=== PATIENT | female | born 1935 | race Caucasian/White ===

== ENCOUNTER → 2017-02-01 | Outpatient (CLI) | payer MEDICARE ==
--- NOTE | 2017-02-02 09:16 | MM ---
Reason for exam: screening (asymptomatic). Last mammogram was performed 1 year and 11 months ago. History: Patient is postmenopausal. Benign excisional biopsy of the left breast. Physical Findings: A clinical breast exam by your physician is recommended on an annual basis and results should be correlated with mammographic findings. MG 3D Screening Mammo W/Cad Bilateral CC and MLO view(s) were taken. Prior study comparison: March 10, 2015, bilateral MG screening mammo w CAD. April 12, 2011, bilateral digital screening mammo w/CAD. The breast tissue is heterogeneously dense. This may lower the sensitivity of mammography. There is chronic nodularity in the right breast. No significant changes when compared with prior studies. ASSESSMENT: Benign, BI-RAD 2 RECOMMENDATION: Routine screening mammogram of both breasts in 1 year.
== END | disposition home or self-care (01) ==
LOC: RADMAMWWP 10:54
PROVIDERS: ATTEND Internal Medicine Geriatric Medicine
DX: Z12.31 Encounter for screening mammogram for malignant neoplasm of breast (principal)
CPT/HCPCS: 77063; G0202

== ENCOUNTER → 2020-06-09 | Outpatient (CLI) | payer MEDICARE ==
[2020-06-09 12:14] LABS: Basophils % (A) 0 %; Eosinophils # (A) 0.2 k/uL (0-0.7); Eosinophils % (A) 3 %; HCT 40.1 % (34.0-46.0); HGB 12.6 gm/dL (11.4-16.0); Lymphocytes # (A) 2.4 k/uL (1.0-4.8); Lymphocytes % (A) 28 %; MCH 29.3 pg (25.0-35.0); MCHC 31.3 g/dL (31.0-37.0); MCV 93.5 fL (80.0-100.0); Mean Platelet Volume 7.2; Monocytes # (A) 0.6 k/uL (0-1.0); Monocytes % (A) 6 %; Neutrophils # (A) 5.3 k/uL (1.3-7.7); Neutrophils % (A) 60 %; Platelet Count 271 k/uL (150-450); RBC 4.29 m/uL (3.80-5.40); RDW 12.9 % (11.5-15.5); WBC 8.7 k/uL (3.8-10.6)
[2020-06-09 22:41] LABS: Hemoglobin A1C 5.9 % (4.0-6.0)
[2020-06-09 22:58] LABS: African American GFR (CKD) 43.3 (60.0-200.0); Albumin 4.7 g/dL (3.80-4.90); Albumin/Globulin Ratio 1.74 (1.60-3.17); Anion Gap 11.3 mmol/L (4.00-12.00); Calcium 9.7 mg/dL (8.7-10.3); Carbon Dioxide 26.7 mmol/L (21.6-31.8); Chol/HDL Ratio 2.56; Globulin 2.7 g/dL (1.6-3.3); LDL Cholesterol,Calculated 106.2 mg/dL (0.0-131.0); Non-African American GFR(CKD) 37.4 (60.0-200.0); Total Bilirubin 0.4 mg/dL (0.3-1.2); Total Protein 7.4 g/dL (6.2-8.2); VLDL Calculation 21.8 mg/dL (5.00-40.00)
== END | disposition home or self-care (01) ==
LOC: LABWHC1 11:21
PROVIDERS: ATTEND Internal Medicine Geriatric Medicine
DX: E78.2 Mixed hyperlipidemia (principal); R41.3 Other amnesia; R73.9 Hyperglycemia, unspecified
CPT/HCPCS: 36415; 80053; 80061; 83036; 84443; 85025

== ENCOUNTER 2022-01-23 11:03 | Inpatient (IN) | payer MEDICARE ==
--- NOTE | 2022-01-23 11:12 | ED ---
General Adult HPI - General Stated complaint: Fall Time Seen by Provider: 01/23/22 11:05 Source: patient, EMS, RN notes reviewed Mode of arrival: EMS Limitations: physical limitation - History of Present Illness Initial comments: This 86-year-old female presents emergency Department via EMS with chief complaint of fall, left hip pain. Patient was at home was in the kitchen which she lost her balance falling. Patient does have underlying history of dementia no prior orthopedic surgery. Patient denies any head injury no loss conscious no neck or back pain. Patiently left hip pain declined pain meds a from EMS. Patient offers no other complaints of paresthesias denies any blood thinners - Related Data Allergies Allergy/AdvReac Type Severity Reaction Status Date / Time No Known Allergies Allergy Verified 01/23/22 11:10 Review of Systems ROS Statement: Those systems with pertinent positive or pertinent negative responses have been documented in the HPI. ROS Other: All systems not noted in ROS Statement are negative. General Exam General appearance: alert, in no apparent distress Head exam: Present: atraumatic, normocephalic, normal inspection Neck exam: Present: normal inspection, full ROM. Absent: tenderness, meningismus, lymphadenopathy Respiratory exam: Present: normal lung sounds bilaterally. Absent: respiratory distress, wheezes, rales, rhonchi, stridor Cardiovascular Exam: Present: regular rate, normal rhythm, normal heart sounds. Absent: systolic murmur, diastolic murmur, rubs, gallop, clicks GI/Abdominal exam: Present: soft, normal bowel sounds. Absent: distended, tenderness, guarding, rebound, rigid Extremities exam: Present: other (Left hip there is diffuse tenderness, there is shortening leg, neurovascular intact) Back exam: Present: full ROM. Absent: tenderness Neurological exam: Present: alert Skin exam: Present: warm, dry, intact, normal color. Absent: rash Course Vital Signs 01/23/22 11:07 Temperature 98.1 F Pulse Rate 85 Respiratory 16 Rate Blood Pressure 141/76 O2 Sat by Pulse 96 Oximetry Medical Decision Making - Medical Decision Making Case discussed Dr. Eddy patient will be admitted for surgical intervention, consult to medicine for surgical clearance. - Lab Data Result diagrams: 01/23/22 11:25 01/23/22 11:25 Lab Results 01/23/22 01/23/22 Range/Units 11:25 11:25 WBC 12.4 H (3.8-10.6) k/uL RBC 4.08 (3.80-5.40) m/uL Hgb 12.2 (11.4-16.0) gm/dL Hct 38.2 (34.0-46.0) % MCV 93.4 (80.0-100.0) fL MCH 29.8 (25.0-35.0) pg MCHC 31.9 (31.0-37.0) g/dL RDW 13.3 (11.5-15.5) % Plt Count 278 (150-450) k/uL MPV 7.5 Neutrophils % 80 % Lymphocytes % 12 % Monocytes % 4 % Eosinophils % 2 % Basophils % 0 % Neutrophils # 10.0 H (1.3-7.7) k/uL Lymphocytes # 1.4 (1.0-4.8) k/uL Monocytes # 0.6 (0-1.0) k/uL Eosinophils # 0.2 (0-0.7) k/uL Basophils # 0.1 (0-0.2) k/uL Sodium 138 (137-145) mmol/L Potassium 3.8 (3.5-5.1) mmol/L Chloride 103 (98-107) mmol/L Carbon Dioxide 24 (22-30) mmol/L Anion Gap 11 mmol/L BUN 37 H (7-17) mg/dL Creatinine 1.55 H (0.52-1.04) mg/dL Est GFR (CKD-EPI)AfAm 35 (>60 ml/min/1.73 sqM) Est GFR (CKD-EPI)NonAf 30 (>60 ml/min/1.73 sqM) Glucose 107 H (74-99) mg/dL Calcium 9.0 (8.4-10.2) mg/dL Total Bilirubin 0.3 (0.2-1.3) mg/dL AST 22 (14-36) U/L ALT 13 (4-34) U/L Alkaline Phosphatase 124 (38-126) U/L Total Protein 7.6 (6.3-8.2) g/dL Albumin 4.4 (3.5-5.0) g/dL Disposition Clinical Impression: Fall, Fracture, intertrochanteric, left femur Disposition: ADMITTED IP TO THIS HOSP Condition: Fair Referrals: José Miguel Bustamante MD [Primary Care Provider] - 1-2 days Time of Disposition: 12:19
[2022-01-23] MEDS ORDERED: HYDROmorphone 0.5 MG/0.5 ML SYRINGE IVP STA (11:27)
[2022-01-23] MEDS ORDERED: ONDANSETRON 4 MG/2 ML VIAL IVP STA (11:28)
[2022-01-23 11:52] LABS: Albumin 4.4 g/dL (3.5-5.0); Potassium 3.8 mmol/L (3.5-5.1); Total Bilirubin 0.3 mg/dL (0.2-1.3); Total Protein 7.6 g/dL (6.3-8.2)
--- NOTE | 2022-01-23 11:58 | XR ---
EXAMINATION TYPE: XR chest 1V DATE OF EXAM: 01/23/2022 COMPARISON: 11/13/2015 HISTORY: Trauma TECHNIQUE: Single frontal view of the chest is obtained. FINDINGS: There is no focal air space opacity, pleural effusion, or pneumothorax seen. The cardiac silhouette size is within normal limits. The osseous structures are intact. IMPRESSION: No acute process.
--- NOTE | 2022-01-23 11:59 | XR ---
EXAMINATION TYPE: XR Hip LT and AP Pelvis DATE OF EXAM: 01/23/2022 COMPARISON: NONE HISTORY: Trauma TECHNIQUE: A single AP view of the pelvis is obtained. Two views of the left hip are obtained. FINDINGS: There is a markedly displaced intertrochanteric fracture of the left hip. Right hip is intact. There is no pelvic fracture. The SI joints and pubic symphysis are normal IMPRESSION: Markedly displaced intertrochanteric fracture of the left.
[2022-01-23 12:02] LABS: INR 0.9 (<1.2); Prothrombin Time 9.9 sec (9.0-12.0)
[2022-01-23 12:09] LABS: Basophils # (A) 0.1 k/uL (0-0.2); Basophils % (A) 0 %; Eosinophils # (A) 0.2 k/uL (0-0.7); Eosinophils % (A) 2 %; HCT 38.2 % (34.0-46.0); HGB 12.2 gm/dL (11.4-16.0); Lymphocytes # (A) 1.4 k/uL (1.0-4.8); Lymphocytes % (A) 12 %; MCH 29.8 pg (25.0-35.0); MCHC 31.9 g/dL (31.0-37.0); MCV 93.4 fL (80.0-100.0); Mean Platelet Volume 7.5; Monocytes # (A) 0.6 k/uL (0-1.0); Monocytes % (A) 4 %; Neutrophils % (A) 80 %; Platelet Count 278 k/uL (150-450); RBC 4.08 m/uL (3.80-5.40); RDW 13.3 % (11.5-15.5); WBC 12.4 k/uL (3.8-10.6)
[2022-01-23] MEDS ORDERED: NALOXONE 0.4 MG/ML 1 ML VIAL IV PRN (12:19)
[2022-01-23] MEDS ORDERED: ONDANSETRON 4 MG/2 ML VIAL IVP PRN (12:19)
[2022-01-23 12:25] LABS: Partial Thromboplastin Time 21.3 sec (22.0-30.0)
[2022-01-23 13:14] LABS: Appearance,Urine Clear (Clear); Bacteria,Urine Rare /hpf; Bilirubin,Urine Negative (Negative); Blood,Urine Negative (Negative); Color,Urine Yellow; Glucose,Urine (UA) Negative (Negative); Hyaline Casts,Urine 4 /lpf (0-2); Ketones,Urine Negative (Negative); Leukocyte Esterase,Urine Trace (Negative); Mucus,Urine Rare /hpf; Nitrite,Urine Negative (Negative); Protein,Urine Trace (Negative); RBC,Urine 1 /hpf (0-5); Specific Gravity,Urine 1.017 (1.001-1.035); Urobilinogen,Urine <2.0 mg/dL (<2.0); WBC,Urine 1 /hpf (0-5)
--- NOTE | 2022-01-23 14:25 | P.HPOR ---
History of Present Illness H&P Date: 01/23/22 Chief Complaint: Left hip pain, status post fall, inability to ambulate Patient is a very pleasant 86-year-old female who is seen in the bedside with her family present for further evaluation of her left hip. Patient sustained a fall this morning at home and her was unable to get her up off the floor. Patient has been unable to ambulate on the left lower extremity since her fall. She was brought to [facility] for further evaluation. X-ray imaging was taken at that time and showed evidence of a left intertrochanteric hip fracture. Patient is currently nonweightbearing on the left lower extremity and on bedrest. She has a Guerrero catheter intact. Medicine is currently on consult for medical management. Patient is not on any an ticoagulation medication. Patient's other medical diagnoses include COPD and hypertension. Past Medical History Past Medical History: COPD, Dementia, Hypertension, Memory Impairment, Osteoarthritis (OA) History of Any Multi-Drug Resistant Organisms: None Reported Past Surgical History: No Surgical Hx Reported Past Psychological History: No Psychological Hx Reported Smoking Status: Former smoker Past Alcohol Use History: None Reported Past Drug Use History: None Reported Medications and Allergies Home Medications Medication Instructions Recorded Confirmed Type ALPRAZolam [Xanax] 0.25 mg PO HS 01/23/22 01/23/22 History Atorvastatin Calcium [Lipitor] 10 mg PO DAILY 01/23/22 01/23/22 History DULoxetine HCL [Cymbalta] 20 mg PO DAILY 01/23/22 01/23/22 History Rivastigmine Tartrate [Exelon] 3 mg PO HS 01/23/22 01/23/22 History Sodium Chloride Tab 1 gm PO HS 01/23/22 01/23/22 History Triamterene-Hctz 37.5-25Mg 1 tab PO HS 01/23/22 01/23/22 History [Maxzide 37.5-25] lisinopriL [Zestril] 10 mg PO HS 01/23/22 01/23/22 History Allergies Allergy/AdvReac Type Severity Reaction Status Date / Time No Known Allergies Allergy Verified 01/23/22 12:58 Physical Examination Osteopathic Statement: *. No significant issues noted on an osteopathic structu ral exam other than those noted in the History and Physical/Consult. Physical exam: Patient is awake, alert, and oriented 3 Vital signs stable Good chest excursion with deep inspiration and expiration Left lower extremity is shortened and externally rotated Pain with palpation of the left hip Significant pain with internal and external rotation of the left hip Neurovascularly intact bilateral lower extremities Dorsiflexion, plantarflexion, and extensor hallucis longus positive sustained bilaterally Calves are soft and supple; No signs or symptoms of DVT; No calf pain Guerrero catheter intact Results Pertinent studies: X-rays of the left hip and pelvis taken on 01/23/2022: Evidence of displaced left intertrochanteric hip fracture; no evidence of pelvic fracture; right hip joint spacing is adequately maintained - Labs Labs: Abnormal Lab Results - Last 24 Hours (Table) 01/23/22 01/23/22 01/23/22 Range/Units 11:25 11:25 11:25 WBC 12.4 H (3.8-10.6) k/uL Neutrophils # 10.0 H (1.3-7.7) k/uL APTT 21.3 L (22.0-30.0) sec BUN 37 H (7-17) mg/dL Creatinine 1.55 H (0.52-1.04) mg/dL Glucose 107 H (74-99) mg/dL Urine Protein (Negative) Ur Leukocyte Esterase (Negative) Urine Bacteria (None) /hpf Hyaline Casts (0-2) /lpf Urine Mucus (None) /hpf 01/23/22 Range/Units 12:42 WBC (3.8-10.6) k/uL Neutrophils # (1.3-7.7) k/uL APTT (22.0-30.0) sec BUN (7-17) mg/dL Creatinine (0.52-1.04) mg/dL Glucose (74-99) mg/dL Urine Protein Trace H (Negative) Ur Leukocyte Esterase Trace H (Negative) Urine Bacteria Rare H (None) /hpf Hyaline Casts 4 H (0-2) /lpf Urine Mucus Rare H (None) /hpf H & H 01/23/22 Range/Units 11:25 Hgb 12.2 (11.4-16.0) gm/dL Hct 38.2 (34.0-46.0) % Coagulation 01/23/22 Range/Units 11:25 INR 0.9 (<1.2) Result Diagrams: 01/23/22 11:25 01/24/22 11:26 Assessment and Plan Assessment: Assessment: Acute traumatic left intertrochanteric hip fracture Status post fall Acute left hip pain Inability to ambulate due to hip COPD Hypertension (1) Status post fall Current Visit: Yes Status: Acute Code(s): Z91.81 - HISTORY OF FALLING SNOMED Code(s): 099583911 (2) Left hip pain Current Visit: Yes Status: Acute Code(s): M25.552 - PAIN IN LEFT HIP SNOMED Code(s): 56604141 (3) Inability to ambulate due to left hip Current Visit: Yes Status: Acute Code(s): R26.2 - DIFFICULTY IN WALKING, NOT ELSEWHERE CLASSIFIED SNOMED Code(s): 948638765 (4) Fracture, intertrochanteric, left femur Current Visit: Yes Status: Acute Code(s): S72.142A - DISPLACED INTERTROCHANTERIC FRACTURE OF LEFT FEMUR, INIT SNOMED Code(s): 212798395 (5) COPD (chronic obstructive pulmonary disease) Current Visit: Yes Status: Acute Code(s): J44.9 - CHRONIC OBSTRUCTIVE PULMONARY DISEASE, UNSPECIFIED SNOMED Code(s): 72613345 (6) Hypertension Current Visit: Yes Status: Acute Code(s): I10 - ESSENTIAL (PRIMARY) HYPERTENSION SNOMED Code(s): 98100786 Plan: Plan: 1. The patient sustained a fall this morning at home and was unable to get up off of floor and has been unable to ambulate on the left lower extremity since that time. She was brought to [facility] for further evaluation. X-ray imaging showed evidence of a displaced left intertrochanteric hip fracture. She was admitted to our service for further treatment and eval uation. We did discuss in detail with the patient and her family that based on her left intertrochanteric hip fracture that she would most likely be unable to ambulate on her left lower extremity without surgical intervention to stabilize her fracture. Patient is also having significant pain at her left hip which is exacerbated with any movement of the left hip and with palpation of the left hip . Patient states based on her fracture, pain, and inability to ambulate, she would like to proceed forward with surgical intervention at her left hip. We will currently plan to proceed forward with surgical intervention tomorrow, 01/24/2022, if cleared by medicine. Consultation has been placed medicine for surgical clearance. The proposed surgical intervention is left gamma nail fixation for left intertrochanteric hip fracture. Surgery will be performed by Dr. Kassi Eddy. I discussed surgical intervention with the patient at length and I answered all of their questions to the best of my ability and the patient understands. I discussed the risk of surgical intervention and alternative t reatment options. I answered all the patient's questions the best of my ability. The patient would like to proceed forward with surgical intervention and will sign informed consent. 2. Patient will remain on bed rest and nonweightbearing on the left lower extremity 3. Keep Guerrero catheter intact 4. We will continue pain control with IV Dilaudid. We will also plan to add oral Ultram 50 mg 1-2 tabs every 6 hours as needed for pain and Tylenol 650 mg 1 tab every 6 hours as needed for pain for pain control. 5. Patient may eat today and will become nothing by mouth status starting at midnight, 01/24/2022, in anticipation for surgical intervention tomorrow. Surgical intervention is currently scheduled for tomorrow afternoon. 6. We will continue to follow the patient closely Seen and examined. Agree with above A/P. Spoke with family. Will plan for cephalomedullary nail. Time with Patient: Greater than 30 (Including obtaining history, physical e xamination, reviewing of imaging, and dictation.)
[2022-01-23] MEDS: traMADol 50 MG TAB PO PRN (18:54)
--- NOTE | 2022-01-24 11:13 | P.CONS ---
History of Present Illness - Reason for Consult Consult date: 01/24/22 Medical clearance - Chief Complaint Status post fall and left trochanter fracture - History of Present Illness Patient is a 86-year-old female with a known history of hypertension, COPD, dementia, osteoarthritis and prior history of smoking was brought to the hospital due to left hip pain status post fall. Patient was unable to ambulate after she sustained a fall. Patient's was unable to get her off from the floor. She was brought to ER for evaluation. X-ray of the left hip showed markedly displaced intertrochanteric fracture of the left. EKG showed sinus rhythm with sinus arrhythmia. Laboratory data showed WBC 12.4 hemoglobin 12.2 and platelets 278 Sodium 138 potassium 3.8 chloride 103 bicarb is 24 BUN 37 and creatinine 1.55 and liver enzymes are not elevated Urinalysis showed no evidence of infection. currently patient denied any complaints of chest pain or shortness of breath. No nausea vomiting or abdominal pain or diarrhea. Denied any recent illnesses. No cough is from production. No fever no chills. Review of Systems Constitutional: Patient denies any fever or chills . No generalized weakness or weight loss. Abdomen: Patient denied nausea vomiting and diarrhea and abdominal pain. Cardiovascular: Patient denies any chest pain or short of breath no palpitations. Respiratory: patient denied any cough is from production. No shortness of breath Neurologic: Patient denied any numbness or tingling headache. Musculoskeletal: Patient denies any complaints of joint swelling or deformity. Left hip pain. Skin: Negative Psychiatric: Negative Endocrine: No heat or cold intolerance. No recent weight gain. Genitourinary: No dysuria or hematuria. All other 14 point ROS negative except the above Past Medical History Past Medical History: COPD, Dementia, Hypertension, Memory Impairment, Osteoarthritis (OA) History of Any Multi-Drug Resistant Organisms: None Reported Past Surgical History: No Surgical Hx Reported Past Psychological History: No Psychological Hx Reported Smoking Status: Former smoker Past Alcohol Use History: None Reported Past Drug Use History: None Reported Medications and Allergies Home Medications Medication Instructions Recorded Confirmed Type ALPRAZolam [Xanax] 0.25 mg PO HS 01/23/22 01/23/22 History Atorvastatin Calcium [Lipitor] 10 mg PO DAILY 01/23/22 01/23/22 History DULoxetine HCL [Cymbalta] 20 mg PO DAILY 01/23/22 01/23/22 History Rivastigmine Tartrate [Exelon] 3 mg PO HS 01/23/22 01/23/22 History Sodium Chloride Tab 1 gm PO HS 01/23/22 01/23/22 History Triamterene-Hctz 37.5-25Mg 1 tab PO HS 01/23/22 01/23/22 History [Maxzide 37.5-25] lisinopriL [Zestril] 10 mg PO HS 01/23/22 01/23/22 History Allergies Allergy/AdvReac Type Severity Reaction Status Date / Time No Known Allergies Allergy Verified 01/23/22 12:58 Physical Exam Vitals: Vital Signs Temp Pulse Pulse Resp BP BP Pulse Ox 01/24/22 07:32 97.8 F 85 18 97/60 98 01/24/22 00:59 99.8 F H 109 H 17 103/67 97 01/23/22 20:00 89 15 01/23/22 18:48 97.9 F 112 H 18 118/70 93 L 01/23/22 13:47 98.2 F 98 18 149/77 91 L 01/23/22 13:23 97.7 F 93 16 116/62 95 01/23/22 11:07 98.1 F 85 16 141/76 96 Intake and Output 01/23/22 01/24/22 01/24/22 22:59 06:59 14:59 Output Total 600 Balance -600 Output: Urine 600 Other: Voiding Method Indwelling Catheter Indwelling Catheter PHYSICAL EXAMINATION: Patient is lying in the bed comfortably, no acute distress, awake alert and oriented.. HEENT: Normocephalic. Neck is supple. Pupils reactive. Nostrils clear. Oral cavity is moist. Neck reveals no JVD, carotid bruits, or thyromegaly. CHEST EXAMINATION: Trachea is central. Symmetrical expansion. Lung odell clear to auscultation and percussion. CARDIAC: Normal S1, S2 with no gallops. No murmurs ABDOMEN: Soft. Bowel sounds normal. No organomegaly. No abdominal bruits. Extremities: reveal no edema. No clubbing or cyanosis Neurologically awake, alert, oriented x3 with well-coordinated movements. No focal deficits noted Skin: No rash or skin lesions. Psychiatric: Coperative. Nonsuicidal Musculoskeletal: No joint swelling or deformity. Tenderness over the left greater trochanteric region. Decreased range of motion. Results CBC & Chem 7: 01/23/22 11:25 01/23/22 11:25 Labs: Abnormal Lab Results - Last 24 Hours (Table) 01/23/22 01/23/22 01/23/22 Range/Units 11:25 11:25 11:25 WBC 12.4 H (3.8-10.6) k/uL Neutrophils # 10.0 H (1.3-7.7) k/uL APTT 21.3 L (22.0-30.0) sec BUN 37 H (7-17) mg/dL Creatinine 1.55 H (0.52-1.04) mg/dL Glucose 107 H (74-99) mg/dL Urine Protein (Negative) Ur Leukocyte Esterase (Negative) Urine Bacteria (None) /hpf Hyaline Casts (0-2) /lpf Urine Mucus (None) /hpf 01/23/22 Range/Units 12:42 WBC (3.8-10.6) k/uL Neutrophils # (1.3-7.7) k/uL APTT (22.0-30.0) sec BUN (7-17) mg/dL Creatinine (0.52-1.04) mg/dL Glucose (74-99) mg/dL Urine Protein Trace H (Negative) Ur Leukocyte Esterase Trace H (Negative) Urine Bacteria Rare H (None) /hpf Hyaline Casts 4 H (0-2) /lpf Urine Mucus Rare H (None) /hpf Assessment and Plan Assessment: status post mechanical fall and left intertrochanteric fracture of the hip. Mild acute kidney injury likely prerenal Hypertension. Currently hypotensive COPD Eventually an x-ray and osteoarthritis DVT prophylaxis Plan: patient will be continued on pain management, incentive spirometry. Patient does take lisinopril and Dyazide at home. Blood pressure medications on hold due to hypotension. Patient will be started on gentle IV hydration and monitor his pressures closely. Patient does not have any active symptoms of chest pain. No prior history of coronary disease. No history of CVA. Patient is at low risk for orthopedic surgery. We'll continue to follow and further recommendations based on the clinical course. Thank you for your consult Time with Patient: Greater than 30
[2022-01-24] MEDS: traMADol 50 MG TAB PO PRN (11:17)
[2022-01-24 12:09] LABS: African American GFR (CKD) 35 (>60 ml/min/1.73 sqM); Anion Gap 10 mmol/L; Blood Urea Nitrogen 38 mg/dL (7-17); Calcium 8.8 mg/dL (8.4-10.2); Carbon Dioxide 24 mmol/L (22-30); Chloride 103 mmol/L (98-107); Glucose 128 mg/dL (74-99); Non-African American GFR(CKD) 30 (>60 ml/min/1.73 sqM); Potassium 4.2 mmol/L (3.5-5.1); Sodium 137 mmol/L (137-145)
[2022-01-24] MEDS ORDERED: TEMAZEPAM 15 MG CAP PO PRN (14:57)
[2022-01-24] MEDS ORDERED: MAGNESIUM HYDROXIDE 2,400 MG/10 ML CUP PO PRN (14:57)
[2022-01-24] MEDS ORDERED: diazePAM 5 MG TAB PO PRN (14:57)
[2022-01-24] MEDS ORDERED: HYDROcodone/APAP 5-325MG 1 EACH TAB PO PRN ×2 (14:57)
[2022-01-24] MEDS: SODIUM CHLORIDE 0.9% 1,000 ML IV SCH ×2 (15:25→23:49)
[2022-01-24] MEDS ORDERED: LACTATED RINGERS 1,000 ML IV ONE (15:45)
[2022-01-24] MEDS ORDERED: DEXAMETHASONE SOD PHOSPHATE 4 MG/ML 1 ML VIAL IVP ONE (15:50)
[2022-01-24] MEDS ORDERED: ONDANSETRON 4 MG/2 ML VIAL IVP ONE (15:50)
[2022-01-24] MEDS ORDERED: fentaNYL (PF) 50 MCG/ML 2 ML AMP ONE (16:00)
[2022-01-24] MEDS ORDERED: LIDOCAINE 2% INJ 20 MG/ML (2 ML VIAL) ONE (16:00)
[2022-01-24] MEDS ORDERED: PHENYLEPHRINE-0.9% NACL SYG 1,000 MCG/10 ML SYRINGE ONE (16:00)
[2022-01-24] MEDS ORDERED: PROPOFOL 10 MG/ML 20 ML VIAL IV ONE (16:00)
[2022-01-24] MEDS ORDERED: KETAMINE 10 MG/ML 20 ML VIAL ONE (16:00)
[2022-01-24] MEDS ORDERED: MIDAZOLAM 2 MG/2 ML VIAL ONE (16:00)
[2022-01-24] MEDS: HYDROmorphone 0.5 MG/0.5 ML SYRINGE IVP PRN ×2 (18:19→18:30)
--- NOTE | 2022-01-24 18:50 | XR ---
EXAMINATION TYPE: XR Hip Complete LT, XR Hip Limited LT DATE OF EXAM: 01/24/2022 6:07 PM INDICATION: Patient age:Female; 86 years old; Reason for study: LEFT HIP NAILING; Intraoperative fluoroscopic services were provided for internal fixation of a left femur. Total fluor oscopy time is 1 minute 17 seconds with a total of 3 submitted images to PACS. Please see the operati ve note for further details.
--- NOTE | 2022-01-24 18:54 | FL ---
Intraoperative fluoroscopic services were provided for internal fixation of a left femur. Total fluor oscopy time is 1 minute 17 seconds with a total of 3 submitted images to PACS. Please see the operati ve note for further details.
[2022-01-24] MEDS: DONEPEZIL 5 MG TAB PO SCH (21:41)
[2022-01-24] MEDS: SODIUM CHLORIDE TAB 1 GM TAB PO SCH (21:41)
[2022-01-24] MEDS: ALPRAZolam 0.25 MG TAB PO SCH (21:41)
[2022-01-24] MEDS: SENNOSIDES-DOCUSATE SODIUM 1 EACH TAB PO SCH (21:41)
[2022-01-25] MEDS: ACETAMINOPHEN TAB 325 MG TAB PO PRN (02:59)
[2022-01-25] MEDS: ATORVASTATIN 10 MG TAB PO SCH (07:34)
[2022-01-25] MEDS: DULoxetine HCL 20 MG CAPSULE.DR PO SCH (07:34)
[2022-01-25] MEDS: ENOXAPARIN 30 MG/0.3 ML SYRINGE SQ SCH (07:35)
[2022-01-25] MEDS ORDERED: ENOXAPARIN 40 MG/0.4 ML SYRINGE SQ SCH (09:00)
--- NOTE | 2022-01-25 09:21 | P.OP ---
Date of Procedure: 10/24/21 Preoperative Diagnosis: Left hip intertrochanteric fracture Postoperative Diagnosis: same Procedure(s) Performed: Left hip cephalomedullary nail Implants: Erica Gamma Nail 180mm, lag screw 100mm screw, 37.5mm screw Anesthesia: paulo COMBS Surgeon: Kassi Eddy IV fluids (ml): 50 Condition: stable Disposition: PACU Indications for Procedure: Joceline had a ground level fall and sustained an intertrochanteric fracture. Her family and I had a long discussion about the implications of a hip fracture and her treatment options. They would like to proceed with surgical fixation. Description of Procedure: The patient, operative extremity, and procedure were identified in a the preop holding area. After informed consent was obtained, the patient was brought back to the operative room. Spinal anesthesia was performed by the anesthesia team. The block seemed incomplete and the decision was made to switch to general anesthesia. The patient was then moved to the Eleln table and carefully positioned and secured with legs scissored. The Ellen table was then used to reduce the fracture. This was confirmed on fluoroscopy. The hip was then prepped and draped in standard sterile fashion. A longitudinal incision was made proximal to the greater trochanter. The awn was introduced to the tip of the trochanter and the guide wire placed. Placement was confirmed on orthogonal views. The starting reamer was used over the guide wire. Following this, the ball tip guide wire was inserted into the canal. Placement was again confirmed. A 12.5mm flexible reamer was inserted and passed easily. The final implant was then loaded and inserted with the jig. The nail passed easily and once the correct alignment was achieved, attention was turned to the cephalomedullary nail. The guide wire was inserted through the triple sleeve cannula. On orthogonal views it was center center and with a tip to apex of less than 25mm. This measured 100mm. The reamer was inserted followed by the lag screw. Placement was again confirmed. Next the nail was locked with a 37.5mm screw placed through the static position of the jig. The wounds were irrigated with normal saline and closed in a layered fashion with 3.0 vicyrl and 4.0 monocryl and skin glue. They were dressed with opsite dressings. Patient was aroused by the anesthesia team and brought back to PACU in stable condition. She will be weight bear as tolerated.
[2022-01-25 09:24] LABS: HCT 24.7 % (37.2-46.3); HGB 7.8 g/dL (12.0-15.0); MCH 29.3 pg (27.0-32.0); MCHC 31.6 g/dL (32.0-37.0); MCV 92.9 fL (80.0-97.0); Mean Platelet Volume 10.6 fL (9.5-12.2); NRBC Per 100 WBC 0 /100 WBCS (0.0-0.0); Platelet Count 189 X 10*3/uL (140-440); RBC 2.66 X 10*6/uL (4.10-5.20); RDW 13.2 % (11.5-14.5); WBC 13.64 X 10*3/uL (4.50-10.00)
--- NOTE | 2022-01-25 09:54 | P.PN ---
Subjective Progress Note Date: 01/25/22 Principal diagnosis: Status post left hip cephalomedullary nail This is an 86 year-old female post left hip cephalomedullary nail. This is post-op day 1. The patient was evaluated at the bedside today. The patient denies nausea, vomiting, abdominal pain, shortness of breath, and chest pain this morning. She states her pain is controlled at this time with Ultram. The patient has ambulated to the bathroom with physical therapy this morning and is currently in the recliner chair. No new complaints today. Objective - Vital Signs Vital signs: Vital Signs Temp 98.6 F 01/25/22 08:01 Pulse 100 01/25/22 08:01 Resp 16 01/25/22 08:01 BP 110/60 01/25/22 08:01 Pulse Ox 92 L 01/25/22 08:01 FiO2 Intake & Output 01/24/22 01/25/22 01/25/22 18:59 06:59 18:59 Intake Total 600 240 Output Total 550 400 Balance 50 -400 240 Intake: IV 600 Oral 240 Output: Urine 500 400 Estimated Blood Loss 50 Other: Voiding Method Indwelling Catheter Indwelling Catheter Indwelling Catheter - Exam The patient does not appear in acute distress. Alert and orientated x3. Dressing is clean dry and intact. Incision appears fine with no erythema or active drainage. Calf is soft and nontender. Good foot and ankle motion without difficulty. Sensation and circulatory status is intact. - Labs CBC & Chem 7: 01/25/22 04:59 01/24/22 11:26 Labs: Abnormal Lab Results - Last 24 Hours (Table) 01/24/22 01/25/22 Range/Units 11:26 04:59 WBC 13.64 H (4.50-10.00) X 10*3/uL RBC 2.66 L (4.10-5.20) X 10*6/uL Hgb 7.8 L (12.0-15.0) g/dL Hct 24.7 L (37.2-46.3) % MCHC 31.6 L (32.0-37.0) g/dL BUN 38 H (7-17) mg/dL Creatinine 1.55 H (0.52-1.04) mg/dL Glucose 128 H (74-99) mg/dL Assessment and Plan (1) Status post hip surgery Current Visit: Yes Status: Acute Code(s): Z98.890 - OTHER SPECIFIED POSTPROCEDURAL STATES SNOMED Code(s): 660084845 (2) Fall Current Visit: Yes Status: Acute Code(s): W19.XXXA - UNSPECIFIED FALL, INITIAL ENCOUNTER SNOMED Code(s): 4060599 (3) Fracture, intertrochanteric, left femur Current Visit: Yes Status: Acute Code(s): S72.142A - DISPLACED INTERTROCHANTERIC FRACTURE OF LEFT FEMUR, INIT SNOMED Code(s): 892713158 Plan: 1. Continue pain control 2. Anticoagulation with Lovenox 3. Continue physical therapy and ambulation. Weightbearing as tolerated. 4. Anticipate discharge to inpatient rehab vs. subacute rehab vs. home with homecare depending on how she does today and tomorrow.
[2022-01-25 10:59] LABS: Basophils # (A) 0.01 X 10*3/uL (0.00-0.10); Basophils % (A) 0.1 %; Eosinophils # (A) 0 X 10*3/uL (0.04-0.35); Eosinophils % (A) 0 %; Immature Grans, Automated 0.5 %; Lymphocytes # (A) 1.26 X 10*3/uL (0.90-5.00); Lymphocytes % (A) 9.2 %; Monocytes # (A) 2.14 X 10*3/uL (0.20-1.00); Monocytes % (A) 15.7 %; Neutrophils # (A) 10.16 X 10*3/uL (1.80-7.70); Neutrophils % (A) 74.5 %
--- NOTE | 2022-01-25 12:33 | P.CONS ---
History of Present Illness - Chief Complaint Walking difficulty, left hip fracture - History of Present Illness I had the opportunity to see patient for inpatient rehab consultation with regard to walking difficulty. Patient admitted to [facility] January 23 history trip and fall resultant left hip pain. X-ray demonstrated ability fracture and underwent ORIF January [address] Dr. Eddy. Seen medically by Dr. Kwan. No chest x-ray done and negative. Patient is start PT reports no assist bed mobility, transfer, gait 30 feet with roller walker. OT prescribed. Previous functional history as elicited from patient, , daughter: 86-year-old right-handed white female who is lives in one floor home wit h basement with . generally uses wheelchair for mobility. The cooking. Patient and share the laundry. does the driving. Patient previously been with sitdown shower and gait with standard cane. PCP Dr. Bustamante. Denies tobacco or alcohol. Review of Systems Review of systems: ENT: Hard of hearing. Eyes: Denies discharge or photophobia. Cardiac: Denies chest pain or palpitation. Pulmonary: Denies cough or shortness of breath. Breast: Denies discharge or lumps. Gastrointestinal: Denies nausea, emesis, constipation, diarrhea. Genitourinary: Denies discharge or frequency. Musculoskeletal: Left hip discomfort. Neurologic: Denies motor or sensory change. Endocrine: Denies shakes or sweats. Oncology: Denies cancers. Dermatologic: Denies rash, itching, pruritus. ALLERGY/immunology: Denies sneezes, rashes. Past Medical History Past Medical History: COPD, Dementia, Hypertension, Memory Impairment, Osteoarthritis (OA) History of Any Multi-Drug Resistant Organisms: None Reported Past Surgical History: No Surgical Hx Reported Past Psychological History: No Psychological Hx Reported Smoking Status: Former smoker Past Alcohol Use History: None Reported Past Drug Use History: None Reported Medications and Allergies Home Medications Medication Instructions Recorded Confirmed Type ALPRAZolam [Xanax] 0.25 mg PO HS 01/23/22 01/23/22 History Atorvastatin Calcium [Lipitor] 10 mg PO DAILY 01/23/22 01/23/22 History DULoxetine HCL [Cymbalta] 20 mg PO DAILY 01/23/22 01/23/22 History Rivastigmine Tartrate [Exelon] 3 mg PO HS 01/23/22 01/23/22 History Sodium Chloride Tab 1 gm PO HS 01/23/22 01/23/22 History Triamterene-Hctz 37.5-25Mg 1 tab PO HS 01/23/22 01/23/22 History [Maxzide 37.5-25] lisinopriL [Zestril] 10 mg PO HS 01/23/22 01/23/22 History Allergies Allergy/AdvReac Type Severity Reaction Status Date / Time No Known Allergies Allergy Verified 01/23/22 12:58 Physical Exam Vitals: Vital Signs Temp Pulse Resp BP Pulse Ox 01/25/22 08:01 98.6 F 100 16 110/60 92 L 01/25/22 07:15 14 01/25/22 02:58 98.2 F 110 H 14 97/60 99 01/24/22 22:00 105 H 102/66 99 01/24/22 21:30 102 H 96/66 99 01/24/22 21:15 99 97/69 98 01/24/22 20:45 98 97/69 100 01/24/22 20:30 102 H 116/72 99 01/24/22 20:15 68 116/72 100 01/24/22 20:00 105 H 108/71 87 L 01/24/22 19:45 97.5 F L 104 H 14 101/67 97 01/24/22 19:00 100 18 144/66 98 01/24/22 18:45 100 18 143/67 99 01/24/22 18:30 100 18 144/67 99 01/24/22 18:15 100 18 139/64 99 01/24/22 18:09 98 F 100 18 134/76 99 01/24/22 15:45 99.2 F 94 20 111/55 97 01/24/22 14:15 98.2 F 74 18 92/50 98 Intake and Output 01/24/22 01/25/22 01/25/22 22:59 06:59 14:59 Intake Total 600 240 Output Total 750 200 Balance -150 -200 240 Intake: IV 600 Oral 240 Output: Urine 700 200 Estimated Blood Loss 50 Other: Voiding Method Indwelling Catheter Indwelling Catheter Skin: Atrophic, intact. General: Thin build and comfortable appearance. Head: Normocephalic, atraumatic. Eyes: Symmetric. Pupils equal round. Ears: Symmetric. Hearing within normal limits. Mouth: Clear. Neck: Supple. Carotid without bruit. Cardiac: Regular rate and rhythm. Lungs: Clear anteriorly and posteriorly. Abdomen: Soft active nontender. Extremities: Normal tone. Neurological: Mental status: Alert, cooperative, pleasant. Cranial nerves: Symmetric facial tone and trapezius. Motor: Active movement both arms and right leg. Giveaway weakness left hip and leg but active movement at ankle. Sensation: Intact throughout. DTRs: Symmetric and equal throughout. Mobility: Requires physical assist for bed mobility. Results CBC & Chem 7: 01/25/22 04:59 01/24/22 11:26 Labs: Abnormal Lab Results - Last 24 Hours (Table) 01/25/22 Range/Units 04:59 WBC 13.64 H (4.50-10.00) X 10*3/uL RBC 2.66 L (4.10-5.20) X 10*6/uL Hgb 7.8 L (12.0-15.0) g/dL Hct 24.7 L (37.2-46.3) % MCHC 31.6 L (32.0-37.0) g/dL Immature Gran # 0.07 H (0.00-0.04) X 10*3/uL Neutrophils # 10.16 H (1.80-7.70) X 10*3/uL Monocytes # 2.14 H (0.20-1.00) X 10*3/uL Eosinophils # 0 L (0.04-0.35) X 10*3/uL Assessment and Plan (1) COPD (chronic obstructive pulmonary disease) Current Visit: Yes Status: Acute Code(s): J44.9 - CHRONIC OBSTRUCTIVE PULMONARY DISEASE, UNSPECIFIED SNOMED Code(s): 50168489 (2) Fracture, intertrochanteric, left femur Current Visit: Yes Status: Acute Code(s): S72.142A - DISPLACED INTERTROCHANTERIC FRACTURE OF LEFT FEMUR, INIT SNOMED Code(s): 106349417 Plan: Comments and plan: At this time safety concerns and ability to participate with therapy noted by PT. Would anticipate OT find safety concerns and benefit as well. We'll follow for therapy notes. Discussed possible inpatient rehab with patient, , daughter and all seem agreeable. Patient's preference of course would be to return home but she understands possibility of high by IPR.
[2022-01-25] MEDS ORDERED: SODIUM CHLORIDE 0.9% 500 ML 500 ML IV ONE (15:01)
[2022-01-25] MEDS: SODIUM CHLORIDE 0.9% 1,000 ML IV SCH (16:13)
[2022-01-25] MEDS: SODIUM CHLORIDE TAB 1 GM TAB PO SCH (20:30)
[2022-01-25] MEDS: DONEPEZIL 5 MG TAB PO SCH (20:30)
[2022-01-25] MEDS: ALPRAZolam 0.25 MG TAB PO SCH (20:30)
[2022-01-25] MEDS: SENNOSIDES-DOCUSATE SODIUM 1 EACH TAB PO SCH (20:30)
[2022-01-26] MEDS: DULoxetine HCL 20 MG CAPSULE.DR PO SCH (07:56)
[2022-01-26] MEDS: ACETAMINOPHEN TAB 325 MG TAB PO PRN ×2 (07:56→19:55)
[2022-01-26] MEDS: ATORVASTATIN 10 MG TAB PO SCH (07:56)
[2022-01-26] MEDS: ENOXAPARIN 30 MG/0.3 ML SYRINGE SQ SCH (07:56)
--- NOTE | 2022-01-26 10:29 | CDI ---
Documentation Clarification Form Date: 01/26/2022 10:12:49 AM From: Milena LmabWickSALLY shah, CCDS Admit Date: 01/23/2022 12:20:00 PM Patient Name: Joceline Barrera Visit Number: [id number] Discharge Date: ATTENTION: The Clinical Documentation Specialists (CDI) and [facility] Coding Staff appreciate your assistance in clarifying documentation. Please respond to the clarification below the line at the bottom and electronically sign. The CDI & [facility] Coding staff will review the response and follow-up if needed. Please note: Queries are made part of the Legal Health Record. If you have any questions, please contact the author of this message via ITS. Dr. King: The patient is POD 2 status post ORIF w/nailing of Left Femur Fracture. The patient's admission Hemoglobin/Hematocrit was 12.2 & 38.2. Postoperatively on 01/25, the patient's Hemoglobin is 7.8 and Hematocrit is 24.7. Additional clarification is requested regarding the relationship, if any, that exists between the patient's lab values and the procedure. Patients Admitting Diagnosis: Left Hip Intertrochanteric Fracture Post-Operative Diagnosis: Same Procedure performed 01/24: Left Hip Cephalomedullary Nail History/Risk Factors per the 01/23 Orthopedic H/P: COPD, Dementia, Hypertension, Memory Impairment, Osteoarthritis. Clinical Indicators: Presented to the ED on 01/23 via EMS after a fall at home in the kitchen after losing her balance. Complained of left hip pain. Admit with Fall, Fracture Intertrochanteric Left Femur 01/23 VS: T 98.1, P 85, R 16, BP 141/76, PO 96 RA - 91 RA, BMI: 22.3 01/23 LAB: WBC 12.4, Hgb 12.2, hct 38.2, Neutrophils 10.0; APTT 21.3; BUN 37, Cr 1.55, Glucose 107 01/25 LAB: WBC 13.64, RBC 2.66, Hgb 7.8, Hct 24.7, Neutrophils 10.16. Treatment 01/23: Guerrero Catheter placement, IV Dilaudid 0.5 mg x1, IV Zofran 4 mg x1, IV Dilaudid 0.5 mg q3H, IV Zofran 4 mg q8H, po Tylenol, po Ultram 01/24: IV Lactated Ringers, IV Decadron 4 mg x1, IV Zofran 4 mg x1, IV Cefazolin 50 mls @ 100 mls/hr q8H, po Na Chl tab 1 gm micha 01/25: Lovenox 40 mg sq Daily, IV Na Chl 500 mls @ 999 mls/hr q31M Please clarify the following: [ ] Acute Blood Loss Anemia is a complication of surgical procedure [ ] Acute Blood Loss Anemia is an expected outcome of the surgical procedure [ ] Acute Blood Loss Anemia is related to patients co-morbid condition(s), please specify: and is not a complication of the procedure [ ] Acute on chronic Blood Loss not related to surgery [ ] Chronic blood loss, please specify cause if known: [ ] Other Anemia, please specify: [ ] Other please specify: [ ] Unable to determine (Template Last Revised: October 2020) It is acute blood loss anemia that's an expected outcome of the surgical procedure and the hip fracture. Thanks! Kassi LUND
--- NOTE | 2022-01-26 15:58 | P.PN ---
Subjective Progress Note Date: 01/26/22 Principal diagnosis: Status post left hip cephalomedullary nail This is an 86 year-old female post left hip cephalomedullary nail. This is post-op day 2. The patient was evaluated at the bedside today. The patient denies nausea, vomiting, abdominal pain, shortness of breath, and chest pain this morning. She states her pain is controlled at this time. The patient has ambulated to the bathroom with physical therapy this morning and is currently in the recliner chair. No new complaints today. Objective - Vital Signs Vital signs: Vital Signs Temp 97.6 F 01/26/22 14:41 Pulse 106 H 01/26/22 14:41 Resp 16 01/26/22 14:41 BP 91/49 01/26/22 14:41 Pulse Ox 99 01/26/22 14:41 FiO2 Intake & Output 01/25/22 01/26/22 01/26/22 18:59 06:59 18:59 Intake Total 1190 900 120 Output Total 250 Balance 1190 650 120 Intake: Intake, IV Titration 950 900 Amount Sodium Chloride 0.9% 1, 450 900 000 ml @ 75 mls/hr IV . [id number] SALLY Rx#:[id number] Sodium Chloride 0.9% 500 500 ml 500 ml @ 999 mls/hr IV .Q31M ONE Rx#:[id number] Oral 240 120 Output: Urine 250 Other: Voiding Method Indwelling Catheter Indwelling Catheter Diaper Incontinent # Voids 1 # Bowel Movements 0 - Exam The patient does not appear in acute distress. Alert and orientated x3. Dressing is clean dry and intact. Incision appears fine with no erythema or active drainage. Calf is soft and nontender. Good foot and ankle motion without difficulty. Sensation and circulatory status is intact. - Labs CBC & Chem 7: 01/25/22 04:59 01/24/22 11:26 Assessment and Plan (1) Status post hip surgery Current Visit: Yes Status: Acute Code(s): Z98.890 - OTHER SPECIFIED POSTPROCEDURAL STATES SNOMED Code(s): 457718329 (2) Fall Current Visit: Yes Status: Acute Code(s): W19.XXXA - UNSPECIFIED FALL, INITIAL ENCOUNTER SNOMED Code(s): 0387655 (3) Fracture, intertrochanteric, left femur Current Visit: Yes Status: Acute Code(s): S72.142A - DISPLACED INTERTROCHANTERIC FRACTURE OF LEFT FEMUR, INIT SNOMED Code(s): 655365802 Plan: 1. Continue pain control 2. Anticoagulation with Lovenox. 3. Continue physical therapy and ambulation. Weightbearing as tolerated. 4. Anticipate discharge to subacute rehab likely tomorrow.
[2022-01-26] MEDS: SODIUM CHLORIDE 0.9% 1,000 ML IV SCH ×2 (19:37→19:39)
[2022-01-26] MEDS: SENNOSIDES-DOCUSATE SODIUM 1 EACH TAB PO SCH (19:55)
[2022-01-26] MEDS: SODIUM CHLORIDE TAB 1 GM TAB PO SCH (19:55)
[2022-01-26] MEDS: DONEPEZIL 5 MG TAB PO SCH (19:55)
[2022-01-26] MEDS: ALPRAZolam 0.25 MG TAB PO SCH (19:56)
[2022-01-27] MEDS: ENOXAPARIN 30 MG/0.3 ML SYRINGE SQ SCH (07:15)
[2022-01-27] MEDS: ATORVASTATIN 10 MG TAB PO SCH (07:15)
[2022-01-27] MEDS: DULoxetine HCL 20 MG CAPSULE.DR PO SCH (07:15)
[2022-01-27] MEDS: SODIUM CHLORIDE 0.9% 1,000 ML IV SCH (07:23)
[2022-01-27 09:41] LABS: African American GFR (CKD) 47.1 (60.0-200.0); Anion Gap 9.9 mmol/L (10.00-18.00); Blood Urea Nitrogen 32.4 mg/dL (9.0-27.0); Calcium 7.7 mg/dL (8.7-10.3); Carbon Dioxide 22.1 mmol/L (20.0-27.5); Non-African American GFR(CKD) 40.6 (60.0-200.0); Potassium 3.5 mmol/L (3.5-5.5)
--- NOTE | 2022-01-27 09:42 | P.DS ---
Providers Date of admission: 01/23/22 12:20 Expected date of discharge: 01/27/22 Attending physician: Kassi Eddy DO Consults: 01/23/22 12:19 Consult Physician Urgent Consulting Provider: Silvia Balderas Consult Reason/Comments: Surgical clearance, medical management Do you want consulting provider notified?: Yes 01/25/22 10:44 Consult Physician Routine Consulting Provider: Lalito Thornton Consult Reason/Comments: evaluate for IPR Do you want consulting provider notified?: Yes Primary care physician: José Miguel Bustamante - Alen Diagnosis(es) (1) Status post hip surgery Current Visit: Yes Status: Acute (2) Fall Current Visit: Yes Status: Acute (3) Fracture, intertrochanteric, left femur Current Visit: Yes Status: Acute Hospital Course: This is an 86 year old female who presented to the hospital post fall at home and sustained a left hip fracture. The patient was cleared by medicine for surgery. The patient underwent a left hip cephalomedullary nailing on 01/24/[address] Eddy. The procedure was performed without complication or sequelae. The patient is doing well postoperatively. Labs and vital signs are stable on the day of discharge. On the day of discharge the patient's hip incision is healing well. There is minimal erythema. There is no drainage noted at this time. There is minimal soft tissue swelling to the hip and thigh. The patient has full foot and ankle motion without difficulty or pain. Neurovascular status to the left lower extremity is intact. The patient is discharged to skilled rehab in good condition. Pertinent Studies: Laboratory Tests 01/24/22 01/25/22 11:26 04:59 WBC 13.64 H RBC 2.66 L Hgb 7.8 L Hct 24.7 L BUN 38 H Creatinine 1.55 H Glucose 128 H Patient Condition at Discharge: Stable Plan - Discharge Summary Discharge Rx Participant: No New Discharge Prescriptions: New Enoxaparin [Lovenox] 30 mg SQ DAILY each Sennosides-Docusate Sodium [Senokot-S] 2 each PO HS tab HYDROcodone/APAP 5-325MG [[place] 5] 1 each PO Q6HR PRN #30 tab PRN Reason: Pain No Action ALPRAZolam [Xanax] 0.25 mg PO HS Triamterene-Hctz 37.5-25Mg [Maxzide 37.5-25] 1 tab PO HS DULoxetine HCL [Cymbalta] 20 mg PO DAILY Atorvastatin Calcium [Lipitor] 10 mg PO DAILY Sodium Chloride Tab 1 gm PO HS Rivastigmine Tartrate [Exelon] 3 mg PO HS lisinopriL [Zestril] 10 mg PO HS Discharge Medication List ALPRAZolam [Xanax] 0.25 mg PO HS 01/23/22 [History] Atorvastatin Calcium [Lipitor] 10 mg PO DAILY 01/23/22 [History] DULoxetine HCL [Cymbalta] 20 mg PO DAILY 01/23/22 [History] Rivastigmine Tartrate [Exelon] 3 mg PO HS 01/23/22 [History] Sodium Chloride Tab 1 gm PO HS 01/23/22 [History] Triamterene-Hctz 37.5-25Mg [Maxzide 37.5-25] 1 tab PO HS 01/23/22 [History] lisinopriL [Zestril] 10 mg PO HS 01/23/22 [History] Enoxaparin [Lovenox] 30 mg SQ DAILY each 01/26/22 [Rx] Sennosides-Docusate Sodium [Senokot-S] 2 each PO HS tab 01/26/22 [Rx] HYDROcodone/APAP 5-325MG [[place] 5] 1 each PO Q6HR PRN #30 tab 01/27/22 [Rx] Follow up Appointment(s)/Referral(s): Kassi Eddy DO [Doctor of Osteopathic Medicine] - 02/23/22 1:45 pm (With Laura) José Miguel Bustamante MD [Primary Care Provider] - 1-2 days Activity/Diet/Wound Care/Special Instructions: Keep Optifoam dressing in place for 7 days unless saturated. Remove dressing in 7 days and no dressing is required after that unless there is drainage. May shower. WBAT with walker and assistance. Use pain medication as directed. Continue Lovenox for 4 weeks Follow up outpatient with Dr. Eddy in 4 weeks -- call for appointment. Call [facility] with questions or concerns. Discharge Disposition: TRANSFER TO SNF/ECF
[2022-01-27 10:06] LABS: Basophils # (A) 0.01 X 10*3/uL (0.00-0.10); Basophils % (A) 0.1 %; Eosinophils # (A) 0.23 X 10*3/uL (0.04-0.35); Eosinophils % (A) 2.4 %; HCT 18.9 % (37.2-46.3); HGB 5.7 g/dL (12.0-15.0); Immature Grans, Automated 0.6 %; Lymphocytes # (A) 1.58 X 10*3/uL (0.90-5.00); Lymphocytes % (A) 16.6 %; MCH 28.4 pg (27.0-32.0); MCHC 30.2 g/dL (32.0-37.0); Mean Platelet Volume 10.5 fL (9.5-12.2); Monocytes # (A) 1.01 X 10*3/uL (0.20-1.00); Monocytes % (A) 10.6 %; NRBC Per 100 WBC 0 /100 WBCS (0.0-0.0); Neutrophils # (A) 6.61 X 10*3/uL (1.80-7.70); Neutrophils % (A) 69.7 %; Platelet Count 153 X 10*3/uL (140-440); RBC 2.01 X 10*6/uL (4.10-5.20); RDW 13.6 % (11.5-14.5)
--- NOTE | 2022-01-27 10:21 | P.PN ---
Subjective Progress Note Date: 01/25/22 Patient is a 86-year-old female with a known history of hypertension, COPD, dementia, osteoarthritis and prior history of smoking was brought to the hospital due to left hip pain status post fall. Patient was unable to ambulate after she sustained a fall. Patient's was unable to get her off from the floor. She was brought to ER for evaluation. X-ray of the left hip showed markedly displaced intertrochanteric fracture of the left. EKG showed sinus rhythm with sinus arrhythmia. Laboratory data showed WBC 12.4 hemoglobin 12.2 and platelets 278 Sodium 138 potassium 3.8 chloride 103 bicarb is 24 BUN 37 and creatinine 1.55 and liver enzymes are not elevated Urinalysis showed no evidence of infection. currently patient denied any complaints of chest pain or shortness of breath. No nausea vomiting or abdominal pain or diarrhea. Denied any recent illnesses. No cough is from production. No fever no chills. 01/25/2022 Patient is status post left hip staphyloma medullary nail. Postoperative day 1. Patient is currently resting in the bed. Awake alert and oriented 3. Denied any complaints of dizziness and lightheadedness. No chest pain or shortness of breath. Pain is fairly controlled. Otherwise patient is hypotensive this afternoon and was given 1 L fluid bolus. Continue with IV fluids. Laboratory data showed WBC 13.6 hemoglobin 7.8. Was 12.2 on 01/23/2022. Platelets 189. Patient is being continued on physical therapy. Current medications reviewed. Objective - Vital Signs Vital signs: Vital Signs Temp 98.6 F 01/25/22 08:01 Pulse 100 01/25/22 08:01 Resp 16 01/25/22 08:01 BP 110/60 01/25/22 08:01 Pulse Ox 92 L 01/25/22 08:01 FiO2 Intake & Output 01/24/22 01/25/22 01/25/22 18:59 06:59 18:59 Intake Total 600 240 Output Total 550 400 Balance 50 -400 240 Intake: IV 600 Oral 240 Output: Urine 500 400 Estimated Blood Loss 50 Other: Voiding Method Indwelling Catheter Indwelling Catheter Indwelling Catheter - Exam PHYSICAL EXAMINATION: Patient is lying in the bed comfortably, no acute distress, awake alert and oriented.. HEENT: Normocephalic. Neck is supple. Pupils reactive. Nostrils clear. Oral cavity is moist. Neck reveals no JVD, carotid bruits, or thyromegaly. CHEST EXAMINATION: Trachea is central. Symmetrical expansion. Lung odell clear to auscultation and percussion. CARDIAC: Normal S1, S2 with no gallops. No murmurs ABDOMEN: Soft. Bowel sounds normal. No organomegaly. No abdominal bruits. Extremities: reveal no edema. No clubbing or cyanosis Neurologically awake, alert, oriented x3 with well-coordinated movements. No focal deficits noted Skin: No rash or skin lesions. Psychiatric: Coperative. Nonsuicidal Musculoskeletal: No joint swelling or deformity. Tenderness over the left greater trochanteric region. Decreased range of motion. - Labs CBC & Chem 7: 01/27/22 06:21 01/27/22 06:21 Labs: Abnormal Lab Results - Last 24 Hours (Table) 01/24/22 01/25/22 Range/Units 11:26 04:59 WBC 13.64 H (4.50-10.00) X 10*3/uL RBC 2.66 L (4.10-5.20) X 10*6/uL Hgb 7.8 L (12.0-15.0) g/dL Hct 24.7 L (37.2-46.3) % MCHC 31.6 L (32.0-37.0) g/dL Immature Gran # 0.07 H (0.00-0.04) X 10*3/uL Neutrophils # 10.16 H (1.80-7.70) X 10*3/uL Monocytes # 2.14 H (0.20-1.00) X 10*3/uL Eosinophils # 0 L (0.04-0.35) X 10*3/uL BUN 38 H (7-17) mg/dL Creatinine 1.55 H (0.52-1.04) mg/dL Glucose 128 H (74-99) mg/dL Assessment and Plan Assessment: status post mechanical fall and left intertrochanteric fracture of the hip on 01/24/2022.. Mild acute kidney injury likely prerenal Acute blood loss anemia. Possible postsurgical. Continue to monitor hemoglobin. Hypertension. Currently hypotensive COPD Eventually an x-ray and osteoarthritis DVT prophylaxis Plan: patient will be continued on pain management, incentive spirometry. Patient does take lisinopril and Dyazide at home. Blood pressure medications on hold due to hypotension. Patient will be started on gentle IV hydration and monitor his pressures closely. Monitor blood pressure and H&H. We'll continue to follow and further recommendations based on the clinical course. Time with Patient: Greater than 30
--- NOTE | 2022-01-27 10:23 | P.PN ---
Subjective Progress Note Date: 01/26/22 Patient is a 86-year-old female with a known history of hypertension, COPD, dementia, osteoarthritis and prior history of smoking was brought to the hospital due to left hip pain status post fall. Patient was unable to ambulate after she sustained a fall. Patient's was unable to get her off from the floor. She was brought to ER for evaluation. X-ray of the left hip showed markedly displaced intertrochanteric fracture of the left. EKG showed sinus rhythm with sinus arrhythmia. Laboratory data showed WBC 12.4 hemoglobin 12.2 and platelets 278 Sodium 138 potassium 3.8 chloride 103 bicarb is 24 BUN 37 and creatinine 1.55 and liver enzymes are not elevated Urinalysis showed no evidence of infection. currently patient denied any complaints of chest pain or shortness of breath. No nausea vomiting or abdominal pain or diarrhea. Denied any recent illnesses. No cough is from production. No fever no chills. 01/25/2022 Patient is status post left hip staphyloma medullary nail. Postoperative day 1. Patient is currently resting in the bed. Awake alert and oriented 3. Denied any complaints of dizziness and lightheadedness. No chest pain or shortness of breath. Pain is fairly controlled. Otherwise patient is hypotensive this afternoon and was given 1 L fluid bolus. Continue with IV fluids. Laboratory data showed WBC 13.6 hemoglobin 7.8. Was 12.2 on 01/23/2022. Platelets 189. Patient is being continued on physical therapy. 01/26/2022 Patient is currently resting in bed comfortable denied any complains of chest pain or short of breath. Patient has been afebrile. No dizziness or lightheadedness. Patient is able to walk with walker. According to her patient has always been hypotensive. Blood pressure medications on hold. Denied having any bowel movement today. No complains of fever or chills. Pain is controlled. Anticipate discharge next 24 hours to rehab. Current medications reviewed. Objective - Vital Signs Vital signs: Vital Signs Temp 98.2 F 01/26/22 19:27 Pulse 94 01/26/22 19:27 Resp 14 01/26/22 19:27 BP 97/60 01/26/22 19:27 Pulse Ox 98 01/26/22 19:27 FiO2 Intake & Output 06/15/22 06/15/22 06/16/22 06:59 18:59 06:59 Intake Total 900 120 Output Total 250 Balance 650 120 Intake: Intake, IV Titration 900 Amount Sodium Chloride 0.9% 1, 900 000 ml @ 75 mls/hr IV . [id number] [facility] Rx#:[id number] Oral 120 Output: Urine 250 Other: Voiding Method Indwelling Catheter Diaper Bedside Commode Incontinent Diaper Incontinent # Voids 1 2 # Bowel Movements 0 - Exam PHYSICAL EXAMINATION: Patient is lying in the bed comfortably, no acute distress, awake alert and oriented.. HEENT: Normocephalic. Neck is supple. Pupils reactive. Nostrils clear. Oral cavity is moist. Neck reveals no JVD, carotid bruits, or thyromegaly. CHEST EXAMINATION: Trachea is central. Symmetrical expansion. Lung odell clear to auscultation and percussion. CARDIAC: Normal S1, S2 with no gallops. No murmurs ABDOMEN: Soft. Bowel sounds normal. No organomegaly. No abdominal bruits. Extremities: reveal no edema. No clubbing or cyanosis Neurologically awake, alert, oriented x3 with well-coordinated movements. No focal deficits noted Skin: No rash or skin lesions. Psychiatric: Coperative. Nonsuicidal Musculoskeletal: No joint swelling or deformity. Tenderness over the left greater trochanteric region. Decreased range of motion. - Labs CBC & Chem 7: 01/27/22 06:21 22 06:21 Assessment and Plan Assessment: status post mechanical fall and left intertrochanteric fracture of the hip on 01/24/2022.. Mild acute kidney injury likely prerenal Acute blood loss anemia. Possible postsurgical. Continue to monitor hemoglobin. Hypertension. Currently hypotensive COPD Eventually an x-ray and osteoarthritis DVT prophylaxis Plan: patient will be continued on pain management, incentive spirometry. Patient does take lisinopril and Dyazide at home. Blood pressure medications on hold due to hypotension. Patient will be started on gentle IV hydration and monitor his pressures closely. Monitor blood pressure and H&H. Follow-up CBC tomorrow. We'll continue to follow and further recommendations based on the clinical course. Time with Patient: Greater than 30
[2022-01-27] MEDS: ACETAMINOPHEN TAB 325 MG TAB PO PRN (13:25)
[2022-01-27] MEDS: ALPRAZolam 0.25 MG TAB PO SCH (19:42)
[2022-01-27] MEDS: SENNOSIDES-DOCUSATE SODIUM 1 EACH TAB PO SCH (19:42)
[2022-01-27] MEDS: DONEPEZIL 5 MG TAB PO SCH (19:42)
[2022-01-27] MEDS: SODIUM CHLORIDE TAB 1 GM TAB PO SCH (19:42)
[2022-01-27 21:39] LABS: Basophils # (A) 0.1 k/uL (0-0.2); Basophils % (A) 1 %; Eosinophils # (A) 0.4 k/uL (0-0.7); Eosinophils % (A) 3 %; HCT 27.2 % (34.0-46.0); Lymphocytes # (A) 1.5 k/uL (1.0-4.8); Lymphocytes % (A) 13 %; MCH 29.8 pg (25.0-35.0); MCHC 31.7 g/dL (31.0-37.0); Mean Platelet Volume 8.4; Monocytes # (A) 0.8 k/uL (0-1.0); Monocytes % (A) 7 %; Neutrophils # (A) 8.8 k/uL (1.3-7.7); Neutrophils % (A) 74 %; Platelet Count 189 k/uL (150-450); RBC 2.89 m/uL (3.80-5.40); RDW 13.8 % (11.5-15.5); WBC 11.8 k/uL (3.8-10.6)
[2022-01-27 21:56] LABS: HGB 8.6 gm/dL (11.4-16.0)
[2022-01-28] MEDS: ACETAMINOPHEN TAB 325 MG TAB PO PRN (08:28)
[2022-01-28] MEDS: SODIUM CHLORIDE 0.9% 1,000 ML IV SCH ×2 (08:28→08:39)
[2022-01-28] MEDS: ATORVASTATIN 10 MG TAB PO SCH (08:28)
[2022-01-28] MEDS: DULoxetine HCL 20 MG CAPSULE.DR PO SCH (08:29)
[2022-01-28 08:41] VITALS: PULSE 56; RESP 16; TEMP 97.7
[2022-01-28 08:45] VITALS: BP 113/62
[2022-01-28 09:02] LABS: Basophils # (A) 0.01 X 10*3/uL (0.00-0.10); Basophils % (A) 0.1 %; Eosinophils # (A) 0.34 X 10*3/uL (0.04-0.35); Eosinophils % (A) 3.6 %; HCT 23.9 % (37.2-46.3); HGB 7.5 g/dL (12.0-15.0); Immature Grans, Automated 0.6 %; Lymphocytes # (A) 0.85 X 10*3/uL (0.90-5.00); Lymphocytes % (A) 8.9 %; MCH 29.5 pg (27.0-32.0); MCHC 31.4 g/dL (32.0-37.0); MCV 94.1 fL (80.0-97.0); Mean Platelet Volume 10.8 fL (9.5-12.2); Monocytes # (A) 1.01 X 10*3/uL (0.20-1.00); Monocytes % (A) 10.6 %; NRBC Per 100 WBC 0 /100 WBCS (0.0-0.0); Neutrophils # (A) 7.25 X 10*3/uL (1.80-7.70); Neutrophils % (A) 76.2 %; Platelet Count 182 X 10*3/uL (140-440); RBC 2.54 X 10*6/uL (4.10-5.20); RDW 14.1 % (11.5-14.5); WBC 9.52 X 10*3/uL (4.50-10.00)
--- NOTE | 2022-01-28 11:24 | P.PN ---
Subjective Progress Note Date: 01/27/22 Patient is a 86-year-old female with a known history of hypertension, COPD, dementia, osteoarthritis and prior history of smoking was brought to the hospital due to left hip pain status post fall. Patient was unable to ambulate after she sustained a fall. Patient's was unable to get her off from the floor. She was brought to ER for evaluation. X-ray of the left hip showed markedly displaced intertrochanteric fracture of the left. EKG showed sinus rhythm with sinus arrhythmia. Laboratory data showed WBC 12.4 hemoglobin 12.2 and platelets 278 Sodium 138 potassium 3.8 chloride 103 bicarb is 24 BUN 37 and creatinine 1.55 and liver enzymes are not elevated Urinalysis showed no evidence of infection. currently patient denied any complaints of chest pain or shortness of breath. No nausea vomiting or abdominal pain or diarrhea. Denied any recent illnesses. No cough is from production. No fever no chills. 01/25/2022 Patient is status post left hip staphyloma medullary nail. Postoperative day 1. Patient is currently resting in the bed. Awake alert and oriented 3. Denied any complaints of dizziness and lightheadedness. No chest pain or shortness of breath. Pain is fairly controlled. Otherwise patient is hypotensive this afternoon and was given 1 L fluid bolus. Continue with IV fluids. Laboratory data showed WBC 13.6 hemoglobin 7.8. Was 12.2 on 01/23/2022. Platelets 189. Patient is being continued on physical therapy. 01/26/2022 Patient is currently resting in bed comfortable denied any complains of chest pain or short of breath. Patient has been afebrile. No dizziness or lightheadedness. Patient is able to walk with walker. According to her patient has always been hypotensive. Blood pressure medications on hold. Denied having any bowel movement today. No complains of fever or chills. Pain is controlled. Anticipate discharge next 24 hours to rehab. 01/27/2022 Patient is resting the chair. Awake alert and oriented 3. Does have some dizziness with getting up this morning. No complaints of chest pain or shortness of breath. No leg swelling. Left hip pain is controlled. Otherwise hemoglobin level dropped to 5.7 today. Patient denied any dark colored stools. No hematemesis. No dysuria or hematuria. Bruising and swelling over the left hip surgical site is noted. Ultrasound of the left hip will be ordered to evaluated for any fluid collection/hematoma. Other laboratory data reviewed. Current medications reviewed. Objective - Vital Signs Vital signs: Vital Signs Temp 98.7 F 01/27/22 07:56 Pulse 98 01/27/22 08:00 Resp 18 01/27/22 08:00 BP 96/50 01/27/22 07:56 Pulse Ox 91 L 01/27/22 08:22 FiO2 Intake & Output 01/26/22 01/27/22 01/27/22 18:59 06:59 18:59 Intake Total 120 Balance 120 Intake: Oral 120 Other: Voiding Method Diaper Bedside Commode Bedside Commode Incontinent Diaper Diaper Incontinent Incontinent # Voids 2 - Exam PHYSICAL EXAMINATION: Patient is lying in the bed comfortably, no acute distress, awake alert and oriented.. HEENT: Normocephalic. Neck is supple. Pupils reactive. Nostrils clear. Oral cavity is moist. Neck reveals no JVD, carotid bruits, or thyromegaly. CHEST EXAMINATION: Trachea is central. Symmetrical expansion. Lung odell clear to auscultation and percussion. CARDIAC: Normal S1, S2 with no gallops. No murmurs ABDOMEN: Soft. Bowel sounds normal. No organomegaly. No abdominal bruits. Extremities: reveal no edema. No clubbing or cyanosis Neurologically awake, alert, oriented x3 with well-coordinated movements. No focal deficits noted Skin: No rash or skin lesions. Psychiatric: Coperative. Nonsuicidal Musculoskeletal: No joint swelling or deformity. Left hip surgical site intact. Bruising and swelling around the left hip noted.. - Labs CBC & Chem 7: 01/28/22 05:43 01/27/22 06:21 Labs: Abnormal Lab Results - Last 24 Hours (Table) 01/27/22 01/27/22 Range/Units 06:21 06:21 RBC 2.01 L (4.10-5.20) X 10*6/uL Hgb 5.7 L* (12.0-15.0) g/dL Hct 18.9 L* (37.2-46.3) % MCHC 30.2 L (32.0-37.0) g/dL Immature Gran # 0.06 H (0.00-0.04) X 10*3/uL Monocytes # 1.01 H (0.20-1.00) X 10*3/uL Anion Gap 9.90 L (10.00-18.00) mmol/L BUN 32.4 H (9.0-27.0) mg/dL Est GFR (CKD-EPI)AfAm 47.1 L (60.0-200.0) Est GFR (CKD-EPI)NonAf 40.6 L (60.0-200.0) BUN/Creatinine Ratio 27.00 H (12.00-20.00) Ratio Calcium 7.7 L (8.7-10.3) mg/dL Assessment and Plan Assessment: status post mechanical fall and left intertrochanteric fracture of the hip on 01/24/2022.. Mild acute kidney injury likely prerenal. Improved. Acute blood loss anemia. Suspect hematoma/bruising on the left hip. Hypertension. Currently hypotensive COPD Eventually an x-ray and osteoarthritis DVT prophylaxis with SCDs. Lovenox will be on hold until hemoglobin stabilized. Plan: Hemoglobin dropped to 5.7 today. FOBT was ordered. Patient denied any dark colored stools. No hematemesis. No hematuria. Ultrasound of the left hip area will be ordered to rule out any hematoma. Patient will be transfused with 1 unit of PRBC and monitor hemoglobin closely. patient will be continued on pain management, incentive spirometry. Patient does take lisinopril and Dyazide at home. Blood pressure medications on hold due to hypotension. Will be continued on IV hydration and monitor his pressures closely. Monitor blood pressure and H&H. Follow-up CBC tomorrow. We'll continue to follow and further recommendations based on the clinical course. Time with Patient: Greater than 30
--- NOTE | 2022-01-28 11:38 | US ---
EXAMINATION TYPE: US extremity nonvasc mass LT DATE OF EXAM: 01/28/2022 COMPARISON: NONE CLINICAL HISTORY: assess for fluid collection/ hematoma. No ultrasound evidence of fluid collection or hematoma. Scanned only anterior and medial due to patients position. IMPRESSION: No abnormal fluid collection visualized at this time.
--- NOTE | 2022-01-28 12:02 | P.GSHP ---
History of Present Illness H&P Date: 01/28/22 Chief Complaint: Painful elongated mycotic nails 10 86-year-old female being seen for consultation for podiatric care patient has been hospitalized for a fracture of the left hip over and from this. Hemodynamic agents Past Medical History Past Medical History: COPD, Dementia, Hypertension, Memory Impairment, Osteoarthritis (OA) History of Any Multi-Drug Resistant Organisms: None Reported Past Surgical History: No Surgical Hx Reported Past Psychological History: No Psychological Hx Reported Smoking Status: Former smoker Past Alcohol Use History: None Reported Past Drug Use History: None Reported Medications and Allergies Home Medications Medication Instructions Recorded Confirmed Type Atorvastatin Calcium [Lipitor] 10 mg PO DAILY 01/23/22 01/23/22 History DULoxetine HCL [Cymbalta] 20 mg PO DAILY 01/23/22 01/23/22 History Rivastigmine Tartrate [Exelon] 3 mg PO HS 01/23/22 01/23/22 History Sodium Chloride Tab 1 gm PO HS 01/23/22 01/23/22 History Triamterene-Hctz 37.5-25Mg 1 tab PO HS 01/23/22 01/23/22 History [Maxzide 37.5-25] lisinopriL [Zestril] 10 mg PO HS 01/23/22 01/23/22 History Enoxaparin [Lovenox] 30 mg SQ DAILY each 01/26/22 Rx Sennosides-Docusate Sodium 2 each PO HS tab 01/26/22 Rx [Senokot-S] HYDROcodone/APAP 5-325MG [[place] 5] 1 each PO Q6HR PRN #30 tab 01/27/22 Rx ALPRAZolam [Xanax] 0.25 mg PO HS #3 tab 01/28/22 Rx Allergies Allergy/AdvReac Type Severity Reaction Status Date / Time No Known Allergies Allergy Verified 01/23/22 12:58 Surgical - Exam Vital Signs Temp Pulse Resp BP Pulse Ox 98.1 F 85 16 141/76 96 01/23/22 11:07 01/23/22 11:07 01/23/22 11:07 01/23/22 11:07 01/23/22 11:07 - Cardiovascular Pedal pulses are diminished nonpalpable bilateral there is thinning of the skin bilateral with decreased texture. No digital hair bilateral the extremities are cool to cool - Integumentary Elongated painful thickened dystrophic mycotic nails 10 there is subungual debris to the proximal nail fold 10 there is localized erythema of the nailbed bilateral - Neurologic All epicritic and pallesthetic sensations grossly intact symmetrical bilateral - Musculoskeletal Stanislav motion ankle joint decreased bilateral range of motion subtalar joint and midtarsal joint and metatarsophalangeal joints grossly normal bilateral all inverters everters plantar flexors dorsiflexors intact bilateral digital hammertoes 234 bilateral Results - Labs 01/28/22 05:43 01/27/22 06:21 Abnormal Lab Results - Last 24 Hours (Table) 01/27/22 01/27/22 01/28/22 Range/Units 10:40 21:21 05:43 WBC 11.8 H (3.8-10.6) k/uL RBC 2.89 L 2.54 L (3.80-5.40) m/uL Hgb 8.6 L D 7.5 L (11.4-16.0) gm/dL Hct 27.2 L 23.9 L (34.0-46.0) % MCHC 31.4 L (32.0-37.0) g/dL Immature Gran # 0.06 H (0.00-0.04) X 10*3/uL Neutrophils # 8.8 H (1.3-7.7) k/uL Lymphocytes # 0.85 L (0.90-5.00) X 10*3/uL Monocytes # 1.01 H (0.20-1.00) X 10*3/uL Crossmatch See Detail Assessment and Plan Assessment: Painful mycotic nails 10 with peripheral arterial disease bilateral Plan: Exam review of patient's history and physical in chart. findings and treatment plan. She would benefit from reduction of these nails to the patient systemic disease and risk of infection. Today we debrided the nails electrically manually of all mycotic debris the nail plate and nailbed and is to be followed IN 2 months. Thank you for this consult Time with Patient: Less than 30
== END 2022-01-28 13:07 | DRG 481 ==
LOC: EC 11:03 → 4SSUR 12:20
PROVIDERS: ADMIT Orthopaedic Surgery Hand Surgery; ATTEND Orthopaedic Surgery Hand Surgery
PROC: 0QS736Z Reposition Left Upper Femur with Intramedullary Internal Fixation Device, Percutaneous Approach (ICD-10-PCS; principal; 2022-01-25)
PROC: 30233N1 Transfusion of Nonautologous Red Blood Cells into Peripheral Vein, Percutaneous Approach (ICD-10-PCS; 2022-01-27)
DX: S72.142A Displaced intertrochanteric fracture of left femur, initial encounter for closed fracture (principal); N17.9 Acute kidney failure, unspecified; D62 Acute posthemorrhagic anemia; W01.0XXA Fall on same level from slipping, tripping and stumbling without subsequent striking against object, initial encounter; I95.9 Hypotension, unspecified; M19.90 Unspecified osteoarthritis, unspecified site; Y92.009 Unspecified place in unspecified non-institutional (private) residence as the place of occurrence of the external cause; R41.3 Other amnesia; J44.9 Chronic obstructive pulmonary disease, unspecified; I10 Essential (primary) hypertension; B35.1 Tinea unguium; F03.90 Unspecified dementia, unspecified severity, without behavioral disturbance, psychotic disturbance, mood disturbance, and anxiety; I73.9 Peripheral vascular disease, unspecified; Z79.899 Other long term (current) drug therapy; Z87.891 Personal history of nicotine dependence; Z91.81 History of falling; Z20.822 Contact with and (suspected) exposure to COVID-19
CPT/HCPCS: 36415; 51702; 71045; 73501; 73502; 80048; 80053; 81001; 85025; 85610; 85730; 86850; 86900; 86901; 86920; 87635; 93005; 96374; 96375; 99285

== ENCOUNTER 2023-07-21 13:51 | Observation (INO) | payer MEDICARE ==
--- NOTE | 2023-07-21 14:21 | ED ---
General Adult HPI - General Chief complaint: Extremity Problem,Nontraumatic Stated complaint: left leg swollen and painful Time Seen by Provider: 07/21/23 14:04 Source: patient, family, RN notes reviewed Mode of arrival: ambulatory Limitations: no limitations - History of Present Illness Initial comments: Patient is a pleasant 88-year-old female presenting to the emergency department with concern for left leg infection. Patient has been on doxycycline over 10 days through primary care physician. Patient did see her plan examiner today who recommended she come to the hospital. Patient does have pain left lower leg. Patient has redness extending from the foot to the mid lower leg. No fevers. No history of similar symptoms previously. - Related Data Home Medications Medication Instructions Recorded Confirmed Atorvastatin Calcium [Lipitor] 10 mg PO DAILY 01/23/22 01/23/22 DULoxetine HCL [Cymbalta] 20 mg PO DAILY 01/23/22 01/23/22 Rivastigmine Tartrate [Exelon] 3 mg PO HS 01/23/22 01/23/22 Sodium Chloride Tab 1 gm PO HS 01/23/22 01/23/22 Triamterene-Hctz 37.5-25Mg 1 tab PO HS 01/23/22 01/23/22 [Maxzide 37.5-25] lisinopriL [Zestril] 10 mg PO HS 01/23/22 01/23/22 Previous Rx's Medication Instructions Recorded Enoxaparin [Lovenox] 30 mg SQ DAILY each 01/26/22 Sennosides-Docusate Sodium 2 each PO HS tab 01/26/22 [Senokot-S] HYDROcodone/APAP 5-325MG [[place] 5] 1 each PO Q6HR PRN #30 tab 01/27/22 ALPRAZolam [Xanax] 0.25 mg PO HS #3 tab 01/28/22 Allergies Allergy/AdvReac Type Severity Reaction Status Date / Time No Known Allergies Allergy Verified 01/23/22 12:58 Review of Systems ROS Statement: Those systems with pertinent positive or pertinent negative responses have been documented in the HPI. ROS Other: All systems not noted in ROS Statement are negative. Constitutional: Denies: fever Eyes: Denies: eye pain ENT: Denies: ear pain Respiratory: Denies: cough Cardiovascular: Denies: chest pain Endocrine: Denies: fatigue Gastrointestinal: Denies: abdominal pain Skin: Reports: as per HPI, rash Past Medical History Past Medical History: COPD, Dementia, Hypertension, Memory Impairment, Oste oarthritis (OA) History of Any Multi-Drug Resistant Organisms: None Reported Past Surgical History: No Surgical Hx Reported Past Psychological History: No Psychological Hx Reported Smoking Status: Former smoker Past Alcohol Use History: None Reported Past Drug Use History: None Reported General Exam Limitations: no limitations General appearance: alert, in no apparent distress Head exam: Present: normocephalic Eye exam: Present: normal appearance Neck exam: Present: normal inspection Respiratory exam: Present: normal lung sounds bilaterally Cardiovascular Exam: Present: regular rate, normal rhythm Expanded Peripheral pulses: 2+: Dorsalis Pedis (R), Dorsalis Pedis (L) GI/Abdominal exam: Present: soft. Absent: tenderness Extremities exam: Present: other (Patient does have erythema from the distal foot to mid to upper and lower leg. There is mild tenderness.). Absent: calf tenderness Neurological exam: Present: alert Psychiatric exam: Present: normal affect, normal mood Skin exam: Present: erythema Course Vital Signs 07/21/23 07/21/23 07/21/23 13:55 14:00 15:00 Temperature 97.4 F L Pulse Rate 99 75 74 Respiratory 20 18 18 Rate Blood Pressure 184/84 170/97 165/117 O2 Sat by Pulse 95 95 94 L Oximetry Medical Decision Making - Medical Decision Making Was pt. sent in by a medical professional or institution (, PA, PULLMAN CAR CLERK, urgent care, hospital, or care home...) When possible be specific @ -Patient was sent in by Dr. Harley Did you speak to anyone other than the patient for history (EMS, parent, family, police, friend...)? What history was obtained from this source @ -Family helps provide history as patient is a poor historian. Did you review nursing and triage notes (agree or disagree)? Why? @ -I reviewed and agree with nursing and triage notes Were old charts reviewed (outside hosp., previous admission, EMS record, old EKG, old radiological studies, urgent care reports/EKG's, care home records)? Report findings @ -No old charts were reviewed Differential Diagnosis (chest pain, altered mental status, abdominal pain women, abdominal pain men, vaginal bleeding, weakness, fever, dyspnea, syncope, headache, dizziness, GI bleed, back pain, seizure, CVA, palpatations, mental health, musculoskeletal)? @ -Differential Musculoskeletal Muscular strain, contusion, ligament sprain, fracture, arthritis, septic arthritis, bursitis, cellulitis, muscle spasm, nerve compression, DVT, arterial occlusion, herpes zoster, electrolyte abnormality, tumor.... This is not meant to be in all inclusive list EKG interpreted by me (3pts min.). @ -As above X-rays interpreted by me (1pt min.). @ -Left tib-fib x-ray shows osteopenia. No acute changes. CT interpreted by me (1pt min.). @ -None done U/S interpreted by me (1pt. min.). @ -None done What testing was considered but not performed or refused? (CT, X-rays, U/S, labs)? Why? @ -None What meds were considered but not given or refused? Why? @ -None Did you discuss the management of the patient with other professionals (professionals i.e. , PA, PULLMAN CAR CLERK, lab, RT, psych nurse, medical social worker, sales and leasing agent, teacher, community cultural development officer, human services case manager)? Give summary @ -Case was discussed with Dr. Rosenberg, who will admit cover Dr. Bustamante Was smoking cessation discussed for >3mins.? @ -No Was critical care preformed (if so, how long)? @ -No Were there social determinants of health that impacted care today? How? (Homelessness, low income, unemployed, alcoholism, drug addiction, transportation, low edu. Level, literacy, decrease access to med. care, care home, rehab)? @ -No Was there de-escalation of care discussed even if they declined (Discuss DNR or withdrawal of care, Hospice)? DNR status @ -No What co-morbidities impacted this encounter? (DM, HTN, Smoking, COPD, CAD, Cancer, CVA, ARF, Chemo, Hep., AIDS, mental health diagnosis, sleep apnea, morbid obesity)? @ -None Was patient admitted / discharged? Hospital course, mention meds given and rout e, prescriptions, significant lab abnormalities, going to OR and other pertinent info. @ -Patient reevaluated and unchanged. Secondary to patient being on outpatient antibiotics for 10 days with worsening symptoms she will be admitted with IV antibiotics. Admission orders written. Blood culture and lactic acid and IV antibiotics have all been ordered. Undiagnosed new problem with uncertain prognosis? @ -No Drug Therapy requiring intensive monitoring for toxicity (Heparin, Nitro, Insulin, Cardizem)? @ -No Were any procedures done? @ -No Diagnosis/symptom? @ -Cellulitis left leg Acute, or Chronic, or Acute on Chronic? @ -Acute Uncomplicated (without systemic symptoms) or Complicated (systemic symptoms)? @ -default Side effects of treatment? @ -No Exacerbation, Progression, or Severe Exacerbation? @ -No Poses a threat to life or bodily function? How? (Chest pain, [place], [place], pneumonia, PE, COPD, DKA, ARF, appy, cholecystitis, CVA, Diverticulitis, Homicidal, Suicidal, threat to staff... and all critical care pts) @ -No - Lab Data Result diagrams: 07/21/23 14:43 07/21/23 14:43 Lab Results 07/21/23 07/21/23 07/21/23 Range/Units 14:43 14:43 14:43 WBC 10.8 H (3.8-10.6) k/uL RBC 4.32 (3.80-5.40) m/uL Hgb 13.1 (11.4-16.0) gm/dL Hct 39.9 (34.0-46.0) % MCV 92.3 (80.0-100.0) fL MCH 30.4 (25.0-35.0) pg MCHC 32.9 (31.0-37.0) g/dL RDW 13.2 (11.5-15.5) % Plt Count 266 (150-450) k/uL MPV 7.4 Neutrophils % 71 % Lymphocytes % 18 % Monocytes % 5 % Eosinophils % 3 % Basophils % 0 % Neutrophils # 7.7 (1.3-7.7) k/uL Lymphocytes # 2.0 (1.0-4.8) k/uL Monocytes # 0.6 (0-1.0) k/uL Eosinophils # 0.3 (0-0.7) k/uL Basophils # 0.1 (0-0.2) k/uL PT (10.0-12.5) sec INR (<1.2) APTT (22.0-30.0) sec Sodium 140 (137-145) mmol/L Potassium 3.2 L (3.5-5.1) mmol/L Chloride 99 (98-107) mmol/L Carbon Dioxide 27 (22-30) mmol/L Anion Gap 14 mmol/L BUN 33 H (7-17) mg/dL Creatinine 1.25 H (0.52-1.04) mg/dL Est GFR (CKD-EPI)AfAm 44 (>60 ml/min/1.73 sqM) Est GFR (CKD-EPI)NonAf 38 (>60 ml/min/1.73 sqM) Glucose 94 (74-99) mg/dL Plasma Lactic Acid Morgan 1.4 (0.7-2.0) mmol/L Calcium 9.6 (8.4-10.2) mg/dL Total Bilirubin 0.4 (0.2-1.3) mg/dL AST 35 (14-36) U/L ALT 19 (4-34) U/L Alkaline Phosphatase 170 H (38-126) U/L Total Protein 7.6 (6.3-8.2) g/dL Albumin 4.3 (3.5-5.0) g/dL 07/21/23 Range/Units 15:20 WBC (3.8-10.6) k/uL RBC (3.80-5.40) m/uL Hgb (11.4-16.0) gm/dL Hct (34.0-46.0) % MCV (80.0-100.0) fL MCH (25.0-35.0) pg MCHC (31.0-37.0) g/dL RDW (11.5-15.5) % Plt Count (150-450) k/uL MPV Neutrophils % % Lymphocytes % % Monocytes % % Eosinophils % % Basophils % % Neutrophils # (1.3-7.7) k/uL Lymphocytes # (1.0-4.8) k/uL Monocytes # (0-1.0) k/uL Eosinophils # (0-0.7) k/uL Basophils # (0-0.2) k/uL PT 10.6 (10.0-12.5) sec INR 1.0 (<1.2) APTT 23.2 (22.0-30.0) sec Sodium (137-145) mmol/L Potassium (3.5-5.1) mmol/L Chloride (98-107) mmol/L Carbon Dioxide (22-30) mmol/L Anion Gap mmol/L BUN (7-17) mg/dL Creatinine (0.52-1.04) mg/dL Est GFR (CKD-EPI)AfAm (>60 ml/min/1.73 sqM) Est GFR (CKD-EPI)NonAf (>60 ml/min/1.73 sqM) Glucose (74-99) mg/dL Plasma Lactic Acid Morgan (0.7-2.0) mmol/L Calcium (8.4-10.2) mg/dL Total Bilirubin (0.2-1.3) mg/dL AST (14-36) U/L ALT (4-34) U/L Alkaline Phosphatase (38-126) U/L Total Protein (6.3-8.2) g/dL Albumin (3.5-5.0) g/dL Disposition Clinical Impression: Left leg cellulitis Disposition: ADMITTED IP TO THIS HOSP Is patient prescribed a controlled substance at d/c from ED?: No Referrals: José Miguel Bustamante MD [Primary Care Provider] - 1-2 days Time of Disposition: 16:06
--- NOTE | 2023-07-21 14:36 | XR ---
Left tibia-fibula HISTORY: Infection COMPARISON: None. TECHNIQUE: 4 views left tibia and fibula were obtained FINDINGS: The osseous structures are diffusely osteopenic. There is no fracture or focal intraosseous abnormality. There is no cortical disruption or periosteal reaction There is mild arteriovascular calcification. If there is no soft tissue gas. IMPRESSION: 1. No acute changes. 2. Diffuse osteopenia without focal osseous abnormality.
[2023-07-21 14:58] LABS: Basophils # (A) 0.1 k/uL (0-0.2); Basophils % (A) 0 %; Eosinophils # (A) 0.3 k/uL (0-0.7); Eosinophils % (A) 3 %; HCT 39.9 % (34.0-46.0); HGB 13.1 gm/dL (11.4-16.0); Lymphocytes % (A) 18 %; MCH 30.4 pg (25.0-35.0); MCHC 32.9 g/dL (31.0-37.0); MCV 92.3 fL (80.0-100.0); Mean Platelet Volume 7.4; Monocytes # (A) 0.6 k/uL (0-1.0); Monocytes % (A) 5 %; Neutrophils # (A) 7.7 k/uL (1.3-7.7); Neutrophils % (A) 71 %; Platelet Count 266 k/uL (150-450); RBC 4.32 m/uL (3.80-5.40); RDW 13.2 % (11.5-15.5); WBC 10.8 k/uL (3.8-10.6)
[2023-07-21 15:09] LABS: ALT 19 U/L (4-34); AST 35 U/L (14-36); African American GFR (CKD) 44 (>60 ml/min/1.73 sqM); Albumin 4.3 g/dL (3.5-5.0); Alkaline Phosphatase 170 U/L (38-126); Anion Gap 14 mmol/L; Blood Urea Nitrogen 33 mg/dL (7-17); Calcium 9.6 mg/dL (8.4-10.2); Carbon Dioxide 27 mmol/L (22-30); Chloride 99 mmol/L (98-107); Glucose 94 mg/dL (74-99); Non-African American GFR(CKD) 38 (>60 ml/min/1.73 sqM); Potassium 3.2 mmol/L (3.5-5.1); Sodium 140 mmol/L (137-145); Total Bilirubin 0.4 mg/dL (0.2-1.3); Total Protein 7.6 g/dL (6.3-8.2)
[2023-07-21 15:38] LABS: Partial Thromboplastin Time 23.2 sec (22.0-30.0); Prothrombin Time 10.6 sec (10.0-12.5)
[2023-07-21] MEDS ORDERED: ACETAMINOPHEN TAB 325 MG TAB PO PRN (16:06)
[2023-07-21] MEDS ORDERED: NALOXONE 0.4 MG/ML 1 ML VIAL IV PRN (16:06)
[2023-07-21] MEDS: SODIUM CHLORIDE 0.9% 1,000 ML IV SCH (17:11)
[2023-07-21] MEDS ORDERED: POTASSIUM CHLORIDE ER 20 MEQ TAB.ER PO STA ×2 (21:28→22:34)
[2023-07-21] MEDS: SODIUM CHLORIDE TAB 1 GM TAB PO SCH (22:11)
[2023-07-21] MEDS: DONEPEZIL 10 MG TAB PO SCH (22:11)
[2023-07-22] MEDS: LEVOTHYROXINE 50 MCG TAB PO SCH (06:39)
[2023-07-22] MEDS: SODIUM CHLORIDE 0.9% 1,000 ML IV SCH ×2 (06:39→20:59)
[2023-07-22 09:11] LABS: Blood Urea Nitrogen 23.9 mg/dL (9.0-27.0); Calcium 9.2 mg/dL (8.7-10.3); Carbon Dioxide 26.9 mmol/L (21.6-31.8); Chloride 104 mmol/L (96-109); Glucose 93 mg/dL (70-110); Potassium 3.6 mmol/L (3.5-5.5); Sodium 144 mmol/L (135-145)
[2023-07-22] MEDS: HEPARIN SODIUM,PORCINE 5,000 UNIT/ML 1 ML VIAL SQ SCH ×2 (09:25→20:55)
[2023-07-22] MEDS: DULoxetine HCL 20 MG CAPSULE.DR PO SCH (09:26)
[2023-07-22] MEDS: ATORVASTATIN 10 MG TAB PO SCH (09:26)
[2023-07-22] MEDS: ALPRAZolam 0.25 MG TAB PO SCH (09:26)
[2023-07-22] MEDS: allopurinoL 100 MG TAB PO SCH (09:26)
[2023-07-22 10:17] LABS: Basophils # (A) 0.05 X 10*3/uL (0.00-0.10); Basophils % (A) 0.6 %; Eosinophils # (A) 0.33 X 10*3/uL (0.04-0.35); Eosinophils % (A) 4.1 %; HGB 12.1 g/dL (12.0-15.0); Lymphocytes # (A) 1.52 X 10*3/uL (0.90-5.00); MCH 30.2 pg (27.0-32.0); MCHC 32.7 g/dL (32.0-37.0); MCV 92.3 FL (80.0-97.0); Mean Platelet Volume 9.9 FL (9.5-12.2); Monocytes # (A) 0.79 X 10*3/uL (0.20-1.00); Monocytes % (A) 9.9 %; NRBC Per 100 WBC 0 X 10*3/uL (0.00-0.01); Neutrophils # (A) 5.29 X 10*3/uL (1.80-7.70); Neutrophils % (A) 65.9 %; Platelet Count 251 X 10*3/uL (140-440); RBC 4.01 X 10*6/uL (4.10-5.20); RDW 13.2 % (11.5-14.5); WBC 8.02 X 10*3/uL (4.50-10.00)
--- NOTE | 2023-07-22 11:40 | P.GSHP ---
History of Present Illness H&P Date: 07/22/23 Chief Complaint: Cellulitis left leg ascending 88-year-old female admitted yesterday for cellulitis of the left leg ascending. Patient has been oral antibiotics for 10 days and was seen in my office for foot care yesterday afternoon. Patient was attended with her daughter. During the visit patient and daughter stated that the cellulitis has not responded and was progressive and painful. Patient was advised to go to the emergency room at this facility to be evaluated for possible admission. She was subsequently evaluated and admitted for this condition. Patient is currently on Rocephin. Patient states that she has diminished pain from yesterday afternoon. Patient is resting in bed and is comfortable. Past Medical History Past Medical History: COPD, Dementia, Hypertension, Memory Impairment, Osteoarthritis (OA) History of Any Multi-Drug Resistant Organisms: None Reported Past Surgical History: No Surgical Hx Reported Past Psychological History: No Psychological Hx Reported Smoking Status: Former smoker Past Alcohol Use History: None Reported Past Drug Use History: None Reported Medications and Allergies Home Medications Medication Instructions Recorded Confirmed Type Atorvastatin Calcium [Lipitor] 10 mg PO DAILY 01/23/22 07/21/23 History DULoxetine HCL [Cymbalta] 20 mg PO DAILY 01/23/22 07/21/23 History Rivastigmine Tartrate [Exelon] 3 mg PO BID-W/MEALS 01/23/22 07/21/23 History Sodium Chloride Tab 1 gm PO HS 01/23/22 07/21/23 History Triamterene-Hctz 37.5-25Mg 1 tab PO HS 01/23/22 07/21/23 History [Maxzide 37.5-25] ALPRAZolam [Xanax] 0.25 mg PO DAILY 07/21/23 07/21/23 History Doxycycline Hyclate 100 mg PO DAILY 07/21/23 07/21/23 History Ketoconazole 2% Cream [Nizoral 2%] 1 applic TOPICAL DAILY 07/21/23 07/21/23 History Levothyroxine Sodium [Synthroid] 50 mcg PO DAILY 07/21/23 07/21/23 History Memantine [Namenda] 10 mg PO DAILY 07/21/23 07/21/23 History allopurinoL [Zyloprim] 100 mg PO DAILY 07/21/23 07/21/23 History Allergies Allergy/AdvReac Type Severity Reaction Status Date / Time No Known Allergies Allergy Verified 07/21/23 16:40 Surgical - Exam Vital Signs Temp Pulse Resp BP Pulse Ox 97.4 F L 99 20 184/84 95 07/21/23 13:55 07/21/23 13:55 07/21/23 13:55 07/21/23 13:55 07/21/23 13:55 - General Patient appears to be an stable condition resting in bed with no distress. - Cardiovascular Patient has decreased pedal pulses bilateral with edema of the left lower leg greater than the right. There is decreased pain of the cellulitis of the left lower leg with palpation - Integumentary Patient has thinning of the dermis bilateral with mycotic nails 10. There are no abrasions or lesions of bilateral lower extremities. There is diminishing cellulitis of the left lower extremity - Neurologic Patient's epicritic and pallesthetic sensations are grossly intact and symmetrical bilateral - Musculoskeletal All inverters everters plantar flexors dorsiflexors of the lower extremities are normal and symmetrical bilateral Results - Labs 07/22/23 06:03 07/22/23 06:03 Abnormal Lab Results - Last 24 Hours (Table) 07/21/23 07/21/23 07/22/23 Range/Units 14:43 14:43 06:03 WBC 10.8 H (3.8-10.6) k/uL RBC 4.01 L (4.10-5.20) X 10*6/uL Hct 37.0 L (37.2-46.3) % Potassium 3.2 L (3.5-5.1) mmol/L Anion Gap (4.00-12.00) mmol/L BUN 33 H (7-17) mg/dL Creatinine 1.25 H (0.52-1.04) mg/dL Est GFR (CKD-EPI) (>=60) BUN/Creatinine Ratio (12.00-20.00) Ratio Alkaline Phosphatase 170 H (38-126) U/L 07/22/23 Range/Units 06:03 WBC (3.8-10.6) k/uL RBC (4.10-5.20) X 10*6/uL Hct (37.2-46.3) % Potassium (3.5-5.1) mmol/L Anion Gap 13.10 H (4.00-12.00) mmol/L BUN (7-17) mg/dL Creatinine (0.52-1.04) mg/dL Est GFR (CKD-EPI) 54 L (>=60) BUN/Creatinine Ratio 23.90 H (12.00-20.00) Ratio Alkaline Phosphatase (38-126) U/L Diabetes panel 07/21/23 07/22/23 Range/Units 14:43 06:03 Sodium 140 144 (137-145) mmol/L Potassium 3.2 L 3.6 (3.5-5.1) mmol/L Chloride 99 104 (98-107) mmol/L Carbon Dioxide 27 26.9 (22-30) mmol/L BUN 33 H 23.9 (7-17) mg/dL Creatinine 1.25 H 1.0 (0.52-1.04) mg/dL Glucose 94 93 (74-99) mg/dL Calcium 9.6 9.2 (8.4-10.2) mg/dL AST 35 (14-36) U/L ALT 19 (4-34) U/L Alkaline Phosphatase 170 H (38-126) U/L Total Protein 7.6 (6.3-8.2) g/dL Albumin 4.3 (3.5-5.0) g/dL Calcium panel 07/21/23 07/22/23 Range/Units 14:43 06:03 Calcium 9.6 9.2 (8.4-10.2) mg/dL Albumin 4.3 (3.5-5.0) g/dL Pituitary panel 07/21/23 07/22/23 Range/Units 14:43 06:03 Sodium 140 144 (137-145) mmol/L Potassium 3.2 L 3.6 (3.5-5.1) mmol/L Chloride 99 104 (98-107) mmol/L Carbon Dioxide 27 26.9 (22-30) mmol/L BUN 33 H 23.9 (7-17) mg/dL Creatinine 1.25 H 1.0 (0.52-1.04) mg/dL Glucose 94 93 (74-99) mg/dL Calcium 9.6 9.2 (8.4-10.2) mg/dL Adrenal panel 07/21/23 07/22/23 Range/Units 14:43 06:03 Sodium 140 144 (137-145) mmol/L Potassium 3.2 L 3.6 (3.5-5.1) mmol/L Chloride 99 104 (98-107) mmol/L Carbon Dioxide 27 26.9 (22-30) mmol/L BUN 33 H 23.9 (7-17) mg/dL Creatinine 1.25 H 1.0 (0.52-1.04) mg/dL Glucose 94 93 (74-99) mg/dL Calcium 9.6 9.2 (8.4-10.2) mg/dL Total Bilirubin 0.4 (0.2-1.3) mg/dL AST 35 (14-36) U/L ALT 19 (4-34) U/L Alkaline Phosphatase 170 H (38-126) U/L Total Protein 7.6 (6.3-8.2) g/dL Albumin 4.3 (3.5-5.0) g/dL Assessment and Plan Assessment: Ascending cellulitis left lower extremity Plan: Exam. Review labs history and physical. Patient appears to be responding to the current IV treatment. We will order both vascular lower extremity studies for peripheral arterial disease and thrombophlebitis. Thank you for this consult will follow
--- NOTE | 2023-07-22 12:30 | US ---
EXAMINATION TYPE: US venous doppler duplex LE BI DATE OF EXAM: 07/22/2023 12:11 PM COMPARISON: NONE CLINICAL INDICATION: Female, 88 years old with history of thrombophlebitis; left leg cellulitis SIDE PERFORMED: bilateral TECHNIQUE: The lower extremity deep venous system is examined utilizing real time linear array sonog linda with graded compression, doppler sonography and color-flow sonography. VESSELS IMAGED: Common Femoral Vein Deep Femoral Vein Greater Saphenous Vein * Femoral Vein Popliteal Vein Small Saphenous Vein * Proximal Calf Veins (* superficial vessels) Right Leg: no evidence of DVT Left Leg: technical limitations, patient unable to rotate leg into adequate position, making it diff icult to evaluate vessels, limited visualization of popliteal vein. No evidence of DVT as visualized IMPRESSION: 1. No evidence for DVT within the right lower extremity imaged from the groin to the upper calf. 2. Technical limitations of the left lower extremity. Limited detailed assessment of the popliteal ve in. No obvious DVT seen down to the upper calf.
[2023-07-22 13:34] VITALS: BMI 18.3
[2023-07-22] MEDS: DONEPEZIL 10 MG TAB PO SCH (20:55)
[2023-07-22] MEDS: SODIUM CHLORIDE TAB 1 GM TAB PO SCH (20:55)
--- NOTE | 2023-07-22 21:17 | P.HPIM ---
History of Present Illness H&P Date: 07/21/23 Chief Complaint: Left leg pain/swelling 88-year-old female presenting to the emergency department with concern for left leg infection. Patient has been on doxycycline over 10 days through primary care physician. Patient did see her verification clerk today who recommended she come to the hospital. Patient does have pain left lower leg. Patient has redness extending from the foot to the mid lower leg. No fevers. No history of similar symptoms previously. Blood work completed in ED to be considerably obese of 10.8, hemoglobin of 13.1 and platelet count of 266, sodium 140, potassium 2.2, BUN/creatinine of 32/1.25 X-ray of left lower extremity reveals no acute changes with diffuse osteopenia without focal osseous abnormality, Review of Systems REVIEW OF SYSTEMS: CONSTITUTIONAL: No fever, no malaise, no fatigue. HEENT: No recent visual problems or hearing problems. Denied any sore throat. CARDIOVASCULAR: No chest pain, orthopnea, PND, no palpitations, no syncope. PULMONARY: No shortness of breath, no cough, no hemoptysis. GASTROINTESTINAL: No diarrhea, no nausea, no vomiting, no abdominal pain. NEUROLOGICAL: No headaches, no weakness, no numbness. HEMATOLOGICAL: Denies any bleeding or petechiae. GENITOURINARY: Denies any burning micturition, frequency, or urgency. MUSCULOSKELETAL/RHEUMATOLOGICAL: Denies any joint pain, swelling, or any muscle pain. ENDOCRINE: Denies any polyuria or polydipsia. The rest of the 14-point review of systems is negative. Past Medical History Past Medical History: COPD, Dementia, Hypertension, Memory Impairment, Ost eoarthritis (OA) History of Any Multi-Drug Resistant Organisms: None Reported Past Surgical History: No Surgical Hx Reported Past Psychological History: No Psychological Hx Reported Smoking Status: Former smoker Past Alcohol Use History: None Reported Past Drug Use History: None Reported Medications and Allergies Home Medications Medication Instructions Recorded Confirmed Type Atorvastatin Calcium [Lipitor] 10 mg PO DAILY 01/23/22 07/21/23 History DULoxetine HCL [Cymbalta] 20 mg PO DAILY 01/23/22 07/21/23 History Rivastigmine Tartrate [Exelon] 3 mg PO BID-W/MEALS 01/23/22 07/21/23 History Sodium Chloride Tab 1 gm PO HS 01/23/22 07/21/23 History Triamterene-Hctz 37.5-25Mg 1 tab PO HS 01/23/22 07/21/23 History [Maxzide 37.5-25] ALPRAZolam [Xanax] 0.25 mg PO DAILY 07/21/23 07/21/23 History Doxycycline Hyclate 100 mg PO DAILY 07/21/23 07/21/23 History Ketoconazole 2% Cream [Nizoral 2%] 1 applic TOPICAL DAILY 07/21/23 07/21/23 History Levothyroxine Sodium [Synthroid] 50 mcg PO DAILY 07/21/23 07/21/23 History Memantine [Namenda] 10 mg PO DAILY 07/21/23 07/21/23 History allopurinoL [Zyloprim] 100 mg PO DAILY 07/21/23 07/21/23 History Allergies Allergy/AdvReac Type Severity Reaction Status Date / Time No Known Allergies Allergy Verified 07/21/23 16:40 Physical Exam Vitals: Vital Signs Temp Pulse Resp BP Pulse Ox 07/21/23 15:00 74 18 165/117 94 L 07/21/23 14:00 75 18 170/97 95 07/21/23 13:55 97.4 F L 99 20 184/84 95 Intake and Output 07/21/23 07/21/23 07/21/23 06:59 14:59 22:59 Other: Weight 50 kg - Constitutional General appearance: Present: average body habitus, cooperative, no acute distress - EENT Eyes: Present: anicteric sclerae, EOMI, PERRLA, normal appearance ENT: Present: hearing grossly normal, normal oropharynx Ears: bilateral: normal - Neck Neck: Present: normal ROM. Absent: lymphadenopathy, rigidity, thyromegaly Carotids: negative: bruit present Thyroid: bilateral: normal size, negative: enlarged, nodule - Respiratory Respiratory: bilateral: CTA, negative: rales, rhonchi, wheezing - Cardiovascular Rhythm: regular Heart sounds: normal: S1, S2 Abnormal Heart Sounds: Absent: systolic murmur, diastolic murmur - Gastrointestinal General gastrointestinal: Present: normal bowel sounds, soft. Absent: distended, organomegaly, tenderness - Genitourinary Genitourinary Comment(s): deferred - Integumentary Integumentary: Present: normal turgor. Absent: jaundiced, rash, ulcer - Neurologic Neurologic: Present: CNII-XII intact. Absent: focal deficits - Musculoskeletal Musculoskeletal: Present: gait normal, strength equal bilaterally - Psychiatric Psychiatric: Present: A&O x's 3, appropriate affect, intact judgment & insight Results CBC & Chem 7: 07/22/23 06:03 07/22/23 06:03 Labs: Abnormal Lab Results - Last 24 Hours (Table) 07/21/23 07/21/23 Range/Units 14:43 14:43 WBC 10.8 H (3.8-10.6) k/uL Potassium 3.2 L (3.5-5.1) mmol/L BUN 33 H (7-17) mg/dL Creatinine 1.25 H (0.52-1.04) mg/dL Alkaline Phosphatase 170 H (38-126) U/L Assessment and Plan Assessment: 1. Ascending cellulitis left lower extremity; failing outpatient treatment - Patient has been placed on IV antibiotics in form of Rocephin 1 g IV every 12 hours; we will monitor CBC, CRP and pro-calcitonin - Lower extremity venous Doppler is ordered - Podiatry on board - Consult ID for further evaluation 2. Acute renal injury; patient is placed on slow IV fluid hydration in form of normal saline at a rate of 75 mL an hour; monitor strict RAYNA's, daily weights, renal function and electrolytes; avoid nephrotoxins and hypotension 3. Hypokalemia; supplemented in ED; we will monitor leg lites and supplement as needed 4. Hypertension; Maxide 30 7. 525 milligrams 1 daily 5. Hyperlipidemia; Lipitor 10 mg by mouth daily at bedtime 6. Hypothyroidism; levothyroxin 50 MCG daily 7. COPD; not in exacerbation; continue with home in immunotherapy 8. Dementia; Namenda 10 mg daily; Exelon 3 mg twice a day DVT prophylaxis; SCDs/subcu heparin CODE STATUS; full code
--- NOTE | 2023-07-22 21:18 | P.PN ---
Subjective Progress Note Date: 07/22/23 88-year-old female presenting to the emergency department with concern for left leg infection. Patient has been on doxycycline over 10 days through primary care physician. Patient did see her gas golf cart repairer today who recommended she come to the hospital. Patient does have pain left lower leg. Patient has redness extending from the foot to the mid lower leg. No fevers. No history of similar symptoms previously. Blood work completed in ED to be considerably obese of 10.8, hemoglobin of 13.1 and platelet count of 266, sodium 140, potassium 2.2, BUN/creatinine of 32/1.25 X-ray of left lower extremity reveals no acute changes with diffuse osteopenia without focal osseous abnormality, Objective - Vital Signs Vital signs: Vital Signs Temp 98.0 F 07/22/23 07:00 Pulse 75 07/22/23 07:00 Resp 15 07/22/23 07:00 BP 131/76 07/22/23 07:00 Pulse Ox 92 L 07/22/23 07:00 FiO2 Intake & Output 07/21/23 07/22/23 07/22/23 18:59 06:59 18:59 Intake Total 125 118 Balance 125 118 Weight 50 kg 50 kg Intake: Intake, IV Titration 125 Amount Sodium Chloride 0.9% 1, 75 000 ml @ 75 mls/hr IV . [id number] SALLY Rx#:[id number] cefTRIAXone 1 gm In 50 Sodium Chloride 0.9% 50 ml @ 100 mls/hr IVPB Q12HR SALLY Rx#:[id number] Oral 118 Other: # Voids 1 # Bowel Movements 1 - Exam General appearance: alert, in no apparent distress Head exam: Present: normocephalic Eye exam: Present: normal appearance Neck exam: Present: normal inspection Respiratory exam: Present: normal lung sounds bilaterally Cardiovascular Exam: Present: regular rate, normal rhythm Expanded Peripheral pulses: 2+: Dorsalis Pedis (R), Dorsalis Pedis (L) GI/Abdominal exam: Present: soft. Absent: tenderness Extremities exam: Present: other (Patient does have erythema from the distal foot to mid to upper and lower leg. There is mild tenderness.). Absent: calf tenderness Neurological exam: Present: alert Skin exam: Present: erythema - Labs CBC & Chem 7: 07/22/23 06:03 07/22/23 06:03 Labs: Abnormal Lab Results - Last 24 Hours (Table) 07/21/23 07/21/23 07/22/23 Range/Units 14:43 14:43 06:03 WBC 10.8 H (3.8-10.6) k/uL RBC 4.01 L (4.10-5.20) X 10*6/uL Hct 37.0 L (37.2-46.3) % Potassium 3.2 L (3.5-5.1) mmol/L Anion Gap (4.00-12.00) mmol/L BUN 33 H (7-17) mg/dL Creatinine 1.25 H (0.52-1.04) mg/dL Est GFR (CKD-EPI) (>=60) BUN/Creatinine Ratio (12.00-20.00) Ratio Alkaline Phosphatase 170 H (38-126) U/L 07/22/23 Range/Units 06:03 WBC (3.8-10.6) k/uL RBC (4.10-5.20) X 10*6/uL Hct (37.2-46.3) % Potassium (3.5-5.1) mmol/L Anion Gap 13.10 H (4.00-12.00) mmol/L BUN (7-17) mg/dL Creatinine (0.52-1.04) mg/dL Est GFR (CKD-EPI) 54 L (>=60) BUN/Creatinine Ratio 23.90 H (12.00-20.00) Ratio Alkaline Phosphatase (38-126) U/L Assessment and Plan Assessment: 1. Ascending cellulitis left lower extremity; failing outpatient treatment - Patient has been placed on IV antibiotics in form of Rocephin 1 g IV every 12 hours; we will monitor CBC, CRP and pro-calcitonin - Lower extremity venous Doppler is ordered - Podiatry on board - Consult ID for further evaluation 2. Acute renal injury; patient is placed on slow IV fluid hydration in form of normal saline at a rate of 75 mL an hour; monitor strict RAYNA's, daily weights, renal function and electrolytes; avoid nephrotoxins and hypotension 3. Hypokalemia; supplemented in ED; we will monitor leg lites and supplement as needed 4. Hypertension; Maxide 30 7. 525 milligrams 1 daily 5. Hyperlipidemia; Lipitor 10 mg by mouth daily at bedtime 6. Hypothyroidism; levothyroxin 50 MCG daily 7. COPD; not in exacerbation; continue with home in immunotherapy 8. Dementia; Namenda 10 mg daily; Exelon 3 mg twice a day DVT prophylaxis; SCDs/subcu heparin CODE STATUS; full code
[2023-07-23] MEDS: LEVOTHYROXINE 50 MCG TAB PO SCH (06:15)
[2023-07-23] MEDS: ATORVASTATIN 10 MG TAB PO SCH (08:54)
[2023-07-23] MEDS: allopurinoL 100 MG TAB PO SCH (08:54)
[2023-07-23] MEDS: HEPARIN SODIUM,PORCINE 5,000 UNIT/ML 1 ML VIAL SQ SCH ×2 (08:54→20:19)
[2023-07-23] MEDS: DULoxetine HCL 20 MG CAPSULE.DR PO SCH (08:55)
[2023-07-23] MEDS: ALPRAZolam 0.25 MG TAB PO SCH (08:57)
[2023-07-23] MEDS: SODIUM CHLORIDE 0.9% 1,000 ML IV SCH (08:58)
--- NOTE | 2023-07-23 09:22 | P.PN ---
Subjective Progress Note Date: 07/23/23 Principal diagnosis: Ascending cellulitis left leg Patient seen at bedside resting comfortably. Patient Reports decreased pain and edema of the leg. Patient is anxious to be released Objective - Vital Signs Vital signs: Vital Signs Temp 98 F 07/23/23 07:00 Pulse 94 07/23/23 07:00 Resp 14 07/23/23 07:00 BP 176/86 07/23/23 07:00 Pulse Ox 94 L 07/23/23 07:00 FiO2 Intake & Output 07/22/23 07/23/23 07/23/23 18:59 06:59 18:59 Intake Total 168 Output Total 300 Balance -132 Weight 50 kg Intake: Oral 168 Output: Urine 300 Other: # Voids 0 - Exam Patient has decreased erythema and decreased edema of the left lower extremity. Review of arterial and venous studies are negative for any pathology related to the cellulitis. Review of serology studies shows WBCs within normal limits Patient does have some peripheral arterial disease left foot greater than right - Labs CBC & Chem 7: 07/22/23 06:03 07/22/23 06:03 Labs: Abnormal Lab Results - Last 24 Hours (Table) 07/22/23 Range/Units 06:03 RBC 4.01 L (4.10-5.20) X 10*6/uL Hct 37.0 L (37.2-46.3) % Microbiology - Last 24 Hours (Table) 07/21/23 14:43 Blood Culture - Preliminary Blood 07/21/23 14:43 Blood Culture - Preliminary Blood Assessment and Plan Assessment: Ascending cellulitis left lower extremity Plan: Examination review of labs and vascular studies. Patient does appear to be clinically responding to care after discharge will follow patient in the office thank you for this consult
[2023-07-23 09:29] LABS: BUN/Creat Ratio 19.18 Ratio (12.00-20.00); Blood Urea Nitrogen 21.1 mg/dL (9.0-27.0); Calcium 8.9 mg/dL (8.7-10.3); Carbon Dioxide 25.1 mmol/L (21.6-31.8); Chloride 109 mmol/L (96-109); Glucose 95 mg/dL (70-110); Potassium 3.2 mmol/L (3.5-5.5); Sodium 144 mmol/L (135-145)
[2023-07-23 09:45] LABS: Basophils # (A) 0.04 X 10*3/uL (0.00-0.10); Basophils % (A) 0.5 %; Eosinophils # (A) 0.42 X 10*3/uL (0.04-0.35); HCT 34.6 % (37.2-46.3); HGB 11.1 g/dL (12.0-15.0); Lymphocytes # (A) 2.15 X 10*3/uL (0.90-5.00); Lymphocytes % (A) 25.8 %; MCH 29.9 pg (27.0-32.0); MCHC 32.1 g/dL (32.0-37.0); MCV 93.3 FL (80.0-97.0); Mean Platelet Volume 10.2 FL (9.5-12.2); Monocytes # (A) 0.83 X 10*3/uL (0.20-1.00); NRBC Per 100 WBC 0 X 10*3/uL (0.00-0.01); Neutrophils # (A) 4.85 X 10*3/uL (1.80-7.70); Neutrophils % (A) 58.3 %; Platelet Count 261 X 10*3/uL (140-440); RBC 3.71 X 10*6/uL (4.10-5.20); RDW 13.5 % (11.5-14.5); WBC 8.32 X 10*3/uL (4.50-10.00)
--- NOTE | 2023-07-23 10:52 | US ---
EXAMINATION TYPE: US arterial LE multi level DATE OF EXAM: 07/22/2023 1:33 PM CLINICAL INDICATION: Female, 88 years old with history of pvd; Cellulitis left leg History of: Smoker: previous Hypertension: no Diabetic: no Hyperlipidemia: no TIA/CVA: no Previous Vascular Surgery: no CT: no Vascular Ulcers: no Claudication: no Gangrene: no Doppler Waveforms: Right: Monophasic Left: Monophasic Right Brachial Pressure: 142 Left Brachial Pressure: 137 Ankle-Brachial Indices: Right: 0.84 Left: 0.45 Toe Brachial Indices: Right: 0.31 Left: Not performed IMPRESSION: Severe left and moderate right peripheral vascular disease by ankle brachial indices.
[2023-07-23] MEDS ORDERED: POTASSIUM CHLORIDE ER 20 MEQ TAB.ER PO STA (11:12)
[2023-07-23] MEDS: DONEPEZIL 10 MG TAB PO SCH (20:18)
[2023-07-23] MEDS: SODIUM CHLORIDE TAB 1 GM TAB PO SCH (20:18)
--- NOTE | 2023-07-23 20:59 | P.CONS ---
History of Present Illness - Reason for Consult Consult date: 07/23/23 Cellulitis Requesting physician: Kris Harley - Chief Complaint Left leg swelling and redness x few days - History of Present Illness This is a telehealth visit Patient is a 88-year-old female with a past medical history significant for COPD dementia hypertension osteoarthritis patient presenting to the hospital 2 days ago on 07/21/2023 concern for left leg infection apparently patient has been on doxycycline for 10 days per her primary care physician and the patient did saw her warehouse general laborer the day of presentation to the hospital patient was complaining of pain to the left lower leg and there was some redness concerning for cellulitis for the patient was advised to go to the hospital on presentation to the hospital patient was afebrile and no fever has been recorded subsequently patient did have a white count of 10.8 creatinine was 1.24 subsequently creatinine is 1.1 liver enzymes are normal patient did have a x-ray of the tibia-fibula no acute changes diffuse osteopenia without focal bony abnormality patient did have a venous Doppler no evidence of DVT patient was started on Rocephin infectious disease was consulted for further management of antibiotic therapy, patient complaining of mostly swelling and some erythema to the left lower extremity without any history of any trauma mild aching aching pain patient did have any open wound or any drainage denies any chest pain shortness of breath or cough no nausea vomiting no abdominal pain or diarrhea Review of Systems Positive point and negatives has been mentioned in the HPI, complete review of systems was performed and all other systems are negative Past Medical History Past Medical History: COPD, Dementia, Hypertension, Memory Impairment, Osteoarthritis (OA) History of Any Multi-Drug Resistant Organisms: None Reported Past Surgical History: No Surgical Hx Reported Past Psychological History: No Psychological Hx Reported Smoking Status: Former smoker Past Alcohol Use History: None Reported Past Drug Use History: None Reported Medications and Allergies Home Medications Medication Instructions Recorded Confirmed Type Atorvastatin Calcium [Lipitor] 10 mg PO DAILY 01/23/22 07/21/23 History DULoxetine HCL [Cymbalta] 20 mg PO DAILY 01/23/22 07/21/23 History Rivastigmine Tartrate [Exelon] 3 mg PO BID-W/MEALS 01/23/22 07/21/23 History ALPRAZolam [Xanax] 0.25 mg PO DAILY 07/21/23 07/21/23 History Levothyroxine Sodium [Synthroid] 50 mcg PO DAILY 07/21/23 07/21/23 History Memantine [Namenda] 10 mg PO DAILY 07/21/23 07/21/23 History allopurinoL [Zyloprim] 100 mg PO DAILY 07/21/23 07/21/23 History Acetaminophen Tab [Tylenol] 650 mg PO Q6HR PRN tab 07/25/23 Rx Nystatin 100,000Unit/gm Cream 1 applic TOPICAL BID each 07/25/23 Rx [Mycostatin Cream] Triamcinolone 0.1% Cream [Kenalog 1 applic TOPICAL BID each 07/25/23 Rx 0.1% Cream] amLODIPine [Norvasc] 5 mg PO DAILY #30 tab 07/25/23 Rx Allergies Allergy/AdvReac Type Severity Reaction Status Date / Time No Known Allergies Allergy Verified 07/21/23 16:40 Physical Exam Vitals: Vital Signs Temp Pulse Resp BP BP Pulse Ox 07/23/23 07:00 98 F 94 14 176/86 94 L 07/23/23 02:00 97.9 F 88 148/87 92 L 07/22/23 20:00 97.8 F 100 154/91 91 L 07/22/23 15:00 98.0 F 111 H 22 124/71 91 L Intake and Output 07/22/23 07/23/23 07/23/23 22:59 06:59 14:59 Other: # Voids 1 0 GENERAL DESCRIPTION: Elderly female lying in bed, no distress. No tachypnea or accessory muscle of respiration use. HEENT: Shows Pallor , no scleral icterus. Oral mucous membrane is dry. No pharyngeal erythema or thrush NECK: Trachea central, no thyromegaly. LUNGS: Unlabored breathing. Clear to auscultation anteriorly. No wheeze or crackle. HEART: S1, S2, regular rate and rhythm. ABDOMEN: Soft, no tenderness EXTREMITIES: Left lower extremity with venous stasis dermatitis with some scaling minimal erythema SKIN: No rash, no masses palpable. NEUROLOGICAL: The patient is awake, alert, oriented x3, mood and affect normal. Exam completed with the help of FIELD ACCOUNT DIRECTOR Results CBC & Chem 7: 07/24/23 05:59 07/25/23 06:27 Labs: Abnormal Lab Results - Last 24 Hours (Table) 12/09/23 Range/Units 06:03 RBC 4.01 L (4.10-5.20) X 10*6/uL Hct 37.0 L (37.2-46.3) % Microbiology - Last 24 Hours (Table) 07/21/23 14:43 Blood Culture - Preliminary Blood 07/21/23 14:43 Blood Culture - Preliminary Blood Assessment and Plan (1) Venous stasis dermatitis of left lower extremity Status: Acute Code(s): I87.2 - VENOUS INSUFFICIENCY (CHRONIC) (PERIPHERAL) SNOMED Code(s): 65549371 (2) Left leg cellulitis Status: Acute Code(s): L03.116 - CELLULITIS OF LEFT LOWER LIMB SNOMED Code(s): 87159747037603464 Plan: 1patient presented to hospital with a left lower extremity swelling and redness concerning for possible cellulitis failing outpatient oral doxycycline therapy, patient did have mostly diffuse swelling redness possibly streptococcal celluli tis. 2marked area of the redness 3-discontinue Rocephin 4-start the patient cefazolin 2 g every 8 hours We will follow on clinical condition and cultures to further adjust medication if needed Thank you for this consultation we will follow the patient along with you Dictation was produced using [employer] dictation software. please excuse any grammatical, word or spelling errors. Time with Patient: Greater than 30
[2023-07-24] MEDS: LEVOTHYROXINE 50 MCG TAB PO SCH (05:51)
[2023-07-24] MEDS: SODIUM CHLORIDE 0.9% 1,000 ML IV SCH ×2 (05:51→08:37)
--- NOTE | 2023-07-24 06:31 | P.PN ---
Subjective Progress Note Date: 07/23/23 88-year-old female presenting to the emergency department with concern for left leg infection. Patient has been on doxycycline over 10 days through primary care physician. Patient did see her deputy jailer today who recommended she come to the hospital. Patient does have pain left lower leg. Patient has redness extending from the foot to the mid lower leg. No fevers. No history of similar symptoms previously. Blood work completed in ED to be considerably obese of 10.8, hemoglobin of 13.1 and platelet count of 266, sodium 140, potassium 2.2, BUN/creatinine of 32/1.25 X-ray of left lower extremity reveals no acute changes with diffuse osteopenia without focal osseous abnormality, 07/23/2023 1patient presented to hospital with a left lower extremity swelling and redness concerning for possible cellulitis failing outpatient oral doxycycline therapy, patient did have mostly diffuse swelling redness possibly streptococcal cellulitis. marked area of the redness -discontinue Rocephin per ID recommendations -start the patient cefazolin 2 g every 8 hours Objective - Vital Signs Vital signs: Vital Signs Temp 98 F 07/23/23 07:00 Pulse 94 07/23/23 07:00 Resp 14 07/23/23 07:00 BP 176/86 07/23/23 07:00 Pulse Ox 94 L 07/23/23 07:00 FiO2 Intake & Output 07/22/23 07/23/23 07/23/23 18:59 06:59 18:59 Intake Total 168 Output Total 300 Balance -132 Weight 50 kg Intake: Oral 168 Output: Urine 300 Other: # Voids 0 - Exam General appearance: alert, in no apparent distress Head exam: Present: normocephalic Eye exam: Present: normal appearance Neck exam: Present: normal inspection Respiratory exam: Present: normal lung sounds bilaterally Cardiovascular Exam: Present: regular rate, normal rhythm Expanded Peripheral pulses: 2+: Dorsalis Pedis (R), Dorsalis Pedis (L) GI/Abdominal exam: Present: soft. Absent: tenderness Extremities exam: Present: other (Patient does have erythema from the distal foot to mid to upper and lower leg. There is mild tenderness.). Absent: calf tenderness Neurological exam: Present: alert Skin exam: Present: erythema - Labs CBC & Chem 7: 07/23/23 03:58 12/10/23 03:55 Labs: Abnormal Lab Results - Last 24 Hours (Table) 07/23/23 07/23/23 Range/Units 03:55 03:58 RBC 3.71 L (4.10-5.20) X 10*6/uL Hgb 11.1 L (12.0-15.0) g/dL Hct 34.6 L (37.2-46.3) % Eosinophils # 0.42 H (0.04-0.35) X 10*3/uL Potassium 3.2 L (3.5-5.5) mmol/L Est GFR (CKD-EPI) 48 L (>=60) Microbiology - Last 24 Hours (Table) 07/21/23 14:43 Blood Culture - Preliminary Blood 07/21/23 14:43 Blood Culture - Preliminary Blood Assessment and Plan Assessment: 1. Ascending cellulitis left lower extremity; failing outpatient treatment - Patient has been placed on IV antibiotics in form of Rocephin 1 g IV every 12 hours; we will monitor CBC, CRP and pro-calcitonin - Lower extremity venous Doppler is ordered - Podiatry on board - Consult ID for further evaluation 2. Acute renal injury; patient is placed on slow IV fluid hydration in form of normal saline at a rate of 75 mL an hour; monitor strict RAYNA's, daily weights, renal function and electrolytes; avoid nephrotoxins and hypotension 3. Hypokalemia; supplemented in ED; we will monitor leg lites and supplement as needed 4. Hypertension; Maxide 30 7. 525 milligrams 1 daily 5. Hyperlipidemia; Lipitor 10 mg by mouth daily at bedtime 6. Hypothyroidism; levothyroxin 50 MCG daily 7. COPD; not in exacerbation; continue with home in immunotherapy 8. Dementia; Namenda 10 mg daily; Exelon 3 mg twice a day DVT prophylaxis; SCDs/subcu heparin CODE STATUS; full code
[2023-07-24] MEDS: ALPRAZolam 0.25 MG TAB PO SCH (08:36)
[2023-07-24] MEDS: HEPARIN SODIUM,PORCINE 5,000 UNIT/ML 1 ML VIAL SQ SCH ×2 (08:36→20:18)
[2023-07-24] MEDS: ATORVASTATIN 10 MG TAB PO SCH (08:36)
[2023-07-24] MEDS: DULoxetine HCL 20 MG CAPSULE.DR PO SCH (08:37)
[2023-07-24] MEDS: allopurinoL 100 MG TAB PO SCH (08:37)
[2023-07-24 11:06] LABS: Basophils # (A) 0.03 X 10*3/uL (0.00-0.10); Basophils % (A) 0.3 %; Eosinophils % (A) 4.6 %; HCT 35.7 % (37.2-46.3); HGB 11.5 g/dL (12.0-15.0); Lymphocytes # (A) 1.81 X 10*3/uL (0.90-5.00); Lymphocytes % (A) 20.7 %; MCH 30.4 pg (27.0-32.0); MCHC 32.2 g/dL (32.0-37.0); MCV 94.4 FL (80.0-97.0); Mean Platelet Volume 9.8 FL (9.5-12.2); NRBC Per 100 WBC 0 X 10*3/uL (0.00-0.01); Neutrophils # (A) 5.77 X 10*3/uL (1.80-7.70); Neutrophils % (A) 66.2 %; Platelet Count 256 X 10*3/uL (140-440); RBC 3.78 X 10*6/uL (4.10-5.20); RDW 13.4 % (11.5-14.5); WBC 8.73 X 10*3/uL (4.50-10.00)
[2023-07-24 11:08] LABS: Blood Urea Nitrogen 15.5 mg/dL (9.0-27.0); Carbon Dioxide 26.4 mmol/L (21.6-31.8); Chloride 109 mmol/L (96-109); Glucose 93 mg/dL (70-110); Potassium 3.6 mmol/L (3.5-5.5); Sodium 146 mmol/L (135-145)
[2023-07-24] MEDS ORDERED: NYSTAT-TRIAMCIN 100,000-0.1 UNIT/GM-% CREAM 30 GM TUBE TOPICAL SCH (13:00)
[2023-07-24] MEDS: NYSTATIN 100,000UNIT/GM CREAM 30 GM TUBE TOPICAL SCH ×2 (13:35→20:19)
[2023-07-24] MEDS: TRIAMCINOLONE 0.1% CREAM 80 GM TUBE TOPICAL SCH ×2 (13:35→20:19)
[2023-07-24] MEDS: DONEPEZIL 10 MG TAB PO SCH (20:18)
[2023-07-24] MEDS: SODIUM CHLORIDE TAB 1 GM TAB PO SCH (20:18)
[2023-07-24 23:52] VITALS: RESP 16
--- NOTE | 2023-07-25 04:49 | P.PN ---
Subjective Progress Note Date: 07/24/23 88-year-old female presenting to the emergency department with concern for left leg infection. Patient has been on doxycycline over 10 days through primary care physician. Patient did see her bellstaff today who recommended she come to the hospital. Patient does have pain left lower leg. Patient has redness extending from the foot to the mid lower leg. No fevers. No history of similar symptoms previously. Blood work completed in ED to be considerably obese of 10.8, hemoglobin of 13.1 and platelet count of 266, sodium 140, potassium 2.2, BUN/creatinine of 32/1.25 X-ray of left lower extremity reveals no acute changes with diffuse osteopenia without focal osseous abnormality, 07/23/2023 1patient presented to hospital with a left lower extremity swelling and redness concerning for possible cellulitis failing outpatient oral doxycycline therapy, patient did have mostly diffuse swelling redness possibly streptococcal cellulitis. marked area of the redness -discontinue Rocephin per ID recommendations -start the patient cefazolin 2 g every 8 hours 07/24/2023 Patient is seen in follow-up this morning with left lower extremity swelling and erythema failure of outpatient treatment being followed by infectious disease along with podiatry. Patient is maintained on cefazolin and evaluated by infectious disease adding Mycolog cream to be applied to the lower extremity and monitoring for improvements. Patient is showing some clinical improvement on IV Keflex and will likely transition to oral antibiotics on discharge. Patient has been seen and evaluated by podiatry and will follow-up in the outpatient setting. Patient is currently afebrile with no reports of chest pain or shortness of breath. Patient is extremely anxious and wants to go home if she reports to feeling improved. Patient has been instructed to elevate lower extremity swelling rest as there is some continued swelling although is improved. Sodium slightly elevated at 146 and will hold sodium chloride tab and follow-up with repeat labs Review of systems: Constitutional: No reports of fatigue, fever, or chills Cardiovascular: No reports of chest pain or palpitations Respiratory: No reports of shortness of breath or cough GI: No reports of nausea, vomiting, or diarrhea : No reports of dysuria or retention Neurovascular: No reports of weakness or numbness, reports some improvement in redness and swelling of the left lower extremity All medications have been reviewed Physical exam: Gen: This is a 88-year-old female who is awake, alert and oriented 3, well- developed, thin built, elderly appearing HEENT: Head is atraumatic, normocephalic. Pupils equal, round. Sclerae is anicteric. NECK: Supple. No JVD. No lymphadenopathy. No thyromegaly. LUNGS: Clear to auscultation. No wheezes or rhonchi. No intercostal retractions. HEART: Regular rate and rhythm. No murmur. ABDOMEN: Soft. Bowel sounds are present. No masses. No tenderness. EXTREMITIES: No pedal edema. No calf tenderness. Left lower extremity with some minimal swelling that is showing improvement, erythema is improved with noted dry and flaking skin NEUROLOGICAL: Patient is awake, alert and oriented x3. Cranial nerves 2 through 12 are grossly intact. Assessment: 1. Ascending cellulitis left lower extremity; failing outpatient treatment 2. Acute renal injury; improving 3. Hypokalemia; improved after being replaced 4. Hypertension history 5. Hyperlipidemia 6. Hypothyroidism 7. COPD; not in exacerbation 8. Dementia history 9. GI prophylaxis 10. DVT prophylaxis; SCDs/subcu heparin 11. full code Plan: Patient being followed by podiatry Dr. Harley and will be following outpatient Patient maintained on IV cefazolin with infectious disease following and recommended monitoring overnight as he is adding Mycolog cream. Some improvement noted from IV cefazolin and will likely transition to oral antibiotics and discharged Patient encouraged to increase activity as tolerated and continue to encourage oral intake Patient instructed to elevate lower extremity swelling rest Sodium 146 today and was maintained on sodium chloride tabs at home which we'll hold for now and follow-up with repeat labs Will follow-up with the patient in the a.m. and monitor with likely discharge in 24 hours The impression and plan of care has been dictated by Lyudmila Solomon, Nurse Practitioner as directed. Dr. Raza MD I have performed a history and examination and MDM of this patient, discussed the same with the dictator, and agree with the dictator's assessment and plan as written ,documented as a scribe. Based on total visit time, I have performed more than 50% of the visit. Objective - Vital Signs Vital signs: Vital Signs Temp 97.9 F 07/24/23 07:00 Pulse 84 07/24/23 07:00 Resp 17 07/24/23 07:00 BP 166/93 07/24/23 07:00 Pulse Ox 94 L 07/24/23 07:00 FiO2 Intake & Output 07/23/23 07/24/23 07/24/23 18:59 06:59 18:59 Intake Total 768 475 Balance 768 475 Intake: Intake, IV Titration 650 275 Amount Sodium Chloride 0.9% 1, 600 225 000 ml @ 75 mls/hr IV . [id number] [facility] Rx#:[id number] ceFAZolin 2 gm In Sodium 50 50 Chloride 0.9% 50 ml @ 100 mls/hr IVPB Q12HR [facility] Rx #:[id number] Oral 118 200 Other: # Voids 1 # Bowel Movements 1 - Labs CBC & Chem 7: 07/24/23 05:59 07/24/23 05:59 Labs: Microbiology - Last 24 Hours (Table) 07/21/23 14:43 Blood Culture - Preliminary Blood 07/21/23 14:43 Blood Culture - Preliminary Blood
[2023-07-25] MEDS: LEVOTHYROXINE 50 MCG TAB PO SCH (05:43)
[2023-07-25 06:50] VITALS: BP 145/69; PULSE 85; TEMP 97.8
[2023-07-25] MEDS: allopurinoL 100 MG TAB PO SCH (09:42)
[2023-07-25] MEDS: ALPRAZolam 0.25 MG TAB PO SCH (09:42)
[2023-07-25] MEDS: ATORVASTATIN 10 MG TAB PO SCH (09:43)
[2023-07-25] MEDS: HEPARIN SODIUM,PORCINE 5,000 UNIT/ML 1 ML VIAL SQ SCH (09:43)
[2023-07-25] MEDS: TRIAMCINOLONE 0.1% CREAM 80 GM TUBE TOPICAL SCH (09:43)
[2023-07-25] MEDS: NYSTATIN 100,000UNIT/GM CREAM 30 GM TUBE TOPICAL SCH (09:43)
[2023-07-25] MEDS: DULoxetine HCL 20 MG CAPSULE.DR PO SCH (09:43)
[2023-07-25 11:35] LABS: Blood Urea Nitrogen 13.4 mg/dL (9.0-27.0); Calcium 9.1 mg/dL (8.7-10.3); Carbon Dioxide 27.2 mmol/L (21.6-31.8); Chloride 106 mmol/L (96-109); Glucose 97 mg/dL (70-110); Potassium 2.8 mmol/L (3.5-5.5); Sodium 146 mmol/L (135-145)
[2023-07-25] MEDS: POTASSIUM CHLORIDE ER 20 MEQ TAB.ER PO SCH ×2 (12:48→14:15)
[2023-07-25] MEDS ORDERED: POTASSIUM CHLORIDE ER 20 MEQ TAB.ER PO ONE (16:00)
--- NOTE | 2023-07-29 10:21 | P.DS ---
Providers Date of admission: 07/21/23 16:06 Expected date of discharge: 07/25/23 Attending physician: Ford White MD Consults: 07/21/23 16:06 Consult Physician Routine Consulting Provider: Kris Harley Consult Reason/Comments: cellulitis Do you want consulting provider notified?: Yes 07/22/23 11:18 Consult Physician Routine Consulting Provider: Da Devlin Consult Reason/Comments: cellulitis Do you want consulting provider notified?: Yes Primary care physician: José Miguel Bustamante [facility] Course: Final diagnosis -Ascending cellulitis left lower extremity; failing outpatient treatment -Left lower extremity dermatitis, present on admission -Acute renal injury; improving -Hypokalemia; improved after being replaced -Hypertension history -Hyperlipidemia - Hypothyroidism -COPD; not in exacerbation -Dementia history -GI prophylaxis -DVT prophylaxis; SCDs/subcu heparin -full code Discharge disposition Patient is being discharged in a stable condition with guarded prognosis to home. Patient will follow-up with Dr. Bustamante in the outpatient setting upon discharge. Patient is to continue with Mycolog cream to the left lower extremity and elevating. Patient to follow-up with podiatry outpatient as scheduled. Repeat labs ordered for outpatient follow-up to monitor electrolytes and kidney functions. Total time taken is greater than 35 minutes. Hospital course This is a 88-year-old female who was recently admitted with concerns of left lower gently cellulitis with failure of outpatient treatment. Patient evaluated at podiatry recommending being evaluated by infectious disease. Infectious disease evaluated maintained on IV cefazolin and swelling has improved with minimal redness noted appears more like a dermatitis and started on Mycolog cream. Patient showing clinical improvement and will continue on this with close outpatient follow-up. Patient potassium found to be slightly low and being replaced per protocol recommend close outpatient follow-up with repeat labs and primary care provider this week. Patient is extremely anxious and would like to go home. Patient has been cleared by consultations. Please refer to other consultation notes for further HPI. Currently no reports of chest pain, shortness of breath, or palpitations. Patient is afebrile. No reports of nausea or vomiting and patient is tolerating diet. Patient will be discharged home today. Physical exam: Gen: This is a 88-year-old female who is awake, alert and oriented 3, thin built, elderly appearing HEENT: Head is atraumatic, normocephalic. Pupils equal, round. Sclerae is anicteric. NECK: Supple. No JVD. No lymphadenopathy. No thyromegaly. LUNGS: Clear to auscultation. No wheezes or rhonchi. No intercostal retractions. HEART: Regular rate and rhythm. No murmur. ABDOMEN: Soft. Bowel sounds are present. No masses. No tenderness. EXTREMITIES: No pedal edema. No calf tenderness. Left lower extremity swelling and redness has improved with some dryness noted to the skin NEUROLOGICAL: Patient is awake, alert and oriented x3. Cranial nerves 2 through 12 are grossly intact. Please refer to medication reconciliation sheet for a list of medications. The impression and plan of care has been dictated by Lyudmila Solomon, Nurse Practitioner as directed. Dr. Raza MD I have performed a history and examination and MDM of this patient, discussed the same with the dictator, and agree with the dictator's assessment and plan as written ,documented as a scribe. Based on total visit time, I have performed more than 50% of the visit. Patient Condition at Discharge: Fair Plan - Discharge Summary Discharge Rx Participant: No New Discharge Prescriptions: New Nystatin 100,000Unit/gm Cream [Mycostatin Cream] 1 applic TOPICAL BID each Triamcinolone 0.1% Cream [Kenalog 0.1% Cream] 1 applic TOPICAL BID each amLODIPine [Norvasc] 5 mg PO DAILY #30 tab Acetaminophen Tab [Tylenol] 650 mg PO Q6HR PRN tab PRN Reason: Mild Pain Or Fever > 100.5 Continue DULoxetine HCL [Cymbalta] 20 mg PO DAILY Atorvastatin Calcium [Lipitor] 10 mg PO DAILY allopurinoL [Zyloprim] 100 mg PO DAILY Levothyroxine Sodium [Synthroid] 50 mcg PO DAILY Memantine [Namenda] 10 mg PO DAILY ALPRAZolam [Xanax] 0.25 mg PO DAILY Rivastigmine Tartrate [Exelon] 3 mg PO BID-W/MEALS Discontinued Triamterene-Hctz 37.5-25Mg [Maxzide 37.5-25] 1 tab PO HS Sodium Chloride Tab 1 gm PO HS Ketoconazole 2% Cream [Nizoral 2%] 1 applic TOPICAL DAILY Doxycycline Hyclate 100 mg PO DAILY Discharge Medication List Atorvastatin Calcium [Lipitor] 10 mg PO DAILY 01/23/22 [History] DULoxetine HCL [Cymbalta] 20 mg PO DAILY 01/23/22 [History] Rivastigmine Tartrate [Exelon] 3 mg PO BID-W/MEALS 01/23/22 [History] ALPRAZolam [Xanax] 0.25 mg PO DAILY 07/21/23 [History] Levothyroxine Sodium [Synthroid] 50 mcg PO DAILY 07/21/23 [History] Memantine [Namenda] 10 mg PO DAILY 07/21/23 [History] allopurinoL [Zyloprim] 100 mg PO DAILY 07/21/23 [History] Acetaminophen Tab [Tylenol] 650 mg PO Q6HR PRN tab 07/25/23 [Rx] Nystatin 100,000Unit/gm Cream [Mycostatin Cream] 1 applic TOPICAL BID each 07/25/23 [Rx] Triamcinolone 0.1% Cream [Kenalog 0.1% Cream] 1 applic TOPICAL BID each 07/25/23 [Rx] amLODIPine [Norvasc] 5 mg PO DAILY #30 tab 07/25/23 [Rx] Follow up Appointment(s)/Referral(s): Kris Harley DPM [STAFF PHYSICIAN] - 1 Week (Follow-up with podiatry at her next scheduled appointment) José Miguel Bustamante MD [Primary Care Provider] - 1-2 days Ambulatory/Diagnostic Orders: Basic Metabolic Panel [LAB.AMB] Time Frame: 2 Days, Location: None Selected Patient Instructions/Handouts: Cellulitis (ED) Activity/Diet/Wound Care/Special Instructions: Activity Limited until follow-up Follow-up with podiatry outpatient Continue Mycolog cream until follow-up Continue to hold salt tablets until repeat labs in the next few days Continue holding triamterene/hydrochlorothiazide until follow-up labs Follow-up primary care provider on discharge Elevate lower extremities while at rest Repeat labs of BMP in 2-3 days Discharge Disposition: HOME SELF-CARE
--- NOTE | 2023-08-01 12:44 | P.PN ---
Subjective Progress Note Date: 07/24/23 Principal diagnosis: Reason for follow-up is left lower extremity cellulitis and concern for a venous stasis dermatitis Patient is a 88-year-old female with a past medical history significant for COPD dementia hypertension osteoarthritis patient presenting to the hospital on 07/21/2023 concern for left leg infection, failing outpatient oral doxycycline therapy was concern for possible venous stasis dermatitis and a component of cellulitis On today's evaluation that is 07/24/2023, the patient denies having any fever or chills, the patient is breathing comfortably on room he denies any chest pain shortness of breath, no abdominal pain or any worsening pain to the left lower extremity currently with no open wound or any drainage Patient did have a white count of 8.73, creatinine 1.0 Objective - Vital Signs Vital signs: Vital Signs Temp 97.9 F 07/24/23 07:00 Pulse 84 07/24/23 07:00 Resp 17 07/24/23 07:00 BP 166/93 07/24/23 07:00 Pulse Ox 94 L 07/24/23 07:00 FiO2 Intake & Output 07/23/23 07/24/23 07/24/23 18:59 06:59 18:59 Intake Total 768 475 Balance 768 475 Intake: Intake, IV Titration 650 275 Amount Sodium Chloride 0.9% 1, 600 225 000 ml @ 75 mls/hr IV . [id number] [facility] Rx#:[id number] ceFAZolin 2 gm In Sodium 50 50 Chloride 0.9% 50 ml @ 100 mls/hr IVPB Q12HR [facility] Rx #:[id number] Oral 118 200 Other: Voiding Method Toilet # Voids 1 # Bowel Movements 1 - Exam GENERAL DESCRIPTION: An elderly fwmale lying in bed in no distress RESPIRATORY SYSTEM: Unlabored breathing , clear to auscultation anteriorly HEART: S1 S2 regular rate and rhythm , ABDOMEN: Soft , no tenderness EXTREMITIES: Left lower simply with some swelling dry scaly skin minimal erythema - Labs CBC & Chem 7: 07/24/23 05:59 07/25/23 06:27 Labs: Abnormal Lab Results - Last 24 Hours (Table) 07/24/23 07/24/23 Range/Units 05:59 05:59 RBC 3.78 L (4.10-5.20) X 10*6/uL Hgb 11.5 L (12.0-15.0) g/dL Hct 35.7 L (37.2-46.3) % Eosinophils # 0.40 H (0.04-0.35) X 10*3/uL Sodium 146 H (135-145) mmol/L Est GFR (CKD-EPI) 54 L (>=60) Microbiology - Last 24 Hours (Table) 07/21/23 14:43 Blood Culture - Preliminary Blood 07/21/23 14:43 Blood Culture - Preliminary Blood Assessment and Plan (1) Left leg cellulitis Status: Acute Code(s): L03.116 - CELLULITIS OF LEFT LOWER LIMB SNOMED Code(s): 43096960202503013 (2) Venous stasis dermatitis of left lower extremity Status: Acute Code(s): I87.2 - VENOUS INSUFFICIENCY (CHRONIC) (PERIPHERAL) SNOMED Code(s): 34129447 Plan: 1patient presented to hospital with a left lower extremity swelling and redness concerning for possible cellulitis failing outpatient oral doxycycline therapy, patient did have mostly diffuse swelling redness possibly streptococcal cellulitis, however patient has some features of venous stasis dermatitis 2we will continue with cefazolin 2 g every 8 hours however and Mycolog cream and see clinical response Dictation was produced using [employer] dictation software. please excuse any grammatical, word or spelling errors. Time with Patient: Less than 30
--- NOTE | 2023-08-01 12:46 | P.PN ---
Subjective Progress Note Date: 07/25/23 Principal diagnosis: Reason for follow-up is left lower extremity cellulitis and concern for a venous stasis dermatitis Patient is a 88-year-old female with a past medical history significant for COPD dementia hypertension osteoarthritis patient presenting to the hospital on 07/21/2023 concern for left leg infection, failing outpatient oral doxycycline therapy was concern for possible venous stasis dermatitis and a component of cellulitis On today's evaluation that is 07/25/2023, the patient remains to be afebrile, the patient is breathing comfortably on room , the patient denies any chest pain shortness of breath, patient denies having any nausea no vomiting no abdominal pain , patient mentions improvement to the left lower extremity after application of the Mycolog cream Patient did have a white count of 8.73 as of yesterday, creatinine is 1.0 Objective - Vital Signs Vital signs: Vital Signs Temp 97.8 F 07/25/23 06:41 Pulse 85 07/25/23 06:41 Resp 16 07/25/23 06:41 BP 145/69 07/25/23 06:41 Pulse Ox 92 L 07/25/23 06:41 FiO2 Intake & Output 07/24/23 07/25/23 07/25/23 18:59 06:59 18:59 Intake Total 75 118 Balance 75 118 Intake: Oral 75 118 Other: Voiding Method Toilet Toilet # Voids 3 1 # Bowel Movements 2 1 - Exam GENERAL DESCRIPTION: An elderly fwmale lying in bed in no distress RESPIRATORY SYSTEM: Unlabored breathing , clear to auscultation anteriorly HEART: S1 S2 regular rate and rhythm , ABDOMEN: Soft , no tenderness EXTREMITIES: Left lower extremity swelling and erythema has improved no open wound or any drainage - Labs CBC & Chem 7: 07/24/23 05:59 07/25/23 06:27 Labs: Abnormal Lab Results - Last 24 Hours (Table) 07/25/23 Range/Units 06:27 Sodium 146 H (135-145) mmol/L Potassium 2.8 L (3.5-5.5) mmol/L Anion Gap 12.80 H (4.00-12.00) mmol/L Est GFR (CKD-EPI) 54 L (>=60) Microbiology - Last 24 Hours (Table) 07/21/23 14:43 Blood Culture - Preliminary Blood 07/21/23 14:43 Blood Culture - Preliminary Blood Assessment and Plan (1) Left leg cellulitis Status: Acute Code(s): L03.116 - CELLULITIS OF LEFT LOWER LIMB SNOMED Code(s): 49289157955344182 (2) Venous stasis dermatitis of left lower extremity Status: Acute Code(s): I87.2 - VENOUS INSUFFICIENCY (CHRONIC) (PERIPHERAL) SNOMED Code(s): 36051389 Plan: 1patient presented to hospital with a left lower extremity swelling and redness concerning for possible cellulitis failing outpatient oral doxycycline therapy, patient did have mostly diffuse swelling redness possibly streptococcal cellulitis, however patient has some features of venous stasis dermatitis 2patient has shown clinical improvement with Mycolog cream which will be continued for about a week along with compression to keep the swelling down and no need for any systemic antibiotic on discharge this was discussed with the family as well as with admitting team [employer]FIG[employer]MENT [employer]IST working on discharge Dictation was produced using [employer] dictation software. please excuse any grammatical, word or spelling errors. Time with Patient: Less than 30
== END 2023-07-25 14:30 | disposition home or self-care (01) ==
LOC: EC 13:51 → 6NMEDSUR 16:06 → UNDOADMOB 16:06 → 6NMEDSUR 19:45 → INTOOBSV 07-24 13:44 → OBSVTOIN 07-24 13:44 → UNDODISOB 07-25 14:30
PROVIDERS: ADMIT Internal Medicine; ATTEND Internal Medicine
DX: L03.116 Cellulitis of left lower limb (principal); N17.9 Acute kidney failure, unspecified; E87.6 Hypokalemia; I87.2 Venous insufficiency (chronic) (peripheral); E66.9 Obesity, unspecified; Z68.1 Body mass index [BMI] 19.9 or less, adult; M85.88 Other specified disorders of bone density and structure, other site; I10 Essential (primary) hypertension; I73.9 Peripheral vascular disease, unspecified; E78.5 Hyperlipidemia, unspecified; E03.9 Hypothyroidism, unspecified; J44.9 Chronic obstructive pulmonary disease, unspecified; F03.90 Unspecified dementia, unspecified severity, without behavioral disturbance, psychotic disturbance, mood disturbance, and anxiety; M19.90 Unspecified osteoarthritis, unspecified site; Z79.890 Hormone replacement therapy; Z79.899 Other long term (current) drug therapy; Z66 Do not resuscitate; Z87.891 Personal history of nicotine dependence
CPT/HCPCS: 96361 ×3; 96366 ×4; 96367; 96372 ×3; 96365; 99284; 36415; 80053; 80048 ×4; 83605; 85025 ×4; 85610; 85730; 87040; 73590; 93923; 93970; G0378 ×5; J1644 ×3; J0690 ×3; J0696 ×3; 99285

== ENCOUNTER 2023-08-09 16:57 | Emergency (ER) | payer MEDICARE ==
--- NOTE | 2023-08-09 17:07 | ED ---
Extremity Problem HPI - General Stated complaint: L foot pain Time Seen by Provider: 08/09/23 17:06 Source: family, RN notes reviewed - History of Present Illness Initial comments: Patient is a 88-year-old female presented ER with a chief complaint of left foot infection. Patient was recently hospitalized complaint and diagnosed with cellulitis. Patient received IV antibiotics and was discharged. Patient was seen in Dr. Bustamante's office today and was told to come to ER due continued infection. Patient denies any fevers, chills, night sweats. - Related Data Home Medications Medication Instructions Recorded Confirmed Atorvastatin Calcium [Lipitor] 10 mg PO DAILY 01/23/22 08/10/23 DULoxetine HCL [Cymbalta] 20 mg PO DAILY 01/23/22 08/10/23 Rivastigmine Tartrate [Exelon] 3 mg PO BID-W/MEALS 01/23/22 08/10/23 ALPRAZolam [Xanax] 0.25 mg PO DAILY 07/21/23 08/10/23 Levothyroxine Sodium [Synthroid] 50 mcg PO DAILY 07/21/23 08/10/23 Memantine [Namenda] 10 mg PO DAILY 07/21/23 08/10/23 allopurinoL [Zyloprim] 100 mg PO DAILY 07/21/23 08/10/23 Cephalexin [Keflex] 500 mg PO Q12H 08/10/23 08/10/23 Triamterene-Hctz 37.5-25Mg 1 tab PO DAILY 08/10/23 08/10/23 [Maxzide 37.5-25] Previous Rx's Medication Instructions Recorded Acetaminophen Tab [Tylenol] 650 mg PO Q6HR PRN tab 07/25/23 Nystatin 100,000Unit/gm Cream 1 applic TOPICAL BID each 07/25/23 [Mycostatin Cream] Triamcinolone 0.1% Cream [Kenalog 1 applic TOPICAL BID each 07/25/23 0.1% Cream] amLODIPine [Norvasc] 5 mg PO DAILY #30 tab 07/25/23 Doxycycline [Vibramycin] 100 mg PO BID #14 capsule 08/10/23 Allergies Allergy/AdvReac Type Severity Reaction Status Date / Time No Known Allergies Allergy Verified 08/10/23 14:47 Review of Systems ROS Statement: Those systems with pertinent positive or pertinent negative responses have been documented in the HPI. ROS Other: All systems not noted in ROS Statement are negative. Past Medical History Past Medical History: COPD, Dementia, Hypertension, Memory Impairment, O steoarthritis (OA) History of Any Multi-Drug Resistant Organisms: None Reported Past Surgical History: No Surgical Hx Reported Past Psychological History: No Psychological Hx Reported Smoking Status: Former smoker Past Alcohol Use History: None Reported Past Drug Use History: None Reported General Exam - General Exam Comments Initial Comments: Visual Physical Exam Vital signs reviewed General: Well-appearing, nontoxic, no acute distress. Head: Normocephalic, atraumatic Eyes: PERRLA, EOMI ENT: Airway patent Chest: Nonlabored breathing Skin: No visual rash, normal skin tone Neuro: Alert and oriented 3 Musculoskeletal: No gross abnormalities General appearance: alert, in no apparent distress Course Vital Signs 08/09/23 17:39 Temperature 97.2 F L Pulse Rate 90 Respiratory 18 Rate Blood Pressure 160/83 O2 Sat by Pulse 92 L Oximetry Medical Decision Making - Medical Decision Making I performed the quick note portion of the exam. Electronically signed by Arya Hopkins PA-C Disposition Clinical Impression: Left against medical advice Disposition: LEFT AGAINST MEDICAL ADVICE Condition: Undetermined Referrals: José Miguel Bustamante MD [Primary Care Provider] - 1-2 days Time of Disposition: 18:18
[2023-08-09 17:50] VITALS: BP 160/83; PULSE 90; RESP 18; TEMP 97.2
--- NOTE | 2023-08-09 18:56 | XR ---
EXAMINATION TYPE: XR foot complete LT DATE OF EXAM: 08/09/2023 5:57 PM CLINICAL INDICATION:Female, 88 years old with history of pain; PHH. Left foot infection x3 weeks COMPARISON: None. TECHNIQUE: Three views left foot were obtained. FINDINGS: Generalized osteopenia, probably related to osteoporosis. There are mild degenerative changes. No varun dence of acute fracture, dislocation, or osseous destructive process. Grossly unremarkable soft tissu es without radiopaque foreign body seen. IMPRESSION: No radiographic evidence of an acute osseous process, including osteomyelitis. If there is persistent clinical concern, further evaluation with MRI over 3 phase bone scan would be recommended.
== END 2023-08-09 19:11 | disposition left against medical advice (07) ==
LOC: EC 16:57
DX: M79.672 Pain in left foot (principal); I10 Essential (primary) hypertension; J44.9 Chronic obstructive pulmonary disease, unspecified; M19.90 Unspecified osteoarthritis, unspecified site; F03.90 Unspecified dementia, unspecified severity, without behavioral disturbance, psychotic disturbance, mood disturbance, and anxiety; Z53.29 Procedure and treatment not carried out because of patient's decision for other reasons; Z79.899 Other long term (current) drug therapy; Z87.891 Personal history of nicotine dependence
CPT/HCPCS: 99283

== ENCOUNTER 2023-08-10 07:12 | Emergency (ER) | payer MEDICARE ==
--- NOTE | 2023-08-10 07:22 | ED ---
General Adult HPI - General Stated complaint: Left Foot infection Time Seen by Provider: 08/10/23 07:21 Source: RN notes reviewed - History of Present Illness Initial comments: 88-year-old female with no significant past medical history presents the emergency department with a chief complaint of left foot pain. Patient reports she was here yesterday for the same. She reports no improvement of symptoms. She did see Dr. Bustamante's office who recommended she be evaluated in the ED. she reports that she has tried multiple courses of antibiotics on an outpatient basis with some improvement however the left foot has not resolved. Denies any known fevers.Weakness, numbness, tingling - Related Data Home Medications Medication Instructions Recorded Confirmed Atorvastatin Calcium [Lipitor] 10 mg PO DAILY 01/23/22 08/10/23 DULoxetine HCL [Cymbalta] 20 mg PO DAILY 01/23/22 08/10/23 Rivastigmine Tartrate [Exelon] 3 mg PO BID-W/MEALS 01/23/22 08/10/23 ALPRAZolam [Xanax] 0.25 mg PO DAILY 07/21/23 08/10/23 Levothyroxine Sodium [Synthroid] 50 mcg PO DAILY 07/21/23 08/10/23 Memantine [Namenda] 10 mg PO DAILY 07/21/23 08/10/23 allopurinoL [Zyloprim] 100 mg PO DAILY 07/21/23 08/10/23 Cephalexin [Keflex] 500 mg PO Q12H 08/10/23 08/10/23 Triamterene-Hctz 37.5-25Mg 1 tab PO DAILY 08/10/23 08/10/23 [Maxzide 37.5-25] Previous Rx's Medication Instructions Recorded Acetaminophen Tab [Tylenol] 650 mg PO Q6HR PRN tab 07/25/23 Nystatin 100,000Unit/gm Cream 1 applic TOPICAL BID each 07/25/23 [Mycostatin Cream] Triamcinolone 0.1% Cream [Kenalog 1 applic TOPICAL BID each 07/25/23 0.1% Cream] amLODIPine [Norvasc] 5 mg PO DAILY #30 tab 07/25/23 Doxycycline [Vibramycin] 100 mg PO BID #14 capsule 08/10/23 Allergies Allergy/AdvReac Type Severity Reaction Status Date / Time No Known Allergies Allergy Verified 08/10/23 14:47 Review of Systems ROS Statement: Those systems with pertinent positive or pertinent negative responses have been documented in the HPI. ROS Other: All systems not noted in ROS Statement are negative. Past Medical History Past Medical History: COPD, Dementia, Hypertension, Memory Impairment, Osteoarthritis (OA) History of Any Multi-Drug Resistant Organisms: None Reported Past Surgical History: No Surgical Hx Reported Past Psychological History: No Psychological Hx Reported Smoking Status: Former smoker Past Alcohol Use History: None Reported Past Drug Use History: None Reported General Exam - General Exam Comments Initial Comments: Visual Physical Exam Vital signs reviewed General: Well-appearing, nontoxic, no acute distress. Head: Normocephalic, atraumatic Eyes: PERRLA, EOMI ENT: Airway patent Chest: Nonlabored breathing Skin: No visual rash, normal skin tone Neuro: Alert and oriented 3 Musculoskeletal: No gross abnormalities General: Alert, in no acute distress Head: atraumatic normocephalic. Eyes PERRL, EOMI intact, mucous membranes moist Respiratory: Lungs clear to auscultation bilaterally Cardiovascular: Heart rate regular rate and rhythm Abdominal: Soft without guarding or rebound Extremities: Normal inspection with full range of motion and normal capillary refill, left lower extremity with trace edema. There is circumferential erythema to flex and ankle nontender. 2+ DP/PT pulses Neuroogic: alert and oriented 3, CN II-XII intact, able to ambulate with steady gait Skin: warm dry and intact with normal color Course Vital Signs 08/10/23 08/10/23 07:56 15:06 Temperature 97.7 F 98 F Pulse Rate 98 88 Respiratory 18 18 Rate Blood Pressure 157/78 139/75 O2 Sat by Pulse 92 L 97 Oximetry - Reevaluation(s) Reevaluation #1: 08/10/23 11:45 reevaluated and updated on results. Agreeable with the plan for IV antibiotics. Reevaluation #2: 08/10/23 14:36 Patient reevaluated. Agreeable with the plan for IV antibiotics and discharge. Medical Decision Making - Medical Decision Making I performed the quick note portion of this exam, verbal signature Marion Ojeda PA-C Was pt. sent in by a medical professional or institution (, [facility], [facility], urgent care, hospital, or [facility]...) When possible be specific @ -[No] Did you speak to anyone other than the patient for history (EMS, parent, family, police, friend...)? What history was obtained from this source @ -[No] Did you review nursing and triage notes (agree or disagree)? Why? @ -[I reviewed and agree with nursing and triage notes] Were old charts reviewed (outside hosp., previous admission, EMS record, old EKG, old radiological studies, urgent care reports/EKG's, [facility] records)? Report findings @ XR from 08/09 reviewed and does not reveal any market edema or free air. Differential Diagnosis (chest pain, altered mental status, abdominal pain women, abdominal pain men, vaginal bleeding, weakness, fever, dyspnea, syncope, headache, dizziness, GI bleed, back pain, seizure, CVA, palpatations, mental health, musculoskeletal)? @ -[not applicable] EKG interpreted by me (3pts min.). @ -[As above] X-rays interpreted by me (1pt min.). @ -[None done] CT interpreted by me (1pt min.). @ -[None done] U/S interpreted by me (1pt. min.). @ -[None done] What testing was considered but not performed or refused? (CT, X-rays, U/S, labs)? Why? @ -[None] What meds were considered but not given or refused? Why? @ -[None] Did you discuss the management of the patient with other professionals (professionals i.e. , PA, [facility], lab, RT, psych nurse, transition social worker, clinical psychology teacher, teacher, navigation officer, case work aide)? Give summary @ -[No] Was smoking cessation discussed for >3mins.? @ -[No] Was critical care preformed (if so, how long)? @ -[No] Were there social determinants of health that impacted care today? How? (Homelessness, low income, unemployed, alcoholism, drug addiction, transportation, low edu. Level, literacy, decrease access to med. care, penitentiary, rehab)? @ -[No] Was there de-escalation of care discussed even if they declined (Discuss DNR or withdrawal of care, Hospice)? DNR status @ -[No] What co-morbidities impacted this encounter? (DM, HTN, Smoking, COPD, CAD, Cancer, CVA, ARF, Chemo, Hep., AIDS, mental health diagnosis, sleep apnea, morbid obesity)? @ -[None] Was patient admitted / discharged? Hospital course, mention meds given and route, prescriptions, significant lab abnormalities, going to OR and other pertinent info. @ -Discharged. This is a pleasant 88-year-old female who presents the emergency department with left foot pain. Patient had a thorough history and physical exam performed. Left foot and ankle with trace edema and circumferential erythema. 2+ DP/PT pulses. Distal neurovascular intact. Patient had laboratory studies which revealed WBC 9.8. Blood cultures are pending. I discussed the results in detail the patient and patient's family members who are agreeable with the plan. They're agreeable for receiving IV Vancomycin and following up with PCP and infectious disease on an outpatient return precautions were discussed. Discharged in stable condition. Case was discussed with Dr. Vincent, ED attending who agrees with plan of care Undiagnosed new problem with uncertain prognosis? @ -[No] Drug Therapy requiring intensive monitoring for toxicity (Heparin, Nitro, Insulin, Cardizem)? @ -[No] Were any procedures done? @ -[No] Diagnosis/symptom? @ -Left foot cellulitis Acute, or Chronic, or Acute on Chronic? @ -Acute Uncomplicated (without systemic symptoms) or Complicated (systemic symptoms)? @ -Uncomplicated Side effects of treatment? @ -[No] Exacerbation, Progression, or Severe Exacerbation? @ -[No] Poses a threat to life or bodily function? How? (Chest pain, USA, NM, pneumonia, PE, COPD, DKA, ARF, appy, cholecystitis, CVA, Diverticulitis, Homicidal, Shankar icidal, threat to staff... and all critical care pts) @ -No - Lab Data Result diagrams: 08/10/23 08:00 08/10/23 08:00 Lab Results 08/10/23 08/10/23 08/10/23 Range/Units 08:00 08:00 08:00 WBC 9.8 (3.8-10.6) k/uL RBC 4.53 (3.80-5.40) m/uL Hgb 13.6 (11.4-16.0) gm/dL Hct 42.0 (34.0-46.0) % MCV 92.6 (80.0-100.0) fL MCH 30.0 (25.0-35.0) pg MCHC 32.4 (31.0-37.0) g/dL RDW 13.3 (11.5-15.5) % Plt Count 303 (150-450) k/uL MPV 7.5 Neutrophils % 71 % Lymphocytes % 14 % Monocytes % 6 % Eosinophils % 6 % Basophils % 1 % Neutrophils # 6.9 (1.3-7.7) k/uL Lymphocytes # 1.4 (1.0-4.8) k/uL Monocytes # 0.6 (0-1.0) k/uL Eosinophils # 0.6 (0-0.7) k/uL Basophils # 0.1 (0-0.2) k/uL Sodium 141 (137-145) mmol/L Potassium 3.3 L (3.5-5.1) mmol/L Chloride 96 L (98-107) mmol/L Carbon Dioxide 31 H (22-30) mmol/L Anion Gap 14 mmol/L BUN 31 H (7-17) mg/dL Creatinine 1.27 H (0.52-1.04) mg/dL Est GFR (CKD-EPI)AfAm 43 (>60 ml/min/1.73 sqM) Est GFR (CKD-EPI)NonAf 38 (>60 ml/min/1.73 sqM) Glucose 104 H (74-99) mg/dL Plasma Lactic Acid Morgan 1.3 (0.7-2.0) mmol/L Calcium 9.5 (8.4-10.2) mg/dL Total Bilirubin 0.6 (0.2-1.3) mg/dL AST 33 (14-36) U/L ALT 20 (4-34) U/L Alkaline Phosphatase 133 H (38-126) U/L Total Protein 7.5 (6.3-8.2) g/dL Albumin 4.2 (3.5-5.0) g/dL Disposition Clinical Impression: Left leg cellulitis Disposition: HOME SELF-CARE Condition: Good Additional Instructions: PLease follow up with Dr. Madrid's office in 1-2 days PLease return if fever, redness migrates upwards Prescriptions: Doxycycline [Vibramycin] 100 mg PO BID #14 capsule Is patient prescribed a controlled substance at d/c from ED?: No Referrals: José Miguel Bustamante MD [Primary Care Provider] - 1-2 days Da Devlin MD [STAFF PHYSICIAN] - 1-2 days [facility] [NON-STAFF] - 1-2 days Time of Disposition: 14:40
[2023-08-10 08:07] VITALS: RESP 18
[2023-08-10 08:23] LABS: Basophils # (A) 0.1 k/uL (0-0.2); Basophils % (A) 1 %; Eosinophils # (A) 0.6 k/uL (0-0.7); Eosinophils % (A) 6 %; HGB 13.6 gm/dL (11.4-16.0); Lymphocytes # (A) 1.4 k/uL (1.0-4.8); Lymphocytes % (A) 14 %; MCHC 32.4 g/dL (31.0-37.0); MCV 92.6 fL (80.0-100.0); Mean Platelet Volume 7.5; Monocytes # (A) 0.6 k/uL (0-1.0); Monocytes % (A) 6 %; Neutrophils # (A) 6.9 k/uL (1.3-7.7); Neutrophils % (A) 71 %; Platelet Count 303 k/uL (150-450); RBC 4.53 m/uL (3.80-5.40); RDW 13.3 % (11.5-15.5); WBC 9.8 k/uL (3.8-10.6)
[2023-08-10 09:01] LABS: ALT 20 U/L (4-34); AST 33 U/L (14-36); African American GFR (CKD) 43 (>60 ml/min/1.73 sqM); Albumin 4.2 g/dL (3.5-5.0); Alkaline Phosphatase 133 U/L (38-126); Anion Gap 14 mmol/L; Blood Urea Nitrogen 31 mg/dL (7-17); Calcium 9.5 mg/dL (8.4-10.2); Carbon Dioxide 31 mmol/L (22-30); Chloride 96 mmol/L (98-107); Glucose 104 mg/dL (74-99); Non-African American GFR(CKD) 38 (>60 ml/min/1.73 sqM); Potassium 3.3 mmol/L (3.5-5.1); Sodium 141 mmol/L (137-145); Total Bilirubin 0.6 mg/dL (0.2-1.3); Total Protein 7.5 g/dL (6.3-8.2)
[2023-08-10] MEDS ORDERED: VANCOMYCIN IV PER PHARMACY 1 EACH MISC MISCELLANE PRN (11:46)
[2023-08-10] MEDS ORDERED: VANCOMYCIN 750 MG in SODIUM CHLORIDE 0.9% 250 ML IVPB ONE (12:00)
[2023-08-10] MEDS ORDERED: SODIUM CHLORIDE 0.9% 1,000 ML IV ONE (12:15)
[2023-08-10 15:26] VITALS: BP 139/75; PULSE 88; TEMP 98
[2023-08-11] MEDS ORDERED: VANCOMYCIN 750 MG in SODIUM CHLORIDE 0.9% 250 ML IVPB ONE (12:00)
== END 2023-08-10 15:06 | disposition home or self-care (01) ==
LOC: EC 07:12
DX: L03.116 Cellulitis of left lower limb (principal); J44.9 Chronic obstructive pulmonary disease, unspecified; I10 Essential (primary) hypertension; Z87.891 Personal history of nicotine dependence
CPT/HCPCS: 36415; 80053; 83605; 85025; 99284; 96365; 96366; J3370

== ENCOUNTER 2023-09-04 11:29 | Inpatient (IN) | payer MEDICARE ==
[2023-09-04] MEDS ORDERED: SODIUM CHLORIDE 0.9% 1,000 ML IV STA ×2 (12:22→16:19)
[2023-09-04] MEDS ORDERED: methylPREDNISolone SOD SUCCI 125 MG/2 ML VIAL IV STA (12:22)
[2023-09-04] MEDS ORDERED: IPRATROPIUM-ALBUTEROL 3 ML NEB INHALATION STA (12:22)
--- NOTE | 2023-09-04 13:04 | ED ---
General Adult HPI - General Chief complaint: Upper Respiratory Infection Stated complaint: Congestion Time Seen by Provider: 09/04/23 12:12 Source: patient, RN notes reviewed, old records reviewed Mode of arrival: ambulatory Limitations: no limitations - History of Present Illness Initial comments: Patient is an 88-year-old female who presents emergency Department complaining of upper respiratory symptoms. Patient's daughter brings the patient in for evaluation. She has a history of dementia. She also has a history of COPD. Is not on oxygen at home. Is supposed to be using inhalers but unknown if she has been. Has a history of hypertension as well. Patient's has RSV and was recently admitted to the hospital for it. Patient just started having symptoms over the last 3 days or so. Presents for further evaluation at this time. Todd machado denies any acute complaints however it is not a reliable historian secondary to dementia. Patient's daughter states she seems a little bit more irritated lately but otherwise at her baseline. - Related Data Home Medications Medication Instructions Recorded Confirmed Atorvastatin Calcium [Lipitor] 10 mg PO DAILY 01/23/22 09/04/23 DULoxetine HCL [Cymbalta] 20 mg PO DAILY 01/23/22 09/04/23 Rivastigmine Tartrate [Exelon] 3 mg PO BID-W/MEALS 01/23/22 09/04/23 ALPRAZolam [Xanax] 0.25 mg PO DAILY 07/21/23 09/04/23 Levothyroxine Sodium [Synthroid] 50 mcg PO DAILY 07/21/23 09/04/23 Memantine [Namenda] 10 mg PO DAILY 07/21/23 09/04/23 allopurinoL [Zyloprim] 100 mg PO DAILY 07/21/23 09/04/23 Triamterene-Hctz 37.5-25Mg 1 tab PO DAILY 08/10/23 09/04/23 [Maxzide 37.5-25] Doxycycline Hyclate See Taper PO DIRECTED 09/04/23 09/04/23 Previous Rx's Medication Instructions Recorded Acetaminophen Tab [Tylenol] 650 mg PO Q6HR PRN tab 07/25/23 Nystatin 100,000Unit/gm Cream 1 applic TOPICAL BID each 07/25/23 [Mycostatin Cream] Triamcinolone 0.1% Cream [Kenalog 1 applic TOPICAL BID each 07/25/23 0.1% Cream] amLODIPine [Norvasc] 5 mg PO DAILY #30 tab 07/25/23 Allergies Allergy/AdvReac Type Severity Reaction Status Date / Time No Known Allergies Allergy Verified 09/04/23 16:03 Review of Systems ROS Statement: Those systems with pertinent positive or pertinent negative responses have been documented in the HPI. Review of Systems: CONST: Denies fever EYES: Denies blurry vision ENT: Endorses nasal congestion C/V: Denies Chest pain RESP: Endorses congestion GI: Denies abdominal pain : Denies dysuria SKIN: Denies rash. MSK: Denies joint pain. NEURO: Denies headache ROS Other: All systems not noted in ROS Statement are negative. Past Medical History Past Medical History: COPD, Dementia, Hypertension, Memory Impairment, Osteoarthritis (OA) Additional Past Medical History / Comment(s): Cellulitis History of Any Multi-Drug Resistant Organisms: None Reported Past Surgical History: No Surgical Hx Reported Past Psychological History: No Psychological Hx Reported Smoking Status: Former smoker Past Alcohol Use History: None Reported Past Drug Use History: None Reported General Exam - General Exam Comments Initial Comments: General: Appears in no acute distress. HEAD: Normal with no signs of head trauma. EYES: PERRLA, EOMI, conjunctiva normal, no discharge. ENT: Hearing grossly intact, normal oropharynx. RESPIRATORY: And expiratory wheezing bilaterally. No significant increased work of breathing or hypoxia. C/V: Regular rate and rhythm. S1 and S2 auscultated, no edema, peripheral pulses 2+ and intact throughout ABD: Abd is soft, nontender, nondistended EXT: Normal range of motion, no obvious deformity SKIN: No rashes or lesions observed on exposed skin. NEURO: Alert and oriented at baseline. Limitations: no limitations Course Vital Signs 09/04/23 09/04/23 09/04/23 11:49 12:43 13:28 Temperature 98.1 F Pulse Rate 107 H 105 H Respiratory 18 18 Rate Blood Pressure 115/71 O2 Sat by Pulse 93 L Oximetry 09/04/23 09/04/23 09/04/23 13:41 14:00 15:00 Temperature Pulse Rate 102 H 104 H 101 H Respiratory 20 18 Rate Blood Pressure 115/60 108/52 O2 Sat by Pulse 89 L 95 Oximetry 09/04/23 09/04/23 16:00 17:00 Temperature 98.9 F Pulse Rate 105 H 104 H Respiratory 18 18 Rate Blood Pressure 110/51 O2 Sat by Pulse 97 97 Oximetry Medical Decision Making - Medical Decision Making Was pt. sent in by a medical professional or institution (, TODD, CORONER, urgent care, hospital, or usp...) When possible be specific @ -No Did you speak to anyone other than the patient for history (EMS, parent, family, police, friend...)? What history was obtained from this source @ -Due To the patient's history of dementia, patient's daughter is the primary historian for the patient at this time. Did you review nursing and triage notes (agree or disagree)? Why? @ -I reviewed and agree with nursing and triage notes Were old charts reviewed (outside hosp., previous admission, EMS record, old EKG, old radiological studies, urgent care reports/EKG's, usp records)? Report findings @ -Old charts reviewed Differential Diagnosis (chest pain, altered mental status, abdominal pain women, abdominal pain men, vaginal bleeding, weakness, fever, dyspnea, syncope, head ache, dizziness, GI bleed, back pain, seizure, CVA, palpatations, mental health, musculoskeletal)? @ -Covid infection, RSV infection, viral infection, pneumonia, COPD exacerbation. This list is not all-inclusive. EKG interpreted by me (3pts min.). @ -As above X-rays interpreted by me (1pt min.). @ -X-ray reveals no obvious focal consolidation. CT interpreted by me (1pt min.). @ -None done U/S interpreted by me (1pt. min.). @ -None done What testing was considered but not performed or refused? (CT, X-rays, U/S, labs)? Why? @ -None What meds were considered but not given or refused? Why? @ -None Did you discuss the management of the patient with other professionals (professionals i.e. , TODD, CORONER, lab, RT, psych nurse, social sciences research scientist, client sales and service officer, teacher, custom protection officer, case mgr)? Give summary @ - I spoke with the admitting team LINDSEY Coreas of [facility] who accepted the patient. Was smoking cessation discussed for >3mins.? @ -No Was critical care preformed (if so, how long)? @ -No Were there social determinants of health that impacted care today? How? (Homelessness, low income, unemployed, alcoholism, drug addiction, transportation, low edu. Level, literacy, decrease access to med. care, group home, rehab)? @ -No Was there de-escalation of care discussed even if they declined (Discuss DNR or withdrawal of care, Hospice)? DNR status @ -No What co-morbidities impacted this encounter? (DM, HTN, Smoking, COPD, CAD, Cancer, CVA, ARF, Chemo, Hep., AIDS, mental health diagnosis, sleep apnea, morbid obesity)? @ -COPD Was patient admitted / discharged? Hospital course, mention meds given and route, prescriptions, significant lab abnormalities, going to OR and other pertinent info. @ -Based on the patient's presentation and physical exam, presents emergency Department complaining of COPD exacerbation and upper respiratory symptoms. Has a history of dementia and is at her baseline. Patient is wheezing and she'll be given IV steroids as well as breathing treatments. We will obtain upper respiratory laboratory studies, basic labs, urinalysis. She'll be given a 1 L fluid bolus. Patient and family are in agreement this plan. Vital signs are currently within acceptable limits.EKG shows no signs of acute ischemia. Chest x-ray unremarkable. Patient's laboratory studies are remarkable for a leukocytosis of 17. Slightly elevated carbon dioxide of 31. Remainder the labs unremarkable except for positive RSV infection. On reevaluation, patient does appear clinically somewhat dehydrated. She is on oxygen for comfort. Please have a mild COPD exacerbation and RSV infection. I did discuss with patient's daughter as well as the patient. Due to her age and risk factors I did recommend observation admission for IV fluid hydration, further treatments for COPD. She was in agreement with this plan. I spoke with the admitting team LINDSEY Coreas of [facility] who accepted the patient. Pulmonology consulted. Undiagnosed new problem with uncertain prognosis? @ -No Drug Therapy requiring intensive monitoring for toxicity (Heparin, Nitro, Insulin, Cardizem)? @ -No Were any procedures done? @ -No Diagnosis/symptom? @ -COPD Acute, or Chronic, or Acute on Chronic? @ -Acute on chronic Uncomplicated (without systemic symptoms) or Complicated (systemic symptoms)? @ -Complicated Side effects of treatment? @ -none Exacerbation, Progression, or Severe Exacerbation] @ -Exacerbation Poses a threat to life or bodily function? @ -yes Diagnosis/symptom? @ -RSV bronchiolitis, dehydration Acute, or Chronic, or Acute on Chronic? @ -Acute Uncomplicated (without systemic symptoms) or Complicated (systemic symptoms)? @ -Complicated Side effects of treatment? @ -none Exacerbation, Progression, or Severe Exacerbation] @ -no Poses a threat to life or bodily function? @ -Yes - Lab Data Result diagrams: 09/04/23 12:48 09/04/23 12:48 Lab Results 09/04/23 09/04/23 09/04/23 Range/Units 12:48 12:48 12:48 WBC 17.2 H (3.8-10.6) k/uL RBC 4.72 (3.80-5.40) m/uL Hgb 14.1 (11.4-16.0) gm/dL Hct 42.9 (34.0-46.0) % MCV 90.9 (80.0-100.0) fL MCH 29.9 (25.0-35.0) pg MCHC 32.8 (31.0-37.0) g/dL RDW 13.3 (11.5-15.5) % Plt Count 283 (150-450) k/uL MPV 7.7 Neutrophils % 83 % Lymphocytes % 10 % Monocytes % 5 % Eosinophils % 1 % Basophils % 0 % Neutrophils # 14.3 H (1.3-7.7) k/uL Lymphocytes # 1.7 (1.0-4.8) k/uL Monocytes # 0.8 (0-1.0) k/uL Eosinophils # 0.2 (0-0.7) k/uL Basophils # 0.0 (0-0.2) k/uL Sodium 133 L (137-145) mmol/L Potassium 3.6 (3.5-5.1) mmol/L Chloride 93 L (98-107) mmol/L Carbon Dioxide 31 H (22-30) mmol/L Anion Gap 9 mmol/L BUN 31 H (7-17) mg/dL Creatinine 1.13 H (0.52-1.04) mg/dL Est GFR (CKD-EPI)AfAm 50 (>60 ml/min/1.73 sqM) Est GFR (CKD-EPI)NonAf 43 (>60 ml/min/1.73 sqM) Glucose 109 H (74-99) mg/dL Calcium 9.4 (8.4-10.2) mg/dL Magnesium 1.9 (1.6-2.3) mg/dL Total Bilirubin 1.0 (0.2-1.3) mg/dL AST 45 H (14-36) U/L ALT 23 (4-34) U/L Alkaline Phosphatase 208 H (38-126) U/L Total Protein 7.4 (6.3-8.2) g/dL Albumin 3.9 (3.5-5.0) g/dL Urine Color Yellow Urine Appearance Clear (Clear) Urine pH 6.0 (5.0-8.0) Ur Specific [place] 1.018 (1.001-1.035) Urine Protein 1+ H (Negative) Urine Glucose (UA) Negative (Negative) Urine Ketones Negative (Negative) Urine Blood Negative (Negative) Urine Nitrite Negative (Negative) Urine Bilirubin Negative (Negative) Urine Urobilinogen <2.0 (<2.0) mg/dL Ur Leukocyte Esterase Negative (Negative) Urine RBC 1 (0-5) /hpf Urine WBC 2 (0-5) /hpf Ur Squamous Epith Cells 2 (0-4) /hpf Hyaline Casts 7 H (0-2) /lpf Urine Mucus Rare H (None) /hpf Influenza Type A (PCR) (Not Detectd) Influenza Type B (PCR) (Not Detectd) RSV (PCR) (Not Detectd) SARS-CoV-2 (PCR) (Not Detectd) 09/04/23 Range/Units 12:48 WBC (3.8-10.6) k/uL RBC (3.80-5.40) m/uL Hgb (11.4-16.0) gm/dL Hct (34.0-46.0) % MCV (80.0-100.0) fL MCH (25.0-35.0) pg MCHC (31.0-37.0) g/dL RDW (11.5-15.5) % Plt Count (150-450) k/uL MPV Neutrophils % % Lymphocytes % % Monocytes % % Eosinophils % % Basophils % % Neutrophils # (1.3-7.7) k/uL Lymphocytes # (1.0-4.8) k/uL Monocytes # (0-1.0) k/uL Eosinophils # (0-0.7) k/uL Basophils # (0-0.2) k/uL Sodium (137-145) mmol/L Potassium (3.5-5.1) mmol/L Chloride (98-107) mmol/L Carbon Dioxide (22-30) mmol/L Anion Gap mmol/L BUN (7-17) mg/dL Creatinine (0.52-1.04) mg/dL Est GFR (CKD-EPI)AfAm (>60 ml/min/1.73 sqM) Est GFR (CKD-EPI)NonAf (>60 ml/min/1.73 sqM) Glucose (74-99) mg/dL Calcium (8.4-10.2) mg/dL Magnesium (1.6-2.3) mg/dL Total Bilirubin (0.2-1.3) mg/dL AST (14-36) U/L ALT (4-34) U/L Alkaline Phosphatase (38-126) U/L Total Protein (6.3-8.2) g/dL Albumin (3.5-5.0) g/dL Urine Color Urine Appearance (Clear) Urine pH (5.0-8.0) Ur Specific [place] (1.001-1.035) Urine Protein (Negative) Urine Glucose (UA) (Negative) Urine Ketones (Negative) Urine Blood (Negative) Urine Nitrite (Negative) Urine Bilirubin (Negative) Urine Urobilinogen (<2.0) mg/dL Ur Leukocyte Esterase (Negative) Urine RBC (0-5) /hpf Urine WBC (0-5) /hpf Ur Squamous Epith Cells (0-4) /hpf Hyaline Casts (0-2) /lpf Urine Mucus (None) /hpf Influenza Type A (PCR) Not Detected (Not Detectd) Influenza Type B (PCR) Not Detected (Not Detectd) RSV (PCR) Detected A (Not Detectd) SARS-CoV-2 (PCR) Not Detected (Not Detectd) - EKG Data -: EKG Interpreted by Me EKG Comments: 12-lead Electrocardiogram Interpretation Note EKG was reviewed and interpreted by myself. 12-lead ECG performed at 1431 is interpreted by me as revealing normal sinus rhythm at a rate of 96 beats per minute. [place] is normal. [place] Intervals 200 ms, QRS is 102 ms. QTC is 424 ms.. There were no ST or T wave abnormalities to suggest myocardial ischemia or injury. R wave progression across the precordium was satisfactory. By my interpretation this EKG is non-diagnostic for acute ischemia. Disposition Clinical Impression: COPD (chronic obstructive pulmonary disease), RSV (respiratory syncytial virus infection), Dehydration Disposition: ADMITTED IP TO THIS HOSP Condition: Stable Time of Disposition: 15:45
[2023-09-04 13:14] LABS: Basophils % (A) 0 %; Eosinophils # (A) 0.2 k/uL (0-0.7); Eosinophils % (A) 1 %; HCT 42.9 % (34.0-46.0); HGB 14.1 gm/dL (11.4-16.0); Lymphocytes # (A) 1.7 k/uL (1.0-4.8); Lymphocytes % (A) 10 %; MCH 29.9 pg (25.0-35.0); MCHC 32.8 g/dL (31.0-37.0); MCV 90.9 fL (80.0-100.0); Mean Platelet Volume 7.7; Monocytes # (A) 0.8 k/uL (0-1.0); Monocytes % (A) 5 %; Neutrophils # (A) 14.3 k/uL (1.3-7.7); Neutrophils % (A) 83 %; Platelet Count 283 k/uL (150-450); RBC 4.72 m/uL (3.80-5.40); RDW 13.3 % (11.5-15.5); WBC 17.2 k/uL (3.8-10.6)
[2023-09-04 13:30] LABS: ALT 23 U/L (4-34); African American GFR (CKD) 50 (>60 ml/min/1.73 sqM); Albumin 3.9 g/dL (3.5-5.0); Anion Gap 9 mmol/L; Blood Urea Nitrogen 31 mg/dL (7-17); Calcium 9.4 mg/dL (8.4-10.2); Carbon Dioxide 31 mmol/L (22-30); Chloride 93 mmol/L (98-107); Glucose 109 mg/dL (74-99); Non-African American GFR(CKD) 43 (>60 ml/min/1.73 sqM); Sodium 133 mmol/L (137-145); Total Protein 7.4 g/dL (6.3-8.2)
[2023-09-04 13:51] LABS: AST 45 U/L (14-36); Alkaline Phosphatase 208 U/L (38-126); Magnesium 1.9 mg/dL (1.6-2.3); Potassium 3.6 mmol/L (3.5-5.1)
--- NOTE | 2023-09-04 14:10 | XR ---
EXAMINATION TYPE: XR chest 2V DATE OF EXAM: 09/04/2023 COMPARISON: 01/23/2022 and thoracic spine 05/29/2017 HISTORY: 88-year-old female difficulty in breathing, cough and congestion TECHNIQUE: AP and lateral views FINDINGS: Heart borderline enlarged. Scattered aphthous chronic calcifications within the aorta. Hyperinflation . Anterior wedge deformities of multiple mid thoracic vertebral bodies with accentuated midthoracic k yphosis. 2 of the most severe compression injury of lower thoracic spine appear to be chronic. Mild a nterior wedging of a couple vertebral bodies in the midthoracic spine appear new compared to 7 are still age-indeterminate. No consolidation or pleural effusion seen. Dextro convex scoliosis low er thoracic spine. IMPRESSION: 1. COPD. No acute process seen. 2. Dextroconvex scoliosis lower thoracic spine. Multiple vertebral compression deformities. 2 vertebr al bodies with the most severe compression in the lower thoracic spine are unchanged back to 2017. A couple levels in the midthoracic spine showing mild anterior wedging are new from 2017 but still age- indeterminate.
[2023-09-04 14:55] LABS: Appearance,Urine Clear (Clear); Bilirubin,Urine Negative (Negative); Blood,Urine Negative (Negative); Color,Urine Yellow; Glucose,Urine (UA) Negative (Negative); Hyaline Casts,Urine 7 /lpf (0-2); Ketones,Urine Negative (Negative); Leukocyte Esterase,Urine Negative (Negative); Mucus,Urine Rare /hpf; Nitrite,Urine Negative (Negative); Protein,Urine 1+ (Negative); RBC,Urine 1 /hpf (0-5); Specific Gravity,Urine 1.018 (1.001-1.035); Squamous Epithelial Cell,Urine 2 /hpf (0-4); Urobilinogen,Urine <2.0 mg/dL (<2.0); WBC,Urine 2 /hpf (0-5)
[2023-09-04] MEDS ORDERED: NALOXONE 0.4 MG/ML 1 ML VIAL IV PRN (16:20)
[2023-09-04] MEDS ORDERED: ONDANSETRON 4 MG/2 ML VIAL IVP PRN (16:20)
[2023-09-04] MEDS: IPRATROPIUM-ALBUTEROL 3 ML NEB INHALATION SCH (20:59)
[2023-09-04] MEDS: methylPREDNISolone SOD SUCCI 40 MG/ML 1 ML VIAL IV SCH (21:27)
[2023-09-04] MEDS: HEPARIN SODIUM,PORCINE 5,000 UNIT/ML 1 ML VIAL SQ SCH (21:27)
[2023-09-05] MEDS: IPRATROPIUM-ALBUTEROL 3 ML NEB INHALATION SCH ×6 (00:11→21:32)
--- NOTE | 2023-09-05 00:55 | P.CNPUL ---
History of Present Illness Consult date: 09/05/23 Requesting physician: Hollis Mendoza Reason for consult: COPD, other (RSV) Chief complaint: URI-like symptoms History of present illness: I am seeing this patient in consultation today September 05, 2023 after she presented with URI-like symptoms. Patient is a 88-year-old white female with past medical history significant for COPD, advanced dementia, hypertension, among other things. Patient is a poor historian, secondary to her advanced dementia. She is alert. She thinks she is at home, and only oriented to self. Apparently, the patient's had tested positive for RSV earlier in the week. He is currently admitted to the hospital. Patient presented to emergency room yesterday afternoon reportedly complaining of URI-like symptoms over the last 3 days. She denies any specific complaints to me. She denies any shortness of breath, cough, chest pain. She is afebrile. She is currently lying in bed, on 2 L/min nasal cannula, in no acute distress. Chest x-ray on arrival showed no acute process. There is hyperinflation consistent with COPD. 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 Some are chronic. CBC on arrival showed some leukocytosis with a WBC count of 17.2, hemoglobin 14.1, hematocrit 42.9, platelets 283. BMP on arrival: Sodium 133, potassium 3.6, chloride 93, serum bicarb 31, BUN 31, creatinine 1.13, glucose 109. Patient appears to have some underlying chronic kidney disease. Urinalysis not consistent with urinary tract infection. Patient did test positive for RSV. Negative for influenza and COVID-19. Patient is currently receiving supportive treatment. She has been started on IV Solu-Medrol. She is also receiving DuoNebs [id number]. Normal saline infusing at 75 mL/h. Vitals are stable. Review of Systems REVIEW OF SYSTEMS: Should be noted the patient has advanced dementia at baseline. CONSTITUTIONAL: Denies any recent significant weight loss or weight gain. EYES: Denies change in vision. EARS, NOSE, MOUTH, THROAT: Denies headaches, denies sore throat. CARDIOVASCULAR: Denies chest pain, palpitations or syncopal episodes. RESPIRATORY: Denies shortness of breath, cough, congestion or hemoptysis. GASTROINTESTINAL: Denies change in appetite, abdominal pain, nausea and vomiting, or diarrhea GENITOURINARY: Denies hematuria, denies infections. MUSKULOSKELETAL: Denies pain, denies swelling. Denies back pain. Denies saddle anesthesia. Denies urinary or fecal incontinence. INTEGUMENTARY: Denies rash, denies eczema. NEUROLOGICAL: Denies recent memory loss, no recent seizure activity. PSYCHIATRIC: Denies anxiety, denies depression. HEMATOLOGIC/LYMPHATIC: Denies anemia, denies enlarged lymph node Past Medical History Past Medical History: COPD, Dementia, Hypertension, Memory Impairment, Osteoarthritis (OA) Additional Past Medical History / Comment(s): Cellulitis History of Any Multi-Drug Resistant Organisms: None Reported Past Surgical History: No Surgical Hx Reported Past Psychological History: No Psychological Hx Reported Smoking Status: Former smoker Past Alcohol Use History: None Reported Past Drug Use History: None Reported Medications and Allergies Home Medications Medication Instructions Recorded Confirmed Type Atorvastatin Calcium [Lipitor] 10 mg PO DAILY 01/23/22 09/04/23 History DULoxetine HCL [Cymbalta] 20 mg PO DAILY 01/23/22 09/04/23 History Rivastigmine Tartrate [Exelon] 3 mg PO BID-W/MEALS 01/23/22 09/04/23 History ALPRAZolam [Xanax] 0.25 mg PO DAILY 07/21/23 09/04/23 History Levothyroxine Sodium [Synthroid] 50 mcg PO DAILY 07/21/23 09/04/23 History Memantine [Namenda] 10 mg PO DAILY 07/21/23 09/04/23 History allopurinoL [Zyloprim] 100 mg PO DAILY 07/21/23 09/04/23 History Acetaminophen Tab [Tylenol] 650 mg PO Q6HR PRN tab 07/25/23 09/04/23 Rx Nystatin 100,000Unit/gm Cream 1 applic TOPICAL BID each 07/25/23 09/04/23 Rx [Mycostatin Cream] Triamcinolone 0.1% Cream [Kenalog 1 applic TOPICAL BID each 07/25/23 09/04/23 Rx 0.1% Cream] amLODIPine [Norvasc] 5 mg PO DAILY #30 tab 07/25/23 09/04/23 Rx Triamterene-Hctz 37.5-25Mg 1 tab PO DAILY 08/10/23 09/04/23 History [Maxzide 37.5-25] Doxycycline Hyclate See Taper PO DIRECTED 09/04/23 09/04/23 History Allergies Allergy/AdvReac Type Severity Reaction Status Date / Time No Known Allergies Allergy Verified 09/04/23 16:03 Physical Exam Vitals: Vital Signs Temp Pulse Pulse Resp BP BP Pulse Ox 09/04/23 20:23 98 F 95 20 112/55 96 09/04/23 18:29 98.3 F 104 H 18 127/56 95 09/04/23 17:00 104 H 18 97 09/04/23 16:00 98.9 F 105 H 18 110/51 97 09/04/23 15:00 101 H 18 108/52 95 09/04/23 14:00 104 H 20 115/60 89 L 09/04/23 13:41 102 H 09/04/23 13:28 105 H 09/04/23 12:43 18 09/04/23 11:49 98.1 F 107 H 18 115/71 93 L Intake and Output 09/04/23 09/04/23 09/05/23 14:59 22:59 06:59 Other: Voiding Method Toilet Weight 49.895 kg GENERAL EXAM: Alert, 88-year-old white female, comfortable in no apparent distress. HEAD: Normocephalic and atraumatic EYES: Normal reaction of pupils, equal size. NOSE: Clear with pink turbinates. THROAT: No erythema or exudates. NECK: No masses, no JVD. CHEST: No chest wall deformity. Appears kyphotic LUNGS: Equal air entry with no crackles, wheeze, rhonchi or dullness. On 2 L/min nasal cannula. No conversational dyspnea or accessory muscle use.. CVS: S1 and S2 normal with no audible murmur, regular rhythm. No extra heart sounds ABDOMEN: No hepatosplenomegaly, active bowel sounds, no guarding or rigidity. SPINE: No scoliosis or deformity SKIN: No rashes CENTRAL NERVOUS SYSTEM: Alert. Oriented to self only. She thinks she is at home. Unsure of date/year. No focal deficits, tone is normal in all 4 extremities. EXTREMITIES: There is no peripheral edema, clubbing, or cyanosis. Peripheral pulses are intact. Results - Laboratory Findings CBC and BMP: 09/04/23 12:48 01/22/24 12:48 Abnormal lab findings: Abnormal Labs 09/04/23 09/04/23 09/04/23 12:48 12:48 12:48 WBC 17.2 H Neutrophils # 14.3 H Sodium 133 L Chloride 93 L Carbon Dioxide 31 H BUN 31 H Creatinine 1.13 H Glucose 109 H AST 45 H Alkaline Phosphatase 208 H Urine Protein 1+ H Hyaline Casts 7 H Urine Mucus Rare H RSV (PCR) 09/04/23 12:48 WBC Neutrophils # Sodium Chloride Carbon Dioxide BUN Creatinine Glucose AST Alkaline Phosphatase Urine Protein Hyaline Casts Urine Mucus RSV (PCR) Detected A - Diagnostic Findings Chest x-ray: image reviewed Assessment and Plan Assessment: Acute hypoxemic respiratory failure, secondary to acute COPD exacerbation and RSV infection. Chest x-ray on arrival did not show any acute cardiopulmonary defects. No focal infiltrates or evidence of pneumonia. There is hyperinflation consistent with COPD. Patient did test positive for RSV on arrival. Acute RSV infection Leukocytosis History of chronic obstructive pulmonary disease Chronic kidney disease stage III History of hypertension History of hyperlipidemia History of advanced dementia History of hypothyroidism History of left lower extremity cellulitis Plan: Patient's medications, labs, chest x-ray reviewed Continue supplemental oxygen, currently on 2 L/min nasal cannula. Continue supportive treatment. Patient is currently receiving IV Solu-Medrol and DuoNebs [id number]. Continue IV hydration No need for antibiotics at this point. Procalcitonin level is pending. We will continue to follow I have personally seen and examined the patient, performed the documentation and the assessment and plan as written. Number of minutes spent on the visit: 20 Time with Patient: Greater than 30
[2023-09-05] MEDS: LEVOTHYROXINE 50 MCG TAB PO SCH (06:30)
[2023-09-05] MEDS: ALPRAZolam 0.25 MG TAB PO SCH (09:25)
[2023-09-05] MEDS: DONEPEZIL 10 MG TAB PO SCH (09:25)
[2023-09-05] MEDS: methylPREDNISolone SOD SUCCI 40 MG/ML 1 ML VIAL IV SCH ×2 (09:26→20:54)
[2023-09-05] MEDS: HEPARIN SODIUM,PORCINE 5,000 UNIT/ML 1 ML VIAL SQ SCH ×2 (09:26→20:54)
[2023-09-05] MEDS: MEMANTINE 10 MG TAB PO SCH (09:26)
[2023-09-05] MEDS: DULoxetine HCL 20 MG CAPSULE.DR PO SCH (09:26)
[2023-09-05] MEDS: ATORVASTATIN 10 MG TAB PO SCH (09:26)
[2023-09-05] MEDS: allopurinoL 100 MG TAB PO SCH (09:26)
[2023-09-05 10:15] LABS: Basophils # (A) 0.03 X 10*3/uL (0.00-0.10); Basophils % (A) 0.2 %; Eosinophils # (A) 0 X 10*3/uL (0.04-0.35); Eosinophils % (A) 0 %; HCT 33.4 % (37.2-46.3); HGB 10.7 g/dL (12.0-15.0); Lymphocytes # (A) 1.13 X 10*3/uL (0.90-5.00); Lymphocytes % (A) 6.5 %; MCH 28.9 pg (27.0-32.0); MCV 90.3 FL (80.0-97.0); Mean Platelet Volume 10.6 FL (9.5-12.2); Monocytes # (A) 0.37 X 10*3/uL (0.20-1.00); Monocytes % (A) 2.1 %; NRBC Per 100 WBC 0 X 10*3/uL (0.00-0.01); Neutrophils # (A) 15.76 X 10*3/uL (1.80-7.70); Neutrophils % (A) 90.1 %; Platelet Count 237 X 10*3/uL (140-440); RDW 13.6 % (11.5-14.5); WBC 17.49 X 10*3/uL (4.50-10.00)
[2023-09-05 10:57] LABS: Blood Urea Nitrogen 28.2 mg/dL (9.0-27.0); Calcium 8.6 mg/dL (8.7-10.3); Carbon Dioxide 25.4 mmol/L (21.6-31.8); Chloride 101 mmol/L (96-109); Glucose 128 mg/dL (70-110); Potassium 3.4 mmol/L (3.5-5.5); Sodium 139 mmol/L (135-145)
--- NOTE | 2023-09-05 13:31 | P.HPIM ---
History of Present Illness H&P Date: 09/05/23 This is an 88-year-old female with medical history of COPD, dementia, hypertension, arthritis, former smoker. Patient comes into the hospital she is a poor historian unsure of what happened. She lives at home with her . She is found to be positive for RSV and is requiring 2 L of oxygen. Patient's is currently hospitalized with RSV; patient began having symptoms over the last 3 days mostly upper respiratory with shortness of breath and cough. Per family she is at her baseline mentation. Chest x-ray is showing COPD with no acute process seen. 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 EKG showing sinus rhythm with occasional supraventricular premature complexes with heart rate of [address] or T wave abnormalities. White blood cell count of 17.2 on admission with a sodium of 133, BUN of 31, creatinine of 1.13, urinalysis showing 1+ protein not suggestive of infection. She was admitted to the hospital to consult placed to pulmonary services she has been placed on 2 L of oxygen. Her procalcitonin was mildly elevated at 0.35. REVIEW OF SYSTEMS: CONSTITUTIONAL: No fever, no malaise, no fatigue. HEENT: No recent visual problems or hearing problems. Denied any sore throat. CARDIOVASCULAR: No chest pain, orthopnea, PND, no palpitations, no syncope. PULMONARY: No shortness of breath, no cough, no hemoptysis. GASTROINTESTINAL: No diarrhea, no nausea, no vomiting, no abdominal pain. NEUROLOGICAL: No headaches, no weakness, no numbness. HEMATOLOGICAL: Denies any bleeding or petechiae. GENITOURINARY: Denies any burning micturition, frequency, or urgency. MUSCULOSKELETAL/RHEUMATOLOGICAL: Denies any joint pain, swelling, or any muscle pain. ENDOCRINE: Denies any polyuria or polydipsia. The rest of the 14-point review of systems is negative. PHYSICAL EXAMINATION: GENERAL: The patient is alert and oriented x1, not in any acute distress. Well developed, well nourished. HEENT: Pupils are round and equally reacting to light. EOMI. No scleral icterus. No conjunctival pallor. Normocephalic, atraumatic. No pharyngeal erythema. No thyromegaly. CARDIOVASCULAR: S1 and S2 present. No murmurs, rubs, or gallops. PULMONARY: Chest is clear to auscultation, no wheezing or crackles. ABDOMEN: Soft, nontender, nondistended, normoactive bowel sounds. No palpable organomegaly. MUSCULOSKELETAL: No joint swelling or deformity. EXTREMITIES: No cyanosis, clubbing, or pedal edema. NEUROLOGICAL: Gross neurological examination did not reveal any focal deficits. SKIN: No rashes. Assessment and plan Acute hypoxemic respiratory failure secondary to acute COPD exacerbation patient is continued on supportive care with IV steroids and also on oral azithromycin Acute RSV infection without evidence for pneumonia Leukocytosis secondary to above Advanced dementia alert and oriented x 1 at baseline patient continues on donepezil and Namenda History hypertension maintained on amlodipine which is currently held at this time patient's blood pressure is normotensive. History of COPD Former smoker GI prophylaxis DVT prophylaxis Full code The impression and plan of care has been dictated by Jennifer Mitchell Nurse Practitioner as directed. Dr. Raza MD I have performed a history and physical examination and medical decision making of this patient, discussed the same with the dictator, and agree with the dictators assessment and plan as written, documented as a scribe. Based on total visit time, I have performed more than 50% of this visit. Past Medical History Past Medical History: COPD, Dementia, Hypertension, Memory Impairment, Osteoarthritis (OA) Additional Past Medical History / Comment(s): Cellulitis History of Any Multi-Drug Resistant Organisms: None Reported Past Surgical History: No Surgical Hx Reported Past Psychological History: No Psychological Hx Reported Smoking Status: Former smoker Past Alcohol Use History: None Reported Past Drug Use History: None Reported Medications and Allergies Home Medications Medication Instructions Recorded Confirmed Type Atorvastatin Calcium [Lipitor] 10 mg PO DAILY 01/23/22 09/04/23 History DULoxetine HCL [Cymbalta] 20 mg PO DAILY 01/23/22 09/04/23 History Rivastigmine Tartrate [Exelon] 3 mg PO BID-W/MEALS 01/23/22 09/04/23 History ALPRAZolam [Xanax] 0.25 mg PO DAILY 07/21/23 09/04/23 History Levothyroxine Sodium [Synthroid] 50 mcg PO DAILY 07/21/23 09/04/23 History Memantine [Namenda] 10 mg PO DAILY 07/21/23 09/04/23 History allopurinoL [Zyloprim] 100 mg PO DAILY 07/21/23 09/04/23 History Acetaminophen Tab [Tylenol] 650 mg PO Q6HR PRN tab 07/25/23 09/04/23 Rx Nystatin 100,000Unit/gm Cream 1 applic TOPICAL BID each 07/25/23 09/04/23 Rx [Mycostatin Cream] Triamcinolone 0.1% Cream [Kenalog 1 applic TOPICAL BID each 07/25/23 09/04/23 Rx 0.1% Cream] amLODIPine [Norvasc] 5 mg PO DAILY #30 tab 07/25/23 09/04/23 Rx Triamterene-Hctz 37.5-25Mg 1 tab PO DAILY 08/10/23 09/04/23 History [Maxzide 37.5-25] Doxycycline Hyclate See Taper PO DIRECTED 09/04/23 09/04/23 History Allergies Allergy/AdvReac Type Severity Reaction Status Date / Time No Known Allergies Allergy Verified 09/04/23 16:03 Physical Exam Vitals: Vital Signs Temp Pulse Pulse Resp BP BP Pulse Ox 09/05/23 08:00 97.7 F 86 19 112/62 97 09/05/23 07:40 76 09/05/23 07:28 72 09/05/23 02:00 97.7 F 83 98/58 98 09/04/23 20:23 98 F 95 20 112/55 96 09/04/23 18:29 98.3 F 104 H 18 127/56 95 09/04/23 17:00 104 H 18 97 09/04/23 16:00 98.9 F 105 H 18 110/51 97 09/04/23 15:00 101 H 18 108/52 95 09/04/23 14:00 104 H 20 115/60 89 L 09/04/23 13:41 102 H 09/04/23 13:28 105 H 09/04/23 12:43 18 09/04/23 11:49 98.1 F 107 H 18 115/71 93 L Intake and Output 09/04/23 09/05/23 09/05/23 22:59 06:59 14:59 Other: Voiding Method Toilet Weight 49.895 kg Results CBC & Chem 7: 09/05/23 04:33 09/05/23 04:33 Labs: Abnormal Lab Results - Last 24 Hours (Table) 09/04/23 09/04/23 09/04/23 Range/Units 12:48 12:48 12:48 WBC 17.2 H (3.8-10.6) k/uL Neutrophils # 14.3 H (1.3-7.7) k/uL Sodium 133 L (137-145) mmol/L Chloride 93 L (98-107) mmol/L Carbon Dioxide 31 H (22-30) mmol/L BUN 31 H (7-17) mg/dL Creatinine 1.13 H (0.52-1.04) mg/dL Glucose 109 H (74-99) mg/dL AST 45 H (14-36) U/L Alkaline Phosphatase 208 H (38-126) U/L Procalcitonin (0.02-0.09) ng/mL Urine Protein 1+ H (Negative) Hyaline Casts 7 H (0-2) /lpf Urine Mucus Rare H (None) /hpf RSV (PCR) (Not Detectd) 09/04/23 09/04/23 Range/Units 12:48 20:53 WBC (3.8-10.6) k/uL Neutrophils # (1.3-7.7) k/uL Sodium (137-145) mmol/L Chloride (98-107) mmol/L Carbon Dioxide (22-30) mmol/L BUN (7-17) mg/dL Creatinine (0.52-1.04) mg/dL Glucose (74-99) mg/dL AST (14-36) U/L Alkaline Phosphatase (38-126) U/L Procalcitonin 0.35 H (0.02-0.09) ng/mL Urine Protein (Negative) Hyaline Casts (0-2) /lpf Urine Mucus (None) /hpf RSV (PCR) Detected A (Not Detectd) Thrombosis Risk Factor Assmnt - Choose All That Apply Any of the Below Risk Factors Present?: Yes Each Factor Represents 1 point: Abnormal pulmonary function (COPD) Other Risk Factors: Yes Each Risk Factor Represents 3 Points: Age 75 years or older Thrombosis Risk Factor Assessment Total Risk Factor Score: 4 Thrombosis Risk Factor Assessment Level: Moderate Risk Assessment and Plan Time with Patient: Less than 30
[2023-09-05] MEDS: AZITHROMYCIN 500 MG TAB PO SCH (13:40)
[2023-09-06] MEDS: IPRATROPIUM-ALBUTEROL 3 ML NEB INHALATION SCH ×7 (00:12→23:19)
[2023-09-06] MEDS: LEVOTHYROXINE 50 MCG TAB PO SCH (06:54)
[2023-09-06] MEDS: DULoxetine HCL 20 MG CAPSULE.DR PO SCH (08:37)
[2023-09-06] MEDS: DONEPEZIL 10 MG TAB PO SCH (08:37)
[2023-09-06] MEDS: AZITHROMYCIN 500 MG TAB PO SCH (08:37)
[2023-09-06] MEDS: ATORVASTATIN 10 MG TAB PO SCH (08:38)
[2023-09-06] MEDS: HEPARIN SODIUM,PORCINE 5,000 UNIT/ML 1 ML VIAL SQ SCH ×2 (08:38→21:13)
[2023-09-06] MEDS: allopurinoL 100 MG TAB PO SCH (08:38)
[2023-09-06] MEDS: FAMOTIDINE 20 MG TAB PO SCH (08:38)
[2023-09-06] MEDS: MEMANTINE 10 MG TAB PO SCH (08:38)
[2023-09-06] MEDS: ALPRAZolam 0.25 MG TAB PO SCH (08:38)
[2023-09-06 08:58] LABS: BUN/Creat Ratio 24.42 Ratio (12.00-20.00); Blood Urea Nitrogen 29.3 mg/dL (9.0-27.0); Calcium 8.9 mg/dL (8.7-10.3); Carbon Dioxide 26.1 mmol/L (21.6-31.8); Chloride 100 mmol/L (96-109); Glucose 147 mg/dL (70-110); Potassium 2.9 mmol/L (3.5-5.5); Sodium 139 mmol/L (135-145)
[2023-09-06] MEDS ORDERED: amLODIPine 5 MG TAB PO SCH ×2 (09:00→23:30)
[2023-09-06] MEDS: methylPREDNISolone SOD SUCCI 40 MG/ML 1 ML VIAL IV SCH (09:50)
[2023-09-06] MEDS: POTASSIUM CHLORIDE ER 20 MEQ TAB.ER PO SCH ×4 (09:51→21:14)
[2023-09-06 11:39] LABS: Glucose,Whole Blood 118 mg/dL (70-110)
--- NOTE | 2023-09-06 12:14 | P.PN ---
Subjective Progress Note Date: 09/06/23 I am seeing this patient in consultation today September 05, 2023 after she presented with URI-like symptoms. Patient is a 88-year-old white female with past medical history significant for COPD, advanced dementia, hypertension, among other things. Patient is a poor historian, secondary to her advanced de mentia. She is alert. She thinks she is at home, and only oriented to self. Apparently, the patient's had tested positive for RSV earlier in the week. He is currently admitted to the hospital. Patient presented to emergency room yesterday afternoon reportedly complaining of URI-like symptoms over the last 3 days. She denies any specific complaints to me. She denies any shortness of breath, cough, chest pain. She is afebrile. She is currently lying in bed, on 2 L/min nasal cannula, in no acute distress. Chest x-ray on arrival showed no acute process. There is hyperinflation consistent with COPD. 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 Some are chronic. CBC on arrival showed some leukocytosis with a WBC count of 17.2, hemoglobin 14.1, hematocrit 42.9, platelets 283. BMP on arrival: Sodium 133, potassium 3.6, chloride 93, serum bicarb 31, BUN 31, creatinine 1.13, glucose 109. Patient appears to have some underlying chronic kidney disease. Urinalysis not consistent with urinary tract infection. Patient did test positive for RSV. Negative for influenza and COVID-19. Patient is currently receiving supportive treatment. She has been started on IV Solu-Medrol. She is also receiving DuoNebs [id number]. Normal saline infusing at 75 mL/h. Vitals are stable. The patient is seen today September 06, 2023 in follow-up on the regular medical floor. She is currently resting comfortably in bed. Awake and alert in no acute distress. Maintaining O2 saturations in the 90s on 3 L/min per nasal cannula. Sodium 139. Potassium 2.9. Bicarb 26. BUN 29. Creatinine 1.2. Glucose 147. She is continued on DuoNeb inhalations, Solu-Medrol. Heparin for DVT prophylaxis. Antibiotics in the form of azithromycin. Procalcitonin 0.35. Objective - Vital Signs Vital signs: Vital Signs Temp 97.3 F L 09/06/23 07:53 Pulse 86 09/06/23 09:22 Resp 20 09/06/23 07:53 BP 113/60 09/06/23 07:53 Pulse Ox 84 L 09/06/23 12:00 FiO2 Intake & Output 09/05/23 09/06/23 09/06/23 18:59 06:59 18:59 Intake Total 200 500 200 Balance 200 500 200 Intake: Oral 200 500 200 Other: Voiding Method Toilet # Voids 1 3 # Bowel Movements 1 1 - Exam GENERAL EXAM: Alert, pleasant, confused at times 88-year-old female, on 3 L nasal cannula, comfortable in no apparent distress. HEAD: Normocephalic. EYES: Normal reaction of pupils, equal size. NOSE: Clear with pink turbinates. THROAT: No erythema or exudates. NECK: No masses, no JVD. CHEST: No chest wall deformity. LUNGS: Equal air entry with no crackles, wheeze, rhonchi or dullness. CVS: S1 and S2 normal with no audible murmur, regular rhythm. ABDOMEN: No hepatosplenomegaly, normal bowel sounds, no guarding or rigidity. SPINE: No scoliosis or deformity SKIN: No rashes CENTRAL NERVOUS SYSTEM: No focal deficits, tone is normal in all 4 extremities. EXTREMITIES: There is no peripheral edema. No clubbing, no cyanosis. Peripheral pulses are intact. - Labs CBC & Chem 7: 09/05/23 04:33 09/06/23 05:13 Labs: Abnormal Lab Results - Last 24 Hours (Table) 09/06/23 09/06/23 Range/Units 05:13 11:31 Potassium 2.9 L (3.5-5.5) mmol/L Anion Gap 12.90 H (4.00-12.00) mmol/L BUN 29.3 H (9.0-27.0) mg/dL Est GFR (CKD-EPI) 43 L (>=60) BUN/Creatinine Ratio 24.42 H (12.00-20.00) Ratio Glucose 147 H (70-110) mg/dL POC Glucose (mg/dL) 118 H (70-110) mg/dL Assessment and Plan Assessment: Acute hypoxemic respiratory failure, secondary to acute COPD exacerbation and RSV infection. Chest x-ray on arrival did not show any acute cardiopulmonary defects. No focal infiltrates or evidence of pneumonia. There is h yperinflation consistent with COPD. Patient did test positive for RSV on arrival Acute RSV infection Leukocytosis History of chronic obstructive pulmonary disease Chronic kidney disease stage III History of hypertension History of hyperlipidemia History of advanced dementia History of hypothyroidism History of left lower extremity cellulitis Plan: The patient was seen and evaluated Labs and medications reviewed Stable for discharge from the pulmonary standpoint Complete a course of antibiotics No need for steroids May require home oxygen Daughter is at the bedside and agreeable to the plan I have personally seen and examined the patient, performed the documentation and the assessment and plan as written. Number of minutes spent on the visit: 10.
[2023-09-06 12:43] LABS: Basophils % (A) 0 %; Eosinophils % (A) 0 %; HGB 11.6 gm/dL (11.4-16.0); Lymphocytes # (A) 0.8 k/uL (1.0-4.8); Lymphocytes % (A) 3 %; MCH 29.9 pg (25.0-35.0); MCHC 32.2 g/dL (31.0-37.0); MCV 92.8 fL (80.0-100.0); Mean Platelet Volume 7.8; Monocytes % (A) 4 %; Neutrophils # (A) 24.9 k/uL (1.3-7.7); Neutrophils % (A) 92 %; Platelet Count 268 k/uL (150-450); RBC 3.88 m/uL (3.80-5.40); RDW 13.4 % (11.5-15.5); WBC 26.9 k/uL (3.8-10.6)
--- NOTE | 2023-09-06 14:23 | P.PN ---
Subjective Progress Note Date: 09/06/23 This is an 88-year-old female with medical history of COPD, dementia, hypertension, arthritis, former smoker. Patient comes into the hospital she is a poor historian unsure of what happened. She lives at home with her . She is found to be positive for RSV and is requiring 2 L of oxygen. Patient's is currently hospitalized with RSV; patient began having symptoms over the last 3 days mostly upper respiratory with shortness of breath and cough. Per family she is at her baseline mentation. Chest x-ray is showing COPD with no acute process seen. 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 EKG showing sinus rhythm with occasional supraventricular premature complexes with heart rate of [address] or T wave abnormalities. White blood cell count of 17.2 on admission with a sodium of 133, BUN of 31, creatinine of 1.13, urinalysis showing 1+ protein not suggestive of infection. She was admitted to the hospital to consult placed to pulmonary services she has been placed on 2 L of oxygen. Her procalcitonin was mildly elevated at 0.35. 09/06/2023 Patient is evaluated today resting in bed. No acute complaints no nausea vomiting diarrhea no shortness of breath no cough no chest pain. Patient is continued on 2 to 3 L of nasal cannula with adequate oxygen saturations however she did drop into the 80s on room air while ambulating and does require oxygen on discharge. She remains in a course of oral azithromycin last day is tomorrow. Additionally she is on IV steroids, she is not wheezing. Review of Systems Constitutional: Denied any fatigue denied any fever. Cardio vascular: denied any chest pain, palpitations Gastrointestinal: denied any nausea, vomiting, diarrhea Pulmonary: Denied any shortness of breath cough Neurologic denied any new focal deficits All inpatient medications were reviewed and appropriate changes in these medications as dictated in the interval history and assessment and plan.PHYSICAL EXAMINATION: GENERAL: The patient is alert and oriented x1, not in any acute distress. Well developed, well nourished. HEENT: Pupils are round and equally reacting to light. EOMI. No scleral icterus. No conjunctival pallor. Normocephalic, atraumatic. No pharyngeal erythema. No thyromegaly. CARDIOVASCULAR: S1 and S2 present. No murmurs, rubs, or gallops. PULMONARY: Chest is clear to auscultation, no wheezing or crackles. ABDOMEN: Soft, nontender, nondistended, normoactive bowel sounds. No palpable organomegaly. MUSCULOSKELETAL: No joint swelling or deformity. EXTREMITIES: No cyanosis, clubbing, or pedal edema. NEUROLOGICAL: Gross neurological examination did not reveal any focal deficits. SKIN: No rashes. Assessment and plan Acute hypoxemic respiratory failure secondary to acute COPD exacerbation patient is continued on supportive care with IV steroids and also on oral azithromycin Acute RSV infection without evidence for pneumonia Leukocytosis secondary to above Advanced dementia alert and oriented x 1 at baseline patient continues on donepezil and Namenda History hypertension maintained on amlodipine which is currently held at this time patient's blood pressure is normotensive. History of COPD Former smoker GI prophylaxis DVT prophylaxis Full code Patient did not pass home oxygen test would recommend to monitor overnight and repeat oxygen test tomorrow. The impression and plan of care has been dictated by Jennifer Mitchell, Nurse Practitioner as directed. Dr. Raza MD I have performed a history and physical examination and medical decision making of this patient, discussed the same with the dictator, and agree with the dictators assessment and plan as written, documented as a scribe. Based on total visit time, I have performed more than 50% of this visit. Objective - Vital Signs Vital signs: Vital Signs Temp 97.3 F L 09/06/23 07:53 Pulse 88 09/06/23 12:36 Resp 20 09/06/23 07:53 BP 113/60 09/06/23 07:53 Pulse Ox 84 L 09/06/23 12:00 FiO2 Intake & Output 09/05/23 09/06/23 09/06/23 18:59 06:59 18:59 Intake Total 200 500 200 Balance 200 500 200 Intake: Oral 200 500 200 Other: Voiding Method Toilet # Voids 1 3 # Bowel Movements 1 1 - Labs CBC & Chem 7: 09/06/23 12:21 09/06/23 12:21 Labs: Abnormal Lab Results - Last 24 Hours (Table) 09/06/23 09/06/23 09/06/23 Range/Units 05:13 11:31 12:21 WBC (3.8-10.6) k/uL Neutrophils # (1.3-7.7) k/uL Lymphocytes # (1.0-4.8) k/uL Potassium 2.9 L 3.2 L (3.5-5.5) mmol/L Anion Gap 12.90 H (4.00-12.00) mmol/L BUN 29.3 H (9.0-27.0) mg/dL Est GFR (CKD-EPI) 43 L (>=60) BUN/Creatinine Ratio 24.42 H (12.00-20.00) Ratio Glucose 147 H (70-110) mg/dL POC Glucose (mg/dL) 118 H (70-110) mg/dL 09/06/23 Range/Units 12:21 WBC 26.9 H (3.8-10.6) k/uL Neutrophils # 24.9 H (1.3-7.7) k/uL Lymphocytes # 0.8 L (1.0-4.8) k/uL Potassium (3.5-5.5) mmol/L Anion Gap (4.00-12.00) mmol/L BUN (9.0-27.0) mg/dL Est GFR (CKD-EPI) (>=60) BUN/Creatinine Ratio (12.00-20.00) Ratio Glucose (70-110) mg/dL POC Glucose (mg/dL) (70-110) mg/dL Assessment and Plan Time with Patient: Less than 30
[2023-09-06] MEDS ORDERED: QUEtiapine 25 MG TAB PO PRN (16:41)
[2023-09-06] MEDS: ACETAMINOPHEN TAB 325 MG TAB PO PRN (20:10)
--- NOTE | 2023-09-06 20:40 | XR ---
EXAMINATION TYPE: XR chest 1V DATE OF EXAM: 09/06/2023 8:31 PM CLINICAL INDICATION:Female, 88 years old with history of new onset chest pain; H COMPARISON: Chest radiographs from 09/04/2023 TECHNIQUE: XR chest 1V Frontal view of the chest. FINDINGS: Rotated exam limits evaluation and comparison. Lungs/Pleura: Basilar airspace opacities bilaterally. There is flattening of the diaphragm with incre ased lucency of the lungs. No evidence of pneumothorax, pleural effusion or focal consolidation. Pulmonary vascularity: Pulmonary vascular congestion. Heart/mediastinum: Cardiomediastinal silhouette is unremarkable. Musculoskeletal: No acute osseous pathology. Other findings: None IMPRESSION: Rotated exam there appears to be bibasilar airspace opacities correlate for developing pneumonia.
[2023-09-06] MEDS ORDERED: KETOROLAC 15 MG/ML 1 ML VIAL IVP STA (20:52)
[2023-09-06 21:29] LABS: African American GFR (CKD) 40 (>60 ml/min/1.73 sqM); Anion Gap 7 mmol/L; Blood Urea Nitrogen 35 mg/dL (7-17); Calcium 9.4 mg/dL (8.4-10.2); Carbon Dioxide 24 mmol/L (22-30); Chloride 105 mmol/L (98-107); Glucose 157 mg/dL (74-99); Non-African American GFR(CKD) 35 (>60 ml/min/1.73 sqM); Potassium 5.1 mmol/L (3.5-5.1); Sodium 136 mmol/L (137-145)
[2023-09-06] MEDS ORDERED: NITROGLYCERIN SL TABS 0.4 MG TAB SUBLINGUAL STA (21:54)
[2023-09-06] MEDS ORDERED: NITROGLYCERIN SL TABS 0.4 MG TAB SUBLINGUAL ONE (22:21)
[2023-09-07] MEDS ORDERED: HEPARIN SODIUM 1,000 UN/ML (10ML VL) IV ONE (01:43)
[2023-09-07] MEDS ORDERED: HEPARIN SODIUM 1,000 UN/ML (10ML VL) IV PRN (01:43)
[2023-09-07] MEDS: HEPARIN SOD,PORK IN 0.45% NACL 25,000 UNIT in 0.45% NACL 1 250ML.BAG IV SCH (02:08)
[2023-09-07 03:29] LABS: Basophils % (A) 0 %; Eosinophils % (A) 0 %; HCT 35.6 % (34.0-46.0); HGB 11.2 gm/dL (11.4-16.0); Lymphocytes # (A) 1.3 k/uL (1.0-4.8); Lymphocytes % (A) 6 %; MCH 29.3 pg (25.0-35.0); MCHC 31.5 g/dL (31.0-37.0); MCV 92.9 fL (80.0-100.0); Mean Platelet Volume 8.2; Monocytes # (A) 1.2 k/uL (0-1.0); Monocytes % (A) 5 %; Neutrophils # (A) 18.9 k/uL (1.3-7.7); Neutrophils % (A) 87 %; Platelet Count 278 k/uL (150-450); RBC 3.83 m/uL (3.80-5.40); WBC 21.6 k/uL (3.8-10.6)
[2023-09-07] MEDS: IPRATROPIUM-ALBUTEROL 3 ML NEB INHALATION SCH ×5 (03:50→20:56)
[2023-09-07 03:54] LABS: INR 0.9 (<1.2); Prothrombin Time 10.4 sec (10.0-12.5)
[2023-09-07 04:03] LABS: Partial Thromboplastin Time 117.2 sec (22.0-30.0)
[2023-09-07 04:49] LABS: African American GFR (CKD) 36 (>60 ml/min/1.73 sqM); Anion Gap 1 mmol/L; Blood Urea Nitrogen 42 mg/dL (7-17); Calcium 9.3 mg/dL (8.4-10.2); Carbon Dioxide 28 mmol/L (22-30); Chloride 109 mmol/L (98-107); Glucose 109 mg/dL (74-99); Magnesium 1.9 mg/dL (1.6-2.3); Non-African American GFR(CKD) 31 (>60 ml/min/1.73 sqM); Sodium 138 mmol/L (137-145)
[2023-09-07 05:33] LABS: Potassium 6.8 mmol/L (3.5-5.1)
[2023-09-07] MEDS ORDERED: CALCIUM GLUCONATE IN NACL 1 GM in SALINE 1 100ML.BAG IVPB ONE (05:42)
[2023-09-07] MEDS ORDERED: INSULIN REGULAR 100 UNIT/ML VIAL (IV) IV ONE ×2 (05:42→14:00)
[2023-09-07] MEDS ORDERED: DEXTROSE 50% SYRINGE 50 ML IVP STA (05:42)
[2023-09-07 06:08] LABS: Glucose,Whole Blood 96 mg/dL (70-110)
[2023-09-07] MEDS: LEVOTHYROXINE 50 MCG TAB PO SCH (06:19)
[2023-09-07] MEDS: ATORVASTATIN 20 MG TAB PO SCH (09:28)
[2023-09-07] MEDS: AZITHROMYCIN 500 MG TAB PO SCH (09:28)
[2023-09-07] MEDS: ISOSORBIDE MONONITRATE ER 30 MG TAB.ER.24H PO SCH (09:28)
[2023-09-07] MEDS: ASPIRIN 81 MG PO SCH (09:28)
[2023-09-07] MEDS: allopurinoL 100 MG TAB PO SCH (09:28)
[2023-09-07] MEDS: DONEPEZIL 10 MG TAB PO SCH (09:28)
[2023-09-07] MEDS: METOPROLOL SUCCINATE (ER) 25 MG TAB.ER.24H PO SCH (09:28)
[2023-09-07] MEDS: FAMOTIDINE 20 MG TAB PO SCH (09:28)
[2023-09-07] MEDS: MEMANTINE 10 MG TAB PO SCH (09:28)
[2023-09-07] MEDS: ALPRAZolam 0.25 MG TAB PO SCH (09:29)
--- NOTE | 2023-09-07 09:36 | P.CRDCN ---
History of Present Illness History of present illness: HISTORY OF PRESENT ILLNESS: This is a 88-year-old female with a past medical history significant for COPD, hypertension, hyperlipidemia, hypothyroidism, and dementia. Patient used to foll ow in the office with Dr. Monroe but has not been seen. We have been asked to see the patient in consultation for chest pain. Patient examined at the bedside. Patient is somewhat confused in regards to her history. There is no family present. Patient does not remember why she came to the hospital. According to records she presented to the hospital with shortness of breath. Patient was found to be positive for RSV. Patient apparently had an episode of chest pain yesterday evening while on 4 S. She was given a sublingual nitro. EKG was completed. A troponin was drawn which resulted at 0.045. She was transferred to 3 S. for further evaluation. Repeat troponin resulted at 0.629. She was started on IV heparin. Patient's blood pressure overnight was also elevated and she was started on amlodipine. The patient denies any chest pain or pressure this morning. She currently denies shortness of breath. She reports an occasional nonproductive cough. She remains on supplemental oxygen with oxygen saturations greater than 92%. DIAGNOSTICS: EKG reveals sinus mechanism with no signs of acute ischemia. Repeat EKG performed yesterday evening revealed ST depression in V2V6 Chest xray rotated exam. There appears to be bibasilar airspace opacities. Correlate for developing pneumonia. Laboratory data: WBC 21.6. Hemoglobin 11.2. Platelet count 278. Sodium 138. Potassium 5.1. Repeat 6.8. BUN 42. Creatinine 1.48. Troponin 0.045. 0.629. Current home cardiac medications include Lipitor 10 mg daily Most recent echocardiogram obtained in 2016 revealing normal EF Cardiac catheterization history: Unknown REVIEW OF SYSTEMS: At the time of my exam: CONSTITUTIONAL: Denies fever or chills. HEENT: Denies blurred vision, vision changes, or eye pain. Denies hemoptysis CARDIOVASCULAR: Denies chest pain. Denies orthopnea. Denies PND. Denies palpitations RESPIRATORY: Denies shortness of breath. GASTROINTESTINAL: Denies abdominal pain. Denies nausea or vomiting. HEMATOLOGIC: Denies bleeding disorders. GENITOURINARY: Denies any blood in urine. SKIN: Denies pruitis. Denies rash. PHYSICAL EXAM: VITAL SIGNS: Reviewed. GENERAL: Well-developed in no acute distress. HEENT: Head is normocephalic. Pupils are equal, round. Sclerae anicteric. Mucous membranes of the mouth are moist. Neck supple. No JVD or thyromegaly LUNGS: Respirations even and unlabored. Lungs diminished with bibasilar crackles HEART: Regular rate and rhythm. S1 and S2 heard. ABDOMEN: Soft. Nondistended. Nontender. EXTREMITIES: Normal range of motion. No clubbing or cyanosis. Peripheral pulses intact. No lower extremity edema NEUROLOGIC: Awake and alert. Oriented x 1 ASSESSMENT: Shortness of breath Acute RSV Acute hypoxic respiratory failure requiring supplemental oxygen Non-STEMI Hypertension Hyperlipidemia Hypothyroidism Dementia PLAN: Obtain 2D echo to assess cardiac structure and function Continue IV heparin for additional 24 hours Trend troponins Add aspirin 81 mg daily Increase atorvastatin to 20 mg daily Add metoprolol succinate 25 mg daily Add Imdur 30 mg daily Discontinue amlodipine No plans for cardiac catheterization at this time. Continue with current conservative management Further recommendations pending patient course Nurse practitioner note has been reviewed by physician. Signing provider agrees with the documented findings, assessment, and plan of care documented by INFORMATION SYSTEMS SECURITY DEVELOPER as a scribe. Past Medical History Past Medical History: COPD, Dementia, Hypertension, Memory Impairment, Osteoarthritis (OA) Additional Past Medical History / Comment(s): Cellulitis History of Any Multi-Drug Resistant Organisms: None Reported Past Surgical History: No Surgical Hx Reported Past Psychological History: No Psychological Hx Reported Smoking Status: Former smoker Past Alcohol Use History: None Reported Past Drug Use History: None Reported Medications and Allergies Home Medications Medication Instructions Recorded Confirmed Type Atorvastatin Calcium [Lipitor] 10 mg PO DAILY 01/23/22 09/04/23 History DULoxetine HCL [Cymbalta] 20 mg PO DAILY 01/23/22 09/04/23 History Rivastigmine Tartrate [Exelon] 3 mg PO BID-W/MEALS 01/23/22 09/04/23 History ALPRAZolam [Xanax] 0.25 mg PO DAILY 07/21/23 09/04/23 History Levothyroxine Sodium [Synthroid] 50 mcg PO DAILY 07/21/23 09/04/23 History Memantine [Namenda] 10 mg PO DAILY 07/21/23 09/04/23 History allopurinoL [Zyloprim] 100 mg PO DAILY 07/21/23 09/04/23 History Acetaminophen Tab [Tylenol] 650 mg PO Q6HR PRN tab 07/25/23 09/04/23 Rx Nystatin 100,000Unit/gm Cream 1 applic TOPICAL BID each 07/25/23 09/04/23 Rx [Mycostatin Cream] Triamcinolone 0.1% Cream [Kenalog 1 applic TOPICAL BID each 07/25/23 09/04/23 Rx 0.1% Cream] Azithromycin [Zithromax] 500 mg PO DAILY 1 Days #1 tab 09/06/23 Rx Famotidine [Pepcid] 20 mg PO DAILY tab 09/06/23 Rx Allergies Allergy/AdvReac Type Severity Reaction Status Date / Time No Known Allergies Allergy Verified 09/04/23 16:03 Physical Exam Vitals: Vital Signs Temp Pulse Pulse Resp BP Pulse Ox Pulse Ox 09/07/23 04:00 82 18 118/86 96 09/07/23 00:00 98.2 F 90 18 143/84 96 09/06/23 19:57 97.6 F 90 22 167/71 97 09/06/23 16:20 94 09/06/23 16:10 92 09/06/23 14:00 98.1 F 108 H 18 126/69 96 09/06/23 12:38 88 09/06/23 12:31 90 09/06/23 12:00 91 L 09/06/23 09:22 86 09/06/23 09:13 100 95 Pulse Ox Pulse Ox 09/07/23 04:00 09/07/23 00:00 09/06/23 19:57 09/06/23 16:20 09/06/23 16:10 09/06/23 14:00 09/06/23 12:38 09/06/23 12:31 09/06/23 12:00 92 L 84 L 09/06/23 09:22 09/06/23 09:13 Intake and Output 09/06/23 09/07/23 09/07/23 22:59 06:59 14:59 Intake Total 11.675 Balance 11.675 Intake: Intake, IV Titration 11.675 Amount Heparin Sod,Pork in 0.45% 11.675 NaCl 25,000 unit In 0.45 % NaCl 1 250ml.bag @ 12 UNITS/KG/HR 5.987 mls/hr IV .Q24H [facility] Rx#: [id number] Other: Voiding Method Toilet Toilet # Voids 3 Results 09/07/23 02:33 09/07/23 02:33 Cardiac Enzymes 09/06/23 09/06/23 Range/Units 20:59 23:23 Troponin I 0.045 H* 0.629 H* (0.000-0.034) ng/mL Coagulation 09/07/23 Range/Units 02:29 PT 10.4 (10.0-12.5) sec APTT 117.2 H* (22.0-30.0) sec CBC 09/06/23 09/07/23 Range/Units 12:21 02:33 WBC 26.9 H 21.6 H (3.8-10.6) k/uL RBC 3.88 3.83 (3.80-5.40) m/uL Hgb 11.6 11.2 L (11.4-16.0) gm/dL Hct 36.0 35.6 (34.0-46.0) % Plt Count 268 278 (150-450) k/uL Comprehensive Metabolic Panel 09/06/23 09/06/23 09/06/23 Range/Units 05:13 12:21 20:59 Sodium 139 136 L (135-145) mmol/L Potassium 2.9 L 3.2 L 5.1 (3.5-5.5) mmol/L Chloride 100 105 (96-109) mmol/L Carbon Dioxide 26.1 24 (21.6-31.8) mmol/L BUN 29.3 H 35 H (9.0-27.0) mg/dL Creatinine 1.2 1.35 H (0.6-1.5) mg/dL Glucose 147 H 157 H (70-110) mg/dL Calcium 8.9 9.4 (8.7-10.3) mg/dL 09/07/23 Range/Units 02:33 Sodium 138 (135-145) mmol/L Potassium 6.8 H* (3.5-5.5) mmol/L Chloride 109 H (96-109) mmol/L Carbon Dioxide 28 (21.6-31.8) mmol/L BUN 42 H (9.0-27.0) mg/dL Creatinine 1.48 H (0.6-1.5) mg/dL Glucose 109 H (70-110) mg/dL Calcium 9.3 (8.7-10.3) mg/dL Current Medications Generic Name Dose Route Start Last Admin Trade Name Freq PRN Reason Stop Dose Admin Acetaminophen 650 mg 09/04/23 20:40 09/06/23 20:10 Acetaminophen Tab 325 Mg Tab PO 650 mg Q6HR PRN Administration Mild Pain or Fever > 100.5 Albuterol/Ipratropium 3 ml 09/04/23 20:00 09/07/23 03:50 Ipratropium-Albuterol 3 Ml Neb INHALATION Not Given RT-Q4H [facility] Allopurinol 100 mg 09/05/23 09:00 09/06/23 08:38 Allopurinol 100 Mg Tab PO 100 mg DAILY [facility] Administration Alprazolam 0.25 mg 09/05/23 09:00 09/06/23 08:38 Alprazolam 0.25 Mg Tab PO 0.25 mg DAILY [facility] Administration Amlodipine Besylate 5 mg 09/06/23 23:30 09/07/23 00:43 Amlodipine 5 Mg Tab PO 5 mg DAILY [facility] Administration Aspirin 81 mg 09/07/23 09:00 Aspirin 81 Mg PO DAILY [facility] Atorvastatin Calcium 20 mg 09/07/23 09:00 Atorvastatin 20 Mg Tab PO DAILY [facility] Azithromycin 500 mg 09/05/23 10:00 09/06/23 08:37 Azithromycin 500 Mg Tab PO 09/07/23 09:01 500 mg DAILY [facility] Administration Protocol Donepezil HCl 10 mg 09/05/23 09:00 09/06/23 08:37 Donepezil 10 Mg Tab PO 10 mg DAILY [facility] Administration Duloxetine HCl 20 mg 09/05/23 09:00 09/06/23 08:37 Duloxetine Hcl 20 Mg Capsule.Dr PO 20 mg DAILY [facility] Administration Famotidine 20 mg 09/06/23 09:00 09/06/23 08:38 Famotidine 20 Mg Tab PO 20 mg DAILY [facility] Administration Heparin Sodium (Porcine) 0 unit 09/07/23 01:43 Heparin Sodium 1,000 Un/Ml (10ml Vl) IV PER PROTOCOL PRN Low PTT Protocol Heparin Sodium/Sodium Chloride 250 mls @ 5.987 mls/hr 09/07/23 01:45 09/07/23 05:25 25,000 unit/ Sodium Chloride IV 9 units/kg/hr .Q24H [facility] 4.491 mls/hr Titration Protocol 12 UNITS/KG/HR Levothyroxine Sodium 50 mcg 09/05/23 06:30 09/07/23 06:19 Levothyroxine 50 Mcg Tab PO 50 mcg DAILY@0630 [facility] Administration Memantine 10 mg 09/05/23 09:00 09/06/23 08:38 Memantine 10 Mg Tab PO 10 mg DAILY [facility] Administration Metoprolol Succinate 25 mg 09/07/23 09:00 Metoprolol Succinate (Er) 25 Mg Tab.Er.24h PO DAILY [facility] Naloxone HCl 0.2 mg 09/04/23 16:20 Naloxone 0.4 Mg/Ml 1 Ml Vial IV Q2M PRN Opioid Reversal Ondansetron HCl 4 mg 09/04/23 16:20 Ondansetron 4 Mg/2 Ml Vial IVP Q8HR PRN Nausea And Vomiting Quetiapine Fumarate 12.5 mg 09/06/23 16:41 Quetiapine 25 Mg Tab PO HS PRN Agitation Intake and Output 09/06/23 09/07/23 09/07/23 22:59 06:59 14:59 Intake Total 11.675 Balance 11.675 Intake: Intake, IV Titration 11.675 Amount Heparin Sod,Pork in 0.45% 11.675 NaCl 25,000 unit In 0.45 % NaCl 1 250ml.bag @ 12 UNITS/KG/HR 5.987 mls/hr IV .Q24H [facility] Rx#: [id number] Other: Voiding Method Toilet Toilet # Voids 3 09/07/23 02:33 09/07/23 02:33
[2023-09-07 12:32] LABS: African American GFR (CKD) 41 (>60 ml/min/1.73 sqM); Anion Gap 2 mmol/L; Blood Urea Nitrogen 42 mg/dL (7-17); Calcium 9.7 mg/dL (8.4-10.2); Carbon Dioxide 27 mmol/L (22-30); Chloride 109 mmol/L (98-107); Glucose 86 mg/dL (74-99); Non-African American GFR(CKD) 35 (>60 ml/min/1.73 sqM); Potassium 5.9 mmol/L (3.5-5.1); Sodium 138 mmol/L (137-145)
[2023-09-07] MEDS: DULoxetine HCL 20 MG CAPSULE.DR PO SCH (12:34)
--- NOTE | 2023-09-07 13:46 | P.PN ---
Subjective Progress Note Date: 09/07/23 This is an 88-year-old female with medical history of COPD, dementia, hypertension, arthritis, former smoker. Patient comes into the hospital she is a poor historian unsure of what happened. She lives at home with her . She is found to be positive for RSV and is requiring 2 L of oxygen. Patient's is currently hospitalized with RSV; patient began having symptoms over the last 3 days mostly upper respiratory with shortness of breath and cough. Per family she is at her baseline mentation. Chest x-ray is showing COPD with no acute process seen. 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 EKG showing sinus rhythm with occasional supraventricular premature complexes with heart rate of [address] or T wave abnormalities. White blood cell count of 17.2 on admission with a sodium of 133, BUN of 31, creatinine of 1.13, urinalysis showing 1+ protein not suggestive of infection. She was admitted to the hospital to consult placed to pulmonary services she has been placed on 2 L of oxygen. Her procalcitonin was mildly elevated at 0.35. 09/06/2023 Patient is evaluated today resting in bed. No acute complaints no nausea vomiting diarrhea no shortness of breath no cough no chest pain. Patient is continued on 2 to 3 L of nasal cannula with adequate oxygen saturations however she did drop into the 80s on room air while ambulating and does require oxygen on discharge. She remains in a course of oral azithromycin last day is tomorrow. Additionally she is on IV steroids, she is not wheezing. 09/07. Patient seen and examined. Denies any chest pain. Denies shortness of breath. REVIEW OF SYSTEMS: CONSTITUTIONAL: No fever, no malaise,. CARDIOVASCULAR: No chest pain, no palpitations, no syncope. PULMONARY: No shortness of breath, no cough, GASTROINTESTINAL: No diarrhea, no nausea, no vomiting, no abdominal pain. NEUROLOGICAL: No headaches, no weakness, PHYSICAL EXAMINATION: GENERAL: The patient is alert and oriented x1, not in any acute distress. Well developed, well nourished. HEENT: Pupils are round and equally reacting to light. EOMI. No scleral icterus. No conjunctival pallor. Normocephalic, atraumatic. No pharyngeal erythema. No thyromegaly. CARDIOVASCULAR: S1 and S2 present. No murmurs, rubs, or gallops. PULMONARY: Chest is clear to auscultation, no wheezing or crackles. ABDOMEN: Soft, nontender, nondistended, normoactive bowel sounds. No palpable organomegaly. MUSCULOSKELETAL: No joint swelling or deformity. EXTREMITIES: No cyanosis, clubbing, or pedal edema. NEUROLOGICAL: Gross neurological examination did not reveal any focal deficits. SKIN: No rashes. Assessment and plan Elevated troponin; monitor vital signs, trend troponins, continue IV heparin for meals. 2-D echo ordered Continue aspirin, increase Lipitor to 20 mg, added Imdur and Toprol Cardiology consulted Hyperkalemia Monitor BMP Avoid high potassium diet Ordered hyperkalemia protocol Acute hypoxemic respiratory failure acute COPD exacerbation Acute RSV infection without evidence for pneumonia Leukocytosis secondary to above continue breathing treatments Advanced dementia alert and oriented x 1 at baseline patient continues on donepezil and Namenda History hypertension History of COPD Former smoker Labs and medication were reviewed.. Continue same treatment. Continue with symptomatic treatment. Resume home medication. Monitor labs and vitals. DVT and GI prophylaxis. Further recommendations as per clinical course of the patient Dictation was produced using Status[employer] dictation software. please excuse any grammatical, word or spelling errors. Objective - Vital Signs Vital signs: Vital Signs Temp 98.2 F 09/07/23 00:00 Pulse 96 09/07/23 09:46 Resp 18 09/07/23 04:00 BP 118/86 09/07/23 04:00 Pulse Ox 96 09/07/23 04:00 FiO2 Intake & Output 09/06/23 09/07/23 09/07/23 18:59 06:59 18:59 Intake Total 200 11.675 118 Balance 200 11.675 118 Intake: Intake, IV Titration 11.675 Amount Heparin Sod,Pork in 0.45% 11.675 NaCl 25,000 unit In 0.45 % NaCl 1 250ml.bag @ 12 UNITS/KG/HR 5.987 mls/hr IV .Q24H [facility] Rx#: [id number] Oral 200 118 Other: Voiding Method Toilet # Voids 3 # Bowel Movements 2 - Labs CBC & Chem 7: 09/07/23 02:33 09/07/23 12:00 Labs: Abnormal Lab Results - Last 24 Hours (Table) 09/06/23 09/06/23 09/06/23 Range/Units 11:31 12:21 12:21 WBC 26.9 H (3.8-10.6) k/uL Hgb (11.4-16.0) gm/dL Neutrophils # 24.9 H (1.3-7.7) k/uL Lymphocytes # 0.8 L (1.0-4.8) k/uL Monocytes # (0-1.0) k/uL APTT (22.0-30.0) sec Sodium (137-145) mmol/L Potassium 3.2 L (3.5-5.1) mmol/L Chloride (98-107) mmol/L BUN (7-17) mg/dL Creatinine (0.52-1.04) mg/dL Glucose (74-99) mg/dL POC Glucose (mg/dL) 118 H (70-110) mg/dL Troponin I (0.000-0.034) ng/mL 09/06/23 09/06/23 09/06/23 Range/Units 20:59 20:59 23:23 WBC (3.8-10.6) k/uL Hgb (11.4-16.0) gm/dL Neutrophils # (1.3-7.7) k/uL Lymphocytes # (1.0-4.8) k/uL Monocytes # (0-1.0) k/uL APTT (22.0-30.0) sec Sodium 136 L (137-145) mmol/L Potassium (3.5-5.1) mmol/L Chloride (98-107) mmol/L BUN 35 H (7-17) mg/dL Creatinine 1.35 H (0.52-1.04) mg/dL Glucose 157 H (74-99) mg/dL POC Glucose (mg/dL) (70-110) mg/dL Troponin I 0.045 H* 0.629 H* (0.000-0.034) ng/mL 09/07/23 09/07/23 09/07/23 Range/Units 02:29 02:33 02:33 WBC 21.6 H (3.8-10.6) k/uL Hgb 11.2 L (11.4-16.0) gm/dL Neutrophils # 18.9 H (1.3-7.7) k/uL Lymphocytes # (1.0-4.8) k/uL Monocytes # 1.2 H (0-1.0) k/uL APTT 117.2 H* (22.0-30.0) sec Sodium (137-145) mmol/L Potassium 6.8 H* (3.5-5.1) mmol/L Chloride 109 H (98-107) mmol/L BUN 42 H (7-17) mg/dL Creatinine 1.48 H (0.52-1.04) mg/dL Glucose 109 H (74-99) mg/dL POC Glucose (mg/dL) (70-110) mg/dL Troponin I (0.000-0.034) ng/mL
[2023-09-07] MEDS ORDERED: DEXTROSE 50% SYRINGE 50 ML IVP ONE (14:00)
[2023-09-07] MEDS ORDERED: SODIUM ZIRCONIUM CYCLOSILICATE 10 GM PACKET PO ONE (14:00)
--- NOTE | 2023-09-07 16:44 | P.PN ---
Subjective Progress Note Date: 09/07/23 Principal diagnosis: Acute hypoxic respiratory failure secondary to acute exacerbation of COPD and RSV infection I am seeing this patient in consultation today September 05, 2023 after she presented with URI-like symptoms. Patient is a 88-year-old white female with past medical history significant for COPD, advanced dementia, hypertension, among other things. Patient is a poor historian, secondary to her advanced dementia. She is alert. She thinks she is at home, and only oriented to self. Apparently, the patient's had tested positive for RSV earlier in the week. He is currently admitted to the hospital. Patient presented to emergency room yesterday afternoon reportedly complaining of URI-like symptoms over the last 3 days. She denies any specific complaints to me. She denies any shortness of breath, cough, chest pain. She is afebrile. She is currently lying in bed, on 2 L/min nasal cannula, in no acute distress. Chest x-ray on arrival showed no acute process. There is hyperinflation consistent with COPD. 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 Some are chronic. CBC on arrival showed some leukocytosis with a WBC count of 17.2, hemoglobin 14.1, hematocrit 42.9, platelets 283. BMP on arrival: Sodium 133, potassium 3.6, chloride 93, serum bicarb 31, BUN 31, creatinine 1.13, glucose 109. Patient appears to have some underlying chronic kidney disease. Urinalysis not consistent with urinary tract infection. Patient did test positive for RSV. Negative for influenza and COVID-19. Patient is currently receiving supportive treatment. She has been started on IV Solu-Medrol. She is also receiving DuoNebs [id number]. Normal saline infusing at 75 mL/h. Vitals are stable. The patient is seen today September 06, 2023 in follow-up on the regular medical floor. She is currently resting comfortably in bed. Awake and alert in no acut e distress. Maintaining O2 saturations in the 90s on 3 L/min per nasal cannula. Sodium 139. Potassium 2.9. Bicarb 26. BUN 29. Creatinine 1.2. Glucose 147. She is continued on DuoNeb inhalations, Solu-Medrol. Heparin for DVT prophylaxis. Antibiotics in the form of azithromycin. Procalcitonin 0.35. Patient was reevaluated today on 09/07/2023, patient is doing well, resting comfortably in bed, not in any distress, however troponin today was noted to be elevated, and she was seen by cardiology for possible non-ST elevation myocardial infarction, aspirin was added and the patient was placed on heparin. No plans for cardiac catheterization on this patient, nonetheless the patient will remain on heparin and aspirin for now. Pulmonary valles patient is relatively asymptomatic, feels fine, she is on 2 L nasal cannula with O2 sats of 95%. She is hemodynamically stable, afebrile with a temp of 97.7. Unfortunately her troponin seems to be on the rise, started out at 0.045 yesterday, and it is as high as 17.5 today Objective - Vital Signs Vital signs: Vital Signs Temp 97.7 F 09/07/23 16:05 Pulse 85 09/07/23 16:05 Resp 20 09/07/23 16:05 BP 102/62 09/07/23 16:05 Pulse Ox 95 09/07/23 16:05 FiO2 Intake & Output 09/06/23 09/07/23 09/07/23 18:59 06:59 18:59 Intake Total 200 11.675 319.624 Balance 200 11.675 319.624 Intake: IV 50.84 Heparin Sod,Pork in 0.45% 50.84 NaCl 25,000 unit In 0.45 % NaCl 1 250ml.bag @ 12 UNITS/KG/HR 5.987 mls/hr IV .Q24H [facility] Rx#: [id number] Intake, IV Titration 11.675 32.784 Amount Heparin Sod,Pork in 0.45% 11.675 32.784 NaCl 25,000 unit In 0.45 % NaCl 1 250ml.bag @ 12 UNITS/KG/HR 5.987 mls/hr IV .Q24H [facility] Rx#: [id number] Oral 200 236 Other: Voiding Method Toilet # Voids 3 # Bowel Movements 2 - Exam GENERAL EXAM: Revealed 88-year-old female pleasant in no distress on 3 L nasal cannula HEAD: Normocephalic. EYES: Normal reaction of pupils, equal size. NOSE: Clear with pink turbinates. THROAT: No erythema or exudates. NECK: No masses, no JVD. CHEST: No chest wall deformity. LUNGS: Equal air entry with no crackles, wheeze, rhonchi or dullness. CVS: S1 and S2 normal with no audible murmur, regular rhythm. ABDOMEN: No hepatosplenomegaly, normal bowel sounds, no guarding or rigidity. SPINE: No scoliosis or deformity SKIN: No rashes CENTRAL NERVOUS SYSTEM: Alert oriented x 3 no gross focal deficit EXTREMITIES: There is no peripheral edema. No clubbing, no cyanosis. Peripheral pulses are intact. - Labs CBC & Chem 7: 09/07/23 02:33 09/07/23 12:00 Labs: Abnormal Lab Results - Last 24 Hours (Table) 09/06/23 09/06/23 09/06/23 Range/Units 20:59 20:59 23:23 WBC (3.8-10.6) k/uL Hgb (11.4-16.0) gm/dL Neutrophils # (1.3-7.7) k/uL Monocytes # (0-1.0) k/uL APTT (22.0-30.0) sec Sodium 136 L (137-145) mmol/L Potassium (3.5-5.1) mmol/L Chloride (98-107) mmol/L BUN 35 H (7-17) mg/dL Creatinine 1.35 H (0.52-1.04) mg/dL Glucose 157 H (74-99) mg/dL Troponin I 0.045 H* 0.629 H* (0.000-0.034) ng/mL 09/07/23 09/07/23 09/07/23 Range/Units 02:29 02:33 02:33 WBC 21.6 H (3.8-10.6) k/uL Hgb 11.2 L (11.4-16.0) gm/dL Neutrophils # 18.9 H (1.3-7.7) k/uL Monocytes # 1.2 H (0-1.0) k/uL APTT 117.2 H* (22.0-30.0) sec Sodium (137-145) mmol/L Potassium 6.8 H* (3.5-5.1) mmol/L Chloride 109 H (98-107) mmol/L BUN 42 H (7-17) mg/dL Creatinine 1.48 H (0.52-1.04) mg/dL Glucose 109 H (74-99) mg/dL Troponin I (0.000-0.034) ng/mL 09/07/23 09/07/23 09/07/23 Range/Units 09:35 12:00 12:00 WBC (3.8-10.6) k/uL Hgb (11.4-16.0) gm/dL Neutrophils # (1.3-7.7) k/uL Monocytes # (0-1.0) k/uL APTT 40.6 H (22.0-30.0) sec Sodium (137-145) mmol/L Potassium (3.5-5.1) mmol/L Chloride (98-107) mmol/L BUN (7-17) mg/dL Creatinine (0.52-1.04) mg/dL Glucose (74-99) mg/dL Troponin I 12.900 H* 17.500 H* (0.000-0.034) ng/mL 09/07/23 Range/Units 12:00 WBC (3.8-10.6) k/uL Hgb (11.4-16.0) gm/dL Neutrophils # (1.3-7.7) k/uL Monocytes # (0-1.0) k/uL APTT (22.0-30.0) sec Sodium (137-145) mmol/L Potassium 5.9 H (3.5-5.1) mmol/L Chloride 109 H (98-107) mmol/L BUN 42 H (7-17) mg/dL Creatinine 1.34 H (0.52-1.04) mg/dL Glucose (74-99) mg/dL Troponin I (0.000-0.034) ng/mL Assessment and Plan Assessment: Acute non-ST elevation myocardial infarction Acute hypoxemic respiratory failure, secondary to acute COPD exacerbation and RSV infection. Chest x-ray on arrival did not show any acute cardiopulmonary defects. No focal infiltrates or evidence of pneumonia. There is hyperinflation consistent with COPD. Patient did test positive for RSV on arrival Acute RSV infection Leukocytosis History of chronic obstructive pulmonary disease Chronic kidney disease stage III History of hypertension History of hyperlipidemia History of advanced dementia History of hypothyroidism History of left lower extremity cellulitis Recommendation: Continue present supportive care measures Continue bronchodilators Cardiology is addressing the significant rise in troponin and non-ST elevation myocardial infarction Obviously discharge planning is on hold for now. No need for steroids. Will continue to follow Time with Patient: Less than 30
[2023-09-07 20:14] LABS: Glucose,Whole Blood 101 mg/dL (70-110)
[2023-09-08] MEDS: IPRATROPIUM-ALBUTEROL 3 ML NEB INHALATION SCH ×6 (00:40→22:08)
[2023-09-08] MEDS: HEPARIN SOD,PORK IN 0.45% NACL 25,000 UNIT in 0.45% NACL 1 250ML.BAG IV SCH (02:20)
[2023-09-08 03:28] LABS: INR 0.9 (<1.2); Partial Thromboplastin Time 37.6 sec (22.0-30.0); Prothrombin Time 9.9 sec (10.0-12.5)
[2023-09-08] MEDS: LEVOTHYROXINE 50 MCG TAB PO SCH (06:30)
[2023-09-08] MEDS: FAMOTIDINE 20 MG TAB PO SCH (09:11)
[2023-09-08] MEDS: DULoxetine HCL 20 MG CAPSULE.DR PO SCH (09:11)
[2023-09-08] MEDS: ATORVASTATIN 20 MG TAB PO SCH (09:11)
[2023-09-08] MEDS: METOPROLOL SUCCINATE (ER) 25 MG TAB.ER.24H PO SCH (09:11)
[2023-09-08] MEDS: ALPRAZolam 0.25 MG TAB PO SCH (09:11)
[2023-09-08] MEDS: ASPIRIN 81 MG PO SCH (09:11)
[2023-09-08] MEDS: allopurinoL 100 MG TAB PO SCH (09:11)
[2023-09-08] MEDS: ISOSORBIDE MONONITRATE ER 30 MG TAB.ER.24H PO SCH (09:11)
[2023-09-08] MEDS: MEMANTINE 10 MG TAB PO SCH (09:11)
[2023-09-08] MEDS: DONEPEZIL 10 MG TAB PO SCH (09:11)
--- NOTE | 2023-09-08 09:37 | CA ---
Transthoracic Echo Report Name: Joceline Barrera Age: 88 Gender: F : 1935 Exam Date: 09/07/2023 09:57 Exam Location: [facility] Ht (in): 60 Wt (lb): 110 Ordering Physician: Taylor Liu Attending/Referring Phys: [id number], Alexa Landscape Designer Yuli Andujar RDCS Procedure CPT: Indications: LV function, CP, abnormal trops Cardiac Hx: Technical Quality: Fair Contrast 1: Total Dose (mL): Contrast 2: Total Dose (mL): MEASUREMENTS (Male / Female) Normal Values 2D ECHO LV Diastolic Diameter PLAX 3.7 cm 4.2 - 5.9 / 3.9 - 5.3 cm LV Systolic Diameter PLAX 2.5 cm IVS Diastolic Thickness 1.0 cm 0.6 - 1.0 / 0.6 - 0.9 cm LVPW Diastolic Thickness 1.0 cm 0.6 - 1.0 / 0.6 - 0.9 cm LV Relative Wall Thickness 0.5 RV Internal Dim ED PLAX 3.1 cm LVOT Diameter 2.0 cm Aortic Root Diameter 2.8 cm LA Systolic Diameter LX 2.2 cm 3.0 - 4.0 / 2.7 - 3.8 cm LV Diastolic Volume MOD BP 36.1 cm??? 67 - 155 / 56 - 104 cm??? LV Systolic Volume MOD BP 15.5 cm??? 22 - 58 / 19 - 49 cm??? LV Ejection Fraction MOD BP 57.1 % >= 55 % LV Cardiac Index MOD BP 1173.7 cm???/min???m??? LV Diastolic Volume MOD 4C 37.6 cm??? LV Systolic Volume MOD 4C 18.9 cm??? LV Ejection Fraction MOD 4C 49.8 % LV Cardiac Index MOD 4C 1067.3 cm???/min???m??? LV Diastolic Length 4C 5.6 cm LV Systolic Length 4C 5.3 cm LV Diastolic Volume MOD 2C 33.8 cm??? LV Systolic Volume MOD 2C 12.1 cm??? LV Ejection Fraction MOD 2C 64.1 % LV Cardiac Index MOD 2C 1232.4 cm???/min???m??? LV Diastolic Length 2C 5.4 cm LV Systolic Length 2C 4.9 cm LA Volume 27.6 cm??? 18 - 58 / 22 - 52 cm??? LA Volume Index 19.0 cm???/m??? 16 - 28 cm???/m??? DOPPLER AV Peak Velocity 88.5 cm/s AV Peak Gradient 3.1 mmHg LVOT Peak Velocity 87.3 cm/s LVOT Peak Gradient 3.0 mmHg LVOT Velocity Time Integral 17.3 cm LVOT Stroke Volume 53.5 cm??? LVOT Stroke Volume Index 37.0 ml/m??? LVOT Cardiac Index 3048.0 cm???/min???m??? AV Area Cont Eq pk 3.0 cm??? MV Peak Velocity 85.5 cm/s MV Peak Gradient 2.9 mmHg MV Mean Velocity 45.3 cm/s MV Mean Gradient 1.0 mmHg MV Velocity Time Integral 23.7 cm Mitral E Point Velocity 61.0 cm/s Mitral A Point Velocity 62.7 cm/s Mitral E to A Ratio 1.0 MV Deceleration Time 192.2 ms MV E' Velocity 4.4 cm/s Mitral E to MV E' Ratio 13.8 TR Peak Velocity 179.3 cm/s TR Peak Gradient 12.9 mmHg Right Ventricular Systolic Press 17.9 mmHg PV Peak Velocity 68.9 cm/s PV Peak Gradient 1.9 mmHg FINDINGS Left Ventricle Normal LV size and wall thickness. Posterior wall hypokenesis. Left ventricular ejection fraction is estimated at 45-50 %. Right Ventricle Normal right ventricular size and function. Right Atrium Normal right atrial size. Left Atrium Normal left atrial size. Mitral Valve Structurally normal mitral valve. Trace MR. Aortic Valve Trileaflet aortic valve. Mild V calcification. No aortic valve stenosis or regurgitation. Tricuspid Valve Structurally normal tricuspid valve. Trace TR. Pulmonic Valve Pulmonic valve not well visualized. Mild to moderate PI. Pericardium Normal pericardium. Aorta Normal size aortic huy. CONCLUSIONS Mildly impaired LV function. The EF is 45-50% Previewed by: Dr. Roni Koo MD (Electronically Signed) Final Date: 08 September 2023 09:35
[2023-09-08 11:17] LABS: HCT 34.6 % (34.0-46.0); HGB 11.2 gm/dL (11.4-16.0); Hypochromasia Slight; MCH 30.2 pg (25.0-35.0); MCHC 32.5 g/dL (31.0-37.0); MCV 93.1 fL (80.0-100.0); Mean Platelet Volume 8.7; Platelet Count 269 k/uL (150-450); RBC 3.72 m/uL (3.80-5.40); RDW 13.7 % (11.5-15.5); WBC 19.4 k/uL (3.8-10.6)
[2023-09-08 11:23] LABS: ALT 45 U/L (4-34); AST 83 U/L (14-36); African American GFR (CKD) 50 (>60 ml/min/1.73 sqM); Albumin 2.7 g/dL (3.5-5.0); Alkaline Phosphatase 138 U/L (38-126); Anion Gap 3 mmol/L; Blood Urea Nitrogen 33 mg/dL (7-17); Calcium 8.8 mg/dL (8.4-10.2); Carbon Dioxide 30 mmol/L (22-30); Chloride 107 mmol/L (98-107); Glucose 100 mg/dL (74-99); Non-African American GFR(CKD) 44 (>60 ml/min/1.73 sqM); Potassium 4.3 mmol/L (3.5-5.1); Sodium 140 mmol/L (137-145); Total Bilirubin 0.3 mg/dL (0.2-1.3); Total Protein 5.4 g/dL (6.3-8.2)
--- NOTE | 2023-09-08 13:23 | P.PN ---
Subjective Progress Note Date: 09/08/23 This is an 88-year-old female with medical history of COPD, dementia, hypertension, arthritis, former smoker. Patient comes into the hospital she is a poor historian unsure of what happened. She lives at home with her . She is found to be positive for RSV and is requiring 2 L of oxygen. Patient's is currently hospitalized with RSV; patient began having symptoms over the last 3 days mostly upper respiratory with shortness of breath and cough. Per family she is at her baseline mentation. Chest x-ray is showing COPD with no acute process seen. 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 EKG showing sinus rhythm with occasional supraventricular premature complexes with heart rate of [address] or T wave abnormalities. White blood cell count of 17.2 on admission with a sodium of 133, BUN of 31, creatinine of 1.13, urinalysis showing 1+ protein not suggestive of infection. She was admitted to the hospital to consult placed to pulmonary services she has been placed on 2 L of oxygen. Her procalcitonin was mildly elevated at 0.35. 09/06/2023 Patient is evaluated today resting in bed. No acute complaints no nausea vomiting diarrhea no shortness of breath no cough no chest pain. Patient is continued on 2 to 3 L of nasal cannula with adequate oxygen saturations however she did drop into the 80s on room air while ambulating and does require oxygen on discharge. She remains in a course of oral azithromycin last day is tomorrow. Additionally she is on IV steroids, she is not wheezing. 09/07. Patient seen and examined. Denies any chest pain. Denies shortness of breath. 09/08. Patient seen and examined. Vital signs stable. 2-D echo was ordered by cardiology, still pending. Does not look in any acute distress. REVIEW OF SYSTEMS: CONSTITUTIONAL: No fever, no malaise,. CARDIOVASCULAR: No chest pain, no palpitations, no syncope. PULMONARY: No shortness of breath, no cough, GASTROINTESTINAL: No diarrhea, no nausea, no vomiting, no abdominal pain. NEUROLOGICAL: No headaches, no weakness, PHYSICAL EXAMINATION: GENERAL: The patient is alert and oriented x1, not in any acute distress. Well developed, well nourished. HEENT: Pupils are round and equally reacting to light. EOMI. No scleral icterus. No conjunctival pallor. Normocephalic, atraumatic. No pharyngeal erythema. No thyromegaly. CARDIOVASCULAR: S1 and S2 present. No murmurs, rubs, or gallops. PULMONARY: Chest is clear to auscultation, no wheezing or crackles. ABDOMEN: Soft, nontender, nondistended, normoactive bowel sounds. No palpable organomegaly. MUSCULOSKELETAL: No joint swelling or deformity. EXTREMITIES: No cyanosis, clubbing, or pedal edema. NEUROLOGICAL: Gross neurological examination did not reveal any focal deficits. SKIN: No rashes. Assessment and plan Elevated troponin; monitor vital signs, trend troponins, continue IV heparin for meals. 2-D echo ordered Continue aspirin, Lipitor, Imdur and Toprol Cardiology evaluated, recommending 2-D echo Hyperkalemia Monitor BMP Avoid high potassium diet Acute hypoxemic respiratory failure acute COPD exacerbation Acute RSV infection without evidence for pneumonia Leukocytosis secondary to above continue breathing treatments Advanced dementia Continue donepezil and Namenda History hypertension Continue home meds History of COPD Former smoker Labs and medication were reviewed.. Continue same treatment. Continue with symptomatic treatment. Resume home medication. Monitor labs and vitals. DVT and GI prophylaxis. Further recommendations as per clinical course of the patient Dictation was produced using [employer] dictation software. please excuse any grammatical, word or spelling errors. Objective - Vital Signs Vital signs: Vital Signs Temp 97.8 F 09/08/23 09:09 Pulse 91 09/08/23 09:23 Resp 18 09/08/23 09:09 BP 101/64 09/08/23 09:09 Pulse Ox 99 09/08/23 09:23 FiO2 Intake & Output 09/07/23 09/08/23 09/08/23 18:59 06:59 18:59 Intake Total 437.624 93.340 Balance 437.624 93.340 Intake: IV 50.84 Heparin Sod,Pork in 0.45% 50.84 NaCl 25,000 unit In 0.45 % NaCl 1 250ml.bag @ 12 UNITS/KG/HR 5.987 mls/hr IV .Q24H [facility] Rx#: [id number] Intake, IV Titration 32.784 93.340 Amount Heparin Sod,Pork in 0.45% 32.784 93.340 NaCl 25,000 unit In 0.45 % NaCl 1 250ml.bag @ 12 UNITS/KG/HR 5.987 mls/hr IV .Q24H [facility] Rx#: [id number] Oral 354 0 Other: # Voids 2 # Bowel Movements 2 - Labs CBC & Chem 7: 09/08/23 06:00 09/08/23 06:00 Labs: Abnormal Lab Results - Last 24 Hours (Table) 09/07/23 09/07/23 09/07/23 Range/Units 09:35 12:00 12:00 PT (10.0-12.5) sec APTT 40.6 H (22.0-30.0) sec Potassium (3.5-5.1) mmol/L Chloride (98-107) mmol/L BUN (7-17) mg/dL Creatinine (0.52-1.04) mg/dL Troponin I 12.900 H* 17.500 H* (0.000-0.034) ng/mL 09/07/23 09/07/23 09/08/23 Range/Units 12:00 17:53 01:45 PT 9.9 L (10.0-12.5) sec APTT 42.4 H 37.6 H (22.0-30.0) sec Potassium 5.9 H (3.5-5.1) mmol/L Chloride 109 H (98-107) mmol/L BUN 42 H (7-17) mg/dL Creatinine 1.34 H (0.52-1.04) mg/dL Troponin I (0.000-0.034) ng/mL 09/08/23 Range/Units 08:38 PT (10.0-12.5) sec APTT 42.3 H (22.0-30.0) sec Potassium (3.5-5.1) mmol/L Chloride (98-107) mmol/L BUN (7-17) mg/dL Creatinine (0.52-1.04) mg/dL Troponin I (0.000-0.034) ng/mL
--- NOTE | 2023-09-08 13:25 | P.PN ---
Subjective HISTORY OF PRESENT ILLNESS: This is a 88-year-old female with a past medical history significant for COPD, hypertension, hyperlipidemia, hypothyroidism, and dementia. Patient used to follow in the office with Dr. Monroe but has not been seen. We have been asked to see the patient in consultation for chest pain. Patient examined at the bedside. Patient is somewhat confused in regards to her history. There is no family present. Patient does not remember why she came to the hospital. According to records she presented to the hospital with shortness of breath. Patient was found to be positive for RSV. Patient apparently had an episode of chest pain yesterday evening while on 4 S. She was given a sublingual nitro. EKG was completed. A troponin was drawn which resulted at 0.045. She was transferred to 3 S for further evaluation. Repeat troponin resulted at 0.629. She was started on IV heparin. Patient's blood pressure overnight was also elevated and she was started on amlodipine. The patient denies any chest pain or pressure this morning. She currently denies shortness of breath. She reports an occasional nonproductive cough. She remains on supplemental oxygen with oxygen saturations greater than 92%. DIAGNOSTICS: EKG reveals sinus mechanism with no signs of acute ischemia. Repeat EKG performed yesterday evening revealed ST depression in V2V6 Chest xray rotated exam. There appears to be bibasilar airspace opacities. Correlate for developing pneumonia. Laboratory data: WBC 21.6. Hemoglobin 11.2. Platelet count 278. Sodium 138. Potassium 5.1. Repeat 6.8. BUN 42. Creatinine 1.48. Troponin 0.045. 0.629. Current home cardiac medications include Lipitor 10 mg daily Most recent echocardiogram obtained in 2015 revealing normal EF Cardiac catheterization history: Unknown September 08, 2023 Patient examined this morning at the bedside. Patient's family is present. Patient currently denies chest pain or pressure. She denies shortness of breath. She remains on IV heparin. Telemetry reveals sinus mechanism with heart in the 90s. Echocardiogram completed revealing ejection fraction 45 to 50% PHYSICAL EXAM: VITAL SIGNS: Reviewed. GENERAL: Well-developed in no acute distress. HEENT: Head is normocephalic. Pupils are equal, round. Sclerae anicteric. Mucous membranes of the mouth are moist. Neck supple. No JVD or thyromegaly LUNGS: Respirations even and unlabored. Lungs diminished bilaterally HEART: Regular rate and rhythm. S1 and S2 heard. ABDOMEN: Soft. Nondistended. Nontender. EXTREMITIES: Normal range of motion. No clubbing or cyanosis. Peripheral pulses intact. No lower extremity edema NEUROLOGIC: Awake and alert. Oriented x 1 ASSESSMENT: Shortness of breath Acute RSV Acute hypoxic respiratory failure requiring supplemental oxygen Non-STEMI Mild cardiomyopathy, EF 45%, suspect ischemic Hypertension Hyperlipidemia Hypothyroidism Dementia PLAN: Discontinue IV heparin. Begin subcu heparin Continue additional cardiac medications No plans for cardiac catheterization at this time. Continue with current conservative management Further recommendations pending patient course Nurse practitioner note has been reviewed by physician. Signing provider agrees with the documented findings, assessment, and plan of care documented by APARTMENT COMMUNITY MANAGER as a scribe. Objective - Vital Signs Vital signs: Vital Signs Temp 97.8 F 09/08/23 09:09 Pulse 90 09/08/23 13:11 Resp 17 09/08/23 11:24 BP 103/58 09/08/23 11:24 Pulse Ox 98 09/08/23 11:24 FiO2 Intake & Output 09/07/23 09/08/23 09/08/23 18:59 06:59 18:59 Intake Total 437.624 93.340 164.031 Balance 437.624 93.340 164.031 Intake: IV 50.84 Heparin Sod,Pork in 0.45% 50.84 NaCl 25,000 unit In 0.45 % NaCl 1 250ml.bag @ 12 UNITS/KG/HR 5.987 mls/hr IV .Q24H [facility] Rx#: [id number] Intake, IV Titration 32.784 93.340 44.031 Amount Heparin Sod,Pork in 0.45% 32.784 93.340 44.031 NaCl 25,000 unit In 0.45 % NaCl 1 250ml.bag @ 12 UNITS/KG/HR 5.987 mls/hr IV .Q24H [facility] Rx#: [id number] Oral 354 0 120 Other: # Voids 2 # Bowel Movements 2 - Labs CBC & Chem 7: 09/08/23 06:00 09/08/23 06:00 Labs: Abnormal Lab Results - Last 24 Hours (Table) 09/07/23 09/08/23 09/08/23 Range/Units 17:53 01:45 06:00 WBC 19.4 H (3.8-10.6) k/uL RBC 3.72 L (3.80-5.40) m/uL Hgb 11.2 L (11.4-16.0) gm/dL PT 9.9 L (10.0-12.5) sec APTT 42.4 H 37.6 H (22.0-30.0) sec BUN (7-17) mg/dL Creatinine (0.52-1.04) mg/dL Glucose (74-99) mg/dL AST (14-36) U/L ALT (4-34) U/L Alkaline Phosphatase (38-126) U/L Total Protein (6.3-8.2) g/dL Albumin (3.5-5.0) g/dL 09/08/23 09/08/23 Range/Units 06:00 08:38 WBC (3.8-10.6) k/uL RBC (3.80-5.40) m/uL Hgb (11.4-16.0) gm/dL PT (10.0-12.5) sec APTT 42.3 H (22.0-30.0) sec BUN 33 H (7-17) mg/dL Creatinine 1.12 H (0.52-1.04) mg/dL Glucose 100 H (74-99) mg/dL AST 83 H (14-36) U/L ALT 45 H (4-34) U/L Alkaline Phosphatase 138 H (38-126) U/L Total Protein 5.4 L (6.3-8.2) g/dL Albumin 2.7 L (3.5-5.0) g/dL
[2023-09-08] MEDS: HEPARIN SODIUM,PORCINE 5,000 UNIT/ML 1 ML VIAL SQ SCH (15:46)
--- NOTE | 2023-09-08 16:07 | P.PN ---
Subjective Progress Note Date: 09/08/23 Principal diagnosis: Acute hypoxic respiratory failure secondary to acute exacerbation of COPD and RSV infection I am seeing this patient in consultation today September 05, 2023 after she presented with URI-like symptoms. Patient is a 88-year-old white female with past medical history significant for COPD, advanced dementia, hypertension, among other things. Patient is a poor historian, secondary to her advanced dementia. She is alert. She thinks she is at home, and only oriented to self. Apparently, the patient's had tested positive for RSV earlier in the week. He is currently admitted to the hospital. Patient presented to emergency room yesterday afternoon reportedly complaining of URI-like symptoms over the last 3 days. She denies any specific complaints to me. She denies any shortness of breath, cough, chest pain. She is afebrile. She is currently lying in bed, on 2 L/min nasal cannula, in no acute distress. Chest x-ray on arrival showed no acute process. There is hyperinflation consistent with COPD. 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 Some are chronic. CBC on arrival showed some leukocytosis with a WBC count of 17.2, hemoglobin 14.1, hematocrit 42.9, platelets 283. BMP on arrival: Sodium 133, potassium 3.6, chloride 93, serum bicarb 31, BUN 31, creatinine 1.13, glucose 109. Patient appears to have some underlying chronic kidney disease. Urinalysis not consistent with urinary tract infection. Patient did test positive for RSV. Negative for influenza and COVID-19. Patient is currently receiving supportive treatment. She has been started on IV Solu-Medrol. She is also receiving DuoNebs [id number]. Normal saline infusing at 75 mL/h. Vitals are stable. The patient is seen today September 06, 2023 in follow-up on the regular medical floor. She is currently resting comfortably in bed. Awake and alert in no acut e distress. Maintaining O2 saturations in the 90s on 3 L/min per nasal cannula. Sodium 139. Potassium 2.9. Bicarb 26. BUN 29. Creatinine 1.2. Glucose 147. She is continued on DuoNeb inhalations, Solu-Medrol. Heparin for DVT prophylaxis. Antibiotics in the form of azithromycin. Procalcitonin 0.35. Patient was reevaluated today on 09/07/2023, patient is doing well, resting comfortably in bed, not in any distress, however troponin today was noted to be elevated, and she was seen by cardiology for possible non-ST elevation myocardial infarction, aspirin was added and the patient was placed on heparin. No plans for cardiac catheterization on this patient, nonetheless the patient will remain on heparin and aspirin for now. Pulmonary valles patient is relatively asymptomatic, feels fine, she is on 2 L nasal cannula with O2 sats of 95%. She is hemodynamically stable, afebrile with a temp of 97.7. Unfortunately her troponin seems to be on the rise, started out at 0.045 yesterday, and it is as high as 17.5 today Patient was reevaluated today on 09/08/2023, remains quite comfortable, not in any distress, patient is relatively asymptomatic, family is at bedside. Her echocardiogram showed minimal LV dysfunction with ejection fraction of 45 to 50%, on telemetry the patient shows sinus mechanism with heart rate in the 90s patient has no chest pain, and no shortness of breath. On 2 L nasal cannula with O2 sats of 96% however she is 86% on room air WBC count is 19.4 hemoglobin 11.2 basic metabolic profile is normal creatinine 1.12 Objective - Vital Signs Vital signs: Vital Signs Temp 97.8 F 09/08/23 09:09 Pulse 103 H 09/08/23 15:42 Resp 16 09/08/23 15:42 BP 96/63 09/08/23 15:42 Pulse Ox 96 09/08/23 15:42 FiO2 Intake & Output 09/07/23 09/08/23 09/08/23 18:59 06:59 18:59 Intake Total 437.624 93.340 164.031 Balance 437.624 93.340 164.031 Intake: IV 50.84 Heparin Sod,Pork in 0.45% 50.84 NaCl 25,000 unit In 0.45 % NaCl 1 250ml.bag @ 12 UNITS/KG/HR 5.987 mls/hr IV .Q24H [facility] Rx#: [id number] Intake, IV Titration 32.784 93.340 44.031 Amount Heparin Sod,Pork in 0.45% 32.784 93.340 44.031 NaCl 25,000 unit In 0.45 % NaCl 1 250ml.bag @ 12 UNITS/KG/HR 5.987 mls/hr IV .Q24H [facility] Rx#: [id number] Oral 354 0 120 Other: # Voids 2 # Bowel Movements 2 - Exam GENERAL EXAM: Revealed 88-year-old female pleasant in no distress on 2 L nasal cannula HEAD: Normocephalic. EYES: Normal reaction of pupils, equal size. NOSE: Clear with pink turbinates. THROAT: No erythema or exudates. NECK: No masses, no JVD. CHEST: No chest wall deformity. LUNGS: Equal air entry with no crackles, wheeze, rhonchi or dullness. CVS: S1 and S2 normal with no audible murmur, regular rhythm. ABDOMEN: No hepatosplenomegaly, normal bowel sounds, no guarding or rigidity. SPINE: No scoliosis or deformity SKIN: No rashes CENTRAL NERVOUS SYSTEM: Alert oriented x 3 no gross focal deficit EXTREMITIES: There is no peripheral edema. No clubbing, no cyanosis. Peripheral pulses are intact. - Labs CBC & Chem 7: 09/08/23 06:00 09/08/23 06:00 Labs: Abnormal Lab Results - Last 24 Hours (Table) 09/07/23 09/08/23 09/08/23 Range/Units 17:53 01:45 06:00 WBC 19.4 H (3.8-10.6) k/uL RBC 3.72 L (3.80-5.40) m/uL Hgb 11.2 L (11.4-16.0) gm/dL PT 9.9 L (10.0-12.5) sec APTT 42.4 H 37.6 H (22.0-30.0) sec BUN (7-17) mg/dL Creatinine (0.52-1.04) mg/dL Glucose (74-99) mg/dL AST (14-36) U/L ALT (4-34) U/L Alkaline Phosphatase (38-126) U/L Total Protein (6.3-8.2) g/dL Albumin (3.5-5.0) g/dL 09/08/23 09/08/23 Range/Units 06:00 08:38 WBC (3.8-10.6) k/uL RBC (3.80-5.40) m/uL Hgb (11.4-16.0) gm/dL PT (10.0-12.5) sec APTT 42.3 H (22.0-30.0) sec BUN 33 H (7-17) mg/dL Creatinine 1.12 H (0.52-1.04) mg/dL Glucose 100 H (74-99) mg/dL AST 83 H (14-36) U/L ALT 45 H (4-34) U/L Alkaline Phosphatase 138 H (38-126) U/L Total Protein 5.4 L (6.3-8.2) g/dL Albumin 2.7 L (3.5-5.0) g/dL Assessment and Plan Assessment: Impression: Acute non-ST elevation myocardial infarction Acute hypoxemic respiratory failure, secondary to acute COPD exacerbation and RSV infection. Chest x-ray on arrival did not show any acute cardiopulmonary defects. No focal infiltrates or evidence of pneumonia. There is hyperinflation consistent with COPD. Patient did test positive for RSV on arrival Acute RSV infection Leukocytosis History of chronic obstructive pulmonary disease Chronic kidney disease stage III History of hypertension History of hyperlipidemia History of advanced dementia History of hypothyroidism History of left lower extremity cellulitis Recommendation: Continue present supportive care measures Continue bronchodilators Cardiology is addressing the significant rise in troponin and non-ST elevation myocardial infarction, no plans for cardiac catheterization Not quite cleared yet for discharge planning as per cardiology No need for steroids. Will continue to follow Time with Patient: Less than 30
[2023-09-09] MEDS: HEPARIN SODIUM,PORCINE 5,000 UNIT/ML 1 ML VIAL SQ SCH ×2 (00:08→10:28)
[2023-09-09] MEDS: IPRATROPIUM-ALBUTEROL 3 ML NEB INHALATION SCH ×5 (01:07→16:02)
[2023-09-09] MEDS: ACETAMINOPHEN TAB 325 MG TAB PO PRN (04:49)
[2023-09-09] MEDS: LEVOTHYROXINE 50 MCG TAB PO SCH (06:20)
[2023-09-09 08:50] LABS: HCT 33.9 % (34.0-46.0); HGB 10.9 gm/dL (11.4-16.0); MCH 29.7 pg (25.0-35.0); MCHC 32.3 g/dL (31.0-37.0); MCV 92.1 fL (80.0-100.0); Mean Platelet Volume 7.7; Platelet Count 268 k/uL (150-450); RBC 3.68 m/uL (3.80-5.40); RDW 13.6 % (11.5-15.5); WBC 18.8 k/uL (3.8-10.6)
[2023-09-09 09:41] LABS: ALT 34 U/L (4-34); AST 47 U/L (14-36); African American GFR (CKD) 54 (>60 ml/min/1.73 sqM); Albumin 2.7 g/dL (3.5-5.0); Alkaline Phosphatase 129 U/L (38-126); Anion Gap 3 mmol/L; Blood Urea Nitrogen 28 mg/dL (7-17); Calcium 8.8 mg/dL (8.4-10.2); Carbon Dioxide 29 mmol/L (22-30); Chloride 107 mmol/L (98-107); Glucose 84 mg/dL (74-99); Non-African American GFR(CKD) 47 (>60 ml/min/1.73 sqM); Potassium 4.1 mmol/L (3.5-5.1); Sodium 139 mmol/L (137-145); Total Bilirubin 0.3 mg/dL (0.2-1.3); Total Protein 5.4 g/dL (6.3-8.2)
[2023-09-09] MEDS: MEMANTINE 10 MG TAB PO SCH (10:27)
[2023-09-09] MEDS: FAMOTIDINE 20 MG TAB PO SCH (10:27)
[2023-09-09] MEDS: METOPROLOL SUCCINATE (ER) 25 MG TAB.ER.24H PO SCH (10:27)
[2023-09-09] MEDS: allopurinoL 100 MG TAB PO SCH (10:27)
[2023-09-09] MEDS: DULoxetine HCL 20 MG CAPSULE.DR PO SCH (10:27)
[2023-09-09] MEDS: DONEPEZIL 10 MG TAB PO SCH (10:27)
[2023-09-09] MEDS: ATORVASTATIN 20 MG TAB PO SCH (10:27)
[2023-09-09] MEDS: ASPIRIN 81 MG PO SCH (10:27)
[2023-09-09] MEDS: ISOSORBIDE MONONITRATE ER 30 MG TAB.ER.24H PO SCH (10:27)
[2023-09-09] MEDS: ALPRAZolam 0.25 MG TAB PO SCH (10:28)
--- NOTE | 2023-09-09 11:46 | P.PN ---
Subjective HISTORY OF PRESENT ILLNESS: This is a 88-year-old female with a past medical history significant for COPD, hypertension, hyperlipidemia, hypothyroidism, and dementia. Patient used to follow in the office with Dr. Monroe but has not been seen. We have been asked to see the patient in consultation for chest pain. Patient examined at the bedside. Patient is somewhat confused in regards to her history. There is no family present. Patient does not remember why she came to the hospital. According to records she presented to the hospital with shortness of breath. Patient was found to be positive for RSV. Patient apparently had an episode of chest pain yesterday evening while on 4 S. She was given a sublingual nitro. EKG was completed. A troponin was drawn which resulted at 0.045. She was transferred to 3 for further evaluation. Repeat troponin resulted at 0.629. She was started on IV heparin. Patient's blood pressure overnight was also elevated and she was started on amlodipine. The patient denies any chest pain or pressure this morning. She currently denies shortness of breath. She reports an occasional nonproductive cough. She remains on supplemental oxygen with oxygen saturations greater than 92%. DIAGNOSTICS: EKG reveals sinus mechanism with no signs of acute ischemia. Repeat EKG performed yesterday evening revealed ST depression in V2V6 Chest xray rotated exam. There appears to be bibasilar airspace opacities. Correlate for developing pneumonia. Laboratory data: WBC 21.6. Hemoglobin 11.2. Platelet count 278. Sodium 138. Potassium 5.1. Repeat 6.8. BUN 42. Creatinine 1.48. Troponin 0.045. 0.629. Current home cardiac medications include Lipitor 10 mg daily Most recent echocardiogram obtained in 2015 revealing normal EF Cardiac catheterization history: Unknown September 08, 2023 Patient examined this morning at the bedside. Patient's family is present. Patient currently denies chest pain or pressure. She denies shortness of breath. She remains on IV heparin. Telemetry reveals sinus mechanism with heart in the 90s. Echocardiogram completed revealing ejection fraction 45 to 50% September 09, 2023 Patient examined this morning at the bedside. There is no family present. Patient currently denies chest pain or pressure. She denies shortness of breath. Vital signs are stable. PHYSICAL EXAM: VITAL SIGNS: Reviewed. GENERAL: Well-developed in no acute distress. HEENT: Head is normocephalic. Pupils are equal, round. Sclerae anicteric. Mucous membranes of the mouth are moist. Neck supple. No JVD or thyromegaly LUNGS: Respirations even and unlabored. Lungs diminished bilaterally with rhonchi noted HEART: Regular rate and rhythm. S1 and S2 heard. ABDOMEN: Soft. Nondistended. Nontender. EXTREMITIES: Normal range of motion. No clubbing or cyanosis. Peripheral pulses intact. No lower extremity edema NEUROLOGIC: Awake and alert. Oriented x 1 ASSESSMENT: Shortness of breath Acute RSV Acute hypoxic respiratory failure requiring supplemental oxygen Non-STEMI Mild cardiomyopathy, EF 45%, suspect ischemic Hypertension Hyperlipidemia Hypothyroidism Dementia PLAN: Continue additional cardiac medications No plans for cardiac catheterization at this time. Continue with current conservative management Patient is currently stable from a cardiac perspective Further recommendations pending patient course Nurse practitioner note has been reviewed by physician. Signing provider agrees with the documented findings, assessment, and plan of care documented by MANUFACTURING MANAGEMENT [employer]OCIATE as a scribe. Objective - Vital Signs Vital signs: Vital Signs Temp 97.7 F 09/09/23 08:00 Pulse 78 09/09/23 09:16 Resp 18 09/09/23 08:00 BP 109/58 09/09/23 08:00 Pulse Ox 97 09/09/23 09:03 FiO2 Intake & Output 09/08/23 09/09/23 09/09/23 18:59 06:59 18:59 Intake Total 374.031 490 10 Balance 374.031 490 10 Intake: IV 10 10 Invasive Line 2 10 10 Intake, IV Titration 44.031 Amount Heparin Sod,Pork in 0.45% 44.031 NaCl 25,000 unit In 0.45 % NaCl 1 250ml.bag @ 12 UNITS/KG/HR 5.987 mls/hr IV .Q24H [facility] Rx#: [id number] Oral 330 480 Other: Voiding Method Toilet # Voids 2 2 # Bowel Movements 2 - Labs CBC & Chem 7: 09/09/23 07:34 09/09/23 07:34 Labs: Abnormal Lab Results - Last 24 Hours (Table) 09/09/23 09/09/23 Range/Units 07:34 07:34 WBC 18.8 H (3.8-10.6) k/uL RBC 3.68 L (3.80-5.40) m/uL Hgb 10.9 L (11.4-16.0) gm/dL Hct 33.9 L (34.0-46.0) % BUN 28 H (7-17) mg/dL Creatinine 1.06 H (0.52-1.04) mg/dL AST 47 H (14-36) U/L Alkaline Phosphatase 129 H (38-126) U/L Total Protein 5.4 L (6.3-8.2) g/dL Albumin 2.7 L (3.5-5.0) g/dL
--- NOTE | 2023-09-09 12:19 | P.DS ---
Providers Date of admission: 09/04/23 16:29 Expected date of discharge: 09/09/23 Attending physician: Mane Kwan Consults: 09/04/23 16:20 Consult Physician Routine Consulting Provider: Toni Cowan Consult Reason/Comments: COPD, rsv Do you want consulting provider notified?: Yes 09/06/23 20:46 Consult Physician Urgent Consulting Provider: Russell Monroe Consult Reason/Comments: chest pain Do you want consulting provider notified?: Yes 09/06/23 21:56 Consult Physician Urgent Consulting Provider: Levy Clinton Consult Reason/Comments: troponin high 0.045 Do you want consulting provider notified?: Already Contacted Primary care physician: [facility] Course: Discharge diagnoses; Elevated troponin; Continue aspirin, Lipitor, Imdur and Toprol Cardiology evaluated, no plan for cardiac catheterizatiion at this time Hyperkalemia Resolved Acute hypoxemic respiratory failure acute COPD exacerbation Acute RSV infection without evidence for pneumonia Leukocytosis secondary to above Continue symptomatic treatment Advanced dementia Continue donepezil and Namenda History hypertension Continue home meds History of COPD Former smoker Hospital course; This is an 88-year-old female with medical history of COPD, dementia, hypertension, arthritis, former smoker. Patient comes into the hospital she is a poor historian unsure of what happened. She lives at home with her . She is found to be positive for RSV and is requiring 2 L of oxygen. Patient's is currently hospitalized with RSV; patient began having symptoms over the last 3 days mostly upper respiratory with shortness of breath and cough. Per family she is at her baseline mentation. Chest x-ray is showing COPD with no acute process seen. 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 EKG showing sinus rhythm with occasional supraventricular premature complexes with heart rate of [address] or T wave abnormalities. White blood cell count of 17.2 on admission with a sodium of 133, BUN of 31, creatinine of 1.13, urinalysis showing 1+ protein not suggestive of infection. She was admitted to the hospital to consult placed to pulmonary services she has been placed on 2 L of oxygen. Her procalcitonin was mildly elevated at 0.35. 09/06/2023 Patient is evaluated today resting in bed. No acute complaints no nausea vomiting diarrhea no shortness of breath no cough no chest pain. Patient is continued on 2 to 3 L of nasal cannula with adequate oxygen saturations however she did drop into the 80s on room air while ambulating and does require oxygen on discharge. She remains in a course of oral azithromycin last day is tomorrow. Additionally she is on IV steroids, she is not wheezing. 09/07. Patient seen and examined. Denies any chest pain. Denies shortness of breath. 09/08. Patient seen and examined. Vital signs stable. 2-D echo was ordered by cardiology, still pending. Does not look in any acute distress. 09/09. Patient seen and examined. Cardiology evaluated, recommend no ischemic workup at this time. Recommended medical management. Cleared patient for discharge PHYSICAL EXAMINATION: GENERAL: The patient is alert , not in any acute distress. Well developed, well nourished. HEENT: Pupils are round and equally reacting to light. EOMI. No scleral icterus. No conjunctival pallor. Normocephalic, atraumatic. No pharyngeal erythema. No thyromegaly. CARDIOVASCULAR: S1 and S2 present. No murmurs, rubs, or gallops. PULMONARY: Chest is clear to auscultation, no wheezing or crackles. ABDOMEN: Soft, nontender, nondistended, normoactive bowel sounds. No palpable organomegaly. MUSCULOSKELETAL: No joint swelling or deformity. EXTREMITIES: No cyanosis, clubbing, or pedal edema. NEUROLOGICAL: Gross neurological examination did not reveal any focal deficits. SKIN: No rashes. Dictation was produced using [employer] dictation software. please excuse any gramm atical, word or spelling errors. Patient Condition at Discharge: Stable Plan - Discharge Summary New Discharge Prescriptions: New Aspirin 81 mg PO DAILY #30 tab Metoprolol Succinate (ER) [Toprol XL] 25 mg PO DAILY #30 tab Famotidine [Pepcid] 20 mg PO DAILY tab Isosorbide Mononitrate ER [Imdur] 30 mg PO DAILY #30 tab Atorvastatin [Lipitor] 20 mg PO DAILY #30 tab Continue DULoxetine HCL [Cymbalta] 20 mg PO DAILY allopurinoL [Zyloprim] 100 mg PO DAILY Levothyroxine Sodium [Synthroid] 50 mcg PO DAILY Memantine [Namenda] 10 mg PO DAILY ALPRAZolam [Xanax] 0.25 mg PO DAILY Nystatin 100,000Unit/gm Cream [Mycostatin Cream] 1 applic TOPICAL BID each Rivastigmine Tartrate [Exelon] 3 mg PO BID-W/MEALS Triamcinolone 0.1% Cream [Kenalog 0.1% Cream] 1 applic TOPICAL BID each Acetaminophen Tab [Tylenol] 650 mg PO Q6HR PRN tab PRN Reason: Mild Pain Or Fever > 100.5 Discontinued Atorvastatin Calcium [Lipitor] 10 mg PO DAILY Doxycycline Hyclate See Taper PO DIRECTED amLODIPine [Norvasc] 5 mg PO DAILY #30 tab Triamterene-Hctz 37.5-25Mg [Maxzide 37.5-25] 1 tab PO DAILY Discharge Medication List DULoxetine HCL [Cymbalta] 20 mg PO DAILY 01/23/22 [History] Rivastigmine Tartrate [Exelon] 3 mg PO BID-W/MEALS 01/23/22 [History] ALPRAZolam [Xanax] 0.25 mg PO DAILY 07/21/23 [History] Levothyroxine Sodium [Synthroid] 50 mcg PO DAILY 07/21/23 [History] Memantine [Namenda] 10 mg PO DAILY 07/21/23 [History] allopurinoL [Zyloprim] 100 mg PO DAILY 07/21/23 [History] Acetaminophen Tab [Tylenol] 650 mg PO Q6HR PRN tab 07/25/23 [Rx] Nystatin 100,000Unit/gm Cream [Mycostatin Cream] 1 applic TOPICAL BID each 07/25/23 [Rx] Triamcinolone 0.1% Cream [Kenalog 0.1% Cream] 1 applic TOPICAL BID each 07/25/23 [Rx] Famotidine [Pepcid] 20 mg PO DAILY tab 09/06/23 [Rx] Aspirin 81 mg PO DAILY #30 tab 09/09/23 [Rx] Atorvastatin [Lipitor] 20 mg PO DAILY #30 tab 09/09/23 [Rx] Isosorbide Mononitrate ER [Imdur] 30 mg PO DAILY #30 tab 09/09/23 [Rx] Metoprolol Succinate (ER) [Toprol XL] 25 mg PO DAILY #30 tab 09/09/23 [Rx] Follow up Appointment(s)/Referral(s): Thaddeus Lion MD [STAFF PHYSICIAN] - 1 Week [facility], [NON-STAFF] - As Needed José Miguel Bustamante MD [Primary Care Provider] - 1-2 days Ambulatory/Diagnostic Orders: Basic Metabolic Panel [LAB.AMB] Time Frame: 3 Days, Location: None Selected Complete Blood Count w/diff [LAB.AMB] Time Frame: 3 Days, Location: None Selected Discharge Disposition: HOME WITH HOME HEALTH SERVICES
--- NOTE | 2023-09-09 14:27 | P.PN ---
Subjective Progress Note Date: 09/09/23 Principal diagnosis: Acute hypoxic respiratory failure secondary to acute exacerbation of COPD and RSV infection and acute non-ST elevation myocardial infarction I am seeing this patient in consultation today September 05, 2023 after she presented with URI-like symptoms. Patient is a 88-year-old white female with past medical history significant for COPD, advanced dementia, hypertension, among other things. Patient is a poor historian, secondary to her advanced dementia. She is alert. She thinks she is at home, and only oriented to self. Apparently, the patient's had tested positive for RSV earlier in the week. He is currently admitted to the hospital. Patient presented to emergency room yesterday afternoon reportedly complaining of URI-like symptoms over the last 3 days. She denies any specific complaints to me. She denies any shortness of breath, cough, chest pain. She is afebrile. She is currently lying in bed, on 2 L/min nasal cannula, in no acute distress. Chest x-ray on arrival showed no acute process. There is hyperinflation consistent with COPD. 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 Some are chronic. CBC on arrival showed some leukocytosis with a WBC count of 17.2, hemoglobin 14.1, hematocrit 42.9, platelets 283. BMP on arrival: Sodium 133, potassium 3.6, chloride 93, serum bicarb 31, BUN 31, creatinine 1.13, glucose 109. Patient appears to have some underlying chronic kidney disease. Urinalysis not consistent with urinary tract infection. Patient did test positive for RSV. Negative for influenza and COVID-19. Patient is currently receiving supportive treatment. She has been started on IV Solu-Medrol. She is also receiving DuoNebs [id number]. Normal saline infusing at 75 mL/h. Vitals are stable. The patient is seen today September 06, 2023 in follow-up on the regular medical floor. She is currently resting comfortably in bed. Awake and alert in no acute distress. Maintaining O2 saturations in the 90s on 3 L/min per nasal cannula. Sodium 139. Potassium 2.9. Bicarb 26. BUN 29. Creatinine 1.2. Gl ucose 147. She is continued on DuoNeb inhalations, Solu-Medrol. Heparin for DVT prophylaxis. Antibiotics in the form of azithromycin. Procalcitonin 0.35. Patient was reevaluated today on 09/07/2023, patient is doing well, resting comfortably in bed, not in any distress, however troponin today was noted to be elevated, and she was seen by cardiology for possible non-ST elevation myocardial infarction, aspirin was added and the patient was placed on heparin. No plans for cardiac catheterization on this patient, nonetheless the patient will remain on heparin and aspirin for now. Len valles patient is relatively asymptomatic, feels fine, she is on 2 L nasal cannula with O2 sats of 95%. She is hemodynamically stable, afebrile with a temp of 97.7. Unfortunately her troponin seems to be on the rise, started out at 0.045 yesterday, and it is as high as 17.5 today Patient was reevaluated today on 09/08/2023, remains quite comfortable, not in any distress, patient is relatively asymptomatic, family is at bedside. Her echocardiogram showed minimal LV dysfunction with ejection fraction of 45 to 50%, on telemetry the patient shows sinus mechanism with heart rate in the 90s patient has no chest pain, and no shortness of breath. On 2 L nasal cannula with O2 sats of 96% however she is 86% on room air WBC count is 19.4 hemoglobin 11.2 basic metabolic profile is normal creatinine 1.12 Evaluated today 09/09/2023, patient is doing well, relatively asymptomatic, apparently she was cleared for discharge by cardiology, patient had recent non- ST elevation myocardial infarction with elevated troponin level, cardiac catheterization was not advised on this admission. Len valles the patient is asymptomatic no cough no wheezing no shortness of breath, we saw her mostly for her acute RSV infection. Objective - Vital Signs Vital signs: Vital Signs Temp 97.9 F 09/09/23 12:46 Pulse 84 09/09/23 13:04 Resp 22 09/09/23 12:46 BP 99/56 09/09/23 12:46 Pulse Ox 95 09/09/23 13:04 FiO2 Intake & Output 09/08/23 09/09/23 09/09/23 18:59 06:59 18:59 Intake Total 374.031 490 128 Balance 374.031 490 128 Intake: IV 10 10 Invasive Line 2 10 10 Intake, IV Titration 44.031 Amount Heparin Sod,Pork in 0.45% 44.031 NaCl 25,000 unit In 0.45 % NaCl 1 250ml.bag @ 12 UNITS/KG/HR 5.987 mls/hr IV .Q24H [facility] Rx#: [id number] Oral 330 480 118 Other: Voiding Method Toilet # Voids 2 2 # Bowel Movements 2 - Exam GENERAL EXAM: Revealed 88-year-old female pleasant in no distress on 2 L nasal cannula HEAD: Normocephalic. EYES: Normal reaction of pupils, equal size. NOSE: Clear with pink turbinates. THROAT: No erythema or exudates. NECK: No masses, no JVD. CHEST: No chest wall deformity. LUNGS: Equal air entry with no crackles, wheeze, rhonchi or dullness. CVS: S1 and S2 normal with no audible murmur, regular rhythm. ABDOMEN: No hepatosplenomegaly, normal bowel sounds, no guarding or rigidity. SPINE: No scoliosis or deformity SKIN: No rashes CENTRAL NERVOUS SYSTEM: Alert oriented x 3 no gross focal deficit EXTREMITIES: There is no peripheral edema. No clubbing, no cyanosis. Peripheral pulses are intact. - Labs CBC & Chem 7: 09/09/23 07:34 09/09/23 07:34 Labs: Abnormal Lab Results - Last 24 Hours (Table) 09/09/23 09/09/23 Range/Units 07:34 07:34 WBC 18.8 H (3.8-10.6) k/uL RBC 3.68 L (3.80-5.40) m/uL Hgb 10.9 L (11.4-16.0) gm/dL Hct 33.9 L (34.0-46.0) % BUN 28 H (7-17) mg/dL Creatinine 1.06 H (0.52-1.04) mg/dL AST 47 H (14-36) U/L Alkaline Phosphatase 129 H (38-126) U/L Total Protein 5.4 L (6.3-8.2) g/dL Albumin 2.7 L (3.5-5.0) g/dL Assessment and Plan Assessment: Impression: Acute non-ST elevation myocardial infarction Acute hypoxemic respiratory failure, secondary to acute COPD exacerbation and RSV infection. Chest x-ray on arrival did not show any acute cardiopulmonary defects. No focal infiltrates or evidence of pneumonia. There is hyperinf lation consistent with COPD. Patient did test positive for RSV on arrival Acute RSV infection Leukocytosis History of chronic obstructive pulmonary disease Chronic kidney disease stage III History of hypertension History of hyperlipidemia History of advanced dementia History of hypothyroidism History of left lower extremity cellulitis Recommendation: Continue present supportive care measures Continue bronchodilators Cardiology to clear for discharge and if they do we will clear for discharge f rom our perspective No need for steroids. Follow-up on outpatient basis Time with Patient: Less than 30
[2023-09-09 16:22] VITALS: BP 96/51; PULSE 85; RESP 20; TEMP 97.3
== END 2023-09-09 17:09 | disposition home health service (06) | DRG 190 ==
LOC: EC 11:29 → 4SSUR 16:29 → 3SCARD 09-06 23:58
PROVIDERS: ADMIT Internal Medicine; ATTEND Internal Medicine
DX: J44.0 Chronic obstructive pulmonary disease with (acute) lower respiratory infection (principal); I21.4 Non-ST elevation (NSTEMI) myocardial infarction; J96.01 Acute respiratory failure with hypoxia; J21.0 Acute bronchiolitis due to respiratory syncytial virus; I42.9 Cardiomyopathy, unspecified; J44.1 Chronic obstructive pulmonary disease with (acute) exacerbation; F03.90 Unspecified dementia, unspecified severity, without behavioral disturbance, psychotic disturbance, mood disturbance, and anxiety; N18.30 Chronic kidney disease, stage 3 unspecified; I12.9 Hypertensive chronic kidney disease with stage 1 through stage 4 chronic kidney disease, or unspecified chronic kidney disease; Z11.52 Encounter for screening for COVID-19; E03.9 Hypothyroidism, unspecified; Z79.890 Hormone replacement therapy; E11.22 Type 2 diabetes mellitus with diabetic chronic kidney disease; I49.1 Atrial premature depolarization; M41.85 Other forms of scoliosis, thoracolumbar region; R79.89 Other specified abnormal findings of blood chemistry; I25.5 Ischemic cardiomyopathy; M19.90 Unspecified osteoarthritis, unspecified site; I08.1 Rheumatic disorders of both mitral and tricuspid valves; E78.5 Hyperlipidemia, unspecified; E86.0 Dehydration; E87.5 Hyperkalemia; Z99.81 Dependence on supplemental oxygen; Z79.899 Other long term (current) drug therapy
CPT/HCPCS: 36415; 71045; 71046; 80048; 80053; 81001; 83735; 84132; 84145; 84484; 85025; 85027; 85610; 85730; 87636; 93005; 93306; 94640; 94760; 96361; 96374; 99285

== ENCOUNTER 2023-11-22 17:54 | Inpatient (IN) | payer MEDICARE ==
[2023-11-22] MEDS: SODIUM CHLORIDE 0.9% 500 ML 500 ML IV STA (18:10)
[2023-11-22 18:41] LABS: Basophils % (A) 0 %; Eosinophils # (A) 0.2 k/uL (0-0.7); Eosinophils % (A) 1 %; HGB 13.7 gm/dL (11.4-16.0); Lymphocytes # (A) 0.8 k/uL (1.0-4.8); Lymphocytes % (A) 4 %; MCH 30.8 pg (25.0-35.0); MCHC 31.9 g/dL (31.0-37.0); MCV 96.7 fL (80.0-100.0); Mean Platelet Volume 8.6; Monocytes # (A) 0.6 k/uL (0-1.0); Monocytes % (A) 3 %; Neutrophils % (A) 92 %; Platelet Count 216 k/uL (150-450); RBC 4.45 m/uL (3.80-5.40); RDW 14.8 % (11.5-15.5); WBC 20.7 k/uL (3.8-10.6)
--- NOTE | 2023-11-22 19:03 | ED ---
General Adult HPI - General Chief complaint: Shortness of Breath Stated complaint: SOB,Cough Time Seen by Provider: 11/22/23 18:10 Source: patient, RN notes reviewed, old records reviewed Mode of arrival: ambulatory Limitations: no limitations - History of Present Illness Initial comments: This is an 88-year-old female who presents to the emergency department complaining of being short of breath according to the daughter. Patient has got dementia she is not able to give any history. Daughter states that the patient started coughing this morning having shortness of breath and at 1 point fell but no injuries were noted. Patient is not on any blood thinners. Patient desatted down to 80% on room air in the waiting room patient is not on oxygen at home. Patient does have a history of COPD secondary to smoking. Patient does not complain of any pain currently. Patient has had no fevers or chills that the daughter knows of. Patient has had no vomiting or diarrhea. - Related Data Home Medications Medication Instructions Recorded Confirmed DULoxetine HCL [Cymbalta] 20 mg PO DAILY 01/23/22 11/22/23 Rivastigmine Tartrate [Exelon] 3 mg PO BID-W/MEALS 01/23/22 11/22/23 ALPRAZolam [Xanax] 0.25 mg PO DAILY 07/21/23 11/22/23 Levothyroxine Sodium [Synthroid] 50 mcg PO DAILY 07/21/23 11/22/23 Memantine [Namenda] 10 mg PO DAILY 07/21/23 11/22/23 allopurinoL [Zyloprim] 100 mg PO DAILY 07/21/23 11/22/23 Ipratropium-Albuterol Nebulize 3 ml INHALATION RT-QID PRN 11/22/23 11/22/23 [Duoneb 0.5 mg-3 mg/3 ml Soln] Sodium Chloride Tab 1 gm PO DAILY 11/22/23 11/22/23 Triamterene/Hydrochlorothiazid 1 tab PO DAILY 11/22/23 11/22/23 [Triamterene-Hctz 37.5-25 mg Tb] Vit C/E/Zn/Coppr/Lutein/Zeaxan 1 cap PO DAILY 11/22/23 11/22/23 [Preservision Areds 2 Softgel] fluorouraciL [Efudex] 1 applic TOPICAL DIRECTED 11/22/23 11/22/23 Previous Rx's Medication Instructions Recorded Acetaminophen Tab [Tylenol] 650 mg PO Q6HR PRN tab 07/25/23 Atorvastatin [Lipitor] 20 mg PO DAILY #30 tab 09/09/23 Isosorbide Mononitrate ER [Imdur] 30 mg PO DAILY #30 tab 09/09/23 Metoprolol Succinate (ER) [Toprol 25 mg PO DAILY #30 tab 09/09/23 XL] Allergies Allergy/AdvReac Type Severity Reaction Status Date / Time No Known Allergies Allergy Verified 11/22/23 21:11 Review of Systems ROS Statement: Those systems with pertinent positive or pertinent negative responses have been documented in the HPI. ROS Other: All systems not noted in ROS Statement are negative. Past Medical History Past Medical History: COPD, Dementia, Hypertension, Memory Impairment, Myocardial Infarction ([place]), Osteoarthritis (OA) Additional Past Medical History / Comment(s): Cellulitis History of Any Multi-Drug Resistant Organisms: None Reported Past Surgical History: No Surgical Hx Reported Past Psychological History: No Psychological Hx Reported Smoking Status: Former smoker Past Alcohol Use History: None Reported Past Drug Use History: None Reported General Exam - General Exam Comments Initial Comments: GENERAL: Patient is well-developed and well-nourished. Patient is nontoxic and well- hydrated and is in mild distress. ENT: Neck is soft and supple. No significant lymphadenopathy is noted. Oropharynx is clear. Moist mucous membranes. Neck has full range of motion without eliciting any pain. EYES: The sclera were anicteric and conjunctiva were pink and moist. Extraocular movements were intact and pupils were equal round and reactive to light. Eyelids were unremarkable. PULMONARY: Unlabored respirations. Good breath sounds bilaterally. No audible rales rhonchi or wheezing was noted. CARDIOVASCULAR: There is a regular rate and rhythm without any murmurs gallops or rubs. ABDOMEN: Soft and nontender with normal bowel sounds. SKIN: Skin is clear with no lesions or rashes and otherwise unremarkable. NEUROLOGIC: Patient is alert and oriented x3. Cranial nerves II through XII are grossly intact. Motor and sensory are also intact. Normal speech, volume and content. Symmetrical smile. MUSCULOSKELETAL: Normal extremities with adequate strength and full range of motion. No lower extremity swelling or edema. No calf tenderness. LYMPHATICS: No significant lymphadenopathy is noted PSYCHIATRIC: Normal psychiatric evaluation. Limitations: no limitations Course Vital Signs 11/22/23 11/22/23 11/22/23 18:01 18:43 19:49 Temperature 97.9 F Pulse Rate 121 H 101 H Respiratory 18 22 18 Rate Blood Pressure 102/67 120/71 O2 Sat by Pulse 82 L 95 Oximetry Medical Decision Making - Medical Decision Making EKG is interpreted by myself EKG shows a sinus tachycardia at 113 bpm VA 161 QRS is 94 QT interval 341 QTc is 408. Patient's EKG shows no ST segment ovation depression. Was pt. sent in by a medical professional or institution (, PA, WOOD GRAINER, urgent care, hospital, or residential...) When possible be specific @ -No Did you speak to anyone other than the patient for history (EMS, parent, family, police, friend...)? What history was obtained from this source @ -The daughter gave all the history because of the patient's severe dementia Did you review nursing and triage notes (agree or disagree)? Why? @ -I reviewed and agree with nursing and triage notes Were old charts reviewed (outside hosp., previous admission, EMS record, old EKG, old radiological studies, urgent care reports/EKG's, residential records)? Report findings @ -I compared lab work with old lab work patient's white count was elevated in the last visit but has had some prior visits without an elevated white count. I compared today's x-ray with previous x-ray shows no significant change. Differential Diagnosis (chest pain, altered mental status, abdominal pain women, abdominal pain men, vaginal bleeding, weakness, fever, dyspnea, syncope, headache, dizziness, GI bleed, back pain, seizure, CVA, palpatations, mental health, musculoskeletal)? @ -Differential Dyspnea: Coronary syndrome, arrhythmia, tamponade, asthma, COPD, pulmonary embolism, pneumonia, pneumothorax, pulmonary effusion, anaphylaxis, diabetic ketoacidosis, flailed chest, pulmonary contusion, diaphragmatic rupture, anemia, neuromuscular, this is not meant to be an all-inclusive list. EKG interpreted by me (3pts min.). @ -As above X-rays interpreted by me (1pt min.). @ -Chest x-ray shows emphysema CT interpreted by me (1pt min.). @ -CT scan shows no pulmonary embolism but emphysema no obvious infiltrate U/S interpreted by me (1pt. min.). @ -None done What testing was considered but not performed or refused? (CT, X-rays, U/S, labs)? Why? @ -None What meds were considered but not given or refused? Why? @ -None Did you discuss the management of the patient with other professionals (professionals i.e. , PA, WOOD GRAINER, lab, RT, psych nurse, geriatric social worker, special police, teacher, seismology technical officer, home health care case manager)? Give summary @ -I spoke with Dr. Bustamante he agreed to admit the patient Was smoking cessation discussed for >3mins.? @ -No Was critical care preformed (if so, how long)? @ -No Were there social determinants of health that impacted care today? How? (Homelessness, low income, unemployed, alcoholism, drug addiction, transportation, low edu. Level, literacy, decrease access to med. care, nursing home, rehab)? @ -No Was there de-escalation of care discussed even if they declined (Discuss DNR or withdrawal of care, Hospice)? DNR status @ -No What co-morbidities impacted this encounter? (DM, HTN, Smoking, COPD, CAD, Cancer, CVA, ARF, Chemo, Hep., AIDS, mental health diagnosis, sleep apnea, morbid obesity)? @ -None Was patient admitted / discharged? Hospital course, mention meds given and route, prescriptions, significant lab abnormalities, going to OR and other pertinent info. @ -Patient's D-dimer came back extremely elevated I did start the patient on high-dose heparin however when the CAT scan showed no pulmonary embolism I stopped the heparin patient did receive 2 g of Rocephin and some breathing treatments and steroids as well. I admitted the patient I wrote admitting orders to continue breathing treatments antibiotics and steroids on the floor Undiagnosed new problem with uncertain prognosis? @ -No Drug Therapy requiring intensive monitoring for toxicity (Heparin, Nitro, Insulin, Cardizem)? @ -No Were any procedures done? @ -No Diagnosis/symptom? @ -Acute exacerbation of COPD Acute, or Chronic, or Acute on Chronic? @ -Default Uncomplicated (without systemic symptoms) or Complicated (systemic symptoms)? @ -Complicated Side effects of treatment? @ -No Exacerbation, Progression, or Severe Exacerbation? @ -No Poses a threat to life or bodily function? How? (Chest pain, [place], AL, pneumonia, PE, COPD, DKA, ARF, appy, cholecystitis, CVA, Diverticulitis, Homicidal, Suicidal, threat to staff... and all critical care pts) @ -Yes this could lead to hypoxia and endorgan dysfunction - Lab Data Result diagrams: 11/22/23 18:41 11/22/23 18:41 Lab Results 11/22/23 11/22/23 11/22/23 Range/Units 18:14 18:41 18:41 WBC 20.7 H (3.8-10.6) k/uL RBC 4.45 (3.80-5.40) m/uL Hgb 13.7 (11.4-16.0) gm/dL Hct 43.0 (34.0-46.0) % MCV 96.7 (80.0-100.0) fL MCH 30.8 (25.0-35.0) pg MCHC 31.9 (31.0-37.0) g/dL RDW 14.8 (11.5-15.5) % Plt Count 216 (150-450) k/uL MPV 8.6 Neutrophils % 92 % Lymphocytes % 4 % Monocytes % 3 % Eosinophils % 1 % Basophils % 0 % Neutrophils # 19.0 H (1.3-7.7) k/uL Lymphocytes # 0.8 L (1.0-4.8) k/uL Monocytes # 0.6 (0-1.0) k/uL Eosinophils # 0.2 (0-0.7) k/uL Basophils # 0.0 (0-0.2) k/uL PT 10.2 (10.0-12.5) sec INR 0.9 (<1.2) APTT 22.6 (22.0-30.0) sec D-Dimer >34.10 H (<0.60) mg/L FEU Sodium (137-145) mmol/L Potassium (3.5-5.1) mmol/L Chloride (98-107) mmol/L Carbon Dioxide (22-30) mmol/L Anion Gap mmol/L BUN (7-17) mg/dL Creatinine (0.52-1.04) mg/dL Est GFR (CKD-EPI)AfAm (>60 ml/min/1.73 sqM) Est GFR (CKD-EPI)NonAf (>60 ml/min/1.73 sqM) Glucose (74-99) mg/dL Lactic Ac Sepsis Rflx Plasma Lactic Acid Morgan (0.7-2.0) mmol/L Calcium (8.4-10.2) mg/dL Magnesium (1.6-2.3) mg/dL Total Bilirubin (0.2-1.3) mg/dL AST (14-36) U/L ALT (4-34) U/L Alkaline Phosphatase (38-126) U/L Troponin I 0.017 (0.000-0.034) ng/mL NT-Pro-B Natriuret Pep pg/mL Total Protein (6.3-8.2) g/dL Albumin (3.5-5.0) g/dL 11/22/23 11/22/23 11/22/23 Range/Units 18:41 18:41 19:14 WBC (3.8-10.6) k/uL RBC (3.80-5.40) m/uL Hgb (11.4-16.0) gm/dL Hct (34.0-46.0) % MCV (80.0-100.0) fL MCH (25.0-35.0) pg MCHC (31.0-37.0) g/dL RDW (11.5-15.5) % Plt Count (150-450) k/uL MPV Neutrophils % % Lymphocytes % % Monocytes % % Eosinophils % % Basophils % % Neutrophils # (1.3-7.7) k/uL Lymphocytes # (1.0-4.8) k/uL Monocytes # (0-1.0) k/uL Eosinophils # (0-0.7) k/uL Basophils # (0-0.2) k/uL PT (10.0-12.5) sec INR (<1.2) APTT (22.0-30.0) sec D-Dimer (<0.60) mg/L FEU Sodium 136 L (137-145) mmol/L Potassium 3.7 (3.5-5.1) mmol/L Chloride 100 (98-107) mmol/L Carbon Dioxide 27 (22-30) mmol/L Anion Gap 9 mmol/L BUN 47 H (7-17) mg/dL Creatinine 0.97 (0.52-1.04) mg/dL Est GFR (CKD-EPI)AfAm 60 (>60 ml/min/1.73 sqM) Est GFR (CKD-EPI)NonAf 52 (>60 ml/min/1.73 sqM) Glucose 221 H (74-99) mg/dL Lactic Ac Sepsis Rflx Y Plasma Lactic Acid Morgan 2.6 H* (0.7-2.0) mmol/L Calcium 9.4 (8.4-10.2) mg/dL Magnesium 2.0 (1.6-2.3) mg/dL Total Bilirubin 0.5 (0.2-1.3) mg/dL AST 40 H (14-36) U/L ALT 28 (4-34) U/L Alkaline Phosphatase 134 H (38-126) U/L Troponin I (0.000-0.034) ng/mL NT-Pro-B Natriuret Pep 1350 pg/mL Total Protein 6.2 L (6.3-8.2) g/dL Albumin 3.7 (3.5-5.0) g/dL Critical Care Time Critical Care Time: Yes Total Critical Care Time: 35 Disposition Clinical Impression: Acute exacerbation of chronic obstructive pulmonary disease Disposition: ADMITTED IP TO THIS HOSP Referrals: José Miguel Bustamante MD [Primary Care Provider] - 1-2 days Time of Disposition: 21:12
--- NOTE | 2023-11-22 19:06 | XR ---
EXAMINATION TYPE: XR chest 2V DATE OF EXAM: 11/22/2023 7:01 PM CLINICAL INDICATION:Female, 88 years old with history of difficulty breathing; [facility] COMPARISON: Chest radiographs from 09/18/2023. TECHNIQUE: XR chest 2V Frontal and lateral views of the chest. FINDINGS: Lungs/Pleura: Hazy airspace opacities are noted in the lung bases, increased compared to the prior st udy. No evidence of pleural effusion or pneumothorax. Pulmonary vascularity: Unremarkable. Heart/mediastinum: Cardiomediastinal silhouette is unremarkable. Atherosclerotic calcifications are seen in the aorta. Musculoskeletal: No acute osseous pathology. IMPRESSION: Subtle hazy bibasilar airspace opacities, may represent developing infectious/inflammatory process.
[2023-11-22 19:24] LABS: ALT 28 U/L (4-34); AST 40 U/L (14-36); African American GFR (CKD) 60 (>60 ml/min/1.73 sqM); Albumin 3.7 g/dL (3.5-5.0); Alkaline Phosphatase 134 U/L (38-126); Anion Gap 9 mmol/L; Blood Urea Nitrogen 47 mg/dL (7-17); Calcium 9.4 mg/dL (8.4-10.2); Carbon Dioxide 27 mmol/L (22-30); Chloride 100 mmol/L (98-107); Glucose 221 mg/dL (74-99); Non-African American GFR(CKD) 52 (>60 ml/min/1.73 sqM); Potassium 3.7 mmol/L (3.5-5.1); Sodium 136 mmol/L (137-145); Total Bilirubin 0.5 mg/dL (0.2-1.3); Total Protein 6.2 g/dL (6.3-8.2)
[2023-11-22 19:29] LABS: INR 0.9 (<1.2); Partial Thromboplastin Time 22.6 sec (22.0-30.0); Prothrombin Time 10.2 sec (10.0-12.5)
[2023-11-22 19:31] LABS: NT-Pro-B-Type Natriuretic Pept 1350 pg/mL
[2023-11-22] MEDS: cefTRIAXone IN SWFI 1,000 MG/10 ML SYRINGE IVP STA (19:53)
[2023-11-22] MEDS: SODIUM CHLORIDE 0.9% 1,000 ML IV ONE (19:59)
[2023-11-22] MEDS: HEPARIN SODIUM 1,000 UN/ML (10ML VL) IV ONE (20:00)
[2023-11-22] MEDS: HEPARIN SOD,PORK IN 0.45% NACL 25,000 UNIT in 0.45% NACL 1 250ML.BAG IV SCH (20:04)
--- NOTE | 2023-11-22 20:33 | CT ---
EXAMINATION TYPE: CT chest angio for PE CT DLP: 230.1 mGycm, Automated exposure control for dose reduction was used. DATE OF EXAM: 11/22/2023 8:28 PM COMPARISON: Chest radiograph from same day. . CLINICAL INDICATION:Female, 88 years old with history of Highly elevated D-dimer; Elevated dimer, SOB TECHNIQUE/CONTRAST: CTA scan of the thorax is performed with IV Contrast, patient injected with 80 mL of Isovue 370, MIP images are created and reviewed these are created on a separate workstation.. FINDINGS: Pulmonary Artery: There is no evidence for a filling defect within the pulmonary vasculature to sugge st acute pulmonary embolism. The pulmonary artery is of normal size. Lungs/Pleura: Extensive edematous changes of the lungs. No evidence of pleural effusion or pneumothor ax. Airway: Suspected mucous identified along the anterior surface of the trachea. Heart: Heart is within normal limits for size. Vasculature: Moderate atherosclerotic calcifications are present throughout the aorta and its branche s. Mediastinum: No gross evidence of adenopathy. Musculoskeletal: Compression deformities of the head and lower thoracic spine with up to 90% vertebra l body height loss most pronounced at the T9 and T11 levels. There is mild retropulsion at T11 with e vidence of spinal canal narrowing. Soft Tissues: Unremarkable. Lower neck: No significant findings. Upper Abdomen: No significant findings. IMPRESSION: 1. No evidence of pulmonary embolism. 2. Extensive emphysematous changes of the lungs. 3. Multiple compression deformities of the mid and lower thoracic spine, with up to 90% vertebral bod y height loss.
[2023-11-22] MEDS ORDERED: IPRATROPIUM-ALBUTEROL 3 ML NEB INHALATION PRN (21:14)
[2023-11-22] MEDS ORDERED: NALOXONE 0.4 MG/ML 1 ML VIAL IVP PRN (21:14)
[2023-11-22] MEDS: methylPREDNISolone SOD SUCCI 125 MG/2 ML VIAL IV STA (21:16)
[2023-11-23] MEDS: methylPREDNISolone SOD SUCCI 125 MG/2 ML VIAL IV SCH
[2023-11-23] MEDS ORDERED: IPRATROPIUM-ALBUTEROL 3 ML NEB INHALATION PRN (00:02)
[2023-11-23] MEDS ORDERED: ACETAMINOPHEN TAB 325 MG TAB PO PRN (00:02)
[2023-11-23] MEDS: IPRATROPIUM-ALBUTEROL 3 ML NEB INHALATION STA (00:36)
[2023-11-23 00:51] LABS: Appearance,Urine Clear (Clear); Bilirubin,Urine Negative (Negative); Blood,Urine Negative (Negative); Color,Urine Colorless; Glucose,Urine (UA) Negative (Negative); Ketones,Urine Negative (Negative); Leukocyte Esterase,Urine Negative (Negative); Nitrite,Urine Negative (Negative); Protein,Urine Negative (Negative); Urobilinogen,Urine <2.0 mg/dL (<2.0)
--- NOTE | 2023-11-23 00:54 | P.CNPUL ---
History of Present Illness Consult date: 11/23/23 Requesting physician: Jeronimo Patel Reason for consult: COPD Chief complaint: Brought in by daughter for shortness of breath History of present illness: Patient is an 88-year-old white female with past medical history significant for COPD, advanced dementia, hypertension, among other things. Patient is a poor historian, secondary to advanced dementia. She is alert. She does not know where she is. She does not know why she would be in the hospital. After reviewing the ER documentation, patient was brought in for shortness of breath. Patient did have a recent hospital admission back in August, for COPD exacerbation secondary to acute RSV infection. She does have severe COPD with an FEV1 34% of predicted. She is currently in the emergency room, room 8. The patient herself denies any complaints. She does not appear dyspneic at rest. She does have a congested cough, which is nonproductive. She is currently sitting up in the stretcher, on 2.5 L/min nasal cannula, in no acute distress. Denies shortness of breath. Denies infectious symptoms or sick contacts. Denies fevers. Denies chest pains. Chest x-ray showed subtle hazy bibasilar opacities, possibly atelectasis versus infectious/inflammatory process. D-dimer was elevated greater than 34, a follow-up chest CTA did not show any evidence of pulmonary embolism. It did show extensive emphysematous changes bilaterally. No acute cardiopulmonary process. Compression deformities of the mid and lower thoracic spine redemonstrated, without to 90% vertebral body height loss. She was started on a heparin drip in the emergency room per protocol. There is a venous doppler pending. No unilateral swelling noted. CBC: WBC 20.7, hemoglobin 13.7, hematocrit 43, platelets 216. BMP: Sodium 136, potassium 3.7, chloride 100, serum bicarb 27, BUN 47, creatinine 0.97, glucose 221. Lactic acid level was 2.6 down to 1.4. LFTs mildly elevated. Troponin 0.017. NT proBNP 1350. Negative for influenza, RSV, COVID. Afebrile. Hemodynamically stable. Review of Systems REVIEW OF SYSTEMS: CONSTITUTIONAL: Denies any recent significant weight loss or weight gain. EYES: Denies change in vision. EARS, NOSE, MOUTH, THROAT: Denies headaches, denies sore throat. CARDIOVASCULAR: Denies chest pain, palpitations or syncopal episodes. RESPIRATORY: Denies shortness of breath, cough, congestion or hemoptysis. GASTROINTESTINAL: Denies change in appetite, abdominal pain, nausea and vomiting, or diarrhea GENITOURINARY: Denies hematuria, denies infections. MUSKULOSKELETAL: Denies pain, denies swelling. INTEGUMENTARY: Denies rash, denies eczema. NEUROLOGICAL: Denies recent memory loss, no recent seizure activity. PSYCHIATRIC: Denies anxiety, denies depression. HEMATOLOGIC/LYMPHATIC: Denies anemia, denies enlarged lymph node Past Medical History Past Medical History: COPD, Dementia, Hypertension, Memory Impairment, Myocardial Infarction ([place]), Osteoarthritis (OA) Additional Past Medical History / Comment(s): Cellulitis History of Any Multi-Drug Resistant Organisms: None Reported Past Surgical History: No Surgical Hx Reported Past Psychological History: No Psychological Hx Reported Smoking Status: Former smoker Past Alcohol Use History: None Reported Past Drug Use History: None Reported Medications and Allergies Home Medications Medication Instructions Recorded Confirmed Type DULoxetine HCL [Cymbalta] 20 mg PO DAILY 01/23/22 11/22/23 History Rivastigmine Tartrate [Exelon] 3 mg PO BID-W/MEALS 01/23/22 11/22/23 History ALPRAZolam [Xanax] 0.25 mg PO DAILY 07/21/23 11/22/23 History Levothyroxine Sodium [Synthroid] 50 mcg PO DAILY 07/21/23 11/22/23 History Memantine [Namenda] 10 mg PO DAILY 07/21/23 11/22/23 History allopurinoL [Zyloprim] 100 mg PO DAILY 07/21/23 11/22/23 History Acetaminophen Tab [Tylenol] 650 mg PO Q6HR PRN tab 07/25/23 11/22/23 Rx Atorvastatin [Lipitor] 20 mg PO DAILY #30 tab 09/09/23 11/22/23 Rx Isosorbide Mononitrate ER [Imdur] 30 mg PO DAILY #30 tab 09/09/23 11/22/23 Rx Metoprolol Succinate (ER) [Toprol 25 mg PO DAILY #30 tab 09/09/23 11/22/23 Rx XL] Ipratropium-Albuterol Nebulize 3 ml INHALATION RT-QID PRN 11/22/23 11/22/23 History [Duoneb 0.5 mg-3 mg/3 ml Soln] Sodium Chloride Tab 1 gm PO DAILY 11/22/23 11/22/23 History Triamterene/Hydrochlorothiazid 1 tab PO DAILY 11/22/23 11/22/23 History [Triamterene-Hctz 37.5-25 mg Tb] Vit C/E/Zn/Coppr/Lutein/Zeaxan 1 cap PO DAILY 11/22/23 11/22/23 History [Preservision Areds 2 Softgel] fluorouraciL [Efudex] 1 applic TOPICAL DIRECTED 11/22/23 11/22/23 History Allergies Allergy/AdvReac Type Severity Reaction Status Date / Time No Known Allergies Allergy Verified 11/22/23 21:11 Physical Exam Vitals: Vital Signs Temp Pulse Resp BP Pulse Ox 11/22/23 23:14 98 18 115/81 95 11/22/23 21:23 97 18 118/74 96 11/22/23 19:49 101 H 18 120/71 95 11/22/23 18:43 22 11/22/23 18:01 97.9 F 121 H 18 102/67 82 L Intake and Output 11/22/23 11/22/23 11/23/23 14:59 22:59 06:59 Other: Weight 47.627 kg GENERAL EXAM: Alert, 88-year-old white male female, comfortable in no apparent distress. HEAD: Normocephalic and atraumatic EYES: Normal reaction of pupils, equal size. NOSE: Clear with pink turbinates. THROAT: No erythema or exudates. NECK: No masses, no JVD. CHEST: No chest wall deformity. LUNGS: Equal air entry with markedly diminished lung sounds throughout. No crackles, wheeze, rhonchi or dullness. On 2.5 L/min nasal cannula. No conversational dyspnea or accessory muscle use while at rest. There is a persistent nonproductive congested cough CVS: S1 and S2 normal with no audible murmur, regular rhythm. No extra heart sounds ABDOMEN: No hepatosplenomegaly, active bowel sounds, no guarding or rigidity. SPINE: No scoliosis or deformity SKIN: No rashes CENTRAL NERVOUS SYSTEM: No focal deficits, tone is normal in all 4 extremities. EXTREMITIES: There is no peripheral edema, clubbing, or cyanosis. Peripheral pulses are intact. Results - Laboratory Findings CBC and BMP: 11/22/23 18:41 11/22/23 18:41 PT/INR, D-dimer PT 10.2 sec (10.0-12.5) 11/22/23 18:41 INR 0.9 (<1.2) 11/22/23 18:41 D-Dimer >34.10 mg/L FEU (<0.60) H 11/22/23 18:41 Abnormal lab findings: Abnormal Labs 11/22/23 11/22/23 11/22/23 18:41 18:41 18:41 WBC 20.7 H Neutrophils # 19.0 H Lymphocytes # 0.8 L D-Dimer >34.10 H Sodium 136 L BUN 47 H Glucose 221 H Plasma Lactic Acid Morgan AST 40 H Alkaline Phosphatase 134 H Total Protein 6.2 L 11/22/23 18:41 WBC Neutrophils # Lymphocytes # D-Dimer Sodium BUN Glucose Plasma Lactic Acid Morgan 2.6 H* AST Alkaline Phosphatase Total Protein - Diagnostic Findings Chest x-ray: image reviewed CT scan - chest: image reviewed Assessment and Plan Assessment: Acute hypoxemic respiratory failure, likely secondary to suspected acute COPD exacerbation, chest CTA did not show any evidence of pulmonary embolism. It did show extensive emphysematous changes bilaterally. No acute cardiopulmonary process. Negative for influenza, RSV, COVID. Acute on chronic dyspnea, likely secondary to above Acute leukocytosis Elevated D-dimer, chest CTA did not demonstrate any filling defects within the pulmonary vasculature to suggest pulmonary emboli. 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 No obvious focal consolidations or evidence of pneumonia. Viral screen negative for influenza, RSV, COVID. Chest CTA did not demonstrate any obvious filling defects or evidence of pulmonary emboli. Continue supplemental oxygen to maintain oxygen saturation of 90% or greater Start patient on combination of DuoNebs [id number], Symbicort inhaler, and IV Solu-Medrol Check procalcitonin level, continue with empiric antibiotics Check venous Doppler. Can likely discontinue heparin infusion. We will continue to follow, and additional recommendations are forthcoming. I have personally seen and examined the patient, performed the documentation and the assessment and plan as written. Number of minutes spent on the visit:20 Time with Patient: Greater than 30
[2023-11-23 00:56] LABS: Specific Gravity,Urine 1.049 (1.001-1.035)
--- NOTE | 2023-11-23 04:18 | US ---
EXAM: US Duplex Bilateral Lower Extremities Veins CLINICAL HISTORY: ITS.REASON US Reason: rule out DVT TECHNIQUE: Real-time duplex ultrasound scan of the bilateral lower extremity veins integrating B-mode two-dimensional vascular structure, Doppler spectral analysis, color flow Doppler imaging and compression. COMPARISON: No relevant prior studies available. FINDINGS: Right deep veins: Unremarkable. No DVT in the right common femoral, femoral, proximal deep femoral or popliteal veins. The veins demonstrate normal color flow, are normally compressible, with normal phasic flow and/or augmentation response. The interrogated calf veins are patent. Right superficial veins: Unremarkable. No thrombus in the saphenofemoral junction. Left deep veins: Unremarkable. No DVT in the left common femoral, femoral, proximal deep femoral or popliteal veins. The veins demonstrate normal color flow, are normally compressible, with normal phasic flow and/or augmentation response. The interrogated calf veins are patent. Left superficial veins: Unremarkable. No thrombus in the saphenofemoral junction. Soft tissues: No acute findings. No popliteal cyst. IMPRESSION: No evidence for deep vein thrombosis involving the bilateral lower extremities.
[2023-11-23] MEDS: LEVOTHYROXINE 50 MCG TAB PO SCH (06:14)
[2023-11-23 07:11] LABS: Glucose,Whole Blood 147 mg/dL (70-110)
--- NOTE | 2023-11-23 07:40 | P.HPIM ---
History of Present Illness H&P Date: 11/23/23 HISTORY OF PRESENT ILLNESS: 88-year-old one of my office patient for over 25 years with history of advanced Alzheimer disease, COPD with recurrent exacerbation, history of hypertension, hyperlipidemia, hypothyroidism, recurrent history of gout, history of hyperglycemia, who was hospitalized 2 months ago with RSV and respiratory failure was in the hospital for over 1 week has done well since. Patient has been cared for by her family since her last few weeks she has / care. She developed to have severe dyspnea and shortness of breath with worsening cough and wheezes last 48 hours become much worse in the afternoon yesterday per patient brought to the emergency department at [facility] where was seen and evaluated. Her pulse ox was in the 80s she was started on 5 L of O2 try to keep her pulse ox above 90 percentile after few rounds of updraft treatment along with steroid pulse ox improved little bit but still require higher flow oxygen. Her lactic acid was 2.6 and dropped down to 1.4 after initial management RSV, COVID and influenza were negative, UA was negative, proBNP was 1350 with troponin 0.017 creatinine was 0.97 white blood cell 20,700 with left shift normal hemoglobin hematocrit. Her D-dimer was elevated initial chest x-ray showed suspicion of infiltrate in the bases. E EKG showed mild tachycardia only. She ended up having CTA based on her D-dimer being positive CTA shows no embolism but extensive emphysematous change in both lungs with multi compression deformity of the lower thoracic spine up to 90 percentile vertebral body height loss. And ended up having venous Doppler of the lower extremity showed no sign of deep venous thrombosis patient was having little bit more edema and change in the lower extremity. Patient be hospitalized with COPD exacerbation along with early pneumonia initially was giving 1 dose of Rocephin and then switched to Augmentin patient be seen pulmonary and if needed switch to BiPAP to keep her pulse ox above 90 percentile. REVIEW OF SYSTEMS: CONSTITUTIONAL: Well-developed mild respiratory distress. EYES: No icterus sclerae, no conjunctivitis. EARS, NOSE, MOUTH, THROAT, and FACE: No sore throat, lymphadenopathy, carotid br uits or deformity. RESPIRATORY: Positive shortness of breath cough or wheezes. CARDIOVASCULAR: Positive PND orthopnea palpitation. GASTROINTESTINAL: No Abd pain, Nausea or vomiting, no Diarrhea or constipation, No GI Bleed, no distention or masses. GENITOURINARY: Negative for Hematuria or UTI, no kidney stones. Mild incontinence. INTEGUMENT/BREAST: Negative for any muscular injury with mild osteoarthritis.. HEMATOLOGIC/LYMPHATIC: Negative for bleed or purpura. MUSCULOSKELTAL: Generalized muscle and joint pain with lower back pain as well. NEURLOGICAL: No LOC, Sz or syncope, blurred vision dizziness or abnormality. Advanced dementia and confusion.. BEHAVIORAL/PSYCH: Negative. ENDOCRINE: Negative. PHYSICAL EXAMINATION: General Appearance: Alert, cooperative, mild respiratory distress on a higher O2 flow. Neck HEENT: Supple, no lymphadenopathy, no thyroid enlargement, no carotid bruits. Lungs: Decreased breath sound bilaterally with fine rhonchi positive crackles in the bases positive mild expiratory wheezes. Chest Wall: Decreased expansion with deep inspiration no tenderness and no deformity was found on exam, no costochondral pain or discomfort. Heart: Regular rate and rhythm, S1, S2 positive S3 positive tachycardia with systolic murmur. Back: Symmetric, no curvature, ROM normal, no CVA tenderness. Abdomen: Soft, non-tender, bowel sounds active all four quadrants, no masses, no organomegaly. Extremities: Slight discoloration from the knee down with slight edema decreased pulse bilaterally. Pulses: Decreased pulse. Skin: Skin color, texture, tugor normal, no rashes or lesions. Neurologic: Alert oriented with slight confusion cranial nerves II to XII intact positive generalized weakness positive abnormal balance and gait. ASSESSMENT AND PLAN: _Acute hypoxic respiratory failure: Combination of COPD exacerbation along with severe bronchitis no sign of pneumonia or virus infection at this time we will continue aggressive management. _COPD exacerbation with FEV1 of 34 percentile, continue patient on updraft camelia atment along with steroid continue IV steroid use higher O2 flow to try to keep her pulse ox above 90 percentile. _Severe bronchitis with early pneumonitis: Patient was started on Rocephin her lactic acid is mildly elevated she is on Augmentin at this point still having significant leukocytosis not a clear whether this is chronic leukocytosis related to CLL or leukemoid reaction. Repeat CBC in the next few days while she is on steroid. _Advanced dementia: Continue home meds at this point. _Chronic kidney disease downstage to with creatinine below 1.0 BUN still mildly elevated mostly medication related continue gentle hydration with repeat BUN/creatinine. _Chronic cellulitis of the lower extremity with recurrent infection requiring IV antibiotics in the past has been slightly better continue to have edema required diuretics and patient is on Augmentin currently eventually can be switched probably to doxycycline or cephalexin. _Tachycardia: Remain on Toprol-XL 25 mg a day resume medication. _Hypothyroidism: Still on levothyroxine 50 mcg daily. _Hyperlipidemia: Continue atorvastatin 20 mg a day. _Chronic anxiety attack has been on alprazolam and continue Cymbalta, 20 mg a day can be titrated up to 60 mg if needed. _GI prophylaxis: Continue patient on proton pump inhibitor. _DVT prophylaxis: Remain on Lovenox early mobilization and knee-high ZIGGY hose. CODE STATUS: Full code. Admit patient to the inpatient service for more than 2 night stay. _ _ Past Medical History Past Medical History: COPD, Dementia, Hypertension, Memory Impairment, Myocardial Infarction ([place]), Osteoarthritis (OA) Additional Past Medical History / Comment(s): Cellulitis Last Myocardial Infarction Date:: unknwn History of Any Multi-Drug Resistant Organisms: None Reported Past Surgical History: No Surgical Hx Reported Past Psychological History: No Psychological Hx Reported Smoking Status: Former smoker Past Alcohol Use History: None Reported Past Drug Use History: None Reported Medications and Allergies Home Medications Medication Instructions Recorded Confirmed Type DULoxetine HCL [Cymbalta] 20 mg PO DAILY 01/23/22 11/22/23 History Rivastigmine Tartrate [Exelon] 3 mg PO BID-W/MEALS 01/23/22 11/22/23 History ALPRAZolam [Xanax] 0.25 mg PO DAILY 07/21/23 11/22/23 History Levothyroxine Sodium [Synthroid] 50 mcg PO DAILY 07/21/23 11/22/23 History Memantine [Namenda] 10 mg PO DAILY 07/21/23 11/22/23 History allopurinoL [Zyloprim] 100 mg PO DAILY 07/21/23 11/22/23 History Acetaminophen Tab [Tylenol] 650 mg PO Q6HR PRN tab 07/25/23 11/22/23 Rx Atorvastatin [Lipitor] 20 mg PO DAILY #30 tab 09/09/23 11/22/23 Rx Isosorbide Mononitrate ER [Imdur] 30 mg PO DAILY #30 tab 09/09/23 11/22/23 Rx Metoprolol Succinate (ER) [Toprol 25 mg PO DAILY #30 tab 09/09/23 11/22/23 Rx XL] Ipratropium-Albuterol Nebulize 3 ml INHALATION RT-QID PRN 11/22/23 11/22/23 History [Duoneb 0.5 mg-3 mg/3 ml Soln] Sodium Chloride Tab 1 gm PO DAILY 11/22/23 11/22/23 History Triamterene/Hydrochlorothiazid 1 tab PO DAILY 11/22/23 11/22/23 History [Triamterene-Hctz 37.5-25 mg Tb] Vit C/E/Zn/Coppr/Lutein/Zeaxan 1 cap PO DAILY 11/22/23 11/22/23 History [Preservision Areds 2 Softgel] fluorouraciL [Efudex] 1 applic TOPICAL DIRECTED 11/22/23 11/22/23 History Allergies Allergy/AdvReac Type Severity Reaction Status Date / Time No Known Allergies Allergy Verified 11/22/23 21:11 Physical Exam Vitals: Vital Signs Temp Pulse Pulse Resp BP BP Pulse Ox 11/23/23 02:17 98.0 F 84 20 99/64 100 11/23/23 01:09 20 11/23/23 00:21 98.0 F 97 20 148/78 94 L 11/22/23 23:14 98 18 115/81 95 11/22/23 21:23 97 18 118/74 96 11/22/23 19:49 101 H 18 120/71 95 11/22/23 18:43 22 11/22/23 18:01 97.9 F 121 H 18 102/67 82 L Intake and Output 11/22/23 11/22/23 11/23/23 14:59 22:59 06:59 Other: Voiding Method Bedside Commode # Voids 1 Weight 47.627 kg 47.627 kg Results CBC & Chem 7: 11/22/23 18:41 11/22/23 18:41 Labs: Abnormal Lab Results - Last 24 Hours (Table) 11/22/23 11/22/23 11/22/23 Range/Units 18:41 18:41 18:41 WBC 20.7 H (3.8-10.6) k/uL Neutrophils # 19.0 H (1.3-7.7) k/uL Lymphocytes # 0.8 L (1.0-4.8) k/uL D-Dimer >34.10 H (<0.60) mg/L FEU Sodium 136 L (137-145) mmol/L BUN 47 H (7-17) mg/dL Glucose 221 H (74-99) mg/dL Plasma Lactic Acid Morgan (0.7-2.0) mmol/L AST 40 H (14-36) U/L Alkaline Phosphatase 134 H (38-126) U/L Total Protein 6.2 L (6.3-8.2) g/dL Ur Specific [place] (1.001-1.035) 11/22/23 11/23/23 Range/Units 18:41 00:25 WBC (3.8-10.6) k/uL Neutrophils # (1.3-7.7) k/uL Lymphocytes # (1.0-4.8) k/uL D-Dimer (<0.60) mg/L FEU Sodium (137-145) mmol/L BUN (7-17) mg/dL Glucose (74-99) mg/dL Plasma Lactic Acid Morgan 2.6 H* (0.7-2.0) mmol/L AST (14-36) U/L Alkaline Phosphatase (38-126) U/L Total Protein (6.3-8.2) g/dL Ur Specific [place] 1.049 H (1.001-1.035) Thrombosis Risk Factor Assmnt - Choose All That Apply Any of the Below Risk Factors Present?: Yes Each Factor Represents 1 point: Abnormal pulmonary function (COPD) Other Risk Factors: Yes Each Risk Factor Represents 3 Points: Age 75 years or older Other congenital or acquired thrombophilia - If yes, enter type in comment: No Thrombosis Risk Factor Assessment Total Risk Factor Score: 4 Thrombosis Risk Factor Assessment Level: Moderate Risk
[2023-11-23] MEDS: SYMBICORT 160-4.5 MCG INHALER INHALATION SCH (07:48)
[2023-11-23] MEDS: IPRATROPIUM-ALBUTEROL 3 ML NEB INHALATION SCH (07:48)
[2023-11-23] MEDS: DONEPEZIL 10 MG TAB PO SCH (08:58)
[2023-11-23] MEDS: TRIAMTERENE-HCTZ 37.5-25MG 1 EACH CAP PO SCH (08:58)
[2023-11-23] MEDS: ATORVASTATIN 20 MG TAB PO SCH (08:58)
[2023-11-23] MEDS: METOPROLOL SUCCINATE (ER) 25 MG TAB.ER.24H PO SCH (08:59)
[2023-11-23] MEDS: VIT A,C & E-LUTEIN-MINERALS 1 EACH TAB PO SCH (08:59)
[2023-11-23] MEDS: DULoxetine HCL 20 MG CAPSULE.DR PO SCH (08:59)
[2023-11-23] MEDS: AMOXIC-POT CLAV 875-125MG 1 EACH TAB PO SCH (08:59)
[2023-11-23] MEDS: INSULIN ASPART (NovoLOG) 100 UNIT/ML VIAL SQ SCH ×2 (08:59→12:54)
[2023-11-23] MEDS: SODIUM CHLORIDE TAB 1 GM TAB PO SCH (08:59)
[2023-11-23] MEDS: ALPRAZolam 0.5 MG TAB PO SCH (08:59)
[2023-11-23] MEDS: MEMANTINE 10 MG TAB PO SCH (08:59)
[2023-11-23] MEDS: ISOSORBIDE MONONITRATE ER 30 MG TAB.ER.24H PO SCH (08:59)
[2023-11-23] MEDS: allopurinoL 100 MG TAB PO SCH (09:00)
[2023-11-23 11:25] LABS: HCT 36.7 % (37.2-46.3); MCH 31.3 pg (27.0-32.0); MCHC 32.7 g/dL (32.0-37.0); MCV 95.8 FL (80.0-97.0); Mean Platelet Volume 10.9 FL (9.5-12.2); NRBC Per 100 WBC 0 X 10*3/uL (0.00-0.01); Platelet Count 182 X 10*3/uL (140-440); RBC 3.83 X 10*6/uL (4.10-5.20); RDW 15.2 % (11.5-14.5); WBC 12.55 X 10*3/uL (4.50-10.00)
[2023-11-23 11:51] LABS: Glucose,Whole Blood 170 mg/dL (70-110)
[2023-11-23 12:06] LABS: ALT 25 U/L (8-44); AST 30 U/L (13-35); Albumin 3.6 g/dL (3.8-4.9); Albumin/Globulin Ratio 1.64 Ratio (1.60-3.17); Alkaline Phosphatase 99 U/L (41-126); Blood Urea Nitrogen 35.6 mg/dL (9.0-27.0); Carbon Dioxide 25.9 mmol/L (21.6-31.8); Chloride 102 mmol/L (96-109); Globulin 2.2 g/dL (1.6-3.3); Glucose 146 mg/dL (70-110); Potassium 4.3 mmol/L (3.5-5.5); Sodium 141 mmol/L (135-145); Total Bilirubin 0.3 mg/dL (0.3-1.2); Total Protein 5.8 g/dL (6.2-8.2)
[2023-11-23] MEDS ORDERED: DEXTROSE 50% SYRINGE 50 ML IVP PRN ×2 (12:47)
[2023-11-23 15:03] VITALS: BMI 18.7
--- NOTE | 2023-11-23 15:45 | P.CNPUL ---
History of Present Illness Consult date: 11/23/23 Reason for consult: dyspnea History of present illness: Patient is an 88-year-old white female with past medical history significant for COPD, advanced dementia, hypertension, among other things. Patient is a poor historian, secondary to advanced dementia. She is alert. She does not know where she is. She does not know why she would be in the hospital. After reviewing the ER documentation, patient was brought in for shortness of breath. Patient did have a recent hospital admission back in August, for COPD exacerbation secondary to acute RSV infection. She does have severe COPD with an FEV1 34% of predicted. She is currently in the emergency room, room 8. The patient herself denies any complaints. She does not appear dyspneic at rest. She does have a congested cough, which is nonproductive. She is currently sitting up in the stretcher, on 2.5 L/min nasal cannula, in no acute distress. Denies shortness of breath. Denies infectious symptoms or sick contacts. Denies fevers. Denies chest pains. Chest x-ray showed subtle hazy bibasilar opacities, possibly atelectasis versus infectious/inflammatory process. D-dimer was elevated greater than 34, a follow-up chest CTA did not show any evidence of pulmonary embolism. It did show extensive emphysematous changes bilaterally. No acute cardiopulmonary process. Compression deformities of the mid and lower thoracic spine redemonstrated, without to 90% vertebral body height loss. She was started on a heparin drip in the emergency room per protocol. There is a venous doppler pending. No unilateral swelling noted. CBC: WBC 20.7, hemoglobin 13.7, hematocrit 43, platelets 216. BMP: Sodium 136, potassium 3.7, chloride 100, serum bicarb 27, BUN 47, creatinine 0.97, glucose 221. Lactic acid level was 2.6 down to 1.4. LFTs mildly elevated. Troponin 0.017. NT proBNP 1350. Negative for influenza, RSV, COVID. Afebrile. Hemodynamically stable. The patient is seen today. She has obvious cognitive impairment and the patient is underlying dementia. Most of the information was obtained from the daughter at the bedside. I have taken care of the patient's in the past who has . Since his passing away, her condition has become progressively worse and the patient has experienced diminished oral intake and currently is coming with worsening shortness of breath typical of an ongoing COPD exacerbation. CAT scan of the chest was reviewed and the patient has COPD with upper lobe predominance. She has compression fracture of the thoracic spine. No consolidation or airspace disease. Review of Systems CONSTITUTIONAL: Positive for weight loss and diminished oral intake EYES: Denies change in vision. EARS, NOSE, MOUTH, THROAT: Denies headaches, denies sore throat. CARDIOVASCULAR: Denies chest pain, palpitations or syncopal episodes. RESPIRATORY: Denies shortness of breath, cough, congestion or hemoptysis. GASTROINTESTINAL: Denies change in appetite, abdominal pain, nausea and vomiting, or diarrhea GENITOURINARY: Denies hematuria, denies infections. MUSKULOSKELETAL: Denies pain, denies swelling. INTEGUMENTARY: Denies rash, denies eczema. NEUROLOGICAL: Denies recent memory loss, no recent seizure activity. PSYCHIATRIC: Denies anxiety, denies depression. HEMATOLOGIC/LYMPHATIC: Denies anemia, denies enlarged lymph node Past Medical History Past Medical History: COPD, Dementia, Hypertension, Memory Impairment, Myocardial Infarction ([place]), Osteoarthritis (OA) Additional Past Medical History / Comment(s): Cellulitis Last Myocardial Infarction Date:: unknwn History of Any Multi-Drug Resistant Organisms: None Reported Past Surgical History: No Surgical Hx Reported Past Psychological History: No Psychological Hx Reported Smoking Status: Former smoker Past Alcohol Use History: None Reported Past Drug Use History: None Reported Medications and Allergies Home Medications Medication Instructions Recorded Confirmed Type DULoxetine HCL [Cymbalta] 20 mg PO DAILY 01/23/22 11/22/23 History Rivastigmine Tartrate [Exelon] 3 mg PO BID-W/MEALS 01/23/22 11/22/23 History ALPRAZolam [Xanax] 0.25 mg PO DAILY 07/21/23 11/22/23 History Levothyroxine Sodium [Synthroid] 50 mcg PO DAILY 07/21/23 11/22/23 History Memantine [Namenda] 10 mg PO DAILY 07/21/23 11/22/23 History allopurinoL [Zyloprim] 100 mg PO DAILY 07/21/23 11/22/23 History Acetaminophen Tab [Tylenol] 650 mg PO Q6HR PRN tab 07/25/23 11/22/23 Rx Atorvastatin [Lipitor] 20 mg PO DAILY #30 tab 09/09/23 11/22/23 Rx Isosorbide Mononitrate ER [Imdur] 30 mg PO DAILY #30 tab 09/09/23 11/22/23 Rx Metoprolol Succinate (ER) [Toprol 25 mg PO DAILY #30 tab 09/09/23 11/22/23 Rx XL] Ipratropium-Albuterol Nebulize 3 ml INHALATION RT-QID PRN 11/22/23 11/22/23 History [Duoneb 0.5 mg-3 mg/3 ml Soln] Sodium Chloride Tab 1 gm PO DAILY 11/22/23 11/22/23 History Triamterene/Hydrochlorothiazid 1 tab PO DAILY 11/22/23 11/22/23 History [Triamterene-Hctz 37.5-25 mg Tb] Vit C/E/Zn/Coppr/Lutein/Zeaxan 1 cap PO DAILY 11/22/23 11/22/23 History [Preservision Areds 2 Softgel] fluorouraciL [Efudex] 1 applic TOPICAL DIRECTED 11/22/23 11/22/23 History Allergies Allergy/AdvReac Type Severity Reaction Status Date / Time No Known Allergies Allergy Verified 11/22/23 21:11 Physical Exam Vitals: Vital Signs Temp Pulse Pulse Resp BP BP Pulse Ox 11/23/23 15:32 90 11/23/23 12:42 97.9 F 92 16 119/70 96 11/23/23 11:41 89 11/23/23 11:30 87 11/23/23 08:11 91 11/23/23 07:56 89 97 11/23/23 07:11 98.1 F 88 20 127/79 95 11/23/23 02:17 98.0 F 84 20 99/64 100 11/23/23 01:09 20 11/23/23 00:21 98.0 F 97 20 148/78 94 L 11/22/23 23:14 98 18 115/81 95 11/22/23 21:23 97 18 118/74 96 11/22/23 19:49 101 H 18 120/71 95 11/22/23 18:43 22 11/22/23 18:01 97.9 F 121 H 18 102/67 82 L Intake and Output 11/23/23 11/23/23 11/23/23 06:59 14:59 22:59 Other: Voiding Method Bedside Commode # Voids 1 1 # Bowel Movements 1 Weight 48 kg 48 kg GENERAL EXAM: Alert, 88-year-old white male female, comfortable in no apparent distress. HEAD: Normocephalic and atraumatic EYES: Normal reaction of pupils, equal size. NOSE: Clear with pink turbinates. THROAT: No erythema or exudates. NECK: No masses, no JVD. CHEST: No chest wall deformity. LUNGS: Equal air entry with markedly diminished lung sounds throughout. No crackles, wheeze, rhonchi or dullness. On 2.5 L/min nasal cannula. No conversational dyspnea or accessory muscle use while at rest. There is a persistent nonproductive congested cough CVS: S1 and S2 normal with no audible murmur, regular rhythm. No extra heart sounds ABDOMEN: No hepatosplenomegaly, active bowel sounds, no guarding or rigidity. SPINE: No scoliosis or deformity SKIN: No rashes CENTRAL NERVOUS SYSTEM: No focal deficits, tone is normal in all 4 extremities. EXTREMITIES: There is no peripheral edema, clubbing, or cyanosis. Peripheral pulses are intact. Results - Laboratory Findings CBC and BMP: 11/23/23 07:11 11/23/23 07:11 PT/INR, D-dimer PT 10.2 sec (10.0-12.5) 11/22/23 18:41 INR 0.9 (<1.2) 11/22/23 18:41 D-Dimer >34.10 mg/L FEU (<0.60) H 11/22/23 18:41 Abnormal lab findings: Abnormal Labs 11/22/23 11/22/23 11/22/23 18:41 18:41 18:41 WBC 20.7 H RBC Hct RDW Neutrophils # 19.0 H Lymphocytes # 0.8 L D-Dimer >34.10 H Sodium 136 L Anion Gap BUN 47 H Est GFR (CKD-EPI) BUN/Creatinine Ratio Glucose 221 H POC Glucose (mg/dL) Plasma Lactic Acid Morgan AST 40 H Alkaline Phosphatase 134 H Total Protein 6.2 L Albumin Procalcitonin Ur Specific [place] 11/22/23 11/22/23 11/23/23 18:41 18:41 00:25 WBC RBC Hct RDW Neutrophils # Lymphocytes # D-Dimer Sodium Anion Gap BUN Est GFR (CKD-EPI) BUN/Creatinine Ratio Glucose POC Glucose (mg/dL) Plasma Lactic Acid Morgan 2.6 H* AST Alkaline Phosphatase Total Protein Albumin Procalcitonin 0.20 H Ur Specific [place] 1.049 H 11/23/23 11/23/23 11/23/23 07:09 07:11 07:11 WBC 12.55 H RBC 3.83 L Hct 36.7 L RDW 15.2 H Neutrophils # Lymphocytes # D-Dimer Sodium Anion Gap 13.10 H BUN 35.6 H Est GFR (CKD-EPI) 54 L BUN/Creatinine Ratio 35.60 H Glucose 146 H POC Glucose (mg/dL) 147 H Plasma Lactic Acid Morgan AST Alkaline Phosphatase Total Protein 5.8 L Albumin 3.6 L Procalcitonin Ur Specific [place] 11/23/23 11:50 WBC RBC Hct RDW Neutrophils # Lymphocytes # D-Dimer Sodium Anion Gap BUN Est GFR (CKD-EPI) BUN/Creatinine Ratio Glucose POC Glucose (mg/dL) 170 H Plasma Lactic Acid Morgan AST Alkaline Phosphatase Total Protein Albumin Procalcitonin Ur Specific [place] - Diagnostic Findings Chest x-ray: image reviewed CT scan - chest: image reviewed Assessment and Plan Plan: Acute hypoxemic respiratory failure, likely secondary to suspected acute COPD exacerbation, chest CTA did not show any evidence of pulmonary embolism. It did show extensive emphysematous changes bilaterally. No acute cardiopulmonary process. Negative for influenza, RSV, COVID. No evidence of any consolidation or airspace disease. Compression fracture of the T-spine was noted. Patient is an ex-smoker. Acute on chronic dyspnea, likely secondary to above, currently on 2 L of oxygen by nasal cannula Acute leukocytosis Elevated D-dimer, chest CTA did not demonstrate any filling defects within the pulmonary vasculature to suggest pulmonary emboli. Severe chronic obstructive pulmonary disease, with an FEV1 34% of predicted Chronic kidney disease stage III Chronic thoracic level compression fractures, with 90% vertebral body height loss History of hypertension History of hyperlipidemia History of advanced dementia History of hypothyroidism History of left lower extremity cellulitis Plan: Agree on the current treatment of bronchodilators and steroids. No obvious focal consolidations or evidence of pneumonia. Viral screen negative for influenza, RSV, COVID. Chest CTA did not demonstrate any obvious filling defects or evidence of pulmonary emboli. Continue supplemental oxygen to maintain oxygen saturation of 90% or greater Start patient on combination of DuoNebs [id number], Symbicort inhaler, and IV Solu-Medrol Check procalcitonin level, continue with empiric antibiotics And heparin subcu for DVT prophylaxis Will continue to follow
[2023-11-23 17:07] LABS: Glucose,Whole Blood 147 mg/dL (70-110)
[2023-11-23 19:35] LABS: Glucose,Whole Blood 231 mg/dL (70-110)
[2023-11-23] MEDS: HEPARIN SODIUM,PORCINE 5,000 UNIT/ML 1 ML VIAL SQ SCH (20:21)
[2023-11-24 07:09] LABS: Glucose,Whole Blood 143 mg/dL (70-110)
--- NOTE | 2023-11-24 09:23 | CDI ---
Date: 11/23/2022 From: Sherlyn Riggs Phone: [phone] Admit Date: 11/22/2023 09:15:00 PM Patient Name: Joceline Barrera Visit Number: [id number] Discharge Date: ATTENTION: The Clinical Documentation Specialists (CDI) and [facility] Coding Staff appreciate your assistance in clarifying documentation. Please respond to the clarification below the line at the bottom and electronically sign. The CDI & [facility] Coding staff will review the response and follow-up if needed. Please note: Queries are made part of the Legal Health Record. If you have any questions, please contact the author of this message via ITS. Dr. José Miguel Bustamante: Patient has a documented BMI of 18.7 on 11/23. Additional clarification is requested. History/Risk Factors: Alzheimer disease, COPD with recurrent exacerbation, HTN who presented with worsening cough and severe dyspnea and found to exacerbation of COPD Clinical Indicators: 11/23 Patients weight is 48kg Patients height is 5ft 3in Calculated BMI is 18.7 11/21, 11/22 Total Protein: 6.2, 5.8 Treatments: Dysphagia 3 diet: Chopped Ensure Enlive Supplement with breakfast Please clarify, is there is an additional diagnosis that is clinically appropriate for this patient? [ XX ] Underweight [ ] No additional diagnosis/not clinically significant [ ] Other, please specify [ ] Unable to determine MTDD
[2023-11-24 12:01] LABS: Glucose,Whole Blood 98 mg/dL (70-110)
[2023-11-24] MEDS: methylPREDNISolone SOD SUCCI 125 MG/2 ML VIAL IV SCH (12:52)
--- NOTE | 2023-11-24 15:47 | P.PN ---
Subjective Progress Note Date: 11/24/23 Patient is an 88-year-old white female with past medical history significant for COPD, advanced dementia, hypertension, among other things. Patient is a poor historian, secondary to advanced dementia. She is alert. She does not know where she is. She does not know why she would be in the hospital. After reviewing the ER documentation, patient was brought in for shortness of breath. Patient did have a recent hospital admission back in August, for COPD exacerbation secondary to acute RSV infection. She does have severe COPD with an FEV1 34% of predicted. She is currently in the emergency room, room 8. The patient herself denies any complaints. She does not appear dyspneic at rest. She does have a congested cough, which is nonproductive. She is currently sitting up in the stretcher, on 2.5 L/min nasal cannula, in no acute distress. Denies shortness of breath. Denies infectious symptoms or sick contacts. Denies fevers. Denies chest pains. Chest x-ray showed subtle hazy bibasilar opacities, possibly atelectasis versus infectious/inflammatory process. D-dimer was elevated greater than 34, a follow-up chest CTA did not show any evidence of pulmonary embolism. It did show extensive emphysematous changes bilaterally. No acute cardiopulmonary process. Compression deformities of the mid and lower thoracic spine redemonstrated, without to 90% vertebral body height loss. She was started on a heparin drip in the emergency room per protocol. There is a venous doppler pending. No unilateral swelling noted. CBC: WBC 20.7, hemoglobin 13.7, hematocrit 43, platelets 216. BMP: Sodium 136, potassium 3.7, chloride 100, serum bicarb 27, BUN 47, creatinine 0.97, glucose 221. Lactic acid level was 2.6 down to 1.4. LFTs mildly elevated. Troponin 0.017. NT proBNP 1350. Negative for influenza, RSV, COVID. Afebrile. Hemodynamically stable. The patient is seen today. She has obvious cognitive impairment and the patient is underlying dementia. Most of the information was obtained from the daughter at the bedside. I have taken care of the patient's in the past who has . Since his passing away, her condition has become progressively worse and the patient has experienced diminished oral intake and currently is coming with worsening shortness of breath typical of an ongoing COPD exacerbation. CAT scan of the chest was reviewed and the patient has COPD with upper lobe predominance. She has compression fracture of the thoracic spine. No consolidation or airspace disease. On 11/24/2023, patient is being seen for a follow-up. Less short of breath compared to yesterday. Less bronchospastic and wheezy and the patient is currently on 2 L of oxygen by nasal cannula. Sitting up in a chair and tolerating diet. No altered mentation or confusion. The white cell count is down to 4.5 with a hemoglobin of 12. Electrolytes are all stable. Remains on DuoNeb updrafts. Remains on IV Solu-Medrol 60 mg every 6 hours. Remains on Augmentin. Rest of the home medication have been all resumed. No other significant events overnight. Objective - Vital Signs Vital signs: Vital Signs Temp 97.8 F 11/24/23 07:10 Pulse 92 11/24/23 11:28 Resp 16 11/24/23 07:10 BP 144/76 11/24/23 07:10 Pulse Ox 98 11/24/23 10:07 FiO2 Intake & Output 11/23/23 11/24/23 11/24/23 18:59 06:59 18:59 Intake Total 590 Balance 590 Weight 48 kg Intake: Oral 590 Other: Voiding Method Bedside Commode # Voids 1 4 # Bowel Movements 1 - Exam GENERAL EXAM: Alert, 88-year-old white male female, comfortable in no apparent distress. HEAD: Normocephalic and atraumatic EYES: Normal reaction of pupils, equal size. NOSE: Clear with pink turbinates. THROAT: No erythema or exudates. NECK: No masses, no JVD. CHEST: No chest wall deformity. LUNGS: Equal air entry with markedly diminished lung sounds throughout. No crackles, wheeze, rhonchi or dullness. On 2.5 L/min nasal cannula. No c onversational dyspnea or accessory muscle use while at rest. There is a persistent nonproductive congested cough CVS: S1 and S2 normal with no audible murmur, regular rhythm. No extra heart sounds ABDOMEN: No hepatosplenomegaly, active bowel sounds, no guarding or rigidity. SPINE: No scoliosis or deformity SKIN: No rashes CENTRAL NERVOUS SYSTEM: No focal deficits, tone is normal in all 4 extremities. EXTREMITIES: There is no peripheral edema, clubbing, or cyanosis. Peripheral pulses are intact. - Labs CBC & Chem 7: 11/23/23 07:11 11/23/23 07:11 Labs: Abnormal Lab Results - Last 24 Hours (Table) 11/23/23 11/23/23 11/24/23 Range/Units 17:06 19:33 07:08 POC Glucose (mg/dL) 147 H 231 H 143 H (70-110) mg/dL Microbiology - Last 24 Hours (Table) 11/22/23 19:40 Blood Culture - Preliminary Blood Assessment and Plan Plan: Acute hypoxemic respiratory failure, likely secondary to suspected acute COPD ex acerbation, chest CTA did not show any evidence of pulmonary embolism. It did show extensive emphysematous changes bilaterally. No acute cardiopulmonary process. Negative for influenza, RSV, COVID. No evidence of any consolidation or airspace disease. Compression fracture of the T-spine was noted. Patient is an ex-smoker. Clinically improving. Acute on chronic dyspnea, likely secondary to above, currently on 2 L of oxygen by nasal cannula Acute leukocytosis Elevated D-dimer, chest CTA did not demonstrate any filling defects within the pulmonary vasculature to suggest pulmonary emboli. Severe chronic obstructive pulmonary disease, with an FEV1 34% of predicted Chronic kidney disease stage III Chronic thoracic level compression fractures, with 90% vertebral body height loss History of hypertension History of hyperlipidemia History of advanced dementia History of hypothyroidism History of left lower extremity cellulitis Plan: Clinically improving Continue current treatment of bronchodilators and steroids. No obvious focal consolidations or evidence of pneumonia. Viral screen negative for influenza, RSV, COVID. Chest CTA did not demonstrate any obvious filling d efects or evidence of pulmonary emboli. Continue supplemental oxygen to maintain oxygen saturation of 90% or greater Start patient on combination of DuoNebs [id number], Symbicort inhaler, and IV Solu-Medrol Check procalcitonin level elevated at 0.2, continue with empiric antibiotics with Augmentin. heparin subcu for DVT prophylaxis Will continue to follow
[2023-11-24 17:10] LABS: Glucose,Whole Blood 176 mg/dL (70-110)
[2023-11-24 20:20] LABS: Glucose,Whole Blood 259 mg/dL (70-110)
[2023-11-25 07:48] LABS: Glucose,Whole Blood 116 mg/dL (70-110)
--- NOTE | 2023-11-25 07:51 | P.PN ---
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 Patient has been cared for by her family since her last few weeks she has / care. She developed to have severe dyspnea and shortness of breath with worsening cough and wheezes last 48 hours become much worse in the afternoon yesterday per patient brought to the emergency department at [facility] where was seen and evaluated. Her pulse ox was in the 80s she was started on 5 L of O2 try to keep her pulse ox above 90 percentile after few rounds of updraft treatment along with steroid pulse ox improved little bit but still require higher flow oxygen. Her lactic acid was 2.6 and dropped down to 1.4 after initial management RSV, COVID and influenza were negative, UA was negative, proBNP was 1350 with troponin 0.017 creatinine was 0.97 white blood cell 20,700 with left shift normal hemoglobin hematocrit. Her D-dimer was elevated initial chest x-ray showed suspicion of infiltrate in the bases. E EKG showed mild tachycardia only. She ended up having CTA based on her D-dimer being positive CTA shows no embolism but extensive emphysematous change in both lungs with multi compression deformity of the lower thoracic spine up to 90 percentile vertebral body height loss. And ended up having venous Doppler of the lower extremity showed no sign of deep venous thrombosis patient was having little bit more edema and change in the lower extremity. Patient be hospitalized with COPD exacerbation along with early pneumonia initially was giving 1 dose of Rocephin and then switched to Augmentin patient be seen pulmonary and if needed switch to BiPAP to keep her pulse ox above 90 percentile. 11/24/2023: The patient is sitting in bed today doing much better still having slight wheezes, continue to be on Solu-Medrol IV every 6 hours, continue to be on IV antibiotic.Overall her blood sugar is doing better, hemoglobin did not drop much. She was switched to oral Augmentin which will help the time she is ready to go home. Will reduce steroid probably to 40 mg on every 8 and there is a possibility patient might be able to go home in the next 48 hours. REVIEW OF SYSTEMS: CONSTITUTIONAL: Well-developed mild respiratory distress. EYES: No icterus sclerae, no conjunctivitis. EARS, NOSE, MOUTH, THROAT, and FACE: No sore throat, lymphadenopathy, carotid bruits or deformity. RESPIRATORY: Positive shortness of breath cough or wheezes. CARDIOVASCULAR: Positive PND orthopnea palpitation. GASTROINTESTINAL: No Abd pain, Nausea or vomiting, no Diarrhea or constipation, No GI Bleed, no distention or masses. GENITOURINARY: Negative for Hematuria or UTI, no kidney stones. Mild in continence. INTEGUMENT/BREAST: Negative for any muscular injury with mild osteoarthritis.. HEMATOLOGIC/LYMPHATIC: Negative for bleed or purpura. MUSCULOSKELTAL: Generalized muscle and joint pain with lower back pain as well. NEURLOGICAL: No LOC, Sz or syncope, blurred vision dizziness or abnormality. Advanced dementia and confusion.. BEHAVIORAL/PSYCH: Negative. ENDOCRINE: Negative. PHYSICAL EXAMINATION: General Appearance: Alert, cooperative, mild respiratory distress on a higher O2 flow. Neck HEENT: Supple, no lymphadenopathy, no thyroid enlargement, no carotid br uits. Lungs: Decreased breath sound bilaterally with fine rhonchi positive crackles in the bases positive mild expiratory wheezes. Chest Wall: Decreased expansion with deep inspiration no tenderness and no deformity was found on exam, no costochondral pain or discomfort. Heart: Regular rate and rhythm, S1, S2 positive S3 positive tachycardia with systolic murmur. Back: Symmetric, no curvature, ROM normal, no CVA tenderness. Abdomen: Soft, non-tender, bowel sounds active all four quadrants, no masses, no organomegaly. Extremities: Slight discoloration from the knee down with slight edema decreased pulse bilaterally. Pulses: Decreased pulse. Skin: Skin color, texture, tugor normal, no rashes or lesions. Neurologic: Alert oriented with slight confusion cranial nerves II to XII intact positive generalized weakness positive abnormal balance and gait. ASSESSMENT AND PLAN: _Acute hypoxic respiratory failure: Combination of COPD exacerbation along with severe bronchitis remain on steroid IV along with O2 updraft treatment and oral Augmentin. _COPD exacerbation with FEV1 of 34 percentile, continue steroid nebulizer along with Solu-Medrol 60 every 6 hours, continue her bronchodilator on a more regular basis. _Severe bronchitis with early pneumonitis: Patient was started on Rocephin her lactic acid is mildly elevated she was switched to Augmentin at this point still having significant leukocytosis not a clear whether this is chronic leukocytosis related to CLL or leukemoid reaction. Repeat CBC in the next few days while she is on steroid. _Advanced dementia: Continue home meds at this point. _Chronic kidney disease downstage to with creatinine below 1.0 BUN still mildly elevated mostly medication related continue gentle hydration with repeat BUN/ creatinine. _Chronic cellulitis of the lower extremity with recurrent infection requiring IV antibiotics in the past has been slightly better continue to have edema required diuretics and patient is on Augmentin currently eventually can be switched probably to doxycycline or cephalexin. _Tachycardia: Remain on Toprol-XL 25 mg a day resume medication. _Hypothyroidism: Still on levothyroxine 50 mcg daily. _Hyperlipidemia: Continue atorvastatin 20 mg a day. _Chronic anxiety attack has been on alprazolam and continue Cymbalta, 20 mg a day can be titrated up to 60 mg if needed. Prognosis: Fair. Discharge: Possibly in the next 48 hours. Objective - Vital Signs Vital signs: Vital Signs Temp 98.2 F 11/24/23 01:53 Pulse 101 H 11/24/23 01:53 Resp 16 11/24/23 01:53 BP 121/70 11/24/23 01:53 Pulse Ox 95 11/24/23 01:53 FiO2 Intake & Output 11/23/23 11/23/23 11/24/23 06:59 18:59 06:59 Intake Total 590 Balance 590 Weight 48 kg 48 kg Intake: Oral 590 Other: Voiding Method Bedside Commode Bedside Commode # Voids 1 1 4 # Bowel Movements 1 - Labs CBC & Chem 7: 11/23/23 07:11 11/23/23 07:11 Labs: Abnormal Lab Results - Last 24 Hours (Table) 11/22/23 11/23/23 11/23/23 Range/Units 18:41 07:09 07:11 WBC 12.55 H (4.50-10.00) X 10*3/uL RBC 3.83 L (4.10-5.20) X 10*6/uL Hct 36.7 L (37.2-46.3) % RDW 15.2 H (11.5-14.5) % Anion Gap (4.00-12.00) mmol/L BUN (9.0-27.0) mg/dL Est GFR (CKD-EPI) (>=60) BUN/Creatinine Ratio (12.00-20.00) Ratio Glucose (70-110) mg/dL POC Glucose (mg/dL) 147 H (70-110) mg/dL Total Protein (6.2-8.2) g/dL Albumin (3.8-4.9) g/dL Procalcitonin 0.20 H (0.02-0.09) ng/mL 11/23/23 11/23/23 11/23/23 Range/Units 07:11 11:50 17:06 WBC (4.50-10.00) X 10*3/uL RBC (4.10-5.20) X 10*6/uL Hct (37.2-46.3) % RDW (11.5-14.5) % Anion Gap 13.10 H (4.00-12.00) mmol/L BUN 35.6 H (9.0-27.0) mg/dL Est GFR (CKD-EPI) 54 L (>=60) BUN/Creatinine Ratio 35.60 H (12.00-20.00) Ratio Glucose 146 H (70-110) mg/dL POC Glucose (mg/dL) 170 H 147 H (70-110) mg/dL Total Protein 5.8 L (6.2-8.2) g/dL Albumin 3.6 L (3.8-4.9) g/dL Procalcitonin (0.02-0.09) ng/mL 11/23/23 Range/Units 19:33 WBC (4.50-10.00) X 10*3/uL RBC (4.10-5.20) X 10*6/uL Hct (37.2-46.3) % RDW (11.5-14.5) % Anion Gap (4.00-12.00) mmol/L BUN (9.0-27.0) mg/dL Est GFR (CKD-EPI) (>=60) BUN/Creatinine Ratio (12.00-20.00) Ratio Glucose (70-110) mg/dL POC Glucose (mg/dL) 231 H (70-110) mg/dL Total Protein (6.2-8.2) g/dL Albumin (3.8-4.9) g/dL Procalcitonin (0.02-0.09) ng/mL Microbiology - Last 24 Hours (Table) 11/22/23 19:40 Blood Culture - Preliminary Blood
[2023-11-25 09:26] VITALS: BP 134/73; RESP 22; TEMP 97
[2023-11-25 11:22] VITALS: PULSE 88
--- NOTE | 2023-11-25 11:38 | P.DS ---
Providers Date of admission: 11/22/23 21:15 Attending physician: José Miguel Bustamante Consults: 11/22/23 21:16 Consult Physician Urgent Consulting Provider: Toni Cowan Consult Reason/Comments: COPD exacerbation Do you want consulting provider notified?: Yes Primary care physician: José Miguel Bustamante [facility] Course: HISTORY OF PRESENT ILLNESS: 88-year-old one of my office patient for over 25 years with history of advanced Alzheimer disease, COPD with recurrent exacerbation, history of hypertension, hyperlipidemia, hypothyroidism, recurrent history of gout, history of hyperglycemia, who was hospitalized 2 months ago with RSV and respiratory failure was in the hospital for over 1 week has done well since. Patient has been cared for by her family since her last few weeks she has 06/03 care. She developed to have severe dyspnea and shortness of breath with worsening cough and wheezes last 48 hours become much worse in the afternoon yesterday per patient brought to the emergency department at [facility] where was seen and evaluated. Her pulse ox was in the 80s she was started on 5 L of O2 try to keep her pulse ox above 90 percentile after few rounds of updraft treatment along with steroid pulse ox improved little bit but still require higher flow oxygen. Her lactic acid was 2.6 and dropped down to 1.4 after initial management RSV, COVID and influenza were negative, UA was negative, proBNP was 1350 with troponin 0.017 creatinine was 0.97 white blood cell 20,700 with left shift normal hemoglobin hematocrit. Her D-dimer was elevated initial chest x-ray showed suspicion of infiltrate in the bases. E EKG showed mild tachycardia only. She ended up having CTA based on her D-dimer being positive CTA shows no embolism but extensive emphysematous change in both lungs with multi compression deformity of the lower thoracic spine up to 90 percentile vertebral body height loss. And ended up having venous Doppler of the lower extremity showed no sign of deep venous thrombosis patient was having little bit more edema and change in the lower extremity. Patient be hospitalized with COPD exacerbation along with early pneumonia initially was giving 1 dose of Rocephin and then switched to Augmentin patient be seen pulmonary and if needed switch to BiPAP to keep her pulse ox above 90 percentile. 11/24/2023: The patient is sitting in bed today doing much better still having slight wheezes, continue to be on Solu-Medrol IV every 6 hours, continue to be on IV antibiotic.Overall her blood sugar is doing better, hemoglobin did not drop much. She was switched to oral Augmentin which will help the time she is ready to go home. Will reduce steroid probably to 40 mg on every 8 and there is a possibility patient might be able to go home in the next 48 hours. November 25, 2023: Patient was seen and evaluated today she is feeling much better, her shortness of breath has improved significantly she is not having much hypoxia she is remain on 3 L of O2 down to 2 L today with pulse ox above 90 percentile. She is remain on oral Augmentin which will be continued for another 7 days. Solu-Medrol be switched to oral prednisone tapering dose from 40 mg down to 10 mg 3 days apart. I spoke with the daughter Audrey updated her on mom condition and will be able to discharge patient home today and afternoon to follow-up in the office on Monday and follow-up with pulmonary hopefully in the next week. REVIEW OF SYSTEMS: CONSTITUTIONAL: Well-developed mild respiratory distress. EYES: No icterus sclerae, no conjunctivitis. EARS, NOSE, MOUTH, THROAT, and FACE: No sore throat, lymphadenopathy, carotid bruits or deformity. RESPIRATORY: Positive shortness of breath cough or wheezes. CARDIOVASCULAR: Positive PND orthopnea palpitation. GASTROINTESTINAL: No Abd pain, Nausea or vomiting, no Diarrhea or constipation, No GI Bleed, no distention or masses. GENITOURINARY: Negative for Hematuria or UTI, no kidney stones. Mild incontinence. INTEGUMENT/BREAST: Negative for any muscular injury with mild osteoarthritis.. HEMATOLOGIC/LYMPHATIC: Negative for bleed or purpura. MUSCULOSKELTAL: Generalized muscle and joint pain with lower back pain as well. NEURLOGICAL: No LOC, Sz or syncope, blurred vision dizziness or abnormality. Advanced dementia and confusion.. BEHAVIORAL/PSYCH: Negative. ENDOCRINE: Negative. PHYSICAL EXAMINATION: General Appearance: Alert, cooperative, mild respiratory distress on a higher O2 flow. Neck HEENT: Supple, no lymphadenopathy, no thyroid enlargement, no carotid bruits. Lungs: Decreased breath sound bilaterally with fine rhonchi positive crackles in the bases positive mild expiratory wheezes. Chest Wall: Decreased expansion with deep inspiration no tenderness and no deformity was found on exam, no costochondral pain or discomfort. Heart: Regular rate and rhythm, S1, S2 positive S3 positive tachycardia with systolic murmur. Back: Symmetric, no curvature, ROM normal, no CVA tenderness. Abdomen: Soft, non-tender, bowel sounds active all four quadrants, no masses, no organomegaly. Extremities: Slight discoloration from the knee down with slight edema decreased pulse bilaterally. Pulses: Decreased pulse. Skin: Skin color, texture, tugor normal, no rashes or lesions. Neurologic: Alert oriented with slight confusion cranial nerves II to XII intact positive generalized weakness positive abnormal balance and gait. ASSESSMENT AND PLAN: _Acute hypoxic respiratory failure: Combination of COPD exacerbation along with severe bronchitis remain on steroid IV along with O2 updraft treatment and oral Augmentin. She is feeling much better continue O2 continue Augmentin for another week. _COPD exacerbation with FEV1 of 34 percentile, continue bronchodilator along with Symbicort and switch her steroid to oral prednisone for tapering dose over the next 12 days. _Severe bronchitis with early pneumonitis: She had earlier leukemoid reaction her WBC down, patient responded well to Augmentin. _Advanced dementia: Continue home meds at this point. _Chronic kidney disease downstage to with creatinine below 1.0 BUN still mildly elevated mostly medication related continue gentle hydration with repeat BUN/creatinine. _Chronic cellulitis of the lower extremity with recurrent infection she is on oral Augmentin continue topical care as well. _Tachycardia: Remain on Toprol-XL 25 mg a day resume medication. _Hypothyroidism: Still on levothyroxine 50 mcg daily. _Hyperlipidemia: Continue atorvastatin 20 mg a day. _Chronic anxiety attack has been on alprazolam and continue Cymbalta, 20 mg a day can be titrated up to 60 mg if needed. Prognosis: Fair. Discharge: She is stable to be discharged home today with family to follow-up in office in the next few days. Hospital course: Patient was admitted with acute respiratory failure secondary to COPD exacerbation along with severe bronchitis and leukocytosis with possible early sepsis. Her sepsis criteria were off patient lactic acid dropped down significantly she did well resuming with IV Rocephin and then switched to oral Augmentin. Patient found to have more bronchitis than pneumonia to be continue oral Augmentin for 7 more days. She is seen pulmonary agree with the current management for her COPD exacerbation with her FEV1 is very low. After being on oral antibiotic for few days patient is doing better on it, her oxygen is down to 2 L this is same like her baseline at home. Patient be able to be discharged home today on November 25, 2023 to follow-up in the office on Monday. Time spent on discharging patient was over 35 minutes. Patient Condition at Discharge: Good Plan - Discharge Summary New Discharge Prescriptions: New predniSONE 10 mg PO DIRECTED #30 tab Budesonide-Formot 160-4.5 Mcg [Symbicort 160-4.5 Mcg Inhaler] 2 puff INHALATION RT-BID #1 each Amoxic-Pot Clav 875-125Mg [Augmentin 875-125] 1 each PO Q12HR #14 tab Continue DULoxetine HCL [Cymbalta] 20 mg PO DAILY allopurinoL [Zyloprim] 100 mg PO DAILY Levothyroxine Sodium [Synthroid] 50 mcg PO DAILY Memantine [Namenda] 10 mg PO DAILY ALPRAZolam [Xanax] 0.25 mg PO DAILY Metoprolol Succinate (ER) [Toprol XL] 25 mg PO DAILY #30 tab Vit C/E/Zn/Coppr/Lutein/Zeaxan [Preservision Areds 2 Softgel] 1 cap PO DAILY Triamterene/Hydrochlorothiazid [Triamterene-Hctz 37.5-25 mg Tb] 1 tab PO DAILY fluorouraciL [Efudex] 1 applic TOPICAL DIRECTED Ipratropium-Albuterol Nebulize [Duoneb 0.5 mg-3 mg/3 ml Soln] 3 ml INHALATION RT-QID PRN PRN Reason: Shortness Of Breath Rivastigmine Tartrate [Exelon] 3 mg PO BID-W/MEALS Acetaminophen Tab [Tylenol] 650 mg PO Q6HR PRN tab PRN Reason: Mild Pain Or Fever > 100.5 Isosorbide Mononitrate ER [Imdur] 30 mg PO DAILY #30 tab Atorvastatin [Lipitor] 20 mg PO DAILY #30 tab Sodium Chloride Tab 1 gm PO DAILY Discharge Medication List DULoxetine HCL [Cymbalta] 20 mg PO DAILY 01/23/22 [History] Rivastigmine Tartrate [Exelon] 3 mg PO BID-W/MEALS 01/23/22 [History] ALPRAZolam [Xanax] 0.25 mg PO DAILY 07/21/23 [History] Levothyroxine Sodium [Synthroid] 50 mcg PO DAILY 07/21/23 [History] Memantine [Namenda] 10 mg PO DAILY 07/21/23 [History] allopurinoL [Zyloprim] 100 mg PO DAILY 07/21/23 [History] Acetaminophen Tab [Tylenol] 650 mg PO Q6HR PRN tab 07/25/23 [Rx] Atorvastatin [Lipitor] 20 mg PO DAILY #30 tab 09/09/23 [Rx] Isosorbide Mononitrate ER [Imdur] 30 mg PO DAILY #30 tab 09/09/23 [Rx] Metoprolol Succinate (ER) [Toprol XL] 25 mg PO DAILY #30 tab 09/09/23 [Rx] Ipratropium-Albuterol Nebulize [Duoneb 0.5 mg-3 mg/3 ml Soln] 3 ml INHALATION RT-QID PRN 11/22/23 [History] Sodium Chloride Tab 1 gm PO DAILY 11/22/23 [History] Triamterene/Hydrochlorothiazid [Triamterene-Hctz 37.5-25 mg Tb] 1 tab PO DAILY 11/22/23 [History] Vit C/E/Zn/Coppr/Lutein/Zeaxan [Preservision Areds 2 Softgel] 1 cap PO DAILY 11/22/23 [History] fluorouraciL [Efudex] 1 applic TOPICAL DIRECTED 11/22/23 [History] Amoxic-Pot Clav 875-125Mg [Augmentin 875-125] 1 each PO Q12HR #14 tab 11/25/23 [Rx] Budesonide-Formot 160-4.5 Mcg [Symbicort 160-4.5 Mcg Inhaler] 2 puff INHALATION RT-BID #1 each 11/25/23 [Rx] predniSONE 10 mg PO DIRECTED #30 tab 11/25/23 [Rx] Follow up Appointment(s)/Referral(s): José Miguel Bustamante MD [Primary Care Provider] - 1-2 days (call office on monday for follow up appt) Ravindra Alcazar DO [Doctor of Osteopathic Medicine] - 1 Week (call office on monday for follow up appt) Patient Instructions/Handouts: Prednisone (By mouth), Amoxicillin/Clavulanate Potassium (By mouth), Budesonide/Formoterol (By breathing), COPD (Chronic Obstructive Pulmonary Disease) (DC) Discharge Disposition: HOME WITH HOME HEALTH SERVICES
[2023-11-25 12:00] LABS: Glucose,Whole Blood 80 mg/dL (70-110)
--- NOTE | 2023-11-25 16:34 | P.PN ---
Subjective Progress Note Date: 11/25/23 Patient is an 88-year-old white female with past medical history significant for COPD, advanced dementia, hypertension, among other things. Patient is a poor historian, secondary to advanced dementia. She is alert. She does not know where she is. She does not know why she would be in the hospital. After reviewing the ER documentation, patient was brought in for shortness of breath. Patient did have a recent hospital admission back in August, for COPD exacerbation secondary to acute RSV infection. She does have severe COPD with an FEV1 34% of predicted. She is currently in the emergency room, room 8. The patient herself denies any complaints. She does not appear dyspneic at rest. She does have a congested cough, which is nonproductive. She is currently sitting up in the stretcher, on 2.5 L/min nasal cannula, in no acute distress. Denies shortness of breath. Denies infectious symptoms or sick contacts. Denies fevers. Denies chest pains. Chest x-ray showed subtle hazy bibasilar opacities, possibly atelectasis versus infectious/inflammatory process. D-dimer was elevated greater than 34, a follow-up chest CTA did not show any evidence of pulmonary embolism. It did show extensive emphysematous changes bilaterally. No acute cardiopulmonary process. Compression deformities of the mid and lower thoracic spine redemonstrated, without to 90% vertebral body height loss. She was started on a heparin drip in the emergency room per protocol. There is a venous doppler pending. No unilateral swelling noted. CBC: WBC 20.7, hemoglobin 13.7, hematocrit 43, platelets 216. BMP: Sodium 136, potassium 3.7, chloride 100, serum bicarb 27, BUN 47, creatinine 0.97, glucose 221. Lactic acid level was 2.6 down to 1.4. LFTs mildly elevated. Troponin 0.017. NT proBNP 1350. Negative for influenza, RSV, COVID. Afebrile. Hemodynamically stable. The patient is seen today. She has obvious cognitive impairment and the patient is underlying dementia. Most of the information was obtained from the daughter at the bedside. I have taken care of the patient's in the past who has . Since his passing away, her condition has become progressively worse and the patient has experienced diminished oral intake and currently is coming with worsening shortness of breath typical of an ongoing COPD exacerbation. CAT scan of the chest was reviewed and the patient has COPD with upper lobe predominance. She has compression fracture of the thoracic spine. No consolidation or airspace disease. On 11/24/2023, patient is being seen for a follow-up. Less short of breath compared to yesterday. Less bronchospastic and wheezy and the patient is currently on 2 L of oxygen by nasal cannula. Sitting up in a chair and tolerating diet. No altered mentation or confusion. The white cell count is down to 4.5 with a hemoglobin of 12. Electrolytes are all stable. Remains on DuoNeb updrafts. Remains on IV Solu-Medrol 60 mg every 6 hours. Remains on Augmentin. Rest of the home medication have been all resumed. No other significant events overnight. On today's evaluation of 11/25/2023, no new complaints the patient is doing well. Patient is doing better. No agitation. No confusion. No altered mentation other than the baseline cognitive impairments. The plan is to discharge this patient today. She is felt better with treatment and the patient is going to be going home on a prednisone burst taper and a course of Augmentin. Objective - Vital Signs Vital signs: Vital Signs Temp 97.0 F L 11/25/23 07:42 Pulse 88 11/25/23 11:06 Resp 22 11/25/23 07:42 BP 134/73 11/25/23 07:42 Pulse Ox 97 11/25/23 07:42 FiO2 Intake & Output 11/24/23 11/25/23 11/25/23 18:59 06:59 18:59 Intake Total 118 Balance 118 Intake: Oral 118 Other: Voiding Method Bedside Commode # Voids 1 2 # Bowel Movements 1 1 - Exam GENERAL EXAM: Alert, 88-year-old white male female, comfortable in no apparent distress. HEAD: Normocephalic and atraumatic EYES: Normal reaction of pupils, equal size. NOSE: Clear with pink turbinates. THROAT: No erythema or exudates. NECK: No masses, no JVD. CHEST: No chest wall deformity. LUNGS: Equal air entry with markedly diminished lung sounds throughout. No aircraft engine dismantler ckles, wheeze, rhonchi or dullness. On 2.5 L/min nasal cannula. No conversational dyspnea or accessory muscle use while at rest. There is a persistent nonproductive congested cough CVS: S1 and S2 normal with no audible murmur, regular rhythm. No extra heart sounds ABDOMEN: No hepatosplenomegaly, active bowel sounds, no guarding or rigidity. SPINE: No scoliosis or deformity SKIN: No rashes CENTRAL NERVOUS SYSTEM: No focal deficits, tone is normal in all 4 extremities. EXTREMITIES: There is no peripheral edema, clubbing, or cyanosis. Peripheral pulses are intact. - Labs CBC & Chem 7: 11/23/23 07:11 11/23/23 07:11 Labs: Abnormal Lab Results - Last 24 Hours (Table) 11/24/23 11/24/23 11/25/23 Range/Units 17:08 20:13 07:47 POC Glucose (mg/dL) 176 H 259 H 116 H (70-110) mg/dL Microbiology - Last 24 Hours (Table) 11/22/23 19:40 Blood Culture - Preliminary Blood Assessment and Plan Plan: Acute hypoxemic respiratory failure, likely secondary to suspected acute COPD exacerbation, chest CTA did not show any evidence of pulmonary embolism. It did show extensive emphysematous changes bilaterally. No acute cardiopulmonary process. Negative for influenza, RSV, COVID. No evidence of any consolidation or airspace disease. Compression fracture of the T-spine was noted. Patient is an ex-smoker. Clinically improved Acute on chronic dyspnea, likely secondary to above, currently on 2 L of oxygen by nasal cannula Acute leukocytosis Elevated D-dimer, chest CTA did not demonstrate any filling defects within the pulmonary vasculature to suggest pulmonary emboli. 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
--- NOTE | 2023-11-28 15:06 | CDI ---
Documentation Clarification Form Date: 11/28/2023 02:48:01 PM From: Josie Long RN, CCDS Email: [email or web address] Admit Date: 11/22/2023 09:15:00 PM Patient Name: Joceline Barrera Visit Number: [id number] Discharge Date: 11/25/2023 02:02:00 PM ATTENTION: The Clinical Documentation Specialists (CDI) and [facility] Coding Staff appreciate your assistance in clarifying documentation. Please respond to the clarification below the line at the bottom and electronically sign. The CDI & [facility] Coding staff will review the response and follow-up if needed. Please note: Queries are made part of the Legal Health Record. If you have any questions, please contact the author of this message via ITS. Dr. José Miguel Bustamante Possible early Sepsis is documented in the 11/24 progress note and the discharge summary. Additional clarification is requested. History/Risk Factors: COPD, dementia, HTN, DC and OA. Presented with shortness of breath and cough with O2 desaturation. Clinical Indicators: H&P: "Acute hypoxic respiratory failure. Severe bronchitis with early pneumonitis: Patient was started on Rocephin her lactic acid is mildly elevated. She is on Augmentin at this point and still having significant leukocytosis. Not clear whether this is chronic leukocytosis related to CLL or leukemoid reaction." 11/24 IM and Discharge summary: "Patient was admitted with acute respiratory failure secondary to COPD exacerbation along with severe bronchitis and leukocytosis with possible early sepsis.Her sepsis criteria were off, patient lactic acid dropped down significantly. She did well with IV Rocephin and then switched to oral Augmentin." 11/21 WBC: 20.7, lactic acid 2.6-1.4, Procalcitonin 0.20, Blood cultures no growth 11/22 WBC: 12.55 11/21 HR 121-101-97, RR 18-22, pox 82% Treatment: IV Rocephin 1gm x1 on 11/21; Augmentin po Q12H 11/22-11/24; IV Solumedrol 125mg x1 on 11/21; IV Solumedrol 60mg Q6H 11/22-11/24; 1L 0.9 NS IV bolus on 11/21 After work up and study, please clarify which diagnosis is most appropriate? [ ] Sepsis ruled out [ ] Sepsis treated prophylactically [ XX ] Sepsis is a valid diagnosis as evidence by the following: (Please add rationale): _Bronchitis and early Pneumonia [ ] Other, please specify [ ] Unable to determine MTDD
== END 2023-11-25 14:02 | disposition home health service (06) | DRG 871 ==
LOC: EC 17:54 → 3SCARD 21:15 → 5NMEDONC 22:27
PROVIDERS: ADMIT Internal Medicine Geriatric Medicine; ATTEND Internal Medicine Geriatric Medicine
DX: A41.9 Sepsis, unspecified organism (principal); J18.9 Pneumonia, unspecified organism; J96.01 Acute respiratory failure with hypoxia; J44.0 Chronic obstructive pulmonary disease with (acute) lower respiratory infection; M48.54XA Collapsed vertebra, not elsewhere classified, thoracic region, initial encounter for fracture; L03.116 Cellulitis of left lower limb; J44.1 Chronic obstructive pulmonary disease with (acute) exacerbation; Z68.1 Body mass index [BMI] 19.9 or less, adult; J98.4 Other disorders of lung; I12.9 Hypertensive chronic kidney disease with stage 1 through stage 4 chronic kidney disease, or unspecified chronic kidney disease; N18.30 Chronic kidney disease, stage 3 unspecified; G30.9 Alzheimer's disease, unspecified; F02.80 Dementia in other diseases classified elsewhere, unspecified severity, without behavioral disturbance, psychotic disturbance, mood disturbance, and anxiety; E78.5 Hyperlipidemia, unspecified; J40 Bronchitis, not specified as acute or chronic; R63.6 Underweight; E03.9 Hypothyroidism, unspecified; D72.823 Leukemoid reaction; I25.2 Old myocardial infarction; Z79.890 Hormone replacement therapy; Z79.899 Other long term (current) drug therapy; Z87.891 Personal history of nicotine dependence; Z11.52 Encounter for screening for COVID-19
CPT/HCPCS: 36415; 71046; 71275; 80053; 81003; 83605; 83735; 83880; 84145; 84484; 85025; 85027; 85379; 85610; 85730; 87040; 87636; 93005; 93970; 94640; 94760; 96361; 96365; 96375; 99291